=== PATIENT | female | born 1960 | race Caucasian/White ===

== ENCOUNTER 2019-06-28 06:52 | Day surgery (SDC) | payer OTHER ==
--- NOTE | 2019-06-27 12:23 | HP ---
CHIEF COMPLAINT: PCP: Dr. Luna Sands [phone] Primary Psychiatrist: Dr. Darryn Montaño HISTORY OF PRESENT ILLNESS: 58 year old F with h/o HLD, bipolar disorder and MDD x 7yrs, multiple suicide attempts, presents for ECT therapy today. Recent Events: Over the summer, pt reports non-compliance with meds which resulted in psychiatric flares: most recent psych admission at [facility] 04/02--04/19/2019, overdosed on abilify/ flexeril/lexapro self injurious behavior by cutting Mar 2019 Admitted to [facility] 05/05/2019 --> Medical records state she was admitted after being found on the [employer] tracks, pt's picture taken by conductor and she was reported by a member of the public who able to identify her. PAST MEDICAL HISTORY: hyperlipidemia HSV II Bipolar disorder borderline personality disorder multiple suicide attempts w/ multiple psych admissions (previously jumped from a bridge, prior overdose attempt) prior Alcohol use disorder PAST SURGICAL HISTORY: s/p lab band surgery right Rotator cuff repair x 3 T and A right breast biopsy Social History: Smoking:denies Alcohol: denies Drugs: denies Allergies: NKA, NKDA FmHX Mother (70s) Lung cancer Father (89) natural causes Sister (44) breast cancer Brother (25) bipolar d/o, by suicide sister alive (58) well Next of Kin (daughter) Sabrina Burrell [phone] HOME MEDICATIONS: Zyrtec 10mg daily Rhinocort 32mcg sprays BID flexeril 10mg tid naproxen 500mg BID motrin 800mg TID PRN Lidoderm patch Protonix 40mg daily Cogentin 1mg TID Abilify 20mg daily aspirin 81mg daily simvastatin 40mg qhs VITALS: Temperature 98.5 F 06/28/19 11:00 Pulse Rate 77 06/28/19 11:00 Respiratory Rate 18 06/28/19 11:00 Blood Pressure 130/70 06/28/19 11:00 O2 Sat by Pulse Oximetry (%) 97 06/28/19 10:45 REVIEW OF SYSTEMS CONSTITUTIONAL: Absent: fever, chills, diaphoresis, generalized weakness, malaise, loss of appetite, weight change HEENT: Absent: rhinorrhea, nasal congestion, throat pain, throat swelling, difficulty swallowing, mouth swelling, ear pain, eye pain, visual changes CARDIOVASCULAR: Absent: chest pain, syncope, palpitations, irregular heart rate, lightheadedness , peripheral edema RESPIRATORY: Absent: cough, shortness of breath, dyspnea with exertion, orthopnea, wheezing, stridor, hemoptysis GASTROINTESTINAL: Absent: abdominal pain, abdominal distension, nausea, vomiting, diarrhea, constipation, melena, hematochezia GENITOURINARY: Absent: dysuria, frequency, urgency, hesitancy, hematuria, flank pain, genital pain MUSCULOSKELETAL: Absent: myalgia, arthralgia, joint swelling, back pain, neck pain, b/l shoulder pain SKIN: Absent: rash, itching, pallor HEMATOLOGIC/IMMUNOLOGIC: Absent: easy bleeding, easy bruising, lymphadenopathy, frequent infections ENDOCRINE: Absent: unexplained weight gain, unexplained weight loss, heat intolerance, cold intolerance NEUROLOGIC: Absent: headache, focal weakness or paresthesias, dizziness, unsteady gait, seizure, mental status changes, bladder or bowel incontinence PHYSICAL EXAMINATION GENERAL: Awake, alert, and fully oriented, in no acute distress. HEAD: Normal with no signs of trauma. EYES: Pupils equal, round and reactive to light, sclera anicteric, conjunctiva clear. LUNGS: Breath sounds equal, clear to auscultation bilaterally. No wheezes, and no crackles. No accessory muscle use. HEART: Regular rate and rhythm, normal S1 and S2 ABDOMEN: Soft, non-tender, non-distended, +BS MUSCULOSKELETAL: Normal range of motion at all joints. No bony deformities or tenderness. No CVA tenderness. normal muscle strength. UPPER EXTREMITIES: 2+ pulses, warm, well-perfused. No cyanosis. No clubbing. No peripheral edema. LOWER EXTREMITIES: 2+ pulses, warm, well-perfused. No calf tenderness. No peripheral edema. NEUROLOGICAL: Cranial nerves II-XII intact. Normal speech. EK05/09/2019: (my read) SB 58bpm, PRWP, low voltage, no acute changes. LUIS 142ms, QRS 84ms, QT /QTc 422/414ms. Labs: routine labs including lithium done at outside facility 06/20 WNL. Lipid panel done 05/2019 with elevated lipid levels. ASSESSMENT/PLAN: 58 year old F with MDD and bipolar present for ECT after commencing therapy three times weekly while hospitalized at [place] for psyshiatric instability. Patient is now compliant with medication regimen and her mental health had improved. She is medically stable to undergo ECT today. Cardiac --+ Hyperlipidemia, moderate obesity. no prior cardiac events Pulmonary --no pulmonary history Neurological --no neurological or neurosurgical history; no history of trauma Anesthesia --no reported problems with anesthesia ECT is a low risk procedure. The relative benefits of the planned procedure outweigh the relative risks for this patient at this time. Problem List - Problem (1) MDD (major depressive disorder) Code(s): F32.9 - MAJOR DEPRESSIVE DISORDER, SINGLE EPISODE, UNSPECIFIED (2) Hyperlipidemia Code(s): E78.5 - HYPERLIPIDEMIA, UNSPECIFIED (3) Bipolar disorder with depression Code(s): F31.9 - BIPOLAR DISORDER, UNSPECIFIED Visit type - Emergency Visit Emergency Visit: Yes Care time: The patient presented to the Emergency Department on the above date and was hospitalized for further evaluation of their emergent condition. - New Patient This patient is new to me today: Yes Date on this admission: 06/28/19 - Critical Care Critical Care patient: No
[2019-06-28 07:44] VITALS: BMI 31.6
[2019-06-28] MEDS ORDERED: KETAMINE HCL 500 MG/10 ML VIAL ONE (09:26)
[2019-06-28 10:52] VITALS: BP 130/70; PULSE 77; TEMP 98.5
== END 2019-06-28 11:00 | disposition home or self-care (01) ==
LOC: FECT 06:52
PROVIDERS: ATTEND Psychiatry & Neurology Psychiatry
PROC: GZB4ZZZ Other Electroconvulsive Therapy (ICD-10-PCS; principal; 2019-06-28 08:15)
DX: F33.2 Major depressive disorder, recurrent severe without psychotic features (principal)
CPT/HCPCS: 90870; 94760

== ENCOUNTER 2019-07-07 05:51 | Day surgery (SDC) | payer OTHER ==
[2019-07-01 13:09] VITALS: BMI 31.6
[2019-07-07 07:28] VITALS: TEMP 98.3
[2019-07-07] MEDS ORDERED: KETAMINE HCL 500 MG/10 ML VIAL ONE (08:51)
[2019-07-07] MEDS ORDERED: ACETAMINOPHEN 325 MG TABLET (FP) PO PRN (10:14)
[2019-07-07] MEDS ORDERED: ONDANSETRON 4 MG/2 ML VIAL IVPUSH PRN (10:14)
[2019-07-07 10:39] VITALS: BP 121/79; PULSE 60
== END 2019-07-07 10:50 | disposition home or self-care (01) ==
LOC: FECT 05:51
PROVIDERS: ATTEND Psychiatry & Neurology Psychiatry
PROC: GZB4ZZZ Other Electroconvulsive Therapy (ICD-10-PCS; principal; 2019-07-07 08:15)
DX: F33.2 Major depressive disorder, recurrent severe without psychotic features (principal)
CPT/HCPCS: 90870; 94760

== ENCOUNTER 2019-07-14 05:56 | Day surgery (SDC) | payer OTHER ==
[2019-07-07 17:56] VITALS: BMI 25.7
[2019-07-14] MEDS ORDERED: KETAMINE HCL 500 MG/10 ML VIAL ONE (07:40)
[2019-07-14 08:44] VITALS: TEMP 98.8
[2019-07-14 10:25] VITALS: BP 126/74; PULSE 61
== END 2019-07-14 10:27 | disposition home or self-care (01) ==
LOC: FECT 05:56
PROVIDERS: ATTEND Psychiatry & Neurology Psychiatry
PROC: GZB4ZZZ Other Electroconvulsive Therapy (ICD-10-PCS; principal; 2019-07-14 08:00)
DX: F32.9 Major depressive disorder, single episode, unspecified (principal)
CPT/HCPCS: 90870; 94760

== ENCOUNTER 2019-07-20 05:45 | Day surgery (SDC) | payer OTHER ==
[2019-07-20 06:19] VITALS: TEMP 98; BMI 25.7
[2019-07-20] MEDS ORDERED: KETAMINE HCL 500 MG/10 ML VIAL ONE (07:01)
[2019-07-20 08:39] VITALS: BP 109/72; PULSE 60
== END 2019-07-20 09:10 | disposition home or self-care (01) ==
LOC: FECT 05:45
PROVIDERS: ATTEND Psychiatry & Neurology Psychiatry
PROC: GZB4ZZZ Other Electroconvulsive Therapy (ICD-10-PCS; principal; 2019-07-20 07:15)
DX: F32.9 Major depressive disorder, single episode, unspecified (principal)
CPT/HCPCS: 90870; 94760

== ENCOUNTER 2019-07-27 05:49 | Day surgery (SDC) | payer OTHER ==
[2019-07-27 07:48] VITALS: TEMP 98.1; BMI 31.6
[2019-07-27] MEDS ORDERED: KETAMINE HCL 500 MG/10 ML VIAL ONE (08:33)
[2019-07-27 10:01] VITALS: BP 110/71; PULSE 65
== END 2019-07-27 10:00 | disposition home or self-care (01) ==
LOC: FECT 05:49
PROVIDERS: ATTEND Psychiatry & Neurology Psychiatry
PROC: GZB4ZZZ Other Electroconvulsive Therapy (ICD-10-PCS; principal; 2019-07-27 07:15)
DX: F33.2 Major depressive disorder, recurrent severe without psychotic features (principal)
CPT/HCPCS: 90870; 94760

== ENCOUNTER 2019-07-28 03:27 | Emergency (ER) | payer OTHER ==
[2019-07-28 03:37] VITALS: BP 113/60; PULSE 69; TEMP 98.1; BMI 32.4
[2019-07-28] MEDS ORDERED: SODIUM CHLORIDE 1,000 ML IV ONE (03:51)
--- NOTE | 2019-07-28 03:56 | PDOC ---
History of Present Illness - General Chief Complaint: Diarrhea Stated Complaint: DIARRHEA Time Seen by Provider: 07/28/19 03:50 History Source: Patient Exam Limitations: No Limitations - History of Present Illness Initial Comments: 07/28/19 03:55 This is a 58-year-old female who comes in complaining of multiple episodes of profuse watery diarrhea. Patient denies any blood in the diarrhea. Patient denies any travel. Patient denies any associated symptoms of nausea vomiting or abdominal pain. Patient is other ryder healthy. Patient does have a history of bipolar for which she gets ECT therapy and patient had ECT therapy yesterday and the diarrhea started approximately 11:00 yesterday morning. Allergies: as per nursing notes Past Medical History: none Social history: Lives with family. No smoking. No alcohol. No illicit drugs. Surgical history: None General: No fevers or chills, no weakness, no weight loss HEENT: No change in vision. No sore throat,. No ear pain CardioVascular: no chest discomfort. No shortness of breath Respiratory:No cough, or wheezing. Gastrointestinal: no nausea, vomiting, + diarrhea or constipation, No rectal bleeding Genitourinary: No dysuria, hematuria, or frequency Musculoskeletal: No joint or muscle pain or swelling Neurologic: No headache, vertigo, dizziness or loss of consciousness Psychiatric: nor depression Skin: No rashes or easy bruising Endocrine: no increased thirst or abnormal weight change Allergic: no skin or latex allergy All other systems reviewed and normal Exam: General: Well-nourished well-developed individual, no acute distress HEENT: Throat: Normal, tonsils normal, no erythema or exudate Neck: Supple, no meningeal signs, no lymphadenopathy Eyes::Pupils equal reactive and round, extraocular motion intact Chest: Nontender to palpation Cardiac: S1-S2 normal, regular rate and rhythm, no murmurs rubs or gallops Respiratory: Lungs clear to auscultation bilateral Abdomen: Soft, nondistended, normal bowel sounds, there is no tenderness on palpation diffusely Extremities: Warm, dry, no cyanosis, clubbing, or edema Skin: No rashes Neuro: Alert and oriented x3, CN II - XII intact, nonfocal exam with normal strength, normal sensation, normal reflexes, normal gait, Psych: Normal mood and affect Past History - Past Medical History Allergies/Adverse Reactions: Allergies Allergy/AdvReac Type Severity Reaction Status Date / Time No Known Allergies Allergy Verified 07/01/19 13:04 Home Medications: Ambulatory Orders Aripiprazole [Abilify] 20 mg PO DAILY 06/28/19 Atorvastatin Ca [Lipitor] 40 mg PO DAILY 06/28/19 Escitalopram Oxalate [Lexapro -] 20 mg PO DAILY 06/28/19 [place] Carbonate [Eskalith -] 600 mg PO BID 06/28/19 Cancer: No Cardiac Disorders: No COPD: No Diabetes: No HTN: Yes (HYPO) Hypercholesterolemia: Yes Seizures: No Thyroid Disease: No - Psycho Social/Smoking Cessation Hx Smoking History: Unknown if ever smoked Have you smoked in the past 12 months: No Number of Cigarettes Smoked Daily: 0 Information on smoking cessation initiated: No Hx Alcohol Use: No Drug/Substance Use Hx: No Substance Use Type: Alcohol Hx Substance Use Treatment: No *Physical Exam - Vital Signs Last Vital Signs Temp Pulse Resp BP Pulse Ox 98.1 F 69 14 113/60 97 07/28/19 03:28 07/28/19 03:28 07/28/19 03:28 07/28/19 03:28 07/28/19 03:28 Discharge - Discharge Information Problems reviewed: Yes Clinical Impression/Diagnosis: Diarrhea Condition: Good Disposition: HOME - Admission No - Follow up/Referral - Patient Discharge Instructions Additional Instructions: Purchase some Imodium and take as directed on the bottle. Return to the emergency department immediately with ANY new, persistent or worsening symptoms. Continue any medications as previously prescribed by your physician. You should follow up with your primary doctor as soon as possible regarding today's emergency department visit. . Please make sure your doctor reviews the results of your emergency evaluation. Thank you for coming to the Emergency Department today for your care. It was a pleasure to see you today. Please note that your evaluation is INCOMPLETE until you follow-up with your doctor. - Post Discharge Activity
[2019-07-28] MEDS ORDERED: LOPERAMIDE HCL 2 MG CAPSULE PO ONE (03:58)
[2019-07-28] MEDS ORDERED: LOPERAMIDE HCL 2 MG CAPSULE ONE (04:14)
[2019-07-28 04:45] LABS: BASO % 0.6 % (0-2.0); EOS % 2.7 % (0-4.5); HEMATOCRIT 39.2 % (32.4-45.2); HEMOGLOBIN 13.1 GM/dL (10.7-15.3); LYMPH % 18.1 % (8-40); MCHC 33.3 g/dl (32.0-36.0); MEAN PLT VOLUME 8.5 fl (7.5-11.1); MONO % 4.3 % (3.8-10.2); NEUT % 74.3 % (42.8-82.8); PLATELET COUNT 238 K/MM3 (134-434); RBC 4.36 M/mm3 (3.60-5.2); RDW 13.6 % (11.6-15.6); WHITE BLOOD COUNT 13.6 K/mm3 (4.0-10.0)
[2019-07-28 05:10] LABS: ALBUMIN 3.8 g/dl (3.4-5.0); BILIRUBIN,TOTAL 0.2 mg/dL (0.2-1); BLOOD UREA NITROGEN 15.2 mg/dL (7-18); CALCIUM 9.1 mg/dL (8.5-10.1); CREATININE 0.8 mg/dL (0.55-1.3); POTASSIUM 4.2 mmol/L (3.5-5.1); TOT PROT 6.5 g/dl (6.4-8.2)
== END 2019-07-28 05:20 | disposition home or self-care (01) ==
LOC: FER 03:27
DX: R19.7 Diarrhea, unspecified (principal); E03.9 Hypothyroidism, unspecified; E78.00 Pure hypercholesterolemia, unspecified
CPT/HCPCS: 36415; 80053; 85025; 99282-25; J7030

== ENCOUNTER 2019-08-04 05:45 | Day surgery (SDC) | payer OTHER ==
[2019-08-04 06:52] VITALS: BMI 29.7
--- NOTE | 2019-08-04 07:18 | HP ---
CHIEF COMPLAINT: Major depressive disorder PCP: Dr. Luna Sands [phone] Primary Psychiatrist: Dr. Darryn Montaño HISTORY OF PRESENT ILLNESS: 58 year-old female with a PMH significant for major depressive disorder and bipolar disorder with h/o multiple suicide attempts, presents for ECT therapy today. Recent Events: * Psych admission [facility] 04/02--04/19/2019, overdosed on abilify/flexeril/lexapro * Psych admission [place] 05/05/2019 --> found on the [employer] PAST MEDICAL HISTORY: hyperlipidemia HSV II Bipolar disorder borderline personality disorder multiple suicide attempts w/ multiple psych admissions (previously jumped from a bridge, prior overdose attempt) prior Alcohol use disorder PAST SURGICAL HISTORY: s/p lab band surgery right Rotator cuff repair x 3 T and A right breast biopsy Rotator cuff injury Social History: Smoking:denies Alcohol: denies Drugs: denies Allergies: NKA, NKDA FmHX Mother (70s) Lung cancer Father (89) natural causes Sister (44) breast cancer Brother (25) bipolar d/o, by suicide sister alive (58) well Next of Kin (daughter) Sabrina Burrell [phone] HOME MEDICATIONS: Zyrtec 10mg daily Rhinocort 32mcg sprays BID flexeril 10mg tid naproxen 500mg BID motrin 800mg TID PRN Lidoderm patch Protonix 40mg daily Cogentin 1mg TID Abilify 20mg daily aspirin 81mg daily simvastatin 40mg qhs VITALS: Temperature 98.5 F 06/28/19 11:00 Pulse Rate 77 06/28/19 11:00 Respiratory Rate 18 06/28/19 11:00 Blood Pressure 130/70 06/28/19 11:00 O2 Sat by Pulse Oximetry (%) 97 06/28/19 10:45 REVIEW OF SYSTEMS CONSTITUTIONAL: Absent: fever, chills, diaphoresis, generalized weakness, malaise, loss of appetite, weight change HEENT: Absent: rhinorrhea, nasal congestion, throat pain, throat swelling, difficulty swallowing, mouth swelling, ear pain, eye pain, visual changes CARDIOVASCULAR: Absent: chest pain, syncope, palpitations, irregular heart rate, lightheadedness , peripheral edema RESPIRATORY: Absent: cough, shortness of breath, dyspnea with exertion, orthopnea, wheezing, stridor, hemoptysis GASTROINTESTINAL: Absent: abdominal pain, abdominal distension, nausea, vomiting, diarrhea, constipation, melena, hematochezia GENITOURINARY: Absent: dysuria, frequency, urgency, hesitancy, hematuria, flank pain, genital pain MUSCULOSKELETAL: Absent: myalgia, arthralgia, joint swelling, back pain, neck pain SKIN: Absent: rash, itching, pallor HEMATOLOGIC/IMMUNOLOGIC: Absent: easy bleeding, easy bruising, lymphadenopathy, frequent infections ENDOCRINE: Absent: unexplained weight gain, unexplained weight loss, heat intolerance, cold intolerance NEUROLOGIC: Absent: headache, focal weakness or paresthesias, dizziness, unsteady gait, seizure, mental status changes, bladder or bowel incontinence PHYSICAL EXAMINATION Vital Signs Period Temp Pulse Resp BP Sys/Hernández Pulse Ox Last 24 Hr 98.4 F 69 18 111/66 96 GENERAL: Awake, alert, and fully oriented, in no acute distress. HEAD: Normal with no signs of trauma. EYES: Pupils equal, round and reactive to light, sclera anicteric, conjunctiva clear. LUNGS: Breath sounds equal, clear to auscultation bilaterally. No wheezes, and no crackles. No accessory muscle use. HEART: Regular rate and rhythm, normal S1 and S2 ABDOMEN: Soft, non-tender, non-distended, +BS MUSCULOSKELETAL: Normal range of motion at all joints. No bony deformities or tenderness. No CVA tenderness. normal muscle strength. UPPER EXTREMITIES: 2+ pulses, warm, well-perfused. No cyanosis. No clubbing. No peripheral edema. LOWER EXTREMITIES: 2+ pulses, warm, well-perfused. No calf tenderness. No peripheral edema. NEUROLOGICAL: Cranial nerves II-XII intact. Normal speech. ASSESSMENT/PLAN: 58 year-old female with a PMH significant for major depressive disorder and bipolar disorder with h/o multiple suicide attempts, presents for ECT therapy today. Cardiac --no cardiac history --Revised Cardiac Risk Index for Pre-Operative Risk: 0 points, 0.4% risk of major cardiac event Pulmonary --no pulmonary history Neurological --no neurological or neurosurgical history; no history of trauma Anesthesia --no reported problems with anesthesia ECT is a low risk procedure. The relative benefits of the planned procedure outweigh the relative risks for this patient at this time. Visit type - Emergency Visit Emergency Visit: No - New Patient This patient is new to me today: Yes Date on this admission: 08/04/19 - Critical Care Critical Care patient: No
[2019-08-04] MEDS ORDERED: KETAMINE HCL 500 MG/10 ML VIAL ONE (07:33)
[2019-08-04 08:28] VITALS: TEMP 97.7
[2019-08-04 09:50] VITALS: BP 103/55; PULSE 76
[2019-08-04] MEDS ORDERED: ONDANSETRON 4 MG/2 ML VIAL IVPUSH PRN (11:13)
[2019-08-04] MEDS ORDERED: LACTATED RINGERS SOLUTION 1,000 ML IV SCH (11:15)
== END 2019-08-04 09:52 | disposition home or self-care (01) ==
LOC: FECT 05:45
PROVIDERS: ATTEND Psychiatry & Neurology Psychiatry
PROC: GZB4ZZZ Other Electroconvulsive Therapy (ICD-10-PCS; principal; 2019-08-04 07:30)
DX: F32.9 Major depressive disorder, single episode, unspecified (principal)
CPT/HCPCS: 90870; 94760

== ENCOUNTER 2019-08-09 05:50 | Day surgery (SDC) | payer OTHER ==
[2019-08-09 06:22] VITALS: TEMP 98.5; BMI 29.7
[2019-08-09] MEDS ORDERED: KETAMINE HCL 500 MG/10 ML VIAL ONE (07:00)
[2019-08-09 08:31] VITALS: BP 105/68; PULSE 62
== END 2019-08-09 08:50 | disposition home or self-care (01) ==
LOC: FECT 05:50
PROVIDERS: ATTEND Psychiatry & Neurology Psychiatry
PROC: GZB4ZZZ Other Electroconvulsive Therapy (ICD-10-PCS; principal; 2019-08-09 08:15)
DX: F32.9 Major depressive disorder, single episode, unspecified (principal)
CPT/HCPCS: 90870; 94760

== ENCOUNTER 2019-08-16 07:55 | Day surgery (SDC) | payer OTHER ==
[~2019-08-16 07:55] MED LIST: LACTATED RINGERS SOLUTION 1,000 ML IV SCH
[2019-08-16 08:10] VITALS: BMI 29.6
[2019-08-16] MEDS ORDERED: KETAMINE HCL 500 MG/10 ML VIAL ONE (08:29)
[2019-08-16 10:15] VITALS: TEMP 98.1
[2019-08-16 11:00] VITALS: BP 114/76; PULSE 76
== END 2019-08-16 11:01 | disposition home or self-care (01) ==
LOC: FECT 07:55
PROVIDERS: ATTEND Psychiatry & Neurology Psychiatry
PROC: GZB4ZZZ Other Electroconvulsive Therapy (ICD-10-PCS; principal; 2019-08-16 07:45)
DX: F33.2 Major depressive disorder, recurrent severe without psychotic features (principal)
CPT/HCPCS: 90870; 94760

== ENCOUNTER 2019-08-22 05:47 | Day surgery (SDC) | payer OTHER ==
[2019-08-22] MEDS ORDERED: LACTATED RINGERS SOLUTION 1,000 ML IV SCH (07:00)
[2019-08-22 07:59] VITALS: BMI 31.6
[2019-08-22] MEDS ORDERED: KETAMINE HCL 500 MG/10 ML VIAL ONE (09:13)
[2019-08-22 10:33] VITALS: PULSE 72; TEMP 98
[2019-08-22 11:12] VITALS: BP 124/60
== END 2019-08-22 11:45 | disposition home or self-care (01) ==
LOC: FECT 05:47
PROVIDERS: ATTEND Psychiatry & Neurology Psychiatry
PROC: GZB4ZZZ Other Electroconvulsive Therapy (ICD-10-PCS; principal; 2019-08-22 08:30)
DX: F33.2 Major depressive disorder, recurrent severe without psychotic features (principal)
CPT/HCPCS: 90870; 94760

== ENCOUNTER 2019-08-29 05:51 | Day surgery (SDC) | payer OTHER ==
[2019-08-29 06:49] VITALS: TEMP 98.7; BMI 31.6
[2019-08-29] MEDS ORDERED: KETAMINE HCL 500 MG/10 ML VIAL ONE (07:30)
[2019-08-29 09:25] VITALS: BP 118/60; PULSE 66
== END 2019-08-29 09:25 | disposition home or self-care (01) ==
LOC: FECT 05:51
PROVIDERS: ATTEND Psychiatry & Neurology Psychiatry
PROC: GZB4ZZZ Other Electroconvulsive Therapy (ICD-10-PCS; principal; 2019-08-29 07:15)
DX: F33.2 Major depressive disorder, recurrent severe without psychotic features (principal)
CPT/HCPCS: 90870; 94760

== ENCOUNTER 2019-09-06 05:41 | Day surgery (SDC) | payer OTHER ==
[2019-09-06 06:59] VITALS: TEMP 98.5; BMI 31.6
[2019-09-06] MEDS ORDERED: KETAMINE HCL 500 MG/10 ML VIAL ONE (07:41)
--- NOTE | 2019-09-06 07:55 | HP ---
CHIEF COMPLAINT: Major depressive disorder PCP: Dr. Luna Sands [phone] Primary Psychiatrist: Dr. Darryn Montaño, [facility], [place] Next of Kin (daughter) Sabrina Burrell [phone] HISTORY OF PRESENT ILLNESS: 58 year-old female with a PMH significant for major depressive disorder and bipolar disorder with h/o multiple suicide attempts, presents for ECT therapy today. Recent Events: * Psych admission [facility] 04/02--04/19/2019, overdosed on abilify/flexeril/lexapro * Psych admission [place] 05/05/2019 --> found on the [employer] tracks * Going to for right rotator cuff injury PAST MEDICAL HISTORY: hyperlipidemia HSV II Bipolar disorder borderline personality disorder multiple suicide attempts w/ multiple psych admissions (previously jumped from a bridge, prior overdose attempt) prior Alcohol use disorder PAST SURGICAL HISTORY: s/p lab band surgery right Rotator cuff repair x 3 T and A right breast biopsy Rotator cuff injury Social History: Smoking:denies Alcohol: denies Drugs: denies Allergies: NKA, NKDA FmHX Mother (70s) Lung cancer Father (89) natural causes Sister (44) breast cancer Brother (25) bipolar d/o, by suicide sister alive (58) well Allergies No Known Allergies Allergy (Verified 08/22/19 07:52) HOME MEDICATIONS: Home Medications Medication Instructions Recorded Aripiprazole [Abilify] 20 mg PO DAILY 06/28/19 Atorvastatin Ca [Lipitor] 40 mg PO DAILY 06/28/19 Escitalopram Oxalate [Lexapro -] 20 mg PO DAILY 06/28/19 [place] Carbonate [Eskalith -] 600 mg PO BID 06/28/19 REVIEW OF SYSTEMS CONSTITUTIONAL: Absent: fever, chills, diaphoresis, generalized weakness, malaise, loss of appetite, weight change HEENT: Absent: rhinorrhea, nasal congestion, throat pain, throat swelling, difficulty swallowing, mouth swelling, ear pain, eye pain, visual changes CARDIOVASCULAR: Absent: chest pain, syncope, palpitations, irregular heart rate, lightheadedness , peripheral edema RESPIRATORY: Absent: cough, shortness of breath, dyspnea with exertion, orthopnea, wheezing, stridor, hemoptysis GASTROINTESTINAL: Absent: abdominal pain, abdominal distension, nausea, vomiting, diarrhea, constipation, melena, hematochezia GENITOURINARY: Absent: dysuria, frequency, urgency, hesitancy, hematuria, flank pain, genital pain MUSCULOSKELETAL: Absent: myalgia, arthralgia, joint swelling, back pain, neck pain SKIN: Absent: rash, itching, pallor HEMATOLOGIC/IMMUNOLOGIC: Absent: easy bleeding, easy bruising, lymphadenopathy, frequent infections ENDOCRINE: Absent: unexplained weight gain, unexplained weight loss, heat intolerance, cold intolerance NEUROLOGIC: Absent: headache, focal weakness or paresthesias, dizziness, unsteady gait, seizure, mental status changes, bladder or bowel incontinence PHYSICAL EXAMINATION Vital Signs - 24 hr 09/06/19 06:55 Temperature 98.5 F Pulse Rate 60 Respiratory 18 Rate Blood Pressure 110/71 O2 Sat by Pulse 98 Oximetry (%) GENERAL: Awake, alert, and fully oriented, in no acute distress. HEAD: Normal with no signs of trauma. EYES: Pupils equal, round and reactive to light, sclera anicteric, conjunctiva clear. LUNGS: Breath sounds equal, clear to auscultation bilaterally. No wheezes, and no crackles. No accessory muscle use. HEART: Regular rate and rhythm, normal S1 and S2 ABDOMEN: Soft, nontender, not distended MUSCULOSKELETAL: Normal range of motion at all joints. No bony deformities or tenderness. No CVA tenderness. UPPER EXTREMITIES: 2+ pulses, warm, well-perfused. No cyanosis. No clubbing. No peripheral edema. LOWER EXTREMITIES: 2+ pulses, warm, well-perfused. No calf tenderness. No peripheral edema. NEUROLOGICAL: Cranial nerves II-XII intact. Normal speech. ASSESSMENT/PLAN: 58 year-old female with a PMH significant for major depressive disorder and bipolar disorder with h/o multiple suicide attempts, presents for ECT therapy today. Cardiac --no cardiac history --Revised Cardiac Risk Index for Pre-Operative Risk: 0 points, 0.4% risk of major cardiac event Pulmonary --no pulmonary history Neurological --no neurological or neurosurgical history; no history of trauma Anesthesia --no reported problems with anesthesia ECT is a low risk procedure. The relative benefits of the planned procedure outweigh the relative risks for this patient at this time. Visit type - Emergency Visit Emergency Visit: No - New Patient This patient is new to me today: Yes Date on this admission: 09/06/19 - Critical Care Critical Care patient: No
[2019-09-06 09:32] VITALS: BP 117/67; PULSE 61
== END 2019-09-06 09:50 | disposition home or self-care (01) ==
LOC: FECT 05:41
PROVIDERS: ATTEND Psychiatry & Neurology Psychiatry
PROC: GZB4ZZZ Other Electroconvulsive Therapy (ICD-10-PCS; principal; 2019-09-06 07:15)
DX: F32.9 Major depressive disorder, single episode, unspecified (principal)
CPT/HCPCS: 90870; 94760

== ENCOUNTER 2019-09-16 05:43 | Day surgery (SDC) | payer OTHER ==
[2019-09-12 12:45] VITALS: BMI 31.6
[2019-09-16] MEDS ORDERED: KETAMINE HCL 500 MG/10 ML VIAL ONE (07:08)
[2019-09-16 08:50] VITALS: TEMP 98.1
[2019-09-16] MEDS ORDERED: ONDANSETRON 4 MG/2 ML VIAL IVPUSH PRN (10:36)
[2019-09-16 10:39] VITALS: BP 120/60; PULSE 60
[2019-09-16] MEDS ORDERED: LACTATED RINGERS SOLUTION 1,000 ML IV SCH (10:45)
== END 2019-09-16 09:45 | disposition home or self-care (01) ==
LOC: FECT 05:43
PROVIDERS: ATTEND Psychiatry & Neurology Psychiatry
PROC: GZB4ZZZ Other Electroconvulsive Therapy (ICD-10-PCS; principal; 2019-09-16 07:15)
DX: F32.9 Major depressive disorder, single episode, unspecified (principal)
CPT/HCPCS: 90870; 94760

== ENCOUNTER 2019-09-30 05:46 | Day surgery (SDC) | payer OTHER ==
[2019-09-30 06:56] VITALS: BMI 31.6
[2019-09-30] MEDS ORDERED: KETAMINE HCL 500 MG/10 ML VIAL ONE (07:31)
[2019-09-30 08:34] VITALS: TEMP 97.8
[2019-09-30] MEDS ORDERED: ONDANSETRON 4 MG/2 ML VIAL IVPUSH PRN (09:38)
[2019-09-30] MEDS ORDERED: LACTATED RINGERS SOLUTION 1,000 ML IV SCH (09:45)
[2019-10-03 11:04] VITALS: BP 121/68; PULSE 62
== END 2019-09-30 09:25 | disposition home or self-care (01) ==
LOC: FECT 05:46
PROVIDERS: ATTEND Psychiatry & Neurology Psychiatry
PROC: GZB4ZZZ Other Electroconvulsive Therapy (ICD-10-PCS; principal; 2019-09-30 07:15)
DX: F32.9 Major depressive disorder, single episode, unspecified (principal)
CPT/HCPCS: 90870; 94760

== ENCOUNTER 2019-10-07 05:57 | Day surgery (SDC) | payer OTHER ==
[2019-10-07 07:47] VITALS: TEMP 97.4; BMI 31.6
[2019-10-07] MEDS ORDERED: KETAMINE HCL 500 MG/10 ML VIAL ONE (08:25)
[2019-10-07 10:09] VITALS: BP 116/72; PULSE 67
--- NOTE | 2019-10-07 10:31 | HP ---
CHIEF COMPLAINT: Major depressive disorder PCP: Dr. Luna Sands [phone] Primary Psychiatrist: Dr. Darryn Montaño, [facility], [place] Next of Kin (daughter) Sabrina Burrell [phone] HISTORY OF PRESENT ILLNESS: 58 year-old female with a PMH significant for major depressive disorder and bipolar disorder with h/o multiple suicide attempts, presents for ECT therapy today. Recent Events: * Psych admission [facility] 04/02--04/19/2019, overdosed on abilify/flexeril/lexapro * Psych admission [place] 05/05/2019 --> found on the [employer] tracks PAST MEDICAL HISTORY: Hyperlipidemia HSV II Bipolar disorder Borderline personality disorder Multiple suicide attempts w/ multiple psych admissions (previously jumped from a bridge, prior overdose attempt) Alcohol use disorder PAST SURGICAL HISTORY: s/p lab band surgery right Rotator cuff repair x 3 T and A right breast biopsy Rotator cuff injury Social History: Smoking:denies Alcohol: denies Drugs: denies FmHX Mother (70s) Lung cancer Father (89) natural causes Sister (44) breast cancer Brother (25) bipolar d/o, by suicide sister alive (58) well Allergies No Known Allergies Allergy (Verified 09/30/19 06:45) HOME MEDICATIONS: Home Medications Medication Instructions Recorded Aripiprazole [Abilify] 20 mg PO DAILY 06/28/19 Atorvastatin Ca [Lipitor] 40 mg PO DAILY 06/28/19 Escitalopram Oxalate [Lexapro -] 20 mg PO DAILY 06/28/19 [place] Carbonate [Eskalith -] 600 mg PO HS 06/28/19 Quetiapine Fumarate [Seroquel -] 50 mg PO HS PRN 10/07/19 REVIEW OF SYSTEMS CONSTITUTIONAL: Absent: fever, chills, diaphoresis, generalized weakness, malaise, loss of appetite, weight change HEENT: Absent: rhinorrhea, nasal congestion, throat pain, throat swelling, difficulty swallowing, mouth swelling, ear pain, eye pain, visual changes CARDIOVASCULAR: Absent: chest pain, syncope, palpitations, irregular heart rate, lightheadedness , peripheral edema RESPIRATORY: Absent: cough, shortness of breath, dyspnea with exertion, orthopnea, wheezing, stridor, hemoptysis GASTROINTESTINAL: Absent: abdominal pain, abdominal distension, nausea, vomiting, diarrhea, constipation, melena, hematochezia GENITOURINARY: Absent: dysuria, frequency, urgency, hesitancy, hematuria, flank pain, genital pain MUSCULOSKELETAL: Absent: myalgia, arthralgia, joint swelling, back pain, neck pain SKIN: Absent: rash, itching, pallor HEMATOLOGIC/IMMUNOLOGIC: Absent: easy bleeding, easy bruising, lymphadenopathy, frequent infections ENDOCRINE: Absent: unexplained weight gain, unexplained weight loss, heat intolerance, cold intolerance NEUROLOGIC: Absent: headache, focal weakness or paresthesias, dizziness, unsteady gait, seizure, mental status changes, bladder or bowel incontinence PHYSICAL EXAMINATION Vital Signs - 24 hr 10/07/19 10/07/19 10/07/19 07:45 09:02 09:07 Temperature 97.4 F L Pulse Rate 67 81 81 Respiratory 18 19 17 Rate Blood Pressure 102/55 L 130/61 123/71 O2 Sat by Pulse 98 97 98 Oximetry (%) 10/07/19 10/07/19 10/07/19 09:12 09:17 09:25 Temperature 98.4 F Pulse Rate 76 75 62 Respiratory 14 16 18 Rate Blood Pressure 120/62 118/66 119/68 O2 Sat by Pulse 98 98 95 Oximetry (%) 10/07/19 10/07/19 09:30 09:55 Temperature 97.4 F L Pulse Rate 75 67 Respiratory 16 18 Rate Blood Pressure 116/52 L 116/72 O2 Sat by Pulse 98 95 Oximetry (%) GENERAL: Awake, alert, and fully oriented, in no acute distress. HEAD: Normal with no signs of trauma. EYES: Pupils equal, round and reactive to light, sclera anicteric, conjunctiva clear. LUNGS: Breath sounds equal, clear to auscultation bilaterally. No wheezes, and no crackles. No accessory muscle use. HEART: Regular rate and rhythm, normal S1 and S2 ABDOMEN: Soft, nontender, not distended MUSCULOSKELETAL: Normal range of motion at all joints. No bony deformities or tenderness. No CVA tenderness. UPPER EXTREMITIES: 2+ pulses, warm, well-perfused. No cyanosis. No clubbing. No peripheral edema. LOWER EXTREMITIES: 2+ pulses, warm, well-perfused. No calf tenderness. No peripheral edema. NEUROLOGICAL: Cranial nerves II-XII intact. Normal speech. ASSESSMENT/PLAN: 58 year-old female with a PMH significant for major depressive disorder and bipolar disorder with h/o multiple suicide attempts, presents for ECT therapy today. Cardiac --no cardiac history --Revised Cardiac Risk Index for Pre-Operative Risk: 0 points, 0.4% risk of major cardiac event Pulmonary --no pulmonary history Neurological --no neurological or neurosurgical history; no history of trauma Anesthesia --no reported problems with anesthesia ECT is a low risk procedure. The relative benefits of the planned procedure outweigh the relative risks for this patient at this time. Visit type - Emergency Visit Emergency Visit: No - New Patient This patient is new to me today: Yes Date on this admission: 10/22/19 - Critical Care Critical Care patient: No
== END 2019-10-07 10:53 | disposition home or self-care (01) ==
LOC: FECT 05:57
PROVIDERS: ATTEND Psychiatry & Neurology Psychiatry
PROC: GZB4ZZZ Other Electroconvulsive Therapy (ICD-10-PCS; principal; 2019-10-07 08:00)
DX: F32.9 Major depressive disorder, single episode, unspecified (principal)
CPT/HCPCS: 90870; 94760

== ENCOUNTER 2019-10-21 05:47 | Day surgery (SDC) | payer OTHER ==
[2019-10-21 07:03] VITALS: TEMP 98.3; BMI 31.6
[2019-10-21] MEDS ORDERED: KETAMINE HCL 500 MG/10 ML VIAL ONE (08:25)
[2019-10-21 09:48] VITALS: BP 120/75; PULSE 77
== END 2019-10-21 10:15 | disposition home or self-care (01) ==
LOC: FECT 05:47
PROVIDERS: ATTEND Psychiatry & Neurology Psychiatry
PROC: GZB4ZZZ Other Electroconvulsive Therapy (ICD-10-PCS; principal; 2019-10-21 08:00)
DX: F33.2 Major depressive disorder, recurrent severe without psychotic features (principal)
CPT/HCPCS: 90870; 94760

== ENCOUNTER 2019-11-03 07:19 | Day surgery (SDC) | payer OTHER ==
[2019-11-03 08:10] VITALS: TEMP 98
[2019-11-03 08:27] VITALS: BMI 31.6
[2019-11-03 09:33] VITALS: BP 120/69; PULSE 77
--- NOTE | 2019-11-05 11:54 | EKG ---
Test Reason : Blood Pressure : / mmHG Vent. Rate : 070 BPM Atrial Rate : 070 BPM P-R Int : 174 ms QRS Dur : 088 ms QT Int : 396 ms P-R-T Axes : 078 081 062 degrees QTc Int : 427 ms NORMAL SINUS RHYTHM NORMAL ECG NO PREVIOUS ECGS AVAILABLE Confirmed by Merrill Clark MD ([id number]) on 11/05/2019 11:54:14 AM Referred By: Jermain Espinosa Confirmed By:Merrill Clark MD
== END 2019-11-03 09:00 | disposition home or self-care (01) ==
LOC: FECT 07:19
PROVIDERS: ATTEND Psychiatry & Neurology Psychiatry
PROC: GZB4ZZZ Other Electroconvulsive Therapy (ICD-10-PCS; principal; 2019-11-03 07:45)
DX: F32.9 Major depressive disorder, single episode, unspecified (principal)
CPT/HCPCS: 90870; 93005; 94760

== ENCOUNTER 2020-04-19 06:18 | Day surgery (SDC) | payer OTHER ==
[2020-04-17 12:39] VITALS: BMI 33.3
--- NOTE | 2020-04-19 08:39 | HP ---
CHIEF COMPLAINT: Major depressive disorder PCP: Dr. Luna Sands [phone] Primary Psychiatrist: Dr. Darryn Montaño, [facility], [facility] Next of Kin (daughter) Sabrina Burrell [phone] HISTORY OF PRESENT ILLNESS: 58 year-old female with a PMH significant for major depressive disorder and bipolar disorder with h/o multiple suicide attempts. Psych admission [facility] 04/02--04/19/2019, overdosed on abilify/flexeril/lexapro. Psych admission [facility] 05/05/2019 after found on the [place]. Presents for ECT therapy today. Recent Events: * started oxybutiin 2 weeks ago for bladder control, tolerating well PAST MEDICAL HISTORY: Hyperlipidemia HSV II Bipolar disorder Borderline personality disorder Multiple suicide attempts w/ multiple psych admissions (previously jumped from a bridge, prior overdose attempt) Alcohol use disorder PAST SURGICAL HISTORY: s/p lab band surgery right Rotator cuff repair x 3 T and A right breast biopsy Rotator cuff injury Social History: Smoking:denies Alcohol: denies Drugs: denies FmHX Mother (70s) Lung cancer Father (89) natural causes Sister (44) breast cancer Brother (25) bipolar d/o, by suicide sister alive (58) well Allergies No Known Allergies Allergy (Verified 04/17/20 12:34) HOME MEDICATIONS: Home Medications Medication Instructions Recorded Aripiprazole [Abilify] 20 mg PO DAILY 06/28/19 Atorvastatin Ca [Lipitor] 40 mg PO HS 06/28/19 Escitalopram Oxalate [Lexapro -] 20 mg PO DAILY 06/28/19 [place] Carbonate [Eskalith -] 600 mg PO HS 06/28/19 Quetiapine Fumarate [Seroquel -] 100 mg PO HS 11/03/19 Oxybutynin Chloride [Oxybutynin 10 mg PO BID 04/17/20 Chloride ER] REVIEW OF SYSTEMS CONSTITUTIONAL: Absent: fever, chills, diaphoresis, generalized weakness, malaise, loss of appetite, weight change HEENT: Absent: rhinorrhea, nasal congestion, throat pain, throat swelling, difficulty swallowing, mouth swelling, ear pain, eye pain, visual changes CARDIOVASCULAR: Absent: chest pain, syncope, palpitations, irregular heart rate, lightheadedness, peripheral edema RESPIRATORY: Absent: cough, shortness of breath, dyspnea with exertion, orthopnea, wheezing, stridor, hemoptysis GASTROINTESTINAL: Absent: abdominal pain, abdominal distension, nausea, vomiting, diarrhea, constipation, melena, hematochezia GENITOURINARY: Absent: dysuria, frequency, urgency, hesitancy, hematuria, flank pain, genital pain MUSCULOSKELETAL: Absent: myalgia, arthralgia, joint swelling, back pain, neck pain SKIN: Absent: rash, itching, pallor HEMATOLOGIC/IMMUNOLOGIC: Absent: easy bleeding, easy bruising, lymphadenopathy, frequent infections ENDOCRINE: Absent: unexplained weight gain, unexplained weight loss, heat intolerance, cold intolerance NEUROLOGIC: Absent: headache, focal weakness or paresthesias, dizziness, unsteady gait, seizure, mental status changes, bladder or bowel incontinence PHYSICAL EXAMINATION Vital Signs - 24 hr 04/19/20 06:47 Temperature 97.8 F Pulse Rate 65 Respiratory 18 Rate Blood Pressure 114/70 O2 Sat by Pulse 94 L Oximetry (%) GENERAL: Awake, alert, and fully oriented, in no acute distress. HEAD: Normal with no signs of trauma. EYES: Pupils equal, round and reactive to light, sclera anicteric, conjunctiva clear. LUNGS: Breath sounds equal, clear to auscultation bilaterally. No wheezes, and no crackles. No accessory muscle use. HEART: Regular rate and rhythm, normal S1 and S2 ABDOMEN: Soft, nontender, not distended MUSCULOSKELETAL: Normal range of motion at all joints. No bony deformities or tenderness. No CVA tenderness. UPPER EXTREMITIES: 2+ pulses, warm, well-perfused. No cyanosis. No clubbing. No peripheral edema. LOWER EXTREMITIES: 2+ pulses, warm, well-perfused. No calf tenderness. No peripheral edema. NEUROLOGICAL: Cranial nerves II-XII intact. Normal speech. ASSESSMENT/PLAN: 58 year-old female with a PMH significant for major depressive disorder and bipolar disorder with h/o multiple suicide attempts, presents for ECT therapy today. Cardiac --no cardiac history --Revised Cardiac Risk Index for Pre-Operative Risk: 0 points, 0.4% risk of major cardiac event Pulmonary --no pulmonary history Neurological --no neurological or neurosurgical history; no history of trauma Anesthesia --no reported problems with anesthesia ECT is a low risk procedure. The relative benefits of the planned procedure outweigh the relative risks for this patient at this time. Visit type - Emergency Visit Emergency Visit: No - New Patient This patient is new to me today: Yes Date on this admission: 04/19/20 - Critical Care Critical Care patient: No
[2020-04-19] MEDS ORDERED: KETAMINE HCL 500 MG/10 ML VIAL ONE (08:53)
[2020-04-19] MEDS ORDERED: ONDANSETRON 4 MG/2 ML VIAL ONE (09:02)
[2020-04-19] MEDS ORDERED: KETOROLAC TROMETHAMINE 30 MG/1 ML VIAL ONE (09:02)
[2020-04-19 11:09] VITALS: TEMP 98
[2020-04-19 13:33] VITALS: BP 129/66; PULSE 64
== END 2020-04-19 13:00 | disposition home or self-care (01) ==
LOC: FECT 06:18
PROVIDERS: ATTEND Psychiatry & Neurology Psychiatry
PROC: GZB4ZZZ Other Electroconvulsive Therapy (ICD-10-PCS; principal; 2020-04-19 09:30)
DX: F32.9 Major depressive disorder, single episode, unspecified (principal)
CPT/HCPCS: 90870; 94760; U0003

== ENCOUNTER → 2020-04-23 | Day surgery (SDC) | payer OTHER ==
[2020-04-19 11:39] VITALS: BMI 33.3
[~2020-04-23] MED LIST changes: +DEXAMETHASONE SOD PHOSPHATE 4 MG/1 ML VIAL ONE; +KETAMINE HCL 500 MG/10 ML VIAL ONE; -LACTATED RINGERS SOLUTION 1,000 ML IV SCH; +ONDANSETRON 4 MG/2 ML VIAL ONE; +PROPOFOL 20 ML ONE; +SUCCINYLCHOLINE CHLORIDE 200 MG/10 ML SYRINGE ONE
[2020-04-23 09:52] VITALS: BP 142/80; PULSE 66; TEMP 98.2
== END | disposition home or self-care (01) ==
LOC: FECT 06:26
PROVIDERS: ATTEND Psychiatry & Neurology Psychiatry
PROC: GZB4ZZZ Other Electroconvulsive Therapy (ICD-10-PCS; principal; 2020-04-23 08:00)
DX: F33.2 Major depressive disorder, recurrent severe without psychotic features (principal)
CPT/HCPCS: 90870; 94760; U0003

== ENCOUNTER 2020-04-26 06:16 | Day surgery (SDC) | payer OTHER ==
[2020-04-23 11:32] VITALS: BMI 33.3
[2020-04-26] MEDS ORDERED: PROPOFOL 20 ML ONE (06:51)
[2020-04-26] MEDS ORDERED: SUCCINYLCHOLINE CHLORIDE 200 MG/10 ML SYRINGE ONE (06:52)
[2020-04-26] MEDS ORDERED: ONDANSETRON 4 MG/2 ML VIAL IVPUSH PRN (07:06)
[2020-04-26] MEDS ORDERED: LACTATED RINGERS SOLUTION 1,000 ML IV SCH (07:15)
[2020-04-26] MEDS ORDERED: KETAMINE HCL 500 MG/10 ML VIAL ONE (07:30)
[2020-04-26] MEDS ORDERED: KETOROLAC TROMETHAMINE 30 MG/1 ML VIAL ONE (07:36)
[2020-04-26] MEDS ORDERED: DEXAMETHASONE SOD PHOSPHATE 4 MG/1 ML VIAL ONE (07:36)
[2020-04-26] MEDS ORDERED: ONDANSETRON 4 MG/2 ML VIAL ONE (07:36)
[2020-04-26 08:42] VITALS: TEMP 98.8
[2020-04-26 09:02] VITALS: BP 135/71; PULSE 65
== END 2020-04-26 09:20 | disposition home or self-care (01) ==
LOC: FECT 06:16
PROVIDERS: ATTEND Psychiatry & Neurology Psychiatry
PROC: GZB4ZZZ Other Electroconvulsive Therapy (ICD-10-PCS; principal; 2020-04-26 07:30)
DX: F32.9 Major depressive disorder, single episode, unspecified (principal)
CPT/HCPCS: 90870; 94760

== ENCOUNTER 2020-04-27 06:58 | Day surgery (SDC) | payer OTHER ==
[2020-04-23 11:38] VITALS: BMI 33.3
[2020-04-27] MEDS ORDERED: KETAMINE HCL 500 MG/10 ML VIAL ONE (08:56)
[2020-04-27] MEDS ORDERED: PROPOFOL 20 ML ONE (08:57)
[2020-04-27 10:38] VITALS: TEMP 98.7
[2020-04-27 11:42] VITALS: BP 131/62; PULSE 70
[2020-04-27] MEDS ORDERED: ONDANSETRON 4 MG/2 ML VIAL IVPUSH PRN (12:52)
[2020-04-27] MEDS ORDERED: LACTATED RINGERS SOLUTION 1,000 ML IV SCH (13:00)
== END 2020-04-27 11:10 | disposition home or self-care (01) ==
LOC: FECT 06:58
PROVIDERS: ATTEND Psychiatry & Neurology Psychiatry
PROC: GZB4ZZZ Other Electroconvulsive Therapy (ICD-10-PCS; principal; 2020-04-27 07:00)
DX: F32.9 Major depressive disorder, single episode, unspecified (principal)
CPT/HCPCS: 90870; 94760; U0003

== ENCOUNTER 2020-04-30 06:34 | Day surgery (SDC) | payer OTHER ==
[2020-04-30 07:49] VITALS: BMI 38.0
[2020-04-30] MEDS ORDERED: KETAMINE HCL 500 MG/10 ML VIAL ONE (08:21)
[2020-04-30] MEDS ORDERED: SUCCINYLCHOLINE CHLORIDE 200 MG/10 ML SYRINGE ONE (08:52)
[2020-04-30] MEDS ORDERED: ONDANSETRON 4 MG/2 ML VIAL ONE (08:52)
[2020-04-30] MEDS ORDERED: PROPOFOL 20 ML ONE (08:52)
[2020-04-30] MEDS ORDERED: DEXAMETHASONE SOD PHOSPHATE 4 MG/1 ML VIAL ONE (08:52)
[2020-04-30] MEDS ORDERED: KETOROLAC TROMETHAMINE 30 MG/1 ML VIAL ONE (08:52)
[2020-04-30 12:45] VITALS: TEMP 98.1
[2020-04-30 12:53] VITALS: BP 135/82; PULSE 90
== END 2020-04-30 10:45 | disposition home or self-care (01) ==
LOC: FECT 06:34
PROVIDERS: ATTEND Psychiatry & Neurology Psychiatry
PROC: GZB4ZZZ Other Electroconvulsive Therapy (ICD-10-PCS; principal; 2020-04-30 10:00)
DX: F33.2 Major depressive disorder, recurrent severe without psychotic features (principal)
CPT/HCPCS: 90870; 94760; U0003

== ENCOUNTER 2020-05-03 06:37 | Day surgery (SDC) | payer OTHER ==
[2020-04-27 13:57] VITALS: BMI 33.3
[2020-05-03] MEDS ORDERED: KETAMINE HCL 500 MG/10 ML VIAL ONE (07:58)
[2020-05-03 10:01] VITALS: TEMP 97.6
[2020-05-03 10:44] VITALS: BP 131/81; PULSE 69
== END 2020-05-03 10:30 | disposition home or self-care (01) ==
LOC: FECT 06:37
PROVIDERS: ATTEND Psychiatry & Neurology Psychiatry
PROC: GZB4ZZZ Other Electroconvulsive Therapy (ICD-10-PCS; principal; 2020-05-03 10:00)
DX: F32.9 Major depressive disorder, single episode, unspecified (principal)
CPT/HCPCS: 90870; 94760

== ENCOUNTER 2020-05-04 09:34 | Day surgery (SDC) | payer OTHER ==
[2020-05-01 08:34] VITALS: BMI 38.0
[2020-05-04] MEDS ORDERED: KETAMINE HCL 500 MG/10 ML VIAL ONE (10:27)
[2020-05-04 12:06] VITALS: TEMP 98.2
[2020-05-04 12:08] VITALS: BP 129/81; PULSE 65
== END 2020-05-04 12:35 | disposition home or self-care (01) ==
LOC: FECT 09:34
PROVIDERS: ATTEND Psychiatry & Neurology Psychiatry
PROC: GZB4ZZZ Other Electroconvulsive Therapy (ICD-10-PCS; principal; 2020-05-04 09:30)
DX: F32.9 Major depressive disorder, single episode, unspecified (principal)
CPT/HCPCS: 90870; 94760; U0003

== ENCOUNTER 2020-05-08 09:19 | Day surgery (SDC) | payer OTHER ==
[2020-05-08 10:10] VITALS: BMI 38.0
[2020-05-08] MEDS ORDERED: KETAMINE HCL 500 MG/10 ML VIAL ONE (12:28)
[2020-05-08] MEDS ORDERED: PROPOFOL 20 ML ONE (12:28)
[2020-05-08 14:38] VITALS: BP 122/68; PULSE 69; TEMP 98
== END 2020-05-08 14:00 | disposition home or self-care (01) ==
LOC: FECT 09:19
PROVIDERS: ATTEND Psychiatry & Neurology Psychiatry
PROC: GZB4ZZZ Other Electroconvulsive Therapy (ICD-10-PCS; principal; 2020-05-08 12:00)
DX: F32.9 Major depressive disorder, single episode, unspecified (principal)
CPT/HCPCS: 90870; 94760; U0003

== ENCOUNTER → 2020-05-10 | Day surgery (SDC) | payer OTHER ==
[2020-05-03 07:19] VITALS: BMI 37.9
[~2020-05-10] MED LIST changes: +KETOROLAC TROMETHAMINE 30 MG/1 ML VIAL ONE
[2020-05-10 11:19] VITALS: BP 139/84; PULSE 84; TEMP 97.9
== END | disposition home or self-care (01) ==
LOC: FECT 06:38
PROVIDERS: ATTEND Psychiatry & Neurology Psychiatry
PROC: GZB4ZZZ Other Electroconvulsive Therapy (ICD-10-PCS; principal; 2020-05-10 11:00)
DX: F32.9 Major depressive disorder, single episode, unspecified (principal)
CPT/HCPCS: 90870; 94760

== ENCOUNTER 2020-05-11 07:13 | Day surgery (SDC) | payer OTHER ==
[2020-05-08 17:19] VITALS: BMI 38.1
[2020-05-11 10:25] VITALS: TEMP 98.5
[2020-05-11 12:47] VITALS: BP 144/85; PULSE 77
== END 2020-05-11 10:30 | disposition home or self-care (01) ==
LOC: FECT 07:13
PROVIDERS: ATTEND Psychiatry & Neurology Psychiatry
PROC: GZB4ZZZ Other Electroconvulsive Therapy (ICD-10-PCS; principal; 2020-05-11 09:00)
DX: F32.9 Major depressive disorder, single episode, unspecified (principal)
CPT/HCPCS: 90870; 94760; U0003

== ENCOUNTER 2020-05-14 06:49 | Day surgery (SDC) | payer OTHER ==
[2020-05-03 07:36] VITALS: BMI 37.9
[2020-05-14] MEDS ORDERED: SUCCINYLCHOLINE CHLORIDE 200 MG/10 ML SYRINGE ONE (08:17)
[2020-05-14] MEDS ORDERED: KETAMINE HCL 500 MG/10 ML VIAL ONE (08:17)
[2020-05-14] MEDS ORDERED: PROPOFOL 20 ML ONE (08:17)
[2020-05-14 09:47] VITALS: TEMP 98.2
[2020-05-14 09:49] VITALS: BP 129/78; PULSE 77
== END 2020-05-14 10:45 | disposition home or self-care (01) ==
LOC: FECT 06:49
PROVIDERS: ATTEND Psychiatry & Neurology Psychiatry
PROC: GZB4ZZZ Other Electroconvulsive Therapy (ICD-10-PCS; principal; 2020-05-14 10:00)
DX: F33.2 Major depressive disorder, recurrent severe without psychotic features (principal)
CPT/HCPCS: 90870; 94760; U0003

== ENCOUNTER 2020-05-17 06:49 | Day surgery (SDC) | payer OTHER ==
[2020-05-08 17:22] VITALS: BMI 38.1
[2020-05-17] MEDS ORDERED: KETAMINE HCL 500 MG/10 ML VIAL ONE (08:40)
[2020-05-17] MEDS ORDERED: ONDANSETRON 4 MG/2 ML VIAL ONE (08:45)
[2020-05-17] MEDS ORDERED: DEXAMETHASONE SOD PHOSPHATE 4 MG/1 ML VIAL ONE (08:45)
[2020-05-17 09:46] VITALS: TEMP 97.9
[2020-05-17 10:13] VITALS: BP 119/84; PULSE 84
--- NOTE | 2020-05-17 15:21 | HP ---
CHIEF COMPLAINT: Major depressive disorder PCP: Dr. Luna Sands [phone] Primary Psychiatrist: Dr. Darryn Montaño, [facility], [place] [facility] Next of Kin (daughter) Sabrina Burrell [phone] HISTORY OF PRESENT ILLNESS: 58 year-old female with a PMH significant for major depressive disorder and bipolar disorder with h/o multiple suicide attempts. Psych admission [facility] 04/02--04/19/2019, overdosed on abilify/flexeril/lexapro. Psych admission [facility] 05/05/2019 after found on the [employer]. Presents for ECT therapy today. Recent Events: * none reported PAST MEDICAL HISTORY: Hyperlipidemia HSV II Bipolar disorder Borderline personality disorder Multiple suicide attempts w/ multiple psych admissions (previously jumped from a bridge, prior overdose attempt) Alcohol use disorder PAST SURGICAL HISTORY: s/p lab band surgery right Rotator cuff repair x 3 T and A right breast biopsy Rotator cuff injury Social History: Smoking:denies Alcohol: denies Drugs: denies FmHX Mother (70s) Lung cancer Father (89) natural causes Sister (44) breast cancer Brother (25) bipolar d/o, by suicide sister alive (58) well Allergies No Known Allergies Allergy (Verified 05/04/20 10:06) HOME MEDICATIONS: Home Medications Medication Instructions Recorded Aripiprazole [Abilify] 20 mg PO DAILY 06/28/19 Atorvastatin Ca [Lipitor] 40 mg PO HS 06/28/19 Escitalopram Oxalate [Lexapro -] 20 mg PO DAILY 06/28/19 [place] Carbonate [Eskalith -] 600 mg PO HS 06/28/19 Quetiapine Fumarate [Seroquel -] 100 mg PO HS 11/03/19 Oxybutynin Chloride [Oxybutynin 10 mg PO BID 04/17/20 Chloride ER] REVIEW OF SYSTEMS CONSTITUTIONAL: Absent: fever, chills, diaphoresis, generalized weakness, malaise, loss of appetite, weight change HEENT: Absent: rhinorrhea, nasal congestion, throat pain, throat swelling, difficulty swallowing, mouth swelling, ear pain, eye pain, visual changes CARDIOVASCULAR: Absent: chest pain, syncope, palpitations, irregular heart rate, lightheadedness, peripheral edema RESPIRATORY: Absent: cough, shortness of breath, dyspnea with exertion, orthopnea, wheezing, stridor, hemoptysis GASTROINTESTINAL: Absent: abdominal pain, abdominal distension, nausea, vomiting, diarrhea, constipation, melena, hematochezia GENITOURINARY: Absent: dysuria, frequency, urgency, hesitancy, hematuria, flank pain, genital pain MUSCULOSKELETAL: Absent: myalgia, arthralgia, joint swelling, back pain, neck pain SKIN: Absent: rash, itching, pallor HEMATOLOGIC/IMMUNOLOGIC: Absent: easy bleeding, easy bruising, lymphadenopathy, frequent infections ENDOCRINE: Absent: unexplained weight gain, unexplained weight loss, heat intolerance, cold intolerance NEUROLOGIC: Absent: headache, focal weakness or paresthesias, dizziness, unsteady gait, seizure, mental status changes, bladder or bowel incontinence PHYSICAL EXAMINATION Vital Signs - 24 hr 05/17/20 05/17/20 05/17/20 07:31 09:00 09:05 Temperature 98.8 F Pulse Rate 69 86 83 Respiratory 18 23 H 12 Rate Blood Pressure 132/72 152/60 143/59 L O2 Sat by Pulse 95 98 97 Oximetry (%) 05/17/20 05/17/20 05/17/20 09:10 09:15 09:20 Temperature Pulse Rate 81 81 84 Respiratory 14 14 16 Rate Blood Pressure 134/59 L 133/58 L 128/82 O2 Sat by Pulse 98 100 96 Oximetry (%) 05/17/20 05/17/20 09:35 10:09 Temperature 97.9 F 97.9 F Pulse Rate 83 84 Respiratory 20 20 Rate Blood Pressure 149/77 119/84 O2 Sat by Pulse 96 98 Oximetry (%) GENERAL: Awake, alert, and fully oriented, in no acute distress. HEAD: Normal with no signs of trauma. EYES: Pupils equal, round and reactive to light, sclera anicteric, conjunctiva clear. LUNGS: Breath sounds equal, clear to auscultation bilaterally. No wheezes, and no crackles. No accessory muscle use. HEART: Regular rate and rhythm, normal S1 and S2 ABDOMEN: Soft, nontender, not distended MUSCULOSKELETAL: Normal range of motion at all joints. No bony deformities or tenderness. No CVA tenderness. UPPER EXTREMITIES: 2+ pulses, warm, well-perfused. No cyanosis. No clubbing. No peripheral edema. LOWER EXTREMITIES: 2+ pulses, warm, well-perfused. No calf tenderness. No peripheral edema. NEUROLOGICAL: Cranial nerves II-XII intact. Normal speech. ASSESSMENT/PLAN: 58 year-old female with a PMH significant for major depressive disorder and bipolar disorder with h/o multiple suicide attempts, presents for ECT therapy today. Cardiac --no cardiac history --Revised Cardiac Risk Index for Pre-Operative Risk: 0 points, 0.4% risk of major cardiac event Pulmonary --no pulmonary history Neurological --no neurological or neurosurgical history; no history of trauma Anesthesia --no reported problems with anesthesia ECT is a low risk procedure. The relative benefits of the planned procedure outweigh the relative risks for this patient at this time. Visit type - Emergency Visit Emergency Visit: No - New Patient This patient is new to me today: Yes Date on this admission: 05/17/20 - Critical Care Critical Care patient: No
== END 2020-05-17 11:55 | disposition home or self-care (01) ==
LOC: FECT 06:49
PROVIDERS: ATTEND Psychiatry & Neurology Psychiatry
PROC: GZB4ZZZ Other Electroconvulsive Therapy (ICD-10-PCS; principal; 2020-05-17 09:30)
DX: F32.9 Major depressive disorder, single episode, unspecified (principal)
CPT/HCPCS: 90870; 94760; U0003

== ENCOUNTER 2020-05-28 06:30 | Day surgery (SDC) | payer OTHER ==
[2020-05-25 11:36] VITALS: BMI 38.2
--- OUTSIDE RECORDS SUMMARY | 2020-05-28 06:35 | XMS ---
:1960 Author Organization [facility] Care Team Providers Name Role Phone ANTONETTE PIEDRA Unavailable Unavailable CAITLIN SERNA Unavailable Unavailable [facility], PMH9 Unavailable Unavailable Denton Valle Unavailable Unavailable BHARGAV Unavailable Unavailable MD JOEL Unavailable Unavailable FERN LEON Unavailable Unavailable MONSE AMADOR Unavailable Unavailable MD Maurice Unavailable Unavailable REBEKAH BRAGA Unavailable Unavailable Re-disclosure Warning The records that you are about to access may contain information from federally- assisted alcohol or drug abuse programs. If such information is present, then the following federally mandated warning applies: This information has been disclosed to you from records protected by federal confidentiality rules (42 CFR part 2). The federal rules prohibit you from making any further disclosure of this information unless further disclosure is expressly permitted by the written consent of the person to whom it pertains or as otherwise permitted by 42 CFR part 2. A general authorization for the release of medical or other information is NOT sufficient for this purpose. The Federal rules restrict any use of the information to criminally investigate or prosecute any alcohol or drug abuse patient.The records that you are about to access may contain highly sensitive health information, the redisclosure of which is protected by Article 27-F of the [facility] Public Health law. If you continue you may haveaccess to information: Regarding HIV / AIDS; Provided by facilities licensed or operated by the [facility] Office of Mental Health; or Provided by the [facility] Office for People With Developmental Disabilities. If such information is present, then the following [facility] mandated warning applies: This information has been disclosed to you from confidential records which are protected by state law. State law prohibits you from making any further disclosure of this information without the specific written consent of the person to whom it pertains, or as otherwise permitted by law. Any unauthorized further disclosure in violation of state law may result in a fine or senior living sentence or both. A general authorization for the release of medical or other information is NOT sufficient authorization for further disclosure. Allergies and Adverse Reactions Type Description Substance Reaction Status Data Source(s ) 3 No Known Drug No Known Drug NEXTGEN ([facility] Drug allergy No Known Allergies No Known [facility] [employer] [facility] [employer] Drug allergy No Known Drug No Known Drug [facility] [address] [employer] Allergies Health Care [facility] Food allergy No Known Food No Known Food [facility] Allergies [facility] Care [facility] Encounters Encounter Providers Location Date Indications Data Source(s ) S Attender: [facility] 04/18/2020 Ashley Richards 12:07:22 PM [facility] - 04/20/2020 02:58:00 PM EDT Patient discharged. Outpatient Attender: [facility] 04/17/2020 05:22:25 PM Ashley Marcos Richards EDT - 04/18/2020 [facility] 11:59:00 PM EDT Patient discharged. Outpatient Attender: PM9 [facility] 12/16/2019 12:44:17 PM GSI ([facility] EDT Collaborative) Patient admitted. Outpatient Attender: Denton [facility] Denton 03:00:00 PM EST ([facility] Outpatient Attender: KAREEM 05/04/2019 Ife[facility] STRINGERdmitter: KAREEM 06:00:00 AM [facility] Care Corporati on Inpatient 04/27/2019 [place] 11:17:00 AM [facility] alth Care Corporati on Inpatient 04/27/2019 [place] 11:17:00 AM [facility] alth Care Corporati on Outpatient Attender: KAREEM 04/18/2019 [place] lawrence MYKEdmitter: YOUCHAH, 06:00:00 AM EDT [facility] Corporati on Inpatient Attender: EDWARD, 04/03/2019 [facility], 05:59[facility] Care Corpora tion 04:59:00 PM EDT BIPOLAR DISORDER Patient admitted. Emergency Attender: MARIA LUZ, 04/03/2019 01:32:00 SUICIDAL [facility] OLGAAttender: EDWARD, PM EDT [facility] Care MITCHELLAdmitter: EDWARD Corporation FERN SUICIDAL Outpatient Attender: CECY MADDEN 03/23/2019 11:22:00 S tatiana [facility]Ad[facility] RUKHSANA AM EDT - 03/24/2019 [facility] 08:51:00 AM EDT Patient discharged. Outpatient Attender: KAREEM 03/18/2019 [facility]00 AM EDT [facility]: MARJORIE, 03/01/2019 [facility] AM EDT - DISORDER [facility] 03/16/2019 Corpora tion 02:14:00 PM EDT BIPOLAR DISORDER Emergency Attender: MARJORIE, 03/01/2019 09:17:00 [facility] JEREMI AMADOR T [facility] EVGA Outpatient Attender: KAREEM 02/11/2019 06:00:00 AM [facility]MCd[facility] INDIGO [facility]: KAREEM 12/27/2018 06:00:00 AM [facility]: INDIGO SER[facility]ender: KAREEM 12/24/2018 06:00:00 AM [facility]MCdmitter: INDIGO SERNA [facility] 11/19/2018 07:19:00 AM Cu reMD ([facility]) Outpatient Attender: DOROTHEA 10/04/2018 06:00:[address] [facility] PIALIAdmitter: ANTONETTE PIEDRA [facility] Medications Medication Brand Start Product Dose Route [facility] Indications Reaction Description Data Name Date Form Instructions Instructions Source(s) Ibuprofen ibupro [id number] active Ibuprof en [facility] 600 MG Oral fen 2019 {tab( Health Tablet 600 mg 10:03: s)} System ibuprofen oral 52 AM 600 mg oral tablet EDT tablet Do not take this drug if you are pregnan t.It is very important that you take or use this exactly as directed. Do not skip d oses or discontinue unless directed by your doctor.May cause drowsiness or dizziness .Obtain medical advice before taking any non-prescription drugs as some may affec t the action of this medication.Take with food or milk. atorvastatin 40 atorvastatin 1 {tab(s)} D77698 active Lipitor [facility] MG Oral Tablet 40 mg oral Health atorvastatin 40 tablet Sy stem mg oral tablet Aspirin aspirin 1 {tab(s)} N69946 active aspirin 81 mg oral delayed release capsule; 1 tab(s) orally once a day Ordered: 20-Apr-2020 [facility] aspirin 81 mg Quantity: 0 Oh My Glasses NsGene 81 mg oral Refills: 0 System oral delayed delayed release release capsule capsule aripiprazole 20 Abilify 20 mg 1 [id number] active Abilify [facility] MG Oral Tablet oral tablet {tab(s)} Health [Abilify] System Abilify 20 mg oral tablet Docusate Sodium DOK (Docusate [facility] 100 MG Oral Sodium) [100 County Capsule DOK mg Capsule]: Health Care (Docusate 100 MG Oral Cor poration Sodium) [100 mg 9-9 Capsule]: 100 MG Oral 9-9 Escitalopram 10 Escitalopram completed [place] MG Oral Tablet [10 mg Cou nty Escitalopram Tablet]: 10 Health Care [10 mg Tablet]: MG Oral Q9AM Corporation 10 MG Oral Q9AM Docusate Sodium DOK (Docusate completed [place] 100 MG Oral Sodium) [100 County Capsule DOK mg Capsule]: Health Care (Docusate 100 MG Oral Cor poration Sodium) [100 mg 9-9 Capsule]: 100 MG Oral 9-9 [place] lithium 300 1 [id number] active Lithiu m [facility] Carbonate 300 mg oral {cap(s)} Carb [facility] MG Oral Capsule capsule S ystem lithium 300 mg oral capsule 24 HR oxybutynin 10 1 G14068 active Oxybut ynin [facility] Oxybutynin mg/24 hr oral {tab(s)} C hloride ER Health chloride 10 MG tablet, Sy stem Extended extended Release Oral release Tablet oxybutynin 10 mg/24 hr oral tablet, extended release pantoprazole 40 pantoprazole 1 [id number] active Pantoprazole [facility] MG Delayed 40 mg oral {tab(s)} Health Release Oral delayed Syst em Tablet release pantoprazole 40 tablet mg oral delayed release tablet Escitalopram 20 escitalopram 1 G49626 active Escitalopram [facility] MG Oral Tablet 20 mg oral {tab(s)} [facility] Health escitalopram 20 tablet Sy stem mg oral tablet aripiprazole 20 Aripiprazole completed [place] MG Oral Tablet [20 mg Cou nty Aripiprazole Tablet]: 20 Health Care [20 mg Tablet]: MG Oral Q10PM Corporation 20 MG Oral Q10PM quetiapine 100 Seroquel completed [place] MG Oral Tablet (Quetiapine) [facility] Seroquel [100 mg Health C are (Quetiapine) Tablet]: 1 C orporation [100 mg Tablet Oral Tablet]: 1 BEDTIME Tablet Oral BEDTIME Rosuvastatin Rosuvastatin completed [place] calcium 10 MG [10 mg Coun ty Oral Tablet Tablet]: 10 [facility] Rosuvastatin MG Oral Q10PM Corporation [10 mg Tablet]: 10 MG Oral Q10PM Trazodone Trazodone [50 completed [place] Hydrochloride mg Tablet]: [facility] 50 MG Oral 50 MG Oral Hea [facility] Care Tablet Q10PM Corporation Trazodone [50 mg Tablet]: 50 MG Oral Q10PM gabapentin 100 Gabapentin completed [place] MG Oral Capsule [100 mg C ounty Gabapentin [100 Capsule]: 100 Health Care mg Capsule]: MG Oral 3 Co rporation 100 MG Oral 3 TIMES A DAY TIMES A DAY Insurance Providers Payer name Policy type Policy ID Covered Covered democrat's Policy P ryan / Coverage democrat ID relationship to [place] Inf ormation type byers MEDICAID [id number] SP [id number] MEDICARE [id number] SP [id number] 95 5 MEDICARE [id number] SP [id number] 95 5 Medicaid Medicaid [id number] Medicare Part Medicare [id number] 1 [id number] B Outpatient 5 Medicare Medicare [id number] 1 [id number] 95 5 Financial Self Pay 1 Assist 55% Medicaid Medicaid [id number] Medicare Part Medicare [id number] 1 [id number] B Outpatient Medicare Medicare [id number] 1 [id number] A HEALTH [id number] SOLUTIONS 8 HEALTH Scards [facility] Medicare [id number] 1 [id number] Part B Par 5 Providers [employer] [id number] [employer] SELF PAY 00 Self 00 REDUCTION SELF PAY 000 Self 000 Problems, Conditions, and Diagnoses Code Display Name Description Problem Type Effective Data Dates Source(s) R11.10 Vomiting, Vomiting Diagnosis 04/20/2020 S - New unspecified 06:38:00 AM [facility] K95.09 Other complications Other complications Diagnosis 020 [facility] - New of gastric band of gastric band 06:38:00 AM Attila helle procedure procedure T [facility] K43.6 Other and Other or unspecified Diagnosis 04/20/2020 S - New unspecified ventral ventral hernia with 06:38:0 0 AM [place] hernia with obstruction without EDT Hosp ital obstruction, without gangrene gangrene [id number] Laparoscopy, Laparoscopy, Diagnosis 04/20/2020 [facility] - New surgical, gastric surgical, gastric 06:38:00 AM [place] restrictive restrictive [facility] procedure; removal procedure; removal of adjustable of adjustable gastric restrictive gastric restrictive device and device and subcutaneous port subcutaneous port components components R13.10 Dysphagia, Dysphagia Diagnosis 04/20/2020 S - New unspecified 06:38:00 AM [facility] E66.01 Morbid (severe) Morbid obesity, Diagnosis 04/18/2020 S - New obesity due to unspecified obesity 08:10:00 AM [place] excess calories type [facility] Z11.59 Encounter for Encounter for Diagnosis 04/18/2020 S - Ne w screening for other laboratory testing 08:10:00 AM [place] viral diseases for COVID-19 virus [facility] lon Z01.818 Encounter for other Preop examination Diagnosis 0 [facility] - New [facility]procedural [facility]:10:[facility] Z12.83 Encounter for Screening exam for Diagnosis 08/18/2019 NEX TGEN screening for skin cancer 03:00:00 PM ([facility] malignant neoplasm EST Medica l - [facility] skin [facility]) L82.1 Other seborrheic Other seborrheic Diagnosis 08/18/2019 NE XTGEN keratosis keratosis 03:00:00 PM ([facility] EST Medical [facility]) D18.01 Hemangioma of skin Angioma of skin Diagnosis 08/18/2019 N EXTGEN and subcutaneous 03:00:00 PM ([facility] tissue EST [facility]) L81.4 Other melanin Other melanin Diagnosis 08/18/2019 NEXTGEN hyperpigmentation hyperpigmentation 03:00:00 PM ([facility] EST Medical [facility]) L81.2 Freckles Freckles Diagnosis 08/18/2019 NEXTGEN 03:00:00 PM ([facility] EST Medical [facility]) D22.5 Melanocytic nevi of Melanocytic nevi of Diagnosis 019 NEXTGEN trunk trunk 03:00:00 PM ([facility] EST [facility]) K64.9 Unspecified UNSPECIFIED Diagnosis 04/19/2019 [place] hemorrhoids HEMORRHOIDS 04:59:00 PM [facility] EDT Care [employer] M75.100 Unspecified rotator UNSP ROTATR-CUFF Diagnosis 04/19/2019 [place] cuff tear or rupture TEAR/RUPTR OF UNSP 04:59:0 0 PM [facility] of unspecified SHOULDER, NOT TRAUMA EDT Care shoulder, not Corporation specified as traumatic Y92.89 Other specified OTH PLACES THE Diagnosis 04/19/2019 [facility] PL[facility] OF OCCURRENCE 04:59:0 0 PM [facility] of occurrence of the OF THE EXTERNAL EDT Care external cause CAUSE Corporatio n X58.XXXA Exposure to other EXPOSURE TO OTHER Diagnosis 04/19/2019 [place] specified factors, SPECIFIED FACTORS, 04:59:00 PM [facility] initial encounter INITIAL ENCOUNTER EDT Care [employer] T48.1X2A Poisoning by POISONING BY Diagnosis 04/19/2019 [place] skeletal muscle SKELETAL MUSCLE 04:59:00 PM [facility] relaxants RELAXANTS, EDT Care [neuromuscular SELF-HARM, INIT Corpo ration blocking agents], intentional self-harm, initial encounter T43.212A Poisoning by POISN BY SLCTV Diagnosis 04/19/2019 [facility] selective serotonin SEROTON/NOREPINEPH 04:59:00 PM [facility] and norepinephrine REUP EDT Care reuptake inhibitors, INHIBTR,SLF-HRM, Corporation intentional INIT self-harm, initial encounter 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 04/19/2019 [place] personality disorder PERSONALITY DISORDER 04:59 :00 PM [facility] EDT Care [facility] T43.592A Poisoning by other POISONING BY OTH Diagnosis 04/19/2019 [place] antipsychotics and ANTIPSYCHOT/NEUROLEP 04:59:0 0 PM [facility] neuroleptics, T, SELF-HARM, INIT EDT Car e intentional Corporation self-harm, initial encounter F33.2 Major depressive MAJOR DEPRESSV Diagnosis 04/03/2019 [place] disorder, recurrent DISORDER, RECURRENT 05:59:0 0 PM [facility] severe without SEVERE W/O PSYCH EDT Care psychotic features FEATURES Corpor ation T43.595S Adverse effect of ADVERSE EFFECT OF Diagnosis 03/18/2019 [place] other antipsychotics ANTIPSYCHOTICS AND 06:00:0 0 AM [facility] neuroleptics, NEUROLEPTICS, EDT Care sequela SEQUELA [employer] G24.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 MOVEMENT DISORDERS 06:00:00 AM [facility] EDT Care [employer] F31.5 Bipolar disorder, BIPOLAR DISORD, CRNT Diagnosis 03/18/20 [place] current episode EPSD DEPRESS, 06:00:00 AM [facility] depressed, severe, SEVERE, W PSYCH EDT C are with psychotic FEATURES Corporatio n features M54.2 Cervicalgia CERVICALGIA Diagnosis 03/16/2019 [place] 02:14:[facility] [employer] E78.5 Hyperlipidemia, HYPERLIPIDEMIA, Diagnosis 03/16/2019 [place] unspecified UNSPECIFIED 02:14:00 PM [facility] VMobT [facility] [employer] F25.1 Schizoaffective SCHIZOAFFECTIVE Diagnosis 03/16/2019 [place] disorder, depressive DISORDER, DEPRESSIVE 02:14 :00 PM [facility] type TYPE EDT [facility] [employer] 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 [place] dystonia DYSTONIA 02:14:00 PM [facility] [employer] M79.676 Pain in unspecified PAIN IN UNSPECIFIED Diagnosis 019 [place] toe(s) TOE(S) 06:00:00 AM [facility] [employer] F31.74 Bipolar disorder, in BIPOLAR DISORDER, IN Diagnosis 02/11 [place] full remission, most FULL REMIS, MOST 06:00:00 AM [facility] recent episode manic RECENT EPISODE MANIC T [facility] [employer] Surgeries/Procedures Procedure Description Date Indications Data Source(s) Tissue Exam 04/20/2020 [facility] 01:52:15 PM System EDT - 04/20/2020 09:25:00 AM EDT Venipuncture 04/18/2020 [facility] 08:48:26 AM System EDT - 04/18/2020 10:00:06 AM EDT OFFICE/OUTPATIENT OFFICE/OUTPATIENT 08/18/2019 NEXTG EN ([facility] VISIT EST VISIT EST 12[facility]00:00 [facility] Results ID Date Data Source [id number] 05/23/2020 10:55:00 AM EDT [facility] Name Value Range Interpretation Description Data Sup porting Code Source(s) Document(s ) SARS [facility] coronavirus 2 RNA This lab was ordered by GISSELL hunter [facility] and reported by [facility]. ID Date Data Source [id number] 05/17/2020 09:40:00 AM EDT [facility] Name Value Range Interpretation Description Data Sup porting Code Source(s) Document(s ) SARS [facility] coronavirus 2 RNA This lab was ordered by GISSELL hunter [facility] and reported by [facility]. ID Date Data Source [id number] 05/14/2020 09:15:00 AM EDT [facility] Name Value Range Interpretation Description Data Sup porting Code Source(s) Document(s ) SARS [facility] coronavirus 2 RNA This lab was ordered by [facility] DAVE hunter [facility] and reported by [facility]. ID Date Data Source [id number] 05/11/2020 10:28:00 AM EDT [facility] Name Value Range Interpretation Description Data Sup porting Code Source(s) Document(s ) SARS [facility] coronavirus 2 RNA This lab [facility] and reported by [facility]. ID Date Data Source [id number] 05/08/2020 01:40:00 PM EDT [facility] Name Value Range Interpretation Description Data Sup porting Code Source(s) Document(s ) SARS [facility] coronavirus 2 RNA This lab was [facility] nadia [facility] and reported by [facility]. ID Date Data Source [id number] 05/04/2020 12:40:00 PM EDT [facility] Name Value Range Interpretation Description Data Sup porting Code Source(s) Document(s ) SARS [facility] coronavirus 2 RNA This lab was [facility] by [facility] and reported by [facility]. ID Date Data Source [id number] 04/30/2020 10:00:00 AM EDT [facility] Name Value Range Interpretation Description Data Sup porting Code Source(s) Document(s ) SARS [facility] coronavirus 2 RNA This lab was ordered by [facility]ello [facility] and reported by [facility]. ID Date Data Source [id number] 04/27/2020 10:40:00 AM EDT [facility] Name Value Range Interpretation Description Data Sup porting Code Source(s) Document(s ) SARS [facility] coronavirus 2 RNA This lab was ordered by [facility] and reported by [facility]. ID Date Data Source [id number] 04/24/2020 02:25:28 AM EDT [facility] System Name Value Range Interpretation Description Data Sup porting Code Source(s) Document(s ) D Ab Rh Positive Normal (applies Rh Factor, [facility] [Titer] in to non-numeric Whole Blood Health Syste m Serum or results) Plasma Type O Normal (applies Type [facility] to non-numeric Health System results) new pt--no historyPreviously released as O on 12/24/2011, 4:42 [place] [id number] - added comment for o/r AntibodyScreen Negative Normal (applies to Antibody Screen [facility] non-numeric results) System ID Date Data Source [id number] 04/24/2020 02:25:28 AM EDT [facility] Name Value Range Interpretation Description Data Sup porting Code Source(s) Document(s ) hCGQuantitative 0.90 Normal (applies hCG [facility] {mIU/mL} to non-numeric Quantitative Health results) System Negative = <5 mIU/mLAPPROXIMATE GEST. AG E APPROXIMATE HCG mIU/ML 0.2 - 1 week 5 - 50 1 - 2 w eeks 50 - 500 2 - 3 weeks 100 - 5,000 3 - 4 weeks 500 - 10,000 4 - 5 weeks 1,000 - 50,000 5 - 6 weeks 10,000 - 100,000 6 - 8 weeks 15,000 - 200,000 8 - 12 weeks 10,000 - 1 00,000HCG levels between 5-25 mIU/mL may be indicative of early . Correlati on with other clinical findings and/or repeat of HCG quantitative testing recommened. ID Date Data Source [id number] 04/24/2020 02:25:28 AM EDT [facility] Name Value Range Interpretation Description Data Sup porting Code Source(s) Document(s ) RubellaInterpreta Positive Normal (applies Rubella [facility] tion to non-numeric Interpretation Health results) System <5 Negative>=5 - <10 Equivocal>= 10 Positive Rubella 27 {IU/mL} Normal (applies to Rubella [facility] System non-numeric results) ID Date Data Source [id number] 04/24/2020 02:25:28 AM EDT [facility] Name Value Range Interpretation Description Data Sup porting Code Source(s) Document(s ) VaricellaInterpre Positive Normal (applies Varicella [facility] tation to non-numeric Interpretation Health results) System <0.6 Negative>=0.6 - <.90 Equivoc al>=.90 Positive VaricellaResultValue 1.78 Normal (applies to Varicel la Result [facility] Health non-numeric results) Value System ID Date Data Source [id number] 04/24/2020 02:25:28 AM EDT [facility] alth System Name Value Range Interpretation Description Data Sup porting Code Source(s) Document(s ) RubeolaABIgGResul 0.78 Normal (applies Rubeola AB IgG M [facility] tValue to non-numeric Result Value Health results) System RubeolaABIgGinter Positive Normal (applies Rubeola AB IgG M [facility] pretation to non-numeric interpretation Health results) System <.50 Negative>=.50 - <.70 Equivo lloyd>=.70 Positive ID Date Data Source [id number] 04/24/2020 02:25:28 AM EDT [facility] alth System Name Value Range Interpretation Description Data Sup porting Code Source(s) Document(s ) Prothrombin Ab 0.92 Normal (applies INR Result [facility] [Units/volume] {Ratio} to non-numeric Health Sys tem in Serum or results) Plasma Normal = 0.7-1.1Therapeutic = 2.0-3.0Mec hanical Heart = 3.0-4.5 Prothrombintime(PT) 10.70 Normal (applies Prothrombin ti me [facility] {seconds} to non-numeric (PT) Health System results) ID Date Data Source [id number] 04/24/2020 02:25:28 AM EDT [facility] System Name Value Range Interpretation Description Data Sup porting Code Source(s) Document(s ) 60940-4 NEGATIVE Testing Normal (applies COVID-19.. [facility] was performed to non-numeric Health Syst em using Tan ID results) NOW COVID-19, an isothermal nucleic acid amplification technology for the qualitative detection of nucleic acid from the SARS-CoV-2 viral RNA in respiratory specimens. The ID NOW COVID-19 test has been approved by the Food and Drug Administration (FDA) under an Emergency Use Authorization for use by authorized laboratories. Reference Range: NEGATIVE . ID Date Data Source [id number] 04/24/2020 02:25:28 AM EDT [facility] Name Value Range Interpretation Description Data Sup porting Code Source(s) Document(s ) Type O Normal (applies Type [facility] to non-numeric Health results) System D Ab [Titer] in Positive Normal (applies Rh [facility] Serum or Plasma to non-numeric Health results) System AntibodyScreen Negative Normal (applies Antibody [facility] to non-numeric Screen Health results) System ID Date Data Source [id number] 04/24/2020 02:25:28 AM EDT [facility] Name Value Range Interpretation Description Data Sup porting Code Source(s) Document(s ) Type O Normal (applies Type [facility] to non-numeric Health results) System D Ab [Titer] in Positive Normal (applies Rh [facility] Serum or Plasma to non-numeric Health results) System AntibodyScreen Negative Normal (applies Antibody [facility] to non-numeric Screen Health results) System ID Date Data Source [id number] 04/24/2020 02:25:28 AM EDT [facility] Name Value Range Interpretation Description Data Sup porting Code Source(s) Document(s ) TissueExam Results for case # Normal (applies Tissue Exam [facility] [id number] to non-numeric Health SURGICAL PATHOLOGY results) System REPORTCLINICAL INFORMATION: LAP band slip. PREOPERATIVE DIAGNOSIS: Same. POSTOPERATIVE DIAGNOSIS: Same.FINAL DIAGNOSIS: Gastric band and port system (gross).GO/Jessica ROCA MDElectronically Signed By: GROSS DESCRIPTION: Received fresh, labeled "gastric band and port system", the specimen consists of a 3 x 3 x 1.5cm white plastic and raphael metal device inscribed with PORT-A-CATH [id number]. There is attached 45 x 0.3 x 0.3cm of attached white rubbery tubing. Also received is a 13 x 1.7 x 0.7cm white rubbery plastic C-shaped ring device and white rubbery tubing labeled ALLERGEN. Also received is a 4.5 x 1.8 x 1cm rubbery white plastic device grossly consistent with portion of ring previously attached. No sections are submitted, gross diagnosis only.MV/stPage 1 of ID Date Data Source [id number] 04/23/2020 09:30:00 AM EDT [facility] Name Value Range Interpretation Description Data Sup porting Code Source(s) Document(s ) SARS [facility] coronavirus 2 RNA This lab was ordered by [facility] DAVE hunter [facility] and reported by [facility]. ID Date Data Source [id number] 04/19/2020 10:40:00 AM EDT [facility] Name Value Range Interpretation Description Data Sup porting Code Source(s) Document(s ) SARS [facility] coronavirus 2 RNA This lab [facility] by [facility]. ID Date Data Source [id number] 04/18/2020 09:16:00 AM EDT [facility] Name Value Range Interpretation Code Description Data April rce(s) Supporting Document(s ) COVID-19.. [facility] This lab was ordered by [facility] and reported by [facility]. ID Date Data Source [id number] 04/17/2020 08:55:00 AM EDT [facility] Name Value Range Interpretation Description Data Sup porting Code Source(s) Document(s ) SARS [facility] coronavirus 2 RNA This lab was ordered by [facility] and reported by [facility]. ID Date Data Source [id number] 03/03/2020 11:40:00 AM EDT [facility] Name Value Range Interpretation Description Data Sup porting Code Source(s) Document(s ) 2019 Novel [facility] Coronavirus RNA Interpretation Unspecified Specimen Qualitative SHIMA Probe Detection This lab was ordered by [facility] and reported by [facility]. ID Date Data Source [id number] 04/19/2019 04:59:28 PM EDT [facility] [place] [id number] Corporation Name Value Range Interpretation Description Data Sup porting Code Source(s) Document(s ) Leukocytes 5.1 k/mm3 4.8-10 <td> 04/14/2019 [place] [#/volume] .8 08:23</td><td> [place] in Blood by k/mm3 WBC </td><td> Health Care Automated Corporation count 5.1
(4.8-10.8) k/mm3 </td> Erythrocytes 4.94 m/mm3 3.90-5 <td> 04/14/2019 [facility] r [#/volume] .20 08:23</td><td> County in Blood m/mm3 RBC </td><td> [facility] Care [employer] 4.94
(3.90-5.20) m/mm3 </td> Hemoglobin 14.5 g/dL 12.0-1 <td> 04/14/2019 [place] [Mass/volume 6.0 08:23</td><td> [facility] ] in Blood g/dL HGB </td><td> [facility] Care [facility] 14.5
(12.0-16.0) g/dL </td> Erythrocyte 13.1 % 11.5-1 <td> 04/14/2019 [place] distribution 4.5 % 08:23</td><td> County width RDW </td><td> Health Care [Entitic [employer] volume] by 13.1 Automated count
(11.5-14.5) % </td> Platelet 11.0 fL 9.8-12 <td> 04/14/2019 [place] mean volume .8 fL 08:23</td><td> County [Entitic MPV </td><td> Health Care volume] in Corporation Blood by 11.0 Automated count
(9.8-12.8) fL </td> Erythrocyte 33.5 % 32.0-3 <td> 04/14/2019 [place] mean 6.0 % 08:23</td><td> [facility] corpuscular MCHC </td><td> Health Care hemoglobin Corporation concentratio 33.5 n [Mass/volume
] in Blood (32.0-36.0) % from Fetus </td> by Automated count Hematocrit 43.3 % 37.0-4 <td> 04/14/2019 [place] [Volume 7.0 % 08:23</td><td> County Fraction] of HCT </td><td> Health Care Blood by [employer] Automated 43.3 count
(37.0-47.0) % </td> Erythrocyte 29.4 pg 27.0-3 <td> 04/14/2019 [place] mean 1.5 pg 08:23</td><td> [facility] corpuscular MCH </td><td> Health Care hemoglobin Corporation [Entitic 29.4 mass] by Automated
count (27.0-31.5) pg </td> Erythrocyte 87.7 fL 81.0-9 <td> 04/14/2019 [place] mean 9.0 fL 08:23</td><td> [facility] corpuscular MCV </td><td> Health Care volume [facility] [Entitic 87.7 volume] by Automated
count (81.0-99.0) fL </td> Lymphocytes 41.3 % 17.0-5 <td> 04/14/2019 [place] [#/volume] 0.0 % 08:23</td><td> [place] in Blood by Lymphocytes [facility] Automated </td><td> Corporation count 41.3
(17.0-50.0) % </td> Platelets 229 k/mm3 160-41 <td> 04/14/2019 [place] [#/volume] 0 08:23</td><td> [place] in Blood by k/mm3 Platelet Count [facility] Automated </td><td> [employer] count 229
(160-410) k/mm3 </td> Monocytes/Le 6.1 % 0.0-11 <td> 04/14/2019 [place] ukocytes .0 % 08:23</td><td> County [Pure number Monocytes. Health Care fraction] in </td><td> Corporation Blood by Automated 6.1 count
(0.0-11.0) % </td> Basophils 0.8 % 0.0-2. <td> 04/14/2019 [place] [#/volume] 0 % 08:23</td><td> [place] in Blood by Basophils [facility] Automated </td><td> Corporation count 0.8
(0.0-2.0) % </td> Basophils+Eo 2.7 % 0.0-5. <td> 04/14/2019 [place] sinophils+Mo 0 % 08:23</td><td> [facility] nocytes Eosinophils Health Care [#/volume] </td><td> Corporation in Blood by Automated 2.7 count
(0.0-5.0) % </td> Potassium 4.8 mEq/L 3.5-5. <td> 04/14/2019 [place] [Moles/volum 1 08:23</td><td> County e] in Serum mEq/L Potassium-Serum Health Care or Plasma </td><td> Corporation 4.8
(3.5-5.1) mEq/L </td> Immature 0.2 % 0.0-0. <td> 04/14/2019 [place] granulocytes 5 % 08:23</td><td> County /100 IG% </td><td> Health Care leukocytes Corporation in Blood by 0.2 Automated count
(0.0-0.5) %
The IG fraction represents metamyelocytes, myelocytes and/or
promyelocytes and is only reported as part of the automated
differential when found at a percentage of less than 6.
If higher than 6%, a manual differential will be performed.

(0.0-0.5) % </td> Sodium 139 mEq/L 135-14 <td> 04/14/2019 [place] [Moles/volum 5 08:23</td><td> [facility] e] in Serum mEq/L Sodium-Serum Health Care or Plasma </td><td> Corporation 139
(135-145) mEq/L </td> Glucose 96 mg/dL 70-105 <td> 04/14/2019 [place] [Mass/volume mg/dL 08:23</td><td> [facility] ] in Blood Glucose-Serum Health Care </td><td> Corporation 96
(70-105) mg/dL </td> Neutrophils 48.9 % 40.0-7 <td> 04/14/2019 [place] [#] in Body 6.0 % 08:23</td><td> [facility] fluid by Neutrophils Health Care Manual count </td><td> Corporation 48.9
(40.0-76.0) % </td> Creatinine 0.82 mg/dL 0.57-1 <td> 04/14/2019 [place] [Moles/volum .11 08:23</td><td> [facility] e] in Serum mg/dL Creatinine. Health Care or Plasma </td><td> [employer] 0.82
(0.57-1.11) mg/dL </td> Urea 10 mg/dL 6-22 <td> 04/14/2019 [place] nitrogen mg/dL 08:23</td><td> [facility] [Mass/volume BUN </td><td> Health Care ] in Blood Corporation 10
(6-22) mg/dL </td> Chloride 103 mEq/L 98-107 <td> 04/14/2019 [place] [Moles/volum mEq/L 08:23</td><td> [facility] e] in Serum Chloride Health Care or Plasma </td><td> [employer] 103
(98-107) mEq/L </td> Carbon 29 mEq/L 22-30 <td> 04/14/2019 [place] dioxide, mEq/L 08:23</td><td> [facility] total CO2 </td><td> Health Care [Moles/volum Corporation e] in Serum 29 or Plasma
(22-30) mEq/L </td> Albumin 4.3 g/dL 3.4-4. <td> 04/14/2019 [place] [Mass/volume 8 g/dL 08:23</td><td> [facility] ] in Serum Albumin Health Care or Plasma </td><td> [employer] 4.3
(3.4-4.8) g/dL </td> Proteins - 7.0 g/dL 6.4-8. <td> 04/14/2019 [place] Total 3 g/dL 08:23</td><td> [facility] Proteins - Health Care Total Corporation </td><td> 7.0
(6.4-8.3) g/dL </td> Alanine 20 U/L 6-55 <td> 04/14/2019 [place] aminotransfe U/L 08:23</td><td> [facility] rase ALT (SGPT) Health Care [Enzymatic </td><td> Corporation activity/vol ume] in 20 Serum or
Plasma (6-55) U/L </td> Aspartate 15 U/L 4-35 <td> 04/14/2019 [place] aminotransfe U/L 08:23</td><td> [facility] rase AST (SGOT) Health Care [Enzymatic </td><td> Corporation activity/vol ume] in 15 Serum or
Plasma (4-35) U/L </td> Bilirubin.to 0.5 mg/dL 0.2-1. <td> 04/14/2019 [place] livan 3 08:23</td><td> [facility] [Mass/volume mg/dL Bilirubin - Health Care ] in Blood Total [employer] </td><td> 0.5
(0.2-1.3) mg/dL </td> Calcium 9.6 mg/dL 8.6-10 <td> 04/14/2019 [place] [Mass/volume .2 08:23</td><td> [facility] ] in Blood mg/dL Calcium Health Care </td><td> [employer] 9.6
(8.6-10.2) mg/dL </td> Globulin 2.7 gm/dL 2.9-4. <td> 04/14/2019 [place] [Mass/volume 0 08:23</td><td> [facility] ] in Serum gm/dL Globulin Health Care </td><td><valerie Corporation raph styleCode="Bold "> 2.7 L </paragraph>
(2.9-4.0) gm/dL </td> Lipemic No Lipemia <td> 04/14/2019 [place] index of 08:23</td><td> [facility] Serum or Lipemia Index Health Care Plasma </td><td> [employer] No Lipemia
</td> Phosphate 3.1 mg/dL 2.3-4. <td> 04/04/2019 [place] [Mass/volume 7 08:28</td><td> County ] in Serum mg/dL Inorganic Health Care or Plasma Phosphorus Corporation </td><td> 3.1
(2.3-4.7) mg/dL </td> Icteric Non Icteric <td> 04/14/2019 [place] index of 08:23</td><td> [facility] Serum or Icteric Index Health Care Plasma </td><td> [employer] Non Icteric
</td> Anion gap in 7 mEq/L 7-13 <td> 04/14/2019 [place] Serum or mEq/L 08:23</td><td> [facility] Plasma Anion Gap Health Care </td><td> [employer] 7
(7-13) mEq/L </td> Hemolysis No Hemolysis <td> 04/14/2019 [place] index of 08:23</td><td> [facility] Serum or Hemolysis Index Health Care Plasma </td><td> [employer] No Hemolysis
</td> Prothrombin 10.8 secs 9.8-12 <td> 04/03/2019 [place] time (PT) .0 15:28</td><td> [facility] secs Prothrombin Health Care Time. [facility] </td><td> 10.8
(9.8-12.0) secs </td> aPTT panel - 24.6 secs 25.0-3 <td> 04/03/2019 [place] Platelet 2.0 15:28</td><td> [facility] poor plasma secs Partial Health Care Thromboplastin [facility] Time </td><td><valerie raph styleCode="Bold "> 24.6 L </paragraph>
(25.0-32.0) secs </td> Appearance Cloudy <td> 04/03/2019 [place] of Urine 15:28</td><td> [facility] Appearance Health Care </td><td> [employer] Cloudy
(CLEAR) </td> Protein 1+ (30 MG/DL) <td> 04/03/2019 [facility] r [Presence] 15:28</td><td> [facility] in Urine by Protein Health Care Automated Qualitative [employer] test strip </td><td> 1+ (30 MG/DL)
(NEGATIVE) </td> Specific 1.010 {} 1.000- <td> 04/03/2019 [place] gravity of 1.035 15:28</td><td> County Urine by Specific Health Care Test strip [place] [employer] </td><td> 1.010
(1.000-1.035) </td> Nitrite Negative <td> 04/03/2019 [place] [Presence] 15:28</td><td> County in Urine by Nitrites Health Care Test strip </td><td> Corporation Negative
(NEGATIVE) </td> Glucose Negative <td> 04/03/2019 [place] [Presence] 15:28</td><td> County in Urine by Glucose_ Health Care Test strip </td><td> Corporation Negative
(NEGATIVE) </td> Leukocyte 3+ <td> 04/03/2019 [place] esterase 15:28</td><td> [facility] [Presence] Leukocytes Health Care in Urine by Esterase Corporation Test strip </td><td><valerie raph styleCode="Bold "> 3+ * AB </paragraph>
(NEGATIVE) </td> Leukocytes 36 /HPF 0-5 <td> 04/03/2019 [place] [Presence] /HPF 15:28</td><td> County in Urine by WBC </td><td> Health Care Automated Corporation 36
(0-5) /HPF </td> Erythrocytes 13 /HPF 0-2 <td> 04/03/2019 [place] [#/area] in /HPF 15:28</td><td> County Urine RBC </td><td> Health Care sediment by [employer] Automated 13 count
(0-2) /HPF </td> Urobilinogen 0.2 mg/dL 0.0-2. <td> 04/03/2019 [place] [Presence] 0 15:28</td><td> County in Urine by mg/dL Urobilinogen Health Care Automated </td><td> Corporation test strip 0.2
(0.0-2.0) mg/dL </td> Epithelial MASSIVE <td> 04/03/2019 [place] cells FEW 15:28</td><td> County [#/area] in Transitional Epithelial Health Care Urine Epithelial Cells Corporation sediment by cells 3/HPF </td><td> Automated count MASSIVE
/LPF
FEW
Transitional Epithelial cells 3/HPF

/LPF </td> Magnesium 1.9 mg/dL 1.6-2. <td> 04/04/2019 [place] [Mass/volume 6 08:28</td><td> [facility] ] in Serum mg/dL Magnesium Level Health Care or Plasma </td><td> Corporation 1.9
(1.6-2.6) mg/dL </td> Amorphous RARE < <td> 04/03/2019 [place] Crystal FEW 15:28</td><td> [facility] Amorphous Health Care Crystal Corporation </td><td> RARE
/HPF
< FEW

/HPF </td> Bacteria MODERATE <td> 04/03/2019 [place] [#/area] in 15:28</td><td> [facility] Urine Bacteria Health Care sediment by </td><td> Corporation Microscopy high power MODERATE field
(NONE SEEN) /HPF </td> Calcium RARE Ca <td> 04/03/2019 [facility] r oxalate Oxalate 15:28</td><td> [facility] crystals Crystals..May Calcium Oxalate Health Car e [Presence] be present in [employer] in Urine normal, acid </td><td> sediment by or alkaline Light urine RARE microscopy
(SEE BELOW) /HPF
Ca Oxalate Crystals..May be present in normal, acid or alkaline urine

(SEE BELOW) /HPF </td> Mucous FEW < <td> 04/03/2019 [place] FEW 15:28</td><td> [facility] Mucous Health Care </td><td> Corporation FEW
/LPF
< FEW

/LPF </td> Cholesterol 116 mg/dL <150 <td> 04/04/2019 [place] in LDL mg/dL 08:28</td><td> [facility] [Mass/volume LDL Cholesterol Health Care ] in Serum </td><td> Corporation or Plasma 116
(<150) mg/dL </td> Triglyceride 80 mg/dL 30-200 <td> 04/04/2019 [place] [Mass/volume mg/dL 08:28</td><td> [facility] ] in Serum Triglyceride Health Care or Plasma </td><td> Corporation 80
(30-200) mg/dL </td> Cholesterol 37 mg/dL >60 <td> 04/04/2019 [place] in HDL mg/dL 08:28</td><td> [facility] [Mass/volume HDL Cholesterol Health Care ] in Serum </td><td> Corporation or Plasma 37
(>60) mg/dL </td> Cholesterol 169 mg/dL 125-24 <td> 04/04/2019 [place] [Moles/volum 0 08:28</td><td> [facility] e] in Serum mg/dL Cholesterol Health Care or Plasma </td><td> Corporation 169
(125-240) mg/dL </td> Hemoglobin 5.3 % 4.0-5. <td> 04/04/2019 [place] A1C 6 % 08:28</td><td> [facility] Hemoglobin A1C Health Care </td><td> [facility] 5.3
(4.0-5.6) %
Increased risk for diabetes mellitus is seen in patients with HgA1C values
between 5.7-6.4%. Values > or = 6.5% are considered diagnostic of diabetes
mellitus.
Hemolytic anemias, hemoglobinopath ies, or recent transfusion may impact
HbA1c results. Clinical correlation is recommended.
===
ESTIMATED AVERAGE GLUCOSE (eAG)
---
RELATIONSHIP BETWEEN A1C AND eAG
===
A1C(%) eAG(mg/dL)
6 1 26
7 1 54
8 1 83
9 2 12
10 240
11 269
12 298
Source: Adapted from [employer]. Standards of medical
care in diabetes-2014. Diabetes Care.2014;37([place] pp 1):S14-S80, table 8.

(4.0-5.6) % </td> ID Date Data Source [id number] 03/16/2019 02:14:15 PM EDT [facility] [place] [id number] [employer] Name Value Range Interpretation Description Data Sup porting Code Source(s) Document(s ) Abdomen 1 (PACSIMAGE <td> 03/03/2019 [place] View 16:54</td><td> [facility] ) Final Abdomen 1 View Health Care Result </td><td>[place] Name: phoebe PHILIP, styleCode="Judy Antunez MRN: [id number]">(PACSIMAGE [id number] Sex: F : 1960 Location: F )</paragraph><b Admitting r/>
Physician: Final Result MONSE VELARDENDA Requesting

Physician: NARA Name: VIRGIE PHILIP, Exam: ABDOMEN 1 JENNIFER P VW 03/03/2019
16:33 INDICATION: Sex: F Constipation
COMPARISON: : 1960 None Location: F TECHNIQUE: 5
views of the Admitting abdomen Physician: FINDINGS: MONSE LINES/TUBES/BLANCA RATAKONDA JB: Gastric lap
band is Requesting visualized. Physician: Hardware is NARA GARVIN also visualized. Phi angle

measures 64 Exam: ABDOMEN 1 degrees, which VW 03/03/2019 is just 16:33 slightly greater

<br/ than the normal > limits, INDICATION: suggestive of Constipation slippage.. Nonobstructive

bowel gas COMPARISON: pattern. Cannot None properly assess

for the TECHNIQUE: 5 presence of free views of the air secondary to abdomen the absence of

upright FINDINGS: radiographs.
Bony structures LINES/TUBES/DE unremarkable. VICES: Gastric IMPRESSION: lap band is Nonobstructive visualized. bowel gas Hardware pattern.
Slightly greater is also than normal visualized. Phi gastric lap band angle measures phi angle, to be 64 degrees, correlated which is just clinically for
slippage. slightly Resident greater than Radiologist: the normal Paul Valdez MD limits, Resident suggestive of Radiologist slippage.. Attending Radiologist:

Mariam Nonobstructive Jeffery PADILLA bowel gas Finalizing pattern. Cannot Radiologist: properly assess Mariam Gil MD
the Transcribed presence of Date: 03/03/2019 free air 16:36 secondary to Finalized Date: the absence of 03/03/2019 16:46 upright
radiographs. Bony structures unremarkable.
IMPRESSION:

Nonobstructive bowel gas pattern.
Slightly greater than normal gastric lap band phi angle, to be
correlated clinically for slippage.

Resident Radiologist: Paul Valdez MD Resident Radiologist
Attending Radiologist: Mariam Gil MD
Finalizing Radiologist: Mariam Gil MD
Transcribed Date: 03/03/2019 16:36
Finalized Date: 03/03/2019 16:46

</td > ID Date Data Source [id number] 03/16/2019 02:14:15 PM EDT [facility] [place] [id number] Corporation Name Value Range Interpretation Description Data Sup porting Code Source(s) Document(s ) Leukocytes 6.9 k/mm3 4.8-10 <td> [place] [#/volume] in .8 03/02/2019 [facility] Blood by k/mm3 08:38</td><td> Health Care Automated count WBC </td><td> Corporati on 6.9
(4.8-10.8) k/mm3 </td> Erythrocytes 4.96 m/mm3 3.90-5 <td> [place] [#/volume] in .20 03/02/2019 [facility] Blood m/mm3 08:38</td><td> Health Care RBC </td><td> [employer] 4.96
(3.90-5.20) m/mm3 </td> Erythrocyte mean 29.4 pg 27.0-3 <td> [place] corpuscular 1.5 pg 03/02/2019 [facility] hemoglobin 08:38</td><td> Health Care [Entitic mass] MCH </td><td> Corporatio n by Automated count 29.4
(27.0-31.5) pg </td> Erythrocyte 13.5 % 11.5-1 <td> [place] distribution 4.5 % 03/02/2019 [facility] width [Entitic 08:38</td><td> Health Car e volume] by RDW </td><td> [employer] Automated count 13.5
(11.5-14.5) % </td> Erythrocyte mean 34.4 % 32.0-3 <td> [place] corpuscular 6.0 % 03/02/2019 [facility] hemoglobin 08:38</td><td> Health Care concentration [facility] [Mass/volume] in </td><td> Blood from [employer] by Automated 34.4 count
(32.0-36.0) % </td> Erythrocyte mean 85.5 fL 81.0-9 <td> [place] corpuscular 9.0 fL 03/02/2019 [facility] volume [Entitic 08:38</td><td> Health Ca re volume] by MCV </td><td> [employer] Automated count 85.5
(81.0-99.0) fL </td> Hemoglobin 14.6 g/dL 12.0-1 <td> [place] [Mass/volume] in 6.0 03/02/2019 [facility] Blood g/dL 08:38</td><td> Health Care HGB </td><td> [employer] 14.6
(12.0-16.0) g/dL </td> Hematocrit 42.4 % 37.0-4 <td> [place] [Volume 7.0 % 03/02/2019 County Fraction] of 08:38</td><td> Health Care Blood by HCT </td><td> [employer] Automated count 42.4
(37.0-47.0) % </td> Platelet mean 10.5 fL 9.8-12 <td> [place] volume [Entitic .8 fL 03/02/2019 [facility] volume] in Blood 08:38</td><td> Health C are by Automated MPV </td><td> Corporation count 10.5
(9.8-12.8) fL </td> Monocytes/Leukoc 6.1 % 0.0-11 <td> [place] ytes [Pure .0 % 03/02/2019 [facility] number fraction] 08:38</td><td> Health C are in Blood by Monocytes. Corporation Automated count </td><td> 6.1
(0.0-11.0) % </td> Immature 0.3 % 0.0-0. <td> [place] granulocytes/100 5 % 03/02/2019 [facility] leukocytes in 08:38</td><td> Health Care Blood by IG% </td><td> [employer] Automated count 0.3
(0.0-0.5) %
The IG fraction represents metamyelocytes , myelocytes and/or
promyelocytes and is only reported as part of the automated
differential when found at a percentage of less than 6.
If higher than 6%, a manual differential will be performed.

(0.0-0.5) % </td> Platelets 258 k/mm3 160-41 <td> [place] [#/volume] in 0 03/02/2019 [facility] Blood by k/mm3 08:38</td><td> Health Care Automated count Platelet Count Corporati on </td><td> 258
(160-410) k/mm3 </td> Basophils 0.7 % 0.0-2. <td> [place] [#/volume] in 0 % 03/02/2019 [facility] Blood by 08:38</td><td> Health [employer] Automated count Basophils [employer] </td><td> 0.7
(0.0-2.0) % </td> Lymphocytes 36.9 % 17.0-5 <td> [place] [#/volume] in 0.0 % 03/02/2019 [facility] Blood by 08:38</td><td> [employer] Automated count Lymphocytes [employer] </td><td> 36.9
(17.0-50.0) % </td> Basophils+[place] 2.0 % 0.0-5. <td> [place] phils+Monocytes 0 % 03/02/2019 [facility] [#/volume] in 08:38</td><td> Health Care Blood by Eosinophils [employer] Automated count </td><td> 2.0
(0.0-5.0) % </td> Carbon dioxide, 24 mEq/L 22-30 <td> [place] total mEq/L 03/02/2019 [facility] [Moles/volume] 08:38</td><td> Health Car e in Serum or CO2 </td><td> Corporation Plasma 24
(22-30) mEq/L </td> Glucose 125 mg/dL 70-105 <td> [place] [Mass/volume] in mg/dL 03/02/2019 [facility] Blood 08:38</td><td> Health Care Glucose-Serum [facility] </td><td><para graph styleCode="Sim d"> 125 H </paragraph><b r/> (70-105) mg/dL </td> Sodium 141 mEq/L 135-14 <td> [place] [Moles/volume] 5 03/02/2019 [place] in Serum or mEq/L 08:38</td><td> Health Care Plasma Sodium-Serum [facility] </td><td> 141
(135-145) mEq/L </td> Potassium 3.4 mEq/L 3.5-5. <td> [place] [Moles/volume] 1 03/02/2019 [facility] in Serum or mEq/L 08:38</td><td> Health Care Plasma Potassium-Seru [place] </td><td><para graph styleCode="Sim d"> 3.4 L </paragraph><b r/> (3.5-5.1) mEq/L </td> Chloride 106 mEq/L 98-107 <td> [place] [Moles/volume] mEq/L 03/02/2019 [place] in Serum or 08:38</td><td> Health Care Plasma Chloride [facility] </td><td> 106
(98-107) mEq/L </td> Neutrophils [#] 54.0 % 40.0-7 <td> [place] in Body fluid by 6.0 % 03/02/2019 [facility] Manual count 08:38</td><td> Health Care Neutrophils [facility] </td><td> 54.0
(40.0-76.0) % </td> Creatinine 0.86 mg/dL 0.57-1 <td> [place] [Moles/volume] .11 03/02/2019 [place] in Serum or mg/dL 08:38</td><td> Health Care Plasma Creatinine. [facility] </td><td> 0.86
(0.57-1.11) mg/dL </td> Proteins - Total 7.2 g/dL 6.4-8. <td> [place] 3 g/dL 03/02/2019 [facility] 08:38</td><td> Health Care Proteins - Corporation Total </td><td> 7.2
(6.4-8.3) g/dL </td> Aspartate 28 U/L 4-35 <td> [place] aminotransferase U/L 03/02/2019 [facility] [Enzymatic 08:38</td><td> Health Care activity/volume] AST (SGOT) Corporation in Serum or </td><td> Plasma 28
(4-35) U/L </td> Alanine 27 U/L 6-55 <td> [place] aminotransferase U/L 03/02/2019 [facility] [Enzymatic 08:38</td><td> Health Care activity/volume] ALT (SGPT) [employer] in Serum or </td><td> Plasma 27
(6-55) U/L </td> Albumin 4.5 g/dL 3.4-4. <td> [place] [Mass/volume] in 8 g/dL 03/02/2019 [facility] Serum or Plasma 08:38</td><td> Health Ca re Albumin [employer] </td><td> 4.5
(3.4-4.8) g/dL </td> Bilirubin.total 0.6 mg/dL 0.2-1. <td> [place] [Mass/volume] in 3 03/02/2019 [facility] Blood mg/dL 08:38</td><td> Health Care Bilirubin - Corporation Total </td><td> 0.6
(0.2-1.3) mg/dL </td> Urea nitrogen 8 mg/dL 6-22 <td> [place] [Mass/volume] in mg/dL 03/02/2019 [facility] Blood 08:38</td><td> Health Care BUN </td><td> Corporation 8
(6-22) mg/dL </td> Anion gap in 11 mEq/L 7-13 <td> [place] Serum or Plasma mEq/L 03/02/2019 [facility] 08:38</td><td> Health Care Anion Gap [employer] </td><td> 11
(7-13) mEq/L </td> Icteric index of Not <td> [place] Serum or Plasma Icteric 03/02/2019 [facility] 08:38</td><td> Health Care Icteric Index [employer] </td><td> Not Icteric
</td> Lipemic index of No Lipemia <td> [place] Serum or Plasma 03/02/2019 [facility] 08:38</td><td> Health Care Lipemia Index [facility] </td><td> No Lipemia
</td> Calcium 10.0 mg/dL 8.6-10 <td> [place] [Mass/volume] in .2 03/02/2019 [facility] Blood mg/dL 08:38</td><td> Health Care Calcium [facility] </td><td> 10.0
(8.6-10.2) mg/dL </td> Globulin 2.7 gm/dL 2.9-4. <td> [place] [Mass/volume] in 0 03/02/2019 [facility] Serum gm/dL 08:38</td><td> Health Care Globulin [facility] </td><td><para graph styleCode="Sim d"> 2.7 L </paragraph><b r/> (2.9-4.0) gm/dL </td> Hemolysis index No <td> [place] of Serum or Hemolysis 03/02/2019 [facility] Plasma 08:38</td><td> Health Care Hemolysis [employer] Index </td><td> No Hemolysis
</td> Urobilinogen 0.2 mg/dL 0.0-2. <td> [place] [Presence] in 0 03/02/2019 [facility] Urine by mg/dL 08:45</td><td> Health Care Automated test Urobilinogen [facility] strip </td><td> 0.2
(0.0-2.0) mg/dL </td> Glucose Negative <td> [place] [Presence] in 03/02/2019 [facility] Urine by Test 08:45</td><td> Health Care strip Glucose_ Corporation </td><td> Negative
(NEGATIVE) </td> Protein Negative <td> [place] [Presence] in 03/02/2019 [facility] Urine by 08:45</td><td> Health Care Automated test Protein [employer] strip Qualitative </td><td> Negative
(NEGATIVE) </td> Appearance of Cloudy <td> [place] Urine 03/02/2019 [facility] 08:45</td><td> Health Care Appearance [employer] </td><td> Cloudy
(CLEAR) </td> Specific gravity 1.006 {} 1.000- <td> [place] of Urine by Test 1.035 03/02/2019 [facility] 08:45</td><td> Health Care Specific Corporation [place] </td><td> 1.006
(1.000-1.035) </td> Erythrocytes 2 /HPF 0-2 <td> [place] [#/area] in /HPF 03/02/2019 [facility] Urine sediment 08:45</td><td> Health Car e by Automated RBC </td><td> Corporation count 2
(0-2) /HPF </td> Leukocytes 5 /HPF 0-5 <td> [place] [Presence] in /HPF 03/02/2019 [facility] Urine by 08:45</td><td> Health Care Automated WBC </td><td> Corporation 5
(0-5) /HPF </td> Nitrite Negative <td> [place] [Presence] in 03/02/2019 [facility] Urine by Test 08:45</td><td> Health Care strip Nitrites [facility] </td><td> Negative
(NEGATIVE) </td> Leukocyte 2+ <td> [place] esterase 03/02/2019 [facility] [Presence] in 08:45</td><td> Health Care Urine by Test Leukocytes [facility] strip Esterase </td><td><para graph styleCode="Sim d"> 2+ * AB </paragraph><b r/> (NEGATIVE) </td> Cholesterol in 42 mg/dL >60 <td> [place] HDL mg/dL 03/02/2019 [facility] [Mass/volume] in 08:38</td><td> Health C are Serum or Plasma HDL [employer] Cholesterol </td><td> 42
(>60) mg/dL </td> Hemoglobin A1C 5.7 % 4.0-5. <td> [place] 6 % 03/02/2019 [facility] 08:37</td><td> Health Care Hemoglobin [employer] A1C </td><td><para graph styleCode="Sim d"> 5.7 H </paragraph><b r/> (4.0-5.6) %
Increased risk for diabetes mellitus is seen in patients with HgA1C values
between 5.7-6.4%. Values > or = 6.5% are considered diagnostic of diabetes
mellitus.
Hemolytic anemias, hemoglobinopat hies, or recent transfusion may impact
HbA1c results. Clinical correlation is recommended.
=====
ESTIMATED AVERAGE GLUCOSE (eAG)
-----
RELATIONSHIP BETWEEN A1C AND eAG
=====
A1C(%) eAG(mg/dL)
6 126
7 154
8 183
9 212
10 -240
11 -269
12 -298
Source: Adapted from [place] [employer]. Standards of medical
care in diabetes-2014. Diabetes Care.2014;37(S p 1):S14-S88, table 8.

(4.0-5.6) % </td> Mucous MASSIVE <td> [place] < FEW 03/02/2019 [facility] 08:45</td><td> Health Care Mucous [employer] </td><td> MASSIVE
/LPF
< FEW

/LPF </td> Cholesterol 188 mg/dL 125-24 <td> [place] [Moles/volume] 0 03/02/2019 [facility] in Serum or mg/dL 08:38</td><td> Health Care Plasma Cholesterol [employer] </td><td> 188
(125-240) mg/dL </td> Epithelial cells MASSIVE <td> [place] [#/area] in FEW 03/02/2019 [facility] Urine sediment 08:45</td><td> Health Car e by Automated Epithelial [facility] count Cells </td><td> MASSIVE
/LPF
FEW

/LPF </td> Bacteria RARE <td> [place] [#/area] in 03/02/2019 [facility] Urine sediment 08:45</td><td> Health Car e by Microscopy Bacteria [employer] high power field </td><td> RARE
(NONE SEEN) /HPF </td> Triglyceride 116 mg/dL 30-200 <td> [place] [Mass/volume] in mg/dL 03/02/2019 [facility] Serum or Plasma 08:38</td><td> Health Ca re Triglyceride [employer] </td><td> 116
(30-200) mg/dL </td> Cholesterol in 123 mg/dL <150 <td> [place] LDL mg/dL 03/02/2019 [place] [Mass/volume] in 08:38</td><td> Health C are Serum or Plasma [facility] Cholesterol </td><td> 123
(<150) mg/dL </td> Procedure Social History Code Duration Value Status Description Data Source(s ) Smoking Unknown if ever completed Unknown if ever [facility] smoked smoked Health Care [facility] Vital Signs ID Date Data Source UNK Name Value Range Interpretation Code Description Data Source(s) Body temperature 97.6 [degF] 0 - 200 Normal (applies to 97.6 [degF ] [facility] non-numeric results) [facility] Body temperature 36.4 [place] 0 - 99.9 Below low normal 36.4 [place] [facility] Diastolic blood 51 mm[Hg] 0 - 999 Below low normal 51 mm[Hg] [place] [facility] Systolic blood 113 mm[Hg] 0 - 999 Normal (applies to 113 mm[Hg] [facility] non-numeric results) [facility] Oxygen saturation 98 % 0 - 999 Normal (applies to 98 % [facility] in Arterial blood non-numeric results) [facility] by Pulse oximetry Respiratory rate 16 0 - 999 Normal (applies to 16 [facility] non-numeric results) [facility] Heart rate 77 0 - 999 Normal (applies to 77 [facility] non-numeric results) [facility] Body surface area 2 m2 2 m2 [facility] Derived from [facility] m formula Body mass index 36.6 kg/m2 36.6 kg/m2 [facility] (BMI) [Ratio] [facility] Body weight 99.79 kg 99.79 kg [facility] Body height 165.1 cm 165.1 cm [facility] No Vital Sign Normal (applies to [place] information non-numeric results) [facility] [employer] exists for this Care Johana oration episode. wt - obtain Normal (applies to {} [place] non-numeric results) [facility] ty [facility] Corpor[facility] on Diastolic blood 79 {} Normal (applies to 79 {} [place] pressure non-numeric results) Coun ty [facility] Corpor[facility] on Systolic blood 128 {} Normal (applies to 128 {} [place] pressure non-numeric results) Coun ty [facility] Corpor[facility] on First Respiration 18.0000 {} Normal (applies to 18.0000 {} [place] rate Set non-numeric results) Coun ty [facility] Corpor[facility] on Heart rate 95.0000 {} Normal (applies to 95.0000 {} [place] non-numeric results) Coun ty [facility] Corpor[facility] on Body temperature 97.9000 {} Normal (applies to 97.9000 {} [place] non-numeric results) Coun ty [facility] Care Corporati on Patient Treatment Plan of Care Planned Activity Planned Date Details Description Data Source (s) Ibuprofen 600 MG Oral 04/20/2020 10:03:52 [facility] Tablet AM EDT System Aspirin [facility] Escitalopram 20 MG Oral [facility] Tablet [facility] pantoprazole 40 MG [facility] Delayed Release Oral System Tablet 24 HR Oxybutynin [facility] chloride 10 MG Extended Syst em Release Oral Tablet [place] Carbonate 300 MG [facility] Oral Capsule System aripiprazole 20 MG Oral [facility] Tablet [Abilify] System atorvastatin 40 MG Oral [facility] Tablet System
[2020-05-28] MEDS ORDERED: KETAMINE HCL 500 MG/10 ML VIAL ONE (07:53)
[2020-05-28] MEDS ORDERED: LACTATED RINGERS SOLUTION 1,000 ML IV SCH (08:45)
[2020-05-28 09:34] VITALS: BP 138/69; PULSE 78; TEMP 98.2
== END 2020-05-28 10:00 | disposition home or self-care (01) ==
LOC: FECT 06:30
PROVIDERS: ATTEND Psychiatry & Neurology Psychiatry
PROC: GZB4ZZZ Other Electroconvulsive Therapy (ICD-10-PCS; principal; 2020-05-28 09:00)
DX: F32.9 Major depressive disorder, single episode, unspecified (principal)
CPT/HCPCS: 90870; 94760

== ENCOUNTER 2020-06-04 06:43 | Day surgery (SDC) | payer OTHER ==
[2020-05-28 16:43] VITALS: BMI 38.2
--- OUTSIDE RECORDS SUMMARY | 2020-06-04 06:47 | XMS ---
:1960 Author Organization [facility] Care Team Providers Name Role Phone [...] is protected by Article 27-F of the [facility] Public Health law. If you continue you may haveaccess to information: Regarding HIV / AIDS; Provided by facilities licensed or operated by the [facility] Office of Mental Health; or Provided by the [facility] Office for People With Developmental Disabilities. If such information is present, then the following [facility] mandated warning applies: This information has [...] Drug NEXTGEN ([facility] [place] [facility]) Drug allergy No Known Allergies No Known [facility] [place] Drug allergy No Known Drug No Known Drug [facility] Allergies Health Care [facility] Food allergy No Known Food No Known [facility] Encounters Encounter Providers Location Date Indications Data Source(s ) S Attender: MD [facility] SURG 04/18/2020 Ashley Richards 12:07:22 PM [facility] - 04/20/2020 02:58:00 PM EDT Patient discharged. Outpatient Attender: MD [facility] 04/17/2020 05:22:25 PM Ashley Marcos Richards EDT - 04/18/2020 [facility]ospita [facility] 11:59:00 PM EDT Patient discharged. Outpatient Attender: PM9 [facility] 12/16/2019 12:44:17 PM GSI ([facility] EDT Collaborative) Patient admitted. Outpatient Attender: [place] 08/18/2019 [facility] systemReferrer: [place] 03:00:00 PM EST ([facility]) Outpatient Attender: KAREEM 05/04/2019 Ifeoma STRINGERdmitter: KAREEM 06:00:00 AM [facility] Care Corporati on Inpatient 04/27/2019 [place] 11:17:00 AM [facility] alth Care Corporati on Inpatient 04/27/2019 [place] 11:17:00 AM [facility] alth Care Corporati on Outpatient Attender: KAREEM 04/18/2019 [place] lawrence MYKEdmitter: YOUCHAH, 06:00:00 AM EDT [facility] Corporati on Inpatient Attender: EDWARD, 04/03/2019 [facility], 05:59:00 PM [facility] 04[facility]2019 Care Corpora tion 04:59:00 PM EDT BIPOLAR DISORDER Patient admitted. Emergency Attender: MARIA LUZ, 04/03/2019 01:32:00 SUICIDAL [facility] OLGAAttender: EDWARD, PM EDT [facility] Care MITCHELLAdmitter: EDWARD Corporation FERN SUICIDAL Outpatient Attender: CECY MADDEN 03/23/2019 11:22:00 S tatiana HERBERTSTATE LINEAdmitter: RUKHSANA AM EDT - 03/24/2019 [facility] 08:51:00 AM EDT Patient discharged. Outpatient Attender: KAREEM 03/18/2019 [facility] 06[facility]00 AM EDT [facility]ender: MARJORIE, 03/01/2019 [facility]IPOLAR [facility] 10:05:00 AM EDT - DISORDER [facility] 03/16/2019 Corpora tion 02:14:00 PM EDT BIPOLAR DISORDER Emergency Attender: MARJORIE, 03/01/2019 09:17:00 EVAL [facility]: JEREMI AMADOR T [facility]NH Outpatient Attender: KAREEM 02/11/2019 06:00:00 AM [facility]ender: KAREEM 12/27/2018 06:00:00 AM [facility] Out[facility] Attender: KAREEM 12/24/2018 06:00:00 AM [facility] INDIGO [facility] 11/19/2018 07:19:00 AM Cu reMD ([facility]) Outpatient Attender: DOROTHEA 10/04/2018 06:00:00 AM [facility] PIALIAdmitter: ANTONETTE PIEDRA [facility] Medications Medication Brand Start Product Dose Route Administrative Pharmacy [facility] Indications Reaction Description Data Name Date Form Instructions Instructions Source(s) Ibuprofen ibupro [id number] active Ibuprof en [facility] 600 MG Oral [...] or milk. atorvastatin 40 atorvastatin 1 {tab(s)} A92839 active Lipitor [facility] MG Oral Tablet 40 mg oral Health atorvastatin 40 tablet Sy stem mg oral tablet Aspirin aspirin 1 {tab(s)} A27537 active aspirin 81 mg oral delayed release capsule; 1 tab(s) orally once a day Ordered: 20-Apr-2020 [facility] aspirin 81 mg Quantity: 0 Spreadshirt Ocean Seed 81 mg oral Refills: 0 System oral delayed delayed release release capsule capsule aripiprazole 20 Abilify 20 mg 1 [id number] active Abilify [facility] MG Oral Tablet oral tablet {tab(s)} Health [Abilify] System Abilify 20 mg oral tablet Docusate Sodium DOK (Docusate [facility] 100 MG Oral Sodium) [100 County Capsule DOK mg Capsule]: Health Care (Docusate 100 MG Oral Cor poration Sodium) [100 mg 9-9 Capsule]: 100 MG Oral 9-9 Escitalopram 10 Escitalopram completed [place] MG Oral Tablet [10 mg Cou nty Escitalopram Tablet]: 10 Health Care [10 mg Tablet]: MG Oral Q9AM Corporation 10 MG Oral Q9AM Docusate Sodium DOK (Docusate completed [place] 100 MG Oral Sodium) [100 County Capsule DOK mg Capsule]: Health Care (Docusate 100 MG Oral Cor poration Sodium) [100 mg 9-9 Capsule]: 100 MG Oral 9-9 Moodus lithium 300 1 [id number] active Lithiu m [facility] Carbonate 300 mg oral {cap(s)} Carb [facility] MG Oral Capsule capsule S ystem lithium 300 mg oral capsule 24 HR oxybutynin 10 1 M57614 active Oxybut ynin [facility] Oxybutynin mg/24 hr oral {tab(s)} C hloride ER Health chloride 10 MG tablet, Sy stem Extended extended Release Oral release Tablet oxybutynin 10 mg/24 hr oral tablet, extended release pantoprazole 40 pantoprazole 1 [id number] active Pantoprazole [facility] MG Delayed 40 mg oral {tab(s)} Health Release Oral delayed Syst em Tablet release pantoprazole 40 tablet mg oral delayed release tablet Escitalopram 20 escitalopram 1 U57304 active Escitalopram [facility] MG Oral Tablet 20 mg oral {tab(s)} Oxalate Health escitalopram 20 tablet Sy stem mg oral tablet aripiprazole 20 Aripiprazole completed [place] MG Oral Tablet [20 mg Cou nty Aripiprazole Tablet]: 20 Health Care [20 mg Tablet]: MG Oral Q10PM Corporation 20 MG Oral Q10PM quetiapine 100 Seroquel completed [place] MG Oral Tablet (Quetiapine) [facility] Seroquel [100 mg Health C are (Quetiapine) Tablet]: 1 C orporation [100 mg Tablet Oral Tablet]: 1 BEDTIME Tablet Oral BEDTIME Rosuvastatin Rosuvastatin completed [place] calcium 10 MG [10 mg Coun ty Oral Tablet Tablet]: 10 [facility] Rosuvastatin MG Oral Q10PM Corporation [10 mg Tablet]: 10 MG Oral Q10PM Trazodone Trazodone [50 completed [place] Hydrochloride mg Tablet]: [facility] 50 MG Oral 50 MG Oral [facility] Tablet Q10PM Corporation Trazodone [50 mg Tablet]: 50 MG Oral Q10PM gabapentin 100 Gabapentin completed [place] MG Oral Capsule [100 mg C ounty Gabapentin [100 Capsule]: 100 Health Care mg Capsule]: MG Oral 3 Co rporation 100 MG Oral 3 TIMES A DAY TIMES A DAY Insurance Providers Payer name Policy type Policy ID Covered Covered libertarian's Policy P ryan / Coverage libertarian ID relationship to [facility] Inf ormation type byers MEDICAID [id number] SP [id number] MEDICARE [id number] SP [id number] 95 5 MEDICARE [id number] SP [id number] 5 Medicaid Medicaid [id number] 1 [id number] Medicare Part Medicare [id number] 1 [id number] B Outpatient 5 Medicare Medicare [id number] 1 [id number] 95 5 Financial Self Pay 1 Assist 55% Medicaid Medicaid [id number] 1 [id number] Medicare Part Medicare [id number] 1 [id number] B Outpatient Medicare Medicare [id number] 1 [id number] A HEALTH [id number] SOLUTIONS 8 HEALTH Mortar Data [facility] [id number] 1 [id number] Part B Par 5 Providers [employer] [id number] Circadence SELF PAY 00 Self 00 REDUCTION SELF PAY 000 Self 000 Problems, Conditions, and Diagnoses Code Display Name Description Problem Type Effective Data Dates Source(s) R11.10 Vomiting, Vomiting Diagnosis 04/20/2020 S - New unspecified 06:38:00 AM [facility] K95.09 Other complications Other complications Diagnosis 020 [facility] - New of gastric band of gastric band 06:38:00 AM Attila helle procedure procedure T [facility] K43.6 Other and Other or unspecified Diagnosis 04/20/2020 S - New unspecified ventral ventral hernia with 06:38:0 0 AM [place] hernia with obstruction without EDT Hosp ital obstruction, without gangrene gangrene [id number] Laparoscopy, Laparoscopy, Diagnosis 04/20/2020 [facility] - New surgical, gastric surgical, gastric 06:38:00 AM [place] [facility] restrictive restrictive [facility] procedure; removal procedure; removal of adjustable of adjustable gastric restrictive gastric restrictive device and device and subcutaneous port subcutaneous port components components R13.10 Dysphagia, Dysphagia Diagnosis 04/20/2020 S - New unspecified 06:38:00 AM [facility] E66.01 Morbid (severe) Morbid obesity, Diagnosis 04/18/2020 S - New obesity due to unspecified obesity 08:10:00 AM [place] excess calories type [facility] Z11.59 Encounter for Encounter for Diagnosis 04/18/2020 S - Ne w screening for other laboratory testing 08:10:00 AM [facility] viral diseases for COVID-19 virus [facility] lon Z01.818 Encounter for other Preop examination Diagnosis 0 [facility] - New preprocedural 08:10:00 AM [facility] Z12.83 Encounter for Screening exam for Diagnosis 08/18/2019 NEX TGEN screening for skin cancer 03:00:00 PM ([facility] malignant neoplasm EST Medica l - [facility] of skin [facility]) L82.1 Other seborrheic Other seborrheic Diagnosis 08/18/2019 NE XTGEN keratosis keratosis 03:00:00 PM ([facility] EST Medical [facility]) D18.01 Hemangioma of skin Angioma of skin Diagnosis 08/18/2019 N EXTGEN and subcutaneous 03:00:00 PM ([facility] tissue EST [facility]) L81.4 Other melanin Other melanin Diagnosis 08/18/2019 NEXTGEN hyperpigmentation hyperpigmentation 03:00:00 PM ([facility]) L81.2 Freckles Freckles Diagnosis 08/18/2019 NEXTGEN 03:00:00 PM ([facility] EST [facility]) D22.5 Melanocytic nevi of Melanocytic nevi of Diagnosis 019 NEXTGEN trunk trunk 03:00:00 PM ([facility] EST [facility]) K64.9 Unspecified UNSPECIFIED Diagnosis 04/19/2019 [place] hemorrhoids HEMORRHOIDS 04:59:00 PM [facility] EDT Care [place] M75.100 Unspecified rotator UNSP ROTATR-CUFF Diagnosis 04/19/2019 [place] cuff tear or rupture TEAR/RUPTR OF UNSP 04:59:0 0 PM [facility] of unspecified SHOULDER, NOT TRAUMA EDT Care shoulder, not Corporation specified as traumatic Y92.89 Other specified OTH PLACES THE Diagnosis 04/19/2019 [facility] the [facility] PLACE OF OCCURRENCE 04:59:0 0 PM [facility] of occurrence of the OF THE EXTERNAL EDT Care external cause CAUSE Corporatio n X58.XXXA Exposure to other EXPOSURE TO OTHER Diagnosis 04/19/2019 [place] specified factors, SPECIFIED FACTORS, 04:59:00 PM [facility] initial encounter INITIAL ENCOUNTER EDT Care [place] T48.1X2A Poisoning by POISONING BY Diagnosis 04/19/2019 [place] skeletal muscle SKELETAL MUSCLE 04:59:00 PM [facility] relaxants RELAXANTS, EDT Care [neuromuscular SELF-HARM, INIT Corpo ration blocking agents], intentional self-harm, initial encounter T43.212A Poisoning by POISN BY SLCTV Diagnosis 04/19/2019 [facility] selective serotonin SEROTON/NOREPINEPH 04:59:00 PM [facility] and norepinephrine REUP EDT Care reuptake inhibitors, INHIBTR,SLF-HRM, Corporation intentional INIT self-harm, initial encounter 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 04/19/2019 [place] personality disorder PERSONALITY DISORDER 04:59 :00 PM [facility] EDT Care [facility] T43.592A Poisoning by other POISONING BY OTH Diagnosis 04/19/2019 [place] antipsychotics and ANTIPSYCHOT/NEUROLEP 04:59:0 0 PM [facility] neuroleptics, T, SELF-HARM, INIT EDT Car e intentional Corporation self-harm, initial encounter F33.2 Major depressive MAJOR DEPRESSV Diagnosis 04/03/2019 [place] disorder, recurrent DISORDER, RECURRENT 05:59:0 0 PM [facility] severe without SEVERE W/O PSYCH EDT Care psychotic features FEATURES Corpor ation T43.595S Adverse effect of ADVERSE EFFECT OF Diagnosis 03/18/2019 [place] other antipsychotics ANTIPSYCHOTICS AND 06:00:0 0 AM [facility] neuroleptics, NEUROLEPTICS, EDT Care sequela SEQUELA [place] G24.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 INDUCED Diagnosis 03/18/2019 [facility] r subacute dyskinesia SUBACUTE DYSKINESIA 06:00:0 0 AM [facility] EDT Care [place] E78.00 Pure PURE Diagnosis 03/18/2019 [place] hypercholesterolemia HYPERCHOLESTEROLEMIA 06:00 :00 AM [facility] , unspecified , UNSPECIFIED EDT Care [place] G47.00 Insomnia, INSOMNIA, Diagnosis 03/18/2019 [place] unspecified UNSPECIFIED 06:00:00 AM [facility] EDT Care [place] 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 MOVEMENT DISORDERS 06:00:00 AM [facility] EDT Care [place] F31.5 Bipolar disorder, BIPOLAR DISORD, CRNT Diagnosis 03/18/20 [place] current episode EPSD DEPRESS, 06:00:00 AM [facility] depressed, severe, SEVERE, W PSYCH EDT C are with psychotic FEATURES Corporatio n features M54.2 Cervicalgia CERVICALGIA Diagnosis 03/16/2019 [place] 02:14:00 [facility] [place] E78.5 Hyperlipidemia, HYPERLIPIDEMIA, Diagnosis 03/16/2019 [place] unspecified UNSPECIFIED 02:14:00 PM [facility] Delivery AgentT [facility] [place] F25.1 Schizoaffective SCHIZOAFFECTIVE Diagnosis 03/16/2019 [place] disorder, depressive DISORDER, DEPRESSIVE 02:14 :00 PM [facility] type TYPE EDT [facility] [place] 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 DYSTONIA 02:14:00 PM [facility] [place] M79.676 Pain in unspecified PAIN IN UNSPECIFIED Diagnosis 019 [place] toe(s) TOE(S) 06:00:00 AM [facility] [place] F31.74 Bipolar disorder, in BIPOLAR DISORDER, IN Diagnosis 02/11 [place] full remission, most FULL REMIS, MOST 06:00:00 AM [facility] recent episode manic RECENT EPISODE MANIC T [facility] [place] Surgeries/Procedures Procedure Description Date Indications Data Source(s) Tissue Exam 04/20/2020 [facility] 01:52:15 PM System EDT - 04/20/2020 09:25:00 AM EDT Venipuncture 04/18/2020 [facility] 08:48:26 AM System EDT - 04/18/2020 10:00:06 AM EDT OFFICE/OUTPATIENT OFFICE/OUTPATIENT 08/18/2019 NEXTG EN ([facility] VISIT EST VISIT EST 12:00:00 AM [facility] Results ID Date Data Source [id number] 05/31/2020 08:22:00 AM EDT [facility] Name Value Range Interpretation Description Data Sup porting Code Source(s) Document(s ) SARS [facility] coronavirus 2 RNA This lab was ordered by GISSELL hunter [facility] and reported by [facility]. ID Date Data Source [id number] 05/23/2020 10:55:00 AM EDT [facility] Name Value Range Interpretation Description Data Sup porting Code Source(s) Document(s ) SARS [facility] coronavirus 2 RNA This lab was ordered by GISSELL hunter [facility] and reported by [facility]. ID Date Data Source [id number] 05/17/2020 09:40:00 AM EDT [facility] Name Value Range Interpretation Description Data Sup porting Code Source(s) Document(s ) SARS [facility] coronavirus 2 RNA This lab was ordered by [facility] DAVE hunter [facility] and reported by [facility]. ID Date Data Source [id number] 05/14/2020 09:15:00 AM EDT [facility] Name Value Range Interpretation Description Data Sup porting Code Source(s) Document(s ) SARS [facility] coronavirus 2 RNA [facility] lab [facility] and reported by [facility]. ID Date Data Source [id number] 05/11/2020 10:28:00 AM EDT [facility] Name Value Range Interpretation Description Data Sup porting Code Source(s) Document(s ) SARS [facility] coronavirus 2 RNA This lab was [facility] T[facility] nadia [facility] and reported by [facility]. ID Date Data Source [id number] 05/08/2020 01:40:00 PM EDT [facility] Name Value Range Interpretation Description Data Sup porting Code Source(s) Document(s ) SARS [facility] coronavirus 2 RNA This lab was [facility] nadia [facility] and reported by [facility]. ID Date Data Source [id number] 05/04/2020 12:40:00 PM EDT [facility] Name Value Range Interpretation Description Data Sup porting Code Source(s) Document(s ) SARS [facility] coronavirus 2 RNA This lab was [facility] by [facility] Tello [facility] and reported by [facility]. ID Date Data Source [id number] 04/30/2020 10:00:00 AM EDT [facility] Name Value Range Interpretation Description Data Sup porting Code Source(s) Document(s ) SARS [facility] coronavirus 2 RNA This lab was [facility] Tello nadia [facility] and reported by [facility]. ID Date Data Source [id number] 04/27/2020 10:40:00 AM EDT [facility] Name Value Range Interpretation Description Data Sup porting Code Source(s) Document(s ) SARS [facility] coronavirus 2 RNA This lab was ordered by GISSELL ELENA and reported by [facility]. ID Date Data Source [id number] 04/24/2020 02:25:28 AM EDT [facility] Name Value Range Interpretation Description Data Sup porting Code Source(s) Document(s ) D Ab Rh Positive Normal (applies Rh Factor, [facility] [Titer] in to non-numeric Whole Blood Health Syste m Serum or results) Plasma Type O Normal (applies Type [facility] to non-numeric Health System results) new pt--no historyPreviously released as O on 12/24/2011, 4:42 [place] [id number] - added comment for o/r AntibodyScreen Negative Normal (applies to Antibody Screen [facility] non-numeric results) System ID Date Data Source [id number] 04/24/2020 02:25:28 AM EDT [facility] [...] quantitative testing recommened. ID Date Data Source [id number] 04/24/2020 02:25:28 AM EDT [facility] Name Value Range Interpretation Description Data Sup porting Code Source(s) Document(s ) RubellaInterpreta Positive Normal (applies Rubella [facility] tion to non-numeric Interpretation Health results) System <5 Negative>=5 - <10 Equivocal>= 10 Positive Rubella 27 {IU/mL} Normal (applies to Rubella [facility] System non-numeric results) ID Date Data Source [id number] 04/24/2020 02:25:28 AM EDT [facility] Name Value Range Interpretation Description Data Sup porting Code Source(s) Document(s ) VaricellaInterpre Positive Normal (applies Varicella [facility] tation to non-numeric Interpretation Health results) System <0.6 Negative>=0.6 - <.90 Equivoc al>=.90 Positive VaricellaResultValue 1.78 Normal (applies to Varicel la Result [facility] non-numeric results) Value System ID Date Data Source [id number] 04/24/2020 02:25:28 AM EDT [facility] [...] Equivo lloyd>=.70 Positive ID Date Data Source [id number] 04/24/2020 02:25:28 AM EDT [facility] [...] Health System results) ID Date Data Source [id number] 04/24/2020 02:25:28 AM EDT [facility] Name Value Range Interpretation Description Data Sup porting Code Source(s) Document(s ) 10471-1 NEGATIVE Testing Normal (applies COVID-19.. [facility] [...] Range: NEGATIVE . ID Date Data Source [id number] 04/24/2020 02:25:28 AM EDT [facility] He alth [...] Health results) System ID Date Data Source [id number] 04/24/2020 02:25:28 AM EDT [facility] [...] Health results) System ID Date Data Source [id number] 04/24/2020 02:25:28 AM EDT [facility] Name Value Range Interpretation Description Data Sup porting Code Source(s) Document(s ) TissueExam Results for case # Normal (applies Tissue Exam [facility] [id number] to non-numeric Health SURGICAL PATHOLOGY results) System REPORTCLINICAL INFORMATION: LAP band slip. PREOPERATIVE DIAGNOSIS: Same. POSTOPERATIVE DIAGNOSIS: Same.FINAL DIAGNOSIS: Gastric band and port system (gross).YUN/Jessica ROCA MDElectronically Signed By: GROSS DESCRIPTION: Received fresh, labeled "gastric band and port system", the specimen consists of a 3 x 3 x 1.5cm white plastic and raphael metal device inscribed with PORT-A-CATH [id number]. There is attached 45 x 0.3 x [...] are submitted, gross diagnosis only.MV/stPage 1 of 1 ID Date Data Source [id number] 04/23/2020 09:30:00 AM EDT [facility] Name Value Range Interpretation Description Data Sup porting Code Source(s) Document(s ) SARS [facility] coronavirus 2 RNA This lab was [facility] by [facility] and reported by [facility]. ID Date Data Source [id number] 04/19/2020 10:40:00 AM EDT [facility] Name Value Range Interpretation Description Data Sup porting Code Source(s) Document(s ) SARS [facility] coronavirus 2 RNA This lab was ordered by [facility] and reported by [facility]. ID Date Data Source [id number] 04/18/2020 09:16:00 AM EDT [facility] Name Value Range Interpretation Code Description Data April rce(s) Supporting Document(s ) COVID-19.. [facility] This lab was ordered by [facility] and reported by [facility]. ID Date Data Source [id number] 04/17/2020 08:55:00 AM EDT [facility] Name Value Range Interpretation Description Data Sup porting Code Source(s) Document(s ) SARS [facility] coronavirus 2 RNA This lab was ordered by [facility] and reported by [facility]. ID Date Data Source [id number] 03/03/2020 11:40:00 AM EDT [facility] Name Value Range Interpretation Description Data Sup porting Code Source(s) Document(s ) 2019 Novel [facility] Coronavirus RNA Interpretation Unspecified Specimen Qualitative SHIMA Probe Detection This lab was ordered by [facility] and reported by [facility]. ID Date Data Source [id number] 04/19/2019 04:59:28 PM EDT [facility] [id number] [facility] Name Value Range Interpretation Description Data Sup porting Code Source(s) Document(s ) Leukocytes 5.1 k/mm3 4.8-10 <td> 04/14/2019 [place] [#/volume] .8 08:23</td><td> County in Blood by k/mm3 WBC </td><td> Health [facility] [employer] count 5.1
(4.8-10.8) k/mm3 </td> Erythrocytes 4.94 m/mm3 3.90-5 <td> 04/14/2019 [facility] r [#/volume] .20 08:23</td><td> County in Blood m/mm3 RBC </td><td> Health Care [place] 4.94
(3.90-5.20) m/mm3 </td> Hemoglobin 14.5 g/dL 12.0-1 <td> 04/14/2019 [place] [Mass/volume 6.0 08:23</td><td> County ] in Blood g/dL HGB </td><td> Health Care [place] 14.5
(12.0-16.0) g/dL </td> Erythrocyte 13.1 % 11.5-1 <td> 04/14/2019 [place] distribution 4.5 % 08:23</td><td> County width RDW </td><td> Health Care [[employer] volume] by 13.1 Automated count
(11.5-14.5) % </td> Platelet 11.0 fL 9.8-12 <td> 04/14/2019 [place] mean volume .8 fL 08:23</td><td> [facility] [Entitic MPV </td><td> Health Care volume] in Corporation Blood by 11.0 Automated count
(9.8-12.8) fL </td> Erythrocyte 33.5 % 32.0-3 <td> 04/14/2019 [place] mean 6.0 % 08:23</td><td> [facility] corpuscular [facility] </td><td> Health Care hemoglobin Corporation concentratio 33.5 n [Mass/volume
] in Blood (32.0-36.0) % from Fetus </td> by Automated count Hematocrit 43.3 % 37.0-4 <td> 04/14/2019 [place] [Volume 7.0 % 08:23</td><td> County Fraction] of HCT </td><td> Health Care Blood by Corporation Automated 43.3 count
(37.0-47.0) % </td> Erythrocyte 29.4 pg 27.0-3 <td> 04/14/2019 [place] mean 1.5 pg 08:23</td><td> [facility] corpuscular MCH </td><td> Health Care hemoglobin Corporation [Entitic 29.4 mass] by Automated
count (27.0-31.5) pg </td> Erythrocyte 87.7 fL 81.0-9 <td> 04/14/2019 [place] mean 9.0 fL 08:23</td><td> [facility] corpuscular MCV </td><td> Health Care volume [facility] [Entitic 87.7 volume] by Automated
count (81.0-99.0) fL </td> Lymphocytes 41.3 % 17.0-5 <td> 04/14/2019 [place] [#/volume] 0.0 % 08:23</td><td> County in Blood by Lymphocytes [facility] Care Automated </td><td> Corporation count 41.3
(17.0-50.0) % </td> Platelets 229 k/mm3 160-41 <td> 04/14/2019 [place] [#/volume] 0 08:23</td><td> [place] in Blood by k/mm3 Platelet Count Health Care Automated </td><td> [place] count 229
(160-410) k/mm3 </td> Monocytes/Le 6.1 % 0.0-11 <td> 04/14/2019 [place] ukocytes .0 % 08:23</td><td> County [Pure number Monocytes. Health Care fraction] in </td><td> Corporation Blood by Automated 6.1 count
(0.0-11.0) % </td> Basophils 0.8 % 0.0-2. <td> 04/14/2019 [place] [#/volume] 0 % 08:23</td><td> [place] in Blood by Basophils Health Care Automated </td><td> Corporation count 0.8
(0.0-2.0) % </td> Basophils+Eo 2.7 % 0.0-5. <td> 04/14/2019 [place] sinophils+Mo 0 % 08:23</td><td> [facility] nocytes Eosinophils Health Care [#/volume] </td><td> Corporation in Blood by Automated 2.7 count
(0.0-5.0) % </td> Potassium 4.8 mEq/L 3.5-5. <td> 04/14/2019 [place] [Moles/volum 1 08:23</td><td> [facility] e] in Serum mEq/L Potassium-Serum Health Care or Plasma </td><td> Corporation 4.8
(3.5-5.1) mEq/L </td> Immature 0.2 % 0.0-0. <td> 04/14/2019 [place] granulocytes 5 % 08:23</td><td> County /100 IG% [...] </td> Sodium 139 mEq/L 135-14 <td> 04/14/2019 [place] [Moles/volum 5 08:23</td><td> [facility] e] in Serum mEq/L Sodium-Serum Health Care or Plasma </td><td> Corporation 139
(135-145) mEq/L </td> Glucose 96 mg/dL 70-105 <td> 04/14/2019 [place] [Mass/volume mg/dL 08:23</td><td> [facility] ] in Blood Glucose-Serum Health Care </td><td> [place] 96
(70-105) mg/dL </td> Neutrophils 48.9 % 40.0-7 <td> 04/14/2019 [place] [#] in Body 6.0 % 08:23</td><td> County fluid by Neutrophils Health Care Manual count </td><td> [place] 48.9
(40.0-76.0) % </td> Creatinine 0.82 mg/dL 0.57-1 <td> 04/14/2019 [place] [Moles/volum .11 08:23</td><td> County e] in Serum mg/dL Creatinine. Health Care or Plasma </td><td> [place] 0.82
(0.57-1.11) mg/dL </td> Urea 10 mg/dL 6-22 <td> 04/14/2019 [place] nitrogen mg/dL 08:23</td><td> [facility] [Mass/volume BUN </td><td> Health Care ] in Blood Medl[place] 10
(6-22) mg/dL </td> Chloride 103 mEq/L 98-107 <td> 04/14/2019 [place] [Moles/volum mEq/L 08:23</td><td> [facility] e] in Serum Chloride Health Care or Plasma </td><td> [place] 103
(98-107) mEq/L </td> Carbon 29 mEq/L 22-30 <td> 04/14/2019 [place] dioxide, mEq/L 08:23</td><td> [facility] total CO2 </td><td> Health Care [Moles/volum Corporation e] in Serum 29 or Plasma
(22-30) mEq/L </td> Albumin 4.3 g/dL 3.4-4. <td> 04/14/2019 [place] [Mass/volume 8 g/dL 08:23</td><td> [facility] ] in Serum Albumin Health Care or Plasma </td><td> [place] 4.3
(3.4-4.8) g/dL </td> Proteins - 7.0 g/dL 6.4-8. <td> 04/14/2019 [place] Total 3 g/dL 08:23</td><td> [facility] Proteins - Health Care Total Corporation </td><td> 7.0
(6.4-8.3) g/dL </td> Alanine 20 U/L 6-55 <td> 04/14/2019 [place] aminotransfe U/L 08:23</td><td> [facility] rase ALT (SGPT) Health Care [Enzymatic </td><td> Corporation activity/vol ume] in 20 Serum or
Plasma (6-55) U/L </td> Aspartate 15 U/L 4-35 <td> 04/14/2019 [place] aminotransfe U/L 08:23</td><td> [facility] rase AST (SGOT) Health Care [Enzymatic </td><td> Corporation activity/vol ume] in 15 Serum or
Plasma (4-35) U/L </td> Bilirubin.to 0.5 mg/dL 0.2-1. <td> 04/14/2019 [place] livan 3 08:23</td><td> [facility] [Mass/volume mg/dL Bilirubin - Health Care ] in Blood Total Medlert </td><td> 0.5
(0.2-1.3) mg/dL </td> Calcium 9.6 mg/dL 8.6-10 <td> 04/14/2019 [place] [Mass/volume .2 08:23</td><td> [facility] ] in Blood mg/dL Calcium Health Care </td><td> [place] 9.6
(8.6-10.2) mg/dL </td> Globulin 2.7 gm/dL 2.9-4. <td> 04/14/2019 [place] [Mass/volume 0 08:23</td><td> [facility] ] in Serum gm/dL Globulin Health Care </td><td><valerie Corporation raph styleCode="Bold "> 2.7 L </paragraph>
(2.9-4.0) gm/dL </td> Lipemic No Lipemia <td> 04/14/2019 [place] index of 08:23</td><td> [facility] Serum or Lipemia Index Health Care Plasma </td><td> [place] No Lipemia
</td> Phosphate 3.1 mg/dL 2.3-4. <td> 04/04/2019 [place] [Mass/volume 7 08:28</td><td> [facility] ] in Serum mg/dL Inorganic Health Care or Plasma Phosphorus [facility] </td><td> 3.1
(2.3-4.7) mg/dL </td> Icteric Non Icteric <td> 04/14/2019 [place] index of 08:23</td><td> [facility] Serum or Icteric Index Health Care Plasma </td><td> [place] Non Icteric
</td> Anion gap in 7 mEq/L 7-13 <td> 04/14/2019 [place] Serum or mEq/L 08:23</td><td> [facility] Plasma Anion Gap Health Care </td><td> [place] 7
(7-13) mEq/L </td> Hemolysis No Hemolysis <td> 04/14/2019 [place] index of 08:23</td><td> [facility] Serum or Hemolysis Index Health Care Plasma </td><td> [place] No Hemolysis
</td> Prothrombin 10.8 secs 9.8-12 <td> 04/03/2019 [place] time (PT) .0 15:28</td><td> [facility] secs Prothrombin Health Care Time. [facility] </td><td> 10.8
(9.8-12.0) secs </td> aPTT panel - 24.6 secs 25.0-3 <td> 04/03/2019 [place] Platelet 2.0 15:28</td><td> [facility] poor plasma secs Partial Health Care Thromboplastin [facility] Time </td><td><valerie raph styleCode="Bold "> 24.6 L </paragraph>
(25.0-32.0) secs </td> Appearance Cloudy <td> 04/03/2019 [place] of Urine 15:28</td><td> [facility] Appearance Health Care </td><td> Corporation Cloudy
(CLEAR) </td> Protein 1+ (30 MG/DL) <td> 04/03/2019 [facility] r [Presence] 15:28</td><td> [place] in Urine by Protein Health Care Automated Qualitative Corporation test strip </td><td> 1+ (30 MG/DL)
(NEGATIVE) </td> Specific 1.010 {} 1.000- <td> 04/03/2019 [place] gravity of 1.035 15:28</td><td> County Urine by Specific Health Care Test strip [place] Med[place] </td><td> 1.010
(1.000-1.035) </td> Nitrite Negative <td> 04/03/2019 [place] [Presence] 15:28</td><td> [place] in Urine by Nitrites Health Care Test strip </td><td> Corporation Negative
(NEGATIVE) </td> Glucose Negative <td> 04/03/2019 [place] [Presence] 15:28</td><td> County in Urine by Glucose_ Health Care Test strip </td><td> Corporation Negative
(NEGATIVE) </td> Leukocyte 3+ <td> 04/03/2019 [place] esterase 15:28</td><td> County [Presence] Leukocytes Health Care in Urine by Esterase [place] Test strip </td><td><valerie raph styleCode="Bold "> 3+ * AB </paragraph>
(NEGATIVE) </td> Leukocytes 36 /HPF 0-5 <td> 04/03/2019 [place] [Presence] /HPF 15:28</td><td> [place] in Urine by WBC </td><td> Health Care Automated Corporation 36
(0-5) /HPF </td> Erythrocytes 13 /HPF 0-2 <td> 04/03/2019 [place] [#/area] in /HPF 15:28</td><td> County Urine RBC </td><td> Health Care sediment by [place] Automated 13 count
(0-2) /HPF </td> Urobilinogen 0.2 mg/dL 0.0-2. <td> 04/03/2019 [place] [Presence] 0 15:28</td><td> [place] in Urine by mg/dL Urobilinogen [facility] Automated </td><td> [place] test strip 0.2
(0.0-2.0) mg/dL </td> Epithelial MASSIVE <td> 04/03/2019 [place] cells FEW 15:28</td><td> County [#/area] in Transitional Epithelial [facility] Urine Epithelial Cells [place] sediment by cells 3/HPF </td><td> Automated count MASSIVE
/LPF
FEW
Transitional Epithelial cells 3/HPF

/LPF </td> Magnesium 1.9 mg/dL 1.6-2. <td> 04/04/2019 [place] [Mass/volume 6 08:28</td><td> County ] in Serum mg/dL Magnesium Level [facility] Care or Plasma </td><td> [place] 1.9
(1.6-2.6) mg/dL </td> Amorphous RARE < <td> 04/03/2019 [place] Crystal FEW 15:28</td><td> [facility] Amorphous [facility] Care [employer] </td><td> RARE
/HPF
< FEW

/HPF </td> Bacteria MODERATE <td> 04/03/2019 [place] [#/area] in 15:28</td><td> [facility] Urine Bacteria [facility] Care sediment by </td><td> [place] Microscopy high power MODERATE field
(NONE SEEN) /HPF </td> Calcium RARE Ca <td> 04/03/2019 [facility] r oxalate Oxalate 15:28</td><td> [facility] crystals Crystals..May Calcium Oxalate Health Car e [Presence] be present in JDLab in Urine normal, acid </td><td> sediment by or alkaline Light urine RARE microscopy
(SEE BELOW) /HPF
Ca Oxalate Crystals..May be present in normal, acid or alkaline urine

(SEE BELOW) /HPF </td> Mucous FEW < <td> 04/03/2019 [place] FEW 15:28</td><td> [facility] Mucous Health Care </td><td> Corporation FEW
/LPF
< FEW

/LPF </td> Cholesterol 116 mg/dL <150 <td> 04/04/2019 [place] in LDL mg/dL 08:28</td><td> [facility] [Mass/volume LDL Cholesterol Health Care ] in Serum </td><td> Corporation or Plasma 116
(<150) mg/dL </td> Triglyceride 80 mg/dL 30-200 <td> 04/04/2019 [place] [Mass/volume mg/dL 08:28</td><td> [facility] ] in Serum Triglyceride Health Care or Plasma </td><td> Corporation 80
(30-200) mg/dL </td> Cholesterol 37 mg/dL >60 <td> 04/04/2019 [place] in HDL mg/dL 08:28</td><td> [facility] [Mass/volume HDL Cholesterol Health Care ] in Serum </td><td> Corporation or Plasma 37
(>60) mg/dL </td> Cholesterol 169 mg/dL 125-24 <td> 04/04/2019 [place] [Moles/volum 0 08:28</td><td> County e] in Serum mg/dL Cholesterol Health Care or Plasma </td><td> [place] 169
(125-240) mg/dL </td> Hemoglobin 5.3 % 4.0-5. <td> 04/04/2019 [place] A1C 6 % 08:28</td><td> [facility] Hemoglobin A1C Health Care </td><td> [place] 5.3
(4.0-5.6) %
Increased risk for diabetes [...]
11 269
12 298
Source: Adapted from [place] [employer]. Standards of medical
care in diabetes-2014. Diabetes Care.2014;37([place] pp 1):S14-S80, table 8.

(4.0-5.6) % </td> ID Date Data Source [id number] 03/16/2019 02:14:15 PM EDT [facility] [id number] Corporation Name Value Range Interpretation Description Data Sup porting Code Source(s) Document(s ) Abdomen 1 (PACSIMAGE <td> 03/03/2019 [facility] 16:54</td><td> [facility] ) Final Abdomen 1 [facility] Result </td><td>[employer] Tech Name: phoebe PHILIP, styleCode="Ital JENNIFER Antunez MRN: [id number]">(PACSIMAGE [id number] Sex: F : 1960 Location: F )</paragraph><b Admitting r/>
Physician: Final Result MONSE AMADOR Requesting

Physician: NARA Name: VIRGIE LEIGHVENANCIODALLASDesmond, Exam: ABDOMEN 1 JENNIFER Antunez VW 03/03/2019
16:33 INDICATION: Sex: F Constipation
[...] 16:46

</td > ID Date Data Source [id number] 03/16/2019 02:14:15 PM EDT [facility] [id number] Corporation Name Value Range Interpretation Description Data Sup porting Code Source(s) Document(s ) Leukocytes 6.9 k/mm3 4.8-10 <td> [place] [#/volume] in .8 03/02/2019 [facility] Blood by k/mm3 08:38</td><td> Health Care Automated count WBC </td><td> Corporati on 6.9
(4.8-10.8) k/mm3 </td> Erythrocytes 4.96 m/mm3 3.90-5 <td> [place] [#/volume] in .20 03/02/2019 [facility] Blood m/mm3 08:38</td><td> Health Care RBC </td><td> [place] 4.96
(3.90-5.20) m/mm3 </td> Erythrocyte mean 29.4 pg 27.0-3 <td> [place] corpuscular 1.5 pg 03/02/2019 [facility] hemoglobin 08:38</td><td> Health Care [Entitic mass] MCH </td><td> Corporatio n by Automated count 29.4
(27.0-31.5) pg </td> Erythrocyte 13.5 % 11.5-1 <td> [place] distribution 4.5 % 03/02/2019 [facility] width [Entitic 08:38</td><td> Health Car e volume] by RDW </td><td> Corporation Automated count 13.5
(11.5-14.5) % </td> Erythrocyte mean 34.4 % 32.0-3 <td> [place] corpuscular 6.0 % 03/02/2019 [facility] hemoglobin 08:38</td><td> Health Care concentration [facility] Corporation [Mass/volume] in </td><td> Blood from [place] by Automated 34.4 count
(32.0-36.0) % </td> Erythrocyte mean 85.5 fL 81.0-9 <td> [place] corpuscular 9.0 fL 03/02/2019 [facility] volume [Entitic 08:38</td><td> Health Ca re volume] by MCV </td><td> [place] Automated count 85.5
(81.0-99.0) fL </td> Hemoglobin 14.6 g/dL 12.0-1 <td> [place] [Mass/volume] in 6.0 03/02/2019 [facility] Blood g/dL 08:38</td><td> Health Care HGB </td><td> [place] 14.6
(12.0-16.0) g/dL </td> Hematocrit 42.4 % 37.0-4 <td> [place] [Volume 7.0 % 03/02/2019 [place] Fraction] of 08:38</td><td> Health Care Blood by HCT </td><td> [place] Automated count 42.4
(37.0-47.0) % </td> Platelet mean 10.5 fL 9.8-12 <td> [place] volume [Entitic .8 fL 03/02/2019 [facility] volume] in Blood 08:38</td><td> Health C are by Automated MPV </td><td> Corporation count 10.5
(9.8-12.8) fL </td> Monocytes/Leukoc 6.1 % 0.0-11 <td> [place] ytes [Pure .0 % 03/02/2019 [facility] number fraction] 08:38</td><td> Health C are in Blood by Monocytes. Corporation Automated count </td><td> 6.1
(0.0-11.0) % </td> Immature 0.3 % 0.0-0. <td> [place] granulocytes/100 5 % 03/02/2019 [facility] leukocytes in 08:38</td><td> Health Care Blood by IG% </td><td> Corporation Automated count 0.3
(0.0-0.5) %
The IG fraction represents metamyelocytes , myelocytes and/or
promyelocytes and is only reported as part of the automated
differential when found at a percentage of less than 6.
If higher than 6%, a manual differential will be performed.

(0.0-0.5) % </td> Platelets 258 k/mm3 160-41 <td> [place] [#/volume] in 0 03/02/2019 [facility] Blood by k/mm3 08:38</td><td> Health Care Automated count Platelet Count Corporati on </td><td> 258
(160-410) k/mm3 </td> Basophils 0.7 % 0.0-2. <td> [place] [#/volume] in 0 % 03/02/2019 [facility] Blood by 08:38</td><td> Health Care Automated count Basophils Corporation </td><td> 0.7
(0.0-2.0) % </td> Lymphocytes 36.9 % 17.0-5 <td> [place] [#/volume] in 0.0 % 03/02/2019 [facility] Blood by 08:38</td><td> Health Care Automated count Lymphocytes Corporation </td><td> 36.9
(17.0-50.0) % </td> Basophils+Eosino 2.0 % 0.0-5. <td> [place] phils+Monocytes 0 % 03/02/2019 [facility] [#/volume] in 08:38</td><td> Health Care Blood by Eosinophils [place] Automated count </td><td> 2.0
(0.0-5.0) % </td> Carbon dioxide, 24 mEq/L 22-30 <td> [place] total mEq/L 03/02/2019 [facility] [Moles/volume] 08:38</td><td> Health Car e in Serum or CO2 </td><td> Corporation Plasma 24
(22-30) mEq/L </td> Glucose 125 mg/dL 70-105 <td> [place] [Mass/volume] in mg/dL 03/02/2019 [facility] Blood 08:38</td><td> Health Care Glucose-Serum Corporation </td><td><para graph styleCode="Sim d"> 125 H </paragraph><b r/> (70-105) mg/dL </td> Sodium 141 mEq/L 135-14 <td> [place] [Moles/volume] 5 03/02/2019 [place] in Serum or mEq/L 08:38</td><td> Health Care Plasma Sodium-Serum [place] </td><td> 141
(135-145) mEq/L </td> Potassium 3.4 mEq/L 3.5-5. <td> [place] [Moles/volume] 1 03/02/2019 [facility] in Serum or mEq/L 08:38</td><td> Health Care Plasma Potassium-Seru [place] m </td><td><para graph styleCode="Sim d"> 3.4 L </paragraph><b r/> (3.5-5.1) mEq/L </td> Chloride 106 mEq/L 98-107 <td> [place] [Moles/volume] mEq/L 03/02/2019 [facility] in Serum or 08:38</td><td> Health Care Plasma Chloride [place] </td><td> 106
(98-107) mEq/L </td> Neutrophils [#] 54.0 % 40.0-7 <td> [place] in Body fluid by 6.0 % 03/02/2019 [facility] Manual count 08:38</td><td> Health Care Neutrophils [place] </td><td> 54.0
(40.0-76.0) % </td> Creatinine 0.86 mg/dL 0.57-1 <td> [place] [Moles/volume] .11 03/02/2019 [facility] in Serum or mg/dL 08:38</td><td> Health Care Plasma Creatinine. Corporation </td><td> 0.86
(0.57-1.11) mg/dL </td> Proteins - Total 7.2 g/dL 6.4-8. <td> [place] 3 g/dL 03/02/2019 [facility] 08:38</td><td> Health Care Proteins - Corporation Total </td><td> 7.2
(6.4-8.3) g/dL </td> Aspartate 28 U/L 4-35 <td> [place] aminotransferase U/L 03/02/2019 [facility] [Enzymatic 08:38</td><td> Health Care activity/volume] AST (SGOT) Corporation in Serum or </td><td> Plasma 28
(4-35) U/L </td> Alanine 27 U/L 6-55 <td> [place] aminotransferase U/L 03/02/2019 [facility] [Enzymatic 08:38</td><td> Health Care activity/volume] ALT (SGPT) Corporation in Serum or </td><td> Plasma 27
(6-55) U/L </td> Albumin 4.5 g/dL 3.4-4. <td> [place] [Mass/volume] in 8 g/dL 03/02/2019 [facility] Serum or Plasma 08:38</td><td> Health Ca re Albumin Corporation </td><td> 4.5
(3.4-4.8) g/dL </td> Bilirubin.total 0.6 mg/dL 0.2-1. <td> [place] [Mass/volume] in 3 03/02/2019 [facility] Blood mg/dL 08:38</td><td> Health Care Bilirubin - Corporation Total </td><td> 0.6
(0.2-1.3) mg/dL </td> Urea nitrogen 8 mg/dL 6-22 <td> [place] [Mass/volume] in mg/dL 03/02/2019 [facility] Blood 08:38</td><td> Health Care BUN </td><td> Corporation 8
(6-22) mg/dL </td> Anion gap in 11 mEq/L 7-13 <td> [place] Serum or Plasma mEq/L 03/02/2019 [facility] 08:38</td><td> Health Care Anion Gap Corporation </td><td> 11
(7-13) mEq/L </td> Icteric index of Not <td> [place] Serum or Plasma Icteric 03/02/2019 [facility] 08:38</td><td> Health Care Icteric Index Corporation </td><td> Not Icteric
</td> Lipemic index of No Lipemia <td> [place] Serum or Plasma 03/02/2019 [facility] 08:38</td><td> Health Care Lipemia Index Corporation </td><td> No Lipemia
</td> Calcium 10.0 mg/dL 8.6-10 <td> [place] [Mass/volume] in .2 03/02/2019 [facility] Blood mg/dL 08:38</td><td> Health Care Calcium Corporation </td><td> 10.0
(8.6-10.2) mg/dL </td> Globulin 2.7 gm/dL 2.9-4. <td> [place] [Mass/volume] in 0 03/02/2019 [facility] Serum gm/dL 08:38</td><td> Health Care Globulin Corporation </td><td><para graph styleCode="Sim d"> 2.7 L </paragraph><b r/> (2.9-4.0) gm/dL </td> Hemolysis index No <td> [place] of Serum or Hemolysis 03/02/2019 [facility] Plasma 08:38</td><td> Health Care Hemolysis Corporation Index </td><td> No Hemolysis
</td> Urobilinogen 0.2 mg/dL 0.0-2. <td> [place] [Presence] in 0 03/02/2019 [facility] Urine by mg/dL 08:45</td><td> Health Care Automated test Urobilinogen Corporation strip </td><td> 0.2
(0.0-2.0) mg/dL </td> Glucose Negative <td> [place] [Presence] in 03/02/2019 [facility] Urine by Test 08:45</td><td> Health Care strip Glucose_ Corporation </td><td> Negative
(NEGATIVE) </td> Protein Negative <td> [place] [Presence] in 03/02/2019 [facility] Urine by 08:45</td><td> Health Care Automated test Protein Corporation strip Qualitative </td><td> Negative
(NEGATIVE) </td> Appearance of Cloudy <td> [place] Urine 03/02/2019 [facility] 08:45</td><td> Health Care Appearance Corporation </td><td> Cloudy
(CLEAR) </td> Specific gravity 1.006 {} 1.000- <td> [place] of Urine by Test 1.035 03/02/2019 [facility] strip 08:45</td><td> Health Care Specific Corporation [place] </td><td> 1.006
(1.000-1.035) </td> Erythrocytes 2 /HPF 0-2 <td> [place] [#/area] in /HPF 03/02/2019 [facility] Urine sediment 08:45</td><td> Health Car e by Automated RBC </td><td> Corporation count 2
(0-2) /HPF </td> Leukocytes 5 /HPF 0-5 <td> [place] [Presence] in /HPF 03/02/2019 [facility] Urine by 08:45</td><td> Health Care Automated WBC </td><td> Corporation 5
(0-5) /HPF </td> Nitrite Negative <td> [place] [Presence] in 03/02/2019 [facility] Urine by Test 08:45</td><td> Health Care strip Nitrites Corporation </td><td> Negative
(NEGATIVE) </td> Leukocyte 2+ <td> [place] esterase 03/02/2019 [facility] [Presence] in 08:45</td><td> Health Care Urine by Test Leukocytes Corporation strip Esterase </td><td><para graph styleCode="Sim d"> 2+ * AB </paragraph><b r/> (NEGATIVE) </td> Cholesterol in 42 mg/dL >60 <td> [place] HDL mg/dL 03/02/2019 [place] [Mass/volume] in 08:38</td><td> Health C are Serum or Plasma HDL Corporation Cholesterol </td><td> 42
(>60) mg/dL </td> Hemoglobin A1C 5.7 % 4.0-5. <td> [place] 6 % 03/02/2019 [facility] 08:37</td><td> Health Care Hemoglobin Corporation A1C </td><td><para [...]
11 -269
12 -298
Source: Adapted from [place] [employer]. Standards of medical
care in diabetes-2014. Diabetes Care.2014;37(S [facility] 1):S14-S80, table 8.

(4.0-5.6) % </td> Mucous MASSIVE <td> [place] < FEW 03/02/2019 [facility] 08:45</td><td> Health Care Mucous Corporation </td><td> MASSIVE
/LPF
< FEW

/LPF </td> Cholesterol 188 mg/dL 125-24 <td> [place] [Moles/volume] 0 03/02/2019 [facility] in Serum or mg/dL 08:38</td><td> Health Care Plasma Cholesterol Corporation </td><td> 188
(125-240) mg/dL </td> Epithelial cells MASSIVE <td> [place] [#/area] in FEW 03/02/2019 [facility] Urine sediment 08:45</td><td> Health Car e by Automated Epithelial Corporation count Cells </td><td> MASSIVE
/LPF
FEW

/LPF </td> Bacteria RARE <td> [place] [#/area] in 03/02/2019 [facility] Urine sediment 08:45</td><td> Health Car e by Microscopy Bacteria Corporation high power field </td><td> RARE
(NONE SEEN) /HPF </td> Triglyceride 116 mg/dL 30-200 <td> [place] [Mass/volume] in mg/dL 03/02/2019 [facility] Serum or Plasma 08:38</td><td> Health Ca re Triglyceride [place] </td><td> 116
(30-200) mg/dL </td> Cholesterol in 123 mg/dL <150 <td> [place] LDL mg/dL 03/02/2019 [facility] [Mass/volume] in 08:38</td><td> Health C are Serum or Plasma LDL [place] Cholesterol </td><td> 123
(<150) mg/dL </td> Procedure Social History Code Duration Value Status Description Data Source(s ) Smoking Unknown if ever completed Unknown if ever [facility] smoked smoked [facility] Vital Signs ID Date Data Source UNK Name Value Range Interpretation Code Description Data Source(s) Body temperature 97.6 [degF] 0 - 200 Normal (applies to 97.6 [degF ] [facility] non-numeric results) [facility] Body temperature 36.4 [place] 0 - 99.9 Below low normal 36.4 [facility] [facility] Diastolic blood 51 mm[Hg] 0 - 999 Below low normal 51 mm[Hg] [facility] Systolic blood 113 mm[Hg] 0 - 999 Normal (applies to 113 mm[Hg] [facility] Oxygen saturation 98 % 0 - 999 Normal (applies to 98 % [facility] in Arterial blood non-numeric results) [facility] by Pulse oximetry Respiratory rate 16 0 - 999 Normal (applies to 16 [facility] non-numeric results) [facility] Heart rate 77 0 - 999 Normal (applies to 77 [facility] non-numeric results) [facility] Body surface area 2 m2 2 m2 [facility] m formula Body mass index 36.6 kg/m2 36.6 kg/m2 [place] (BMI) [Ratio] [facility] em Body weight 99.79 kg 99.79 kg [facility] Body height 165.1 cm 165.1 cm [facility] No Vital Sign Normal (applies to [place] information non-numeric results) [facility] exists for this Care Johana oration episode. wt - obtain Normal (applies to {} Marty oliveros non-numeric results) [facility] Diastolic blood 79 {} Normal (applies to 79 {} [place] pressure non-numeric results) [facility] Systolic blood 128 {} Normal (applies to 128 {} [place] pressure non-numeric results) [facility] First Respiration 18.0000 {} Normal (applies to 18.0000 {} [place] rate Set non-numeric results) [facility] Heart rate 95.0000 {} Normal (applies to 95.0000 {} [place] non-numeric results) [facility] Body temperature 97.9000 {} Normal (applies to 97.9000 {} [place] non-numeric results) [facility] Patient Treatment Plan of Care Planned Activity Planned Date Details Description Data Source (s) Ibuprofen 600 MG Oral 04/20/2020 10:03:52 [facility] Tablet AM EDT System Aspirin [facility] Escitalopram 20 MG Oral [facility] Tablet System pantoprazole 40 MG [facility] Delayed Release Oral System Tablet 24 HR Oxybutynin [facility] chloride 10 MG Extended Syst em Release Oral Tablet Moodus Carbonate 300 MG [facility] Oral Capsule System aripiprazole 20 MG Oral [facility] Tablet [Abilify] System atorvastatin 40 MG Oral [facility] Tablet System
[2020-06-04] MEDS ORDERED: KETAMINE HCL 500 MG/10 ML VIAL ONE (07:51)
[2020-06-04] MEDS ORDERED: PROPOFOL 20 ML ONE (08:22)
[2020-06-04 09:43] VITALS: TEMP 98.2
[2020-06-04 09:55] VITALS: BP 121/61; PULSE 76
== END 2020-06-04 10:55 | disposition home or self-care (01) ==
LOC: FECT 06:43
PROVIDERS: ATTEND Psychiatry & Neurology Psychiatry
PROC: GZB4ZZZ Other Electroconvulsive Therapy (ICD-10-PCS; principal; 2020-06-04 08:30)
DX: F32.9 Major depressive disorder, single episode, unspecified (principal)
CPT/HCPCS: 90870; 94760

== ENCOUNTER 2020-06-11 06:45 | Day surgery (SDC) | payer OTHER ==
--- OUTSIDE RECORDS SUMMARY | 2020-06-04 10:12 | XMS ---
:1960 Author Organization [facility] Care Team Providers Name Role Phone ANTONETTE [...] is protected by Article 27-F of the [facility] Public Health law. If you continue you may haveaccess to information: Regarding HIV / AIDS; Provided by facilities licensed or operated by the [facility] Office of Mental Health; or Provided by the [facility] Office for People With Developmental Disabilities. If such information is present, then the following [facility] mandated warning applies: This information has been [...] law may result in a fine or assisted sentence or both. A general authorization for the release of medical or other information is NOT sufficient authorization for further disclosure. Allergies and Adverse Reactions Type Description Substance Reaction Status Data Source(s ) 3 No Known Drug No Known Drug NEXTGEN ([facility]) Drug allergy No Known Allergies No Known [facility] [address] [facility] Drug allergy No Known Drug No Known Drug [facility] [address] Allergies Health Care [facility] Food allergy No Known Food No Known Food [facility] Allergies Health Care [facility] Encounters Encounter Providers Location Date Indications Data Source(s ) S Attender: MD [facility] SURG 04/18/2020 Ashley Richards 12:07:22 PM [facility] - 04/20/2020 02:58:00 PM EDT Patient discharged. Outpatient Attender: MD [facility] 04/17/2020 05:22:25 PM Ashley Marcos Richards EDT - 04/18/2020 [facility]osp[facility] 11:59:00 PM EDT Patient discharged. Outpatient Attender: PM9 [facility] 12/16/2019 12:44:17 PM GSI ([facility] EDT Collaborative) Patient admitted. Outpatient Attender: [place] [facility] [place] 03:00:00 PM EST ([facility]) Outpatient Attender: KAREEM 05/04/2019 Ifeoma STRINGERdmitter: KAREEM 06:00:00 AM [facility] Care Corporati on Inpatient 04/27/2019 [place] 11:17:00 AM [facility] alth Care Corporati on Inpatient 04/27/2019 [place] 11:17:00 AM [facility] alth Care Corporati on Outpatient Attender: KAREEM 04/18/2019 West[place] lawrence MYKEdmitter: YOUCHAH, 06:00:00 AM EDT [facility] Corporati on Inpatient Attender: EDWARD, 04/03/2019 BIPOLAR [facility]: EDWARD, 05:59:00 PM [facility] Care Corpora tion 04:59:00 PM EDT BIPOLAR DISORDER Patient admitted. Emergency Attender: MARIA LUZ, 04/03/2019 01:32:00 SUICIDAL [facility] OLGAAttender: EDWARD, PM EDT [facility] MITCHELLAdmitter: EDWARD Corporation FERN SUICIDAL Outpatient Attender: CECY MADDEN 03/23/2019 11:22:00 S tatiana HERBERTSHARPSBURGAdmitter: RUKHSANA AM EDT - 03/24/2019 [facility] 08:51:00 AM EDT Patient discharged. Outpatient Attender: KAREEM 03/18/2019 [facility] Hospital[facility]: 06:00:00 AM EDT [facility] Attender: MARJORIE, 03/01/2019 BIPOLAR [facility] HealthAd[facility]: 10:05:00 AM EDT - DISORDER [facility] 03/16/2019 Corpora tion 02:14:00 PM EDT BIPOLAR DISORDER Emergency Attender: MARJORIE, 03/01/2019 09:17:00 EVAL [facility] JEREMI AMADOR T [facility] EVTN Outpatient Attender: KAREEM 02/11/2019 06:00:00 AM [facility]O [facility]ender: KAREEM 12/27/2018 06:00:00 AM [facility] INDIGO SERNA [facility] Out[facility] Attender: KAREEM 12/24/2018 06:00:00 AM [facility] INDIGO SERNA [facility] 11/19/2018 07:19:00 AM Cu reMD ([facility]) Outpatient Attender: DOROTHEA 10/04/2018 06:00:00 AM [facility] [address] PIALIAdmitter: ANTONETTE PIED[facility] Medications Medication Brand Start Product Dose Route Administrative Pharmacy [facility] Indications Reaction Description Data Name Date Form Instructions Instructions Source(s) Ibuprofen ibupro [id number] active Ibuprof en [facility] 600 MG Oral [...] or milk. atorvastatin 40 atorvastatin 1 {tab(s)} R79671 active Lipitor [facility] MG Oral Tablet 40 mg oral Health atorvastatin 40 tablet Sy stem mg oral tablet Aspirin aspirin 1 {tab(s)} S19525 active aspirin 81 mg oral delayed release capsule; 1 tab(s) orally once a day Ordered: 20-Apr-2020 [facility] aspirin 81 mg Quantity: 0 [employer] 81 mg oral Refills: 0 System oral delayed delayed release release capsule capsule aripiprazole 20 Abilify 20 mg 1 [id number] active Abilify [facility] MG Oral Tablet oral tablet {tab(s)} Health [Abilify] System Abilify 20 mg oral tablet Docusate Sodium DOK (Docusate [facility] 100 MG Oral Sodium) [100 County Capsule DOK mg Capsule]: Health Care (Docusate 100 MG Oral Cor poration Sodium) [100 mg 9-9 Capsule]: 100 MG Oral 9-9 Escitalopram 10 Escitalopram completed [place] MG Oral Tablet [10 mg Cou nty Escitalopram Tablet]: 10 Health Care [10 mg Tablet]: MG Oral Q9AM Corporation 10 MG Oral Q9AM Docusate Sodium DOK (Docusate completed [place] 100 MG Oral Sodium) [100 County Capsule DOK mg Capsule]: Health Care (Docusate 100 MG Oral Cor poration Sodium) [100 mg 9-9 Capsule]: 100 MG Oral 9-9 [place] lithium 300 1 [id number] active Lithiu m [facility] Carbonate 300 mg oral {cap(s)} Carb [facility] MG Oral Capsule capsule S ystem lithium 300 mg oral capsule 24 HR oxybutynin 10 1 [id number] active Oxybut ynin [facility] Oxybutynin mg/24 hr oral {tab(s)} C hloride ER Health chloride 10 MG tablet, Sy stem Extended extended Release Oral release Tablet oxybutynin 10 mg/24 hr oral tablet, extended release pantoprazole 40 pantoprazole 1 J11037 active Pantoprazole [facility] MG Delayed 40 mg oral {tab(s)} Health Release Oral delayed Syst em Tablet release pantoprazole 40 tablet mg oral delayed release tablet Escitalopram 20 escitalopram 1 J43559 active Escitalopram [facility] MG Oral Tablet 20 mg oral {tab(s)} [facility] escitalopram 20 tablet Sy stem mg oral tablet aripiprazole 20 Aripiprazole completed [place] MG Oral Tablet [20 mg Cou nty Aripiprazole Tablet]: 20 Health Care [20 mg Tablet]: MG Oral Q10PM Corporation 20 MG Oral Q10PM quetiapine 100 Seroquel completed [place] MG Oral Tablet (Quetiapine) [facility] Seroquel [100 mg Health C are (Quetiapine) Tablet]: 1 C orporation [100 mg Tablet Oral Tablet]: 1 BEDTIME Tablet Oral BEDTIME Rosuvastatin Rosuvastatin completed [place] calcium 10 MG [10 mg Coun ty Oral Tablet Tablet]: 10 [facility] Rosuvastatin MG Oral Q10PM Corporation [10 mg Tablet]: 10 MG Oral Q10PM Trazodone Trazodone [50 completed [place] Hydrochloride mg Tablet]: [facility] 50 MG Oral 50 MG Oral Hea [facility] Care Tablet Q10PM Corporation Trazodone [50 mg Tablet]: 50 MG Oral Q10PM gabapentin 100 Gabapentin completed [place] MG Oral Capsule [100 mg C ounty Gabapentin [100 Capsule]: 100 Health Care mg Capsule]: MG Oral 3 Co rporation 100 MG Oral 3 TIMES A DAY TIMES A DAY Insurance Providers Payer name Policy type Policy ID Covered Covered alliance party's Policy P ryan / Coverage alliance party ID relationship to [place] Inf ormation type byers MEDICAID [id number] SP [id number] MEDICARE [id number] SP [id number] 5 MEDICARE [id number] SP [id number] 5 Medicaid Medicaid [id number] 1 [id number] Medicare Part Medicare [id number] 1 [id number] Outpatient 5 Medicare Medicare [id number] 1 [id number] 95 5 Financial Self Pay 1 Assist 55% Medicaid Medicaid [id number] Medicare Part Medicare [id number] 1 [id number] B Outpatient Medicare Medicare [id number] 1 [id number] A HEALTH [id number] SOLUTIONS 8 HEALTH [facility] [facility] [id number] 1 [id number] Part B Par 5 Providers [employer] [id number] [employer] SELF PAY 00 Self 00 REDUCTION SELF PAY 000 Self 000 Problems, Conditions, and Diagnoses Code Display Name Description Problem Type Effective Data Dates Source(s) R11.10 Vomiting, Vomiting Diagnosis 04/20/2020 S - New unspecified 06:38:00 AM [facility] K95.09 Other complications Other complications Diagnosis 020 [facility] - New of gastric band of gastric band 06:38:00 AM Attila helle procedure procedure T [facility] K43.6 Other and Other or unspecified Diagnosis 04/20/2020 S - New unspecified ventral ventral hernia with 06:38:0 0 AM [place] hernia with obstruction without EDT Hosp ital obstruction, without gangrene gangrene [id number] Laparoscopy, Laparoscopy, Diagnosis 04/20/2020 [facility] - New surgical, gastric surgical, gastric 06:38:00 AM [place] restrictive restrictive [facility] procedure; removal procedure; removal of adjustable of adjustable gastric restrictive gastric restrictive device and device and subcutaneous port subcutaneous port components components R13.10 Dysphagia, Dysphagia Diagnosis 04/20/2020 S - New unspecified 06:38:00 AM [facility] E66.01 Morbid (severe) Morbid obesity, Diagnosis 04/18/2020 S - New obesity due to unspecified obesity 08:10:00 AM [place] excess calories type [facility] Z11.59 Encounter for Encounter for Diagnosis 04/18/2020 S - Ne w screening for other laboratory testing 08:10:00 AM [place] viral diseases for COVID-19 virus [facility] lon Z01.818 Encounter for other Preop examination Diagnosis 0 [facility] - New preprocedural 08:10:[facility] Z12.83 Encounter for Screening exam for Diagnosis 08/18/2019 NEX TGEN screening for skin cancer 03:00:00 PM ([facility] malignant neoplasm EST Medica l - [place] of skin [facility]) L82.1 Other seborrheic Other seborrheic Diagnosis 08/18/2019 NE XTGEN keratosis keratosis 03:00:00 PM ([facility] EST Medical [facility]) D18.01 Hemangioma of skin Angioma of skin Diagnosis 08/18/2019 N EXTGEN and subcutaneous 03:00:00 PM ([facility] tissue EST [facility]) L81.4 Other melanin Other melanin Diagnosis 08/18/2019 NEXTGEN hyperpigmentation hyperpigmentation 03:00:00 PM ([facility] EST Medical [facility]) L81.2 Freckles Freckles Diagnosis 08/18/2019 NEXTGEN 03:00:00 PM ([facility] EST Medical [facility]) D22.5 Melanocytic nevi of Melanocytic nevi of Diagnosis 019 NEXTGEN trunk trunk 03:00:00 PM ([facility] EST [facility]) K64.9 Unspecified UNSPECIFIED Diagnosis 04/19/2019 [place] hemorrhoids HEMORRHOIDS 04:59:00 PM [facility] EDT Care [facility] [place] M75.100 Unspecified rotator UNSP ROTATR-CUFF Diagnosis 04/19/2019 [place] cuff tear or rupture TEAR/RUPTR OF UNSP 04:59:0 0 PM [facility] of unspecified SHOULDER, NOT TRAUMA EDT Care shoulder, not Corporation specified as traumatic Y92.89 Other specified OTH PLACES THE Diagnosis 04/19/2019 [facility] PLACE OF OCCURRENCE 04:59:0 0 PM [facility] of occurrence of the OF THE EXTERNAL EDT Care external cause CAUSE Corporatio n X58.XXXA Exposure to other EXPOSURE TO OTHER Diagnosis 04/19/2019 [place] specified factors, SPECIFIED FACTORS, 04:59:00 PM [facility] initial encounter INITIAL ENCOUNTER EDT Care [place] T48.1X2A Poisoning by POISONING BY Diagnosis 04/19/2019 [place] skeletal muscle SKELETAL MUSCLE 04:59:00 PM [facility] relaxants RELAXANTS, EDT Care [neuromuscular SELF-HARM, INIT Corpo ration blocking agents], intentional self-harm, initial encounter T43.212A Poisoning by POISN BY SLCTV Diagnosis 04/19/2019 [facility] selective serotonin SEROTON/NOREPINEPH 04:59:00 PM [facility] and norepinephrine REUP EDT Care reuptake inhibitors, INHIBTR,SLF-HRM, Corporation intentional INIT self-harm, initial encounter 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 04/19/2019 [place] personality disorder PERSONALITY DISORDER 04:59 :00 PM [facility] EDT Care [facility] T43.592A Poisoning by other POISONING BY OTH Diagnosis 04/19/2019 [place] antipsychotics and ANTIPSYCHOT/NEUROLEP 04:59:0 0 PM [facility] neuroleptics, T, SELF-HARM, INIT EDT Car e intentional Corporation self-harm, initial encounter F33.2 Major depressive MAJOR DEPRESSV Diagnosis 04/03/2019 [place] disorder, recurrent DISORDER, RECURRENT 05:59:0 0 PM [facility] severe without SEVERE W/O PSYCH EDT Care psychotic features FEATURES Corpor ation T43.595S Adverse effect of ADVERSE EFFECT OF Diagnosis 03/18/2019 [place] other antipsychotics ANTIPSYCHOTICS AND 06:00:0 0 AM [facility] neuroleptics, NEUROLEPTICS, EDT Care sequela SEQUELA [place] G24.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 INDUCED Diagnosis 03/18/2019 [facility] r subacute dyskinesia SUBACUTE DYSKINESIA 06:00:0 0 AM [facility] EDT Care [place] [place] E78.00 Pure PURE Diagnosis 03/18/2019 [place] hypercholesterolemia HYPERCHOLESTEROLEMIA 06:00 :00 AM [facility] , unspecified , UNSPECIFIED EDT Care [place] [place] G47.00 Insomnia, INSOMNIA, Diagnosis 03/18/2019 [place] unspecified UNSPECIFIED 06:00:00 AM [facility] EDT Care [place] 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 06:00:00 AM [facility] EDT Care [place] F31.5 Bipolar disorder, BIPOLAR DISORD, CRNT Diagnosis 03/18/20 [place] current episode EPSD DEPRESS, 06:00:00 AM [facility] depressed, severe, SEVERE, W PSYCH EDT C are with psychotic FEATURES Corporatio n features M54.2 Cervicalgia CERVICALGIA Diagnosis 03/16/2019 [place] [facility]:14:[facility] E78.5 Hyperlipidemia, HYPERLIPIDEMIA, Diagnosis 03/16/2019 [place] unspecified UNSPECIFIED 02:14:00 PM [facility] ClozeT [facility] F25.1 Schizoaffective SCHIZOAFFECTIVE Diagnosis 03/16/2019 [place] disorder, depressive DISORDER, DEPRESSIVE 02:14 :00 PM [facility] type TYPE EDT [facility] 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 DYSTONIA 02:14:00 PM [facility] M79.676 Pain in unspecified PAIN IN UNSPECIFIED Diagnosis 019 [place] toe(s) TOE(S) 06:00:00 AM [facility] F31.74 Bipolar disorder, in BIPOLAR DISORDER, IN Diagnosis 02/11 [place] full remission, most FULL REMIS, MOST 06:00:00 AM [facility] recent episode manic RECENT EPISODE MANIC T [facility] Surgeries/Procedures Procedure Description Date Indications Data Source(s) Tissue Exam 04/20/2020 [facility] 01:52:15 PM System EDT - 04/20/2020 09:25:00 AM EDT Venipuncture 04/18/2020 [facility] 08:48:26 AM System EDT - 04/18/2020 10:00:06 AM EDT OFFICE/OUTPATIENT OFFICE/OUTPATIENT 08/18/2019 NEXTG EN ([facility] VISIT EST VISIT EST 12:00:00 [facility] Results ID Date Data Source [id number] 05/31/2020 08:22:00 AM EDT [facility] Name Value Range Interpretation Description Data Sup porting Code Source(s) Document(s ) SARS [facility] coronavirus 2 RNA This lab was ordered by GISSELL hunter [facility] and reported by [facility]. ID Date Data Source [id number] 05/23/2020 10:55:00 AM EDT [facility] Name Value Range Interpretation Description Data Sup porting Code Source(s) Document(s ) SARS [facility] coronavirus 2 RNA This lab was ordered by GISSELL hunter [facility] and reported by [facility]. ID Date Data Source [id number] 05/17/2020 09:40:00 AM EDT [facility] Name Value Range Interpretation Description Data Sup porting Code Source(s) Document(s ) SARS [facility] coronavirus 2 RNA This lab was ordered by [facility] DAVE hunter [facility] and reported by [facility]. ID Date Data Source [id number] 05/14/2020 09:15:00 AM EDT [facility] Name Value Range Interpretation Description Data Sup porting Code Source(s) Document(s ) SARS [facility] coronavirus 2 RNA This lab [facility] and reported by [facility]. ID Date Data Source [id number] 05/11/2020 10:28:00 AM EDT [facility] Name Value Range Interpretation Description Data Sup porting Code Source(s) Document(s ) SARS [facility] coronavirus 2 RNA This lab was [facility] by [facility] Tello nadia [facility] and reported by [facility]. ID Date Data Source [id number] 05/08/2020 01:40:00 PM EDT [facility] Name Value Range Interpretation Description Data Sup porting Code Source(s) Document(s ) SARS [facility] coronavirus 2 RNA This lab was [facility] by [facility] nadia [facility] and reported by [facility]. ID Date Data Source [id number] 05/04/2020 12:40:00 PM EDT [facility] Name Value Range Interpretation Description Data Sup porting Code Source(s) Document(s ) SARS [facility] coronavirus 2 RNA This lab was [facility] Tello [facility] and reported by [facility]. ID Date Data Source [id number] 04/30/2020 10:00:00 AM EDT [facility] Name Value Range Interpretation Description Data Sup porting Code Source(s) Document(s ) SARS [facility] coronavirus 2 RNA This lab was [facility] by [facility] Tello nadia [facility] and reported by [facility]. ID Date Data Source [id number] 04/27/2020 10:40:00 AM EDT [facility] Name Value Range Interpretation Description Data Sup porting Code Source(s) Document(s ) SARS [facility] coronavirus 2 RNA This lab was ordered by GISSELL ELENA and reported by [facility]. ID Date Data Source [id number] 04/24/2020 02:25:28 AM EDT [facility] [...] as O on 12/24/2011, 4:42 PM [place] [id number] - added comment for o/r AntibodyScreen Negative Normal (applies to Antibody Screen [facility] non-numeric results) System ID Date Data Source [id number] 04/24/2020 02:25:28 AM EDT [facility] He alth [...] quantitative testing recommened. ID Date Data Source [id number] 04/24/2020 02:25:28 AM EDT [facility] He alth System Name Value Range Interpretation Description Data Sup porting Code Source(s) Document(s ) RubellaInterpreta Positive Normal (applies Rubella [facility] tion to non-numeric Interpretation Health results) System <5 Negative>=5 - <10 Equivocal>= 10 Positive Rubella 27 {IU/mL} Normal (applies to Rubella [facility] System non-numeric results) ID Date Data Source [id number] 04/24/2020 02:25:28 AM EDT [facility] System Name Value Range Interpretation Description Data Sup porting Code Source(s) Document(s ) VaricellaInterpre Positive Normal (applies Varicella [facility] tation to non-numeric Interpretation Health results) System <0.6 Negative>=0.6 - <.90 Equivoc al>=.90 Positive VaricellaResultValue 1.78 Normal (applies to Varicel la Result [facility] non-numeric results) Value System ID Date Data Source [id number] 04/24/2020 02:25:28 AM EDT [facility] He alth [...] Equivo lloyd>=.70 Positive ID Date Data Source [id number] 04/24/2020 02:25:28 AM EDT [facility] He alth [...] Health System results) ID Date Data Source [id number] 04/24/2020 02:25:28 AM EDT [facility] System Name Value Range Interpretation Description Data Sup porting Code Source(s) Document(s ) 40077-3 NEGATIVE Testing Normal (applies COVID-19.. [facility] [...] Range: NEGATIVE . ID Date Data Source [id number] 04/24/2020 02:25:28 AM EDT [facility] He alth [...] Health results) System ID Date Data Source [id number] 04/24/2020 02:25:28 AM EDT [facility] He alth [...] Health results) System ID Date Data Source [id number] 04/24/2020 02:25:28 AM EDT [facility] He [facility]th System Name Value Range Interpretation Description Data Sup porting Code Source(s) Document(s ) TissueExam Results for case # Normal (applies Tissue Exam [facility] [id number] to non-numeric Health SURGICAL PATHOLOGY results) System REPORTCLINICAL INFORMATION: LAP band slip. PREOPERATIVE DIAGNOSIS: Same. POSTOPERATIVE DIAGNOSIS: Same.FINAL DIAGNOSIS: Gastric band and port system (gross).YUN/Jessica ROCA MDElectronically Signed By: GROSS DESCRIPTION: Received fresh, labeled "gastric band and port system", the specimen consists of a 3 x 3 x 1.5cm white plastic and raphael metal device inscribed with PORT-A-CATH [id number]. There is attached 45 x 0.3 x [...] 1 of 1 ID Date Data Source [id number] 04/23/2020 09:30:00 AM EDT [facility] Name Value Range Interpretation Description Data Sup porting Code Source(s) Document(s ) SARS [facility] coronavirus 2 RNA This lab was [facility] by [facility] and reported by [facility]. ID Date Data Source [id number] 04/19/2020 10:40:00 AM EDT [facility] Name Value Range Interpretation Description Data Sup porting Code Source(s) Document(s ) SARS [facility] coronavirus 2 RNA This lab was ordered by [facility] and reported by [facility]. ID Date Data Source [id number] 04/18/2020 09:16:00 AM EDT [facility] Name Value Range Interpretation Code Description Data April rce(s) Supporting Document(s ) COVID-19.. [facility] This lab was ordered by [facility] and reported by [facility]. ID Date Data Source [id number] 04/17/2020 08:55:00 AM EDT [facility] Name Value Range Interpretation Description Data Sup porting Code Source(s) Document(s ) SARS [facility] coronavirus 2 RNA This lab was ordered by [facility] and reported by [facility]. ID Date Data Source [id number] 03/03/2020 11:40:00 AM EDT [facility] Name Value Range Interpretation Description Data Sup porting Code Source(s) Document(s ) 2019 Novel [facility] Coronavirus RNA Interpretation Unspecified Specimen Qualitative SHIMA Probe Detection This lab was ordered by [facility] and reported by [facility]. ID Date Data Source [id number] 04/19/2019 04:59:28 PM EDT [facility] [id number] [facility] Name Value Range Interpretation Description Data Sup porting Code Source(s) Document(s ) Leukocytes 5.1 k/mm3 4.8-10 <td> 04/14/2019 [place] [#/volume] .8 08:23</td><td> County in Blood by k/mm3 WBC </td><td> Health Care [employer] count 5.1
(4.8-10.8) k/mm3 </td> Erythrocytes 4.94 m/mm3 3.90-5 <td> 04/14/2019 [facility] r [#/volume] .20 08:23</td><td> County in Blood m/mm3 RBC </td><td> Health Care [facility] 4.94
(3.90-5.20) m/mm3 </td> Hemoglobin 14.5 g/dL 12.0-1 <td> 04/14/2019 [place] [Mass/volume 6.0 08:23</td><td> County ] in Blood g/dL HGB </td><td> Health Care [facility] 14.5
(12.0-16.0) g/dL </td> Erythrocyte 13.1 % 11.5-1 <td> 04/14/2019 [place] distribution 4.5 % 08:23</td><td> County width RDW </td><td> Health Care [[employer] volume] by 13.1 Automated count
(11.5-14.5) % </td> Platelet 11.0 fL 9.8-12 <td> 04/14/2019 [place] mean volume .8 fL 08:23</td><td> [facility] [[employer] MPV </td><td> Health Care volume] in Corporation Blood by 11.0 Automated count
(9.8-12.8) fL </td> Erythrocyte 33.5 % 32.0-3 <td> 04/14/2019 [place] mean 6.0 % 08:23</td><td> [facility] corpuscular MCHC </td><td> Health Care hemoglobin Corporation concentratio 33.5 n [Mass/volume
] in Blood (32.0-36.0) % from Fetus </td> by Automated count Hematocrit 43.3 % 37.0-4 <td> 04/14/2019 [place] [Volume 7.0 % 08:23</td><td> [place] Fraction] of HCT </td><td> Health Care Blood by Corporation Automated 43.3 count
(37.0-47.0) % </td> Erythrocyte 29.4 pg 27.0-3 <td> 04/14/2019 [place] mean 1.5 pg 08:23</td><td> [facility] corpuscular MCH </td><td> Health Care hemoglobin Corporation [Entitic 29.4 mass] by Automated
count (27.0-31.5) pg </td> Erythrocyte 87.7 fL 81.0-9 <td> 04/14/2019 [place] mean 9.0 fL 08:23</td><td> [facility] corpuscular MCV </td><td> Health Care volume [facility] [Entitic 87.7 volume] by Automated
count (81.0-99.0) fL </td> Lymphocytes 41.3 % 17.0-5 <td> 04/14/2019 [place] [#/volume] 0.0 % 08:23</td><td> County in Blood by Lymphocytes [facility] Care Automated </td><td> Corporation count 41.3
(17.0-50.0) % </td> Platelets 229 k/mm3 160-41 <td> 04/14/2019 [place] [#/volume] 0 08:23</td><td> [place] in Blood by k/mm3 Platelet Count Health Care Automated </td><td> [place] count 229
(160-410) k/mm3 </td> Monocytes/Le 6.1 % 0.0-11 <td> 04/14/2019 [place] ukocytes .0 % 08:23</td><td> County [Pure number Monocytes. Health Care fraction] in </td><td> Corporation Blood by Automated 6.1 count
(0.0-11.0) % </td> Basophils 0.8 % 0.0-2. <td> 04/14/2019 [place] [#/volume] 0 % 08:23</td><td> [place] in Blood by Basophils Health Care Automated </td><td> Corporation count 0.8
(0.0-2.0) % </td> Basophils+Eo 2.7 % 0.0-5. <td> 04/14/2019 [place] sinophils+Mo 0 % 08:23</td><td> [facility] nocytes Eosinophils Health Care [#/volume] </td><td> Corporation in Blood by Automated 2.7 count
(0.0-5.0) % </td> Potassium 4.8 mEq/L 3.5-5. <td> 04/14/2019 [place] [Moles/volum 1 08:23</td><td> [facility] e] in Serum mEq/L Potassium-Serum Health Care or Plasma </td><td> Corporation 4.8
(3.5-5.1) mEq/L </td> Immature 0.2 % 0.0-0. <td> 04/14/2019 [place] granulocytes 5 % 08:23</td><td> County /100 IG% [...] </td> Sodium 139 mEq/L 135-14 <td> 04/14/2019 [place] [Moles/volum 5 08:23</td><td> [facility] e] in Serum mEq/L Sodium-Serum Health Care or Plasma </td><td> Corporation 139
(135-145) mEq/L </td> Glucose 96 mg/dL 70-105 <td> 04/14/2019 [place] [Mass/volume mg/dL 08:23</td><td> [facility] ] in Blood Glucose-Serum Health Care </td><td> [facility] [place] 96
(70-105) mg/dL </td> Neutrophils 48.9 % 40.0-7 <td> 04/14/2019 [place] [#] in Body 6.0 % 08:23</td><td> County fluid by Neutrophils Health Care Manual count </td><td> [facility] 48.9
(40.0-76.0) % </td> Creatinine 0.82 mg/dL 0.57-1 <td> 04/14/2019 [place] [Moles/volum .11 08:23</td><td> County e] in Serum mg/dL Creatinine. Health Care or Plasma </td><td> [facility] 0.82
(0.57-1.11) mg/dL </td> Urea 10 mg/dL 6-22 <td> 04/14/2019 [place] nitrogen mg/dL 08:23</td><td> [facility] [Mass/volume BUN </td><td> Health Care ] in Blood [facility] 10
(6-22) mg/dL </td> Chloride 103 mEq/L 98-107 <td> 04/14/2019 [place] [Moles/volum mEq/L 08:23</td><td> [facility] e] in Serum Chloride Health Care or Plasma </td><td> [facility] [place] 103
(98-107) mEq/L </td> Carbon 29 mEq/L 22-30 <td> 04/14/2019 [place] dioxide, mEq/L 08:23</td><td> [facility] total CO2 </td><td> Health Care [Moles/volum Corporation e] in Serum 29 or Plasma
(22-30) mEq/L </td> Albumin 4.3 g/dL 3.4-4. <td> 04/14/2019 [place] [Mass/volume 8 g/dL 08:23</td><td> [facility] ] in Serum Albumin Health Care or Plasma </td><td> [facility] 4.3
(3.4-4.8) g/dL </td> Proteins - 7.0 g/dL 6.4-8. <td> 04/14/2019 [place] Total 3 g/dL 08:23</td><td> [facility] Proteins - Health Care Total Corporation </td><td> 7.0
(6.4-8.3) g/dL </td> Alanine 20 U/L 6-55 <td> 04/14/2019 [place] aminotransfe U/L 08:23</td><td> [facility] rase ALT (SGPT) Health Care [Enzymatic </td><td> Corporation activity/vol ume] in 20 Serum or
Plasma (6-55) U/L </td> Aspartate 15 U/L 4-35 <td> 04/14/2019 [place] aminotransfe U/L 08:23</td><td> [facility] rase AST (SGOT) Health Care [Enzymatic </td><td> Corporation activity/vol ume] in 15 Serum or
Plasma (4-35) U/L </td> Bilirubin.to 0.5 mg/dL 0.2-1. <td> 04/14/2019 [place] livan 3 08:23</td><td> [facility] [Mass/volume mg/dL Bilirubin - Health Care ] in Blood Total [facility] </td><td> 0.5
(0.2-1.3) mg/dL </td> Calcium 9.6 mg/dL 8.6-10 <td> 04/14/2019 [place] [Mass/volume .2 08:23</td><td> [facility] ] in Blood mg/dL Calcium Health Care </td><td> [facility] 9.6
(8.6-10.2) mg/dL </td> Globulin 2.7 gm/dL 2.9-4. <td> 04/14/2019 [place] [Mass/volume 0 08:23</td><td> [facility] ] in Serum gm/dL Globulin Health Care </td><td><valerie Corporation raph styleCode="Bold "> 2.7 L </paragraph>
(2.9-4.0) gm/dL </td> Lipemic No Lipemia <td> 04/14/2019 [place] index of 08:23</td><td> [facility] Serum or Lipemia Index Health Care Plasma </td><td> [facility] No Lipemia
</td> Phosphate 3.1 mg/dL 2.3-4. <td> 04/04/2019 [place] [Mass/volume 7 08:28</td><td> [facility] ] in Serum mg/dL Inorganic Health Care or Plasma Phosphorus [facility] </td><td> 3.1
(2.3-4.7) mg/dL </td> Icteric Non Icteric <td> 04/14/2019 [place] index of 08:23</td><td> [facility] Serum or Icteric Index Health Care Plasma </td><td> [facility] Non Icteric
</td> Anion gap in 7 mEq/L 7-13 <td> 04/14/2019 [place] Serum or mEq/L 08:23</td><td> [facility] Plasma Anion Gap Health Care </td><td> [facility] 7
(7-13) mEq/L </td> Hemolysis No Hemolysis <td> 04/14/2019 [place] index of 08:23</td><td> [facility] Serum or Hemolysis Index Health Care Plasma </td><td> [facility] No Hemolysis
</td> Prothrombin 10.8 secs 9.8-12 <td> 04/03/2019 [place] time (PT) .0 15:28</td><td> [facility] secs Prothrombin Health Care Time. [facility] </td><td> 10.8
(9.8-12.0) secs </td> aPTT panel - 24.6 secs 25.0-3 <td> 04/03/2019 [place] Platelet 2.0 15:28</td><td> [facility] poor plasma secs Partial Health Care Thromboplastin [facility] Time </td><td><valerie raph styleCode="Bold "> 24.6 L </paragraph>
(25.0-32.0) secs </td> Appearance Cloudy <td> 04/03/2019 [place] of Urine 15:28</td><td> [facility] Appearance Health Care </td><td> Corporation Cloudy
(CLEAR) </td> Protein 1+ (30 MG/DL) <td> 04/03/2019 [facility] r [Presence] 15:28</td><td> [place] in Urine by Protein Health Care Automated Qualitative [employer] test strip </td><td> 1+ (30 MG/DL)
(NEGATIVE) </td> Specific 1.010 {} 1.000- <td> 04/03/2019 [place] gravity of 1.035 15:28</td><td> [facility] Urine by Specific Health Care Test strip [place] [facility] </td><td> 1.010
(1.000-1.035) </td> Nitrite Negative <td> 04/03/2019 [place] [Presence] 15:28</td><td> [place] in Urine by Nitrites Health Care Test strip </td><td> Corporation Negative
(NEGATIVE) </td> Glucose Negative <td> 04/03/2019 [place] [Presence] 15:28</td><td> [place] in Urine by Glucose_ Health Care Test strip </td><td> Corporation Negative
(NEGATIVE) </td> Leukocyte 3+ <td> 04/03/2019 [place] esterase 15:28</td><td> County [Presence] Leukocytes Health Care in Urine by Esterase [facility] [employer] Test strip </td><td><valerie raph styleCode="Bold "> 3+ * AB </paragraph>
(NEGATIVE) </td> Leukocytes 36 /HPF 0-5 <td> 04/03/2019 [place] [Presence] /HPF 15:28</td><td> [place] in Urine by WBC </td><td> Health Care Automated Corporation 36
(0-5) /HPF </td> Erythrocytes 13 /HPF 0-2 <td> 04/03/2019 [place] [#/area] in /HPF 15:28</td><td> County Urine RBC </td><td> Health Care sediment by [facility] Automated 13 count
(0-2) /HPF </td> Urobilinogen 0.2 mg/dL 0.0-2. <td> 04/03/2019 [place] [Presence] 0 15:28</td><td> [place] in Urine by mg/dL Urobilinogen [facility] Automated </td><td> [facility] test strip 0.2
(0.0-2.0) mg/dL </td> Epithelial MASSIVE <td> 04/03/2019 [place] cells FEW 15:28</td><td> County [#/area] in Transitional Epithelial [facility] Urine Epithelial Cells [facility] sediment by cells 3/HPF </td><td> Automated count MASSIVE
/LPF
FEW
Transitional Epithelial cells 3/HPF

/LPF </td> Magnesium 1.9 mg/dL 1.6-2. <td> 04/04/2019 [place] [Mass/volume 6 08:28</td><td> County ] in Serum mg/dL Magnesium Level [facility] Care or Plasma </td><td> [facility] 1.9
(1.6-2.6) mg/dL </td> Amorphous RARE < <td> 04/03/2019 [place] Crystal FEW 15:28</td><td> [facility] Amorphous [facility] Care [employer] </td><td> RARE
/HPF
< FEW

/HPF </td> Bacteria MODERATE <td> 04/03/2019 [place] [#/area] in 15:28</td><td> [facility] Urine Bacteria [facility] Care sediment by </td><td> [facility] Microscopy high power MODERATE field
(NONE SEEN) /HPF </td> Calcium RARE Ca <td> 04/03/2019 [facility] r oxalate Oxalate 15:28</td><td> [facility] crystals Crystals..May Calcium Oxalate Health Car e [Presence] be present in [employer] in Urine normal, acid </td><td> sediment by or alkaline Light urine RARE microscopy
(SEE BELOW) /HPF
Ca Oxalate Crystals..May be present in normal, acid or alkaline urine

(SEE BELOW) /HPF </td> Mucous FEW < <td> 04/03/2019 [place] FEW 15:28</td><td> [facility] Mucous Health Care </td><td> Corporation FEW
/LPF
< FEW

/LPF </td> Cholesterol 116 mg/dL <150 <td> 04/04/2019 [place] in LDL mg/dL 08:28</td><td> [facility] [Mass/volume LDL Cholesterol Health Care ] in Serum </td><td> Corporation or Plasma 116
(<150) mg/dL </td> Triglyceride 80 mg/dL 30-200 <td> 04/04/2019 [place] [Mass/volume mg/dL 08:28</td><td> [facility] ] in Serum Triglyceride Health Care or Plasma </td><td> Corporation 80
(30-200) mg/dL </td> Cholesterol 37 mg/dL >60 <td> 04/04/2019 [place] in HDL mg/dL 08:28</td><td> [facility] [Mass/volume HDL Cholesterol Health Care ] in Serum </td><td> Corporation or Plasma 37
(>60) mg/dL </td> Cholesterol 169 mg/dL 125-24 <td> 04/04/2019 [place] [Moles/volum 0 08:28</td><td> County e] in Serum mg/dL Cholesterol Health Care or Plasma </td><td> [facility] 169
(125-240) mg/dL </td> Hemoglobin 5.3 % 4.0-5. <td> 04/04/2019 [place] A1C 6 % 08:28</td><td> [facility] Hemoglobin A1C Health Care </td><td> [facility] 5.3
(4.0-5.6) %
Increased risk for diabetes [...]
11 269
12 298
Source: Adapted from [place] [employer]. Standards of medical
care in diabetes-2014. Diabetes Care.2014;37([place] pp 1):S14-S80, table 8.

(4.0-5.6) % </td> ID Date Data Source [id number] 03/16/2019 02:14:15 PM EDT [facility] [id number] Corporation Name Value Range Interpretation Description Data Sup porting Code Source(s) Document(s ) Abdomen 1 (PACSIMAGE <td> 03/03/2019 [facility] 16:54</td><td> [facility] ) Final Abdomen 1 View Health Care Result </td><td>[employer] Name: phoebe PHILIP, styleCode="Ital JENNIFER Antunez MRN: [email or web address]">(PACSIMAGE [id number] Sex: F : 1960 Location: F )</paragraph><b [...] 16:46

</td > ID Date Data Source [id number] 03/16/2019 02:14:15 PM EDT [facility] [id number] Corporation Name Value Range Interpretation Description Data Sup porting Code Source(s) Document(s ) Leukocytes 6.9 k/mm3 4.8-10 <td> [place] [#/volume] in .8 03/02/2019 [facility] Blood by k/mm3 08:38</td><td> Health Care Automated count WBC </td><td> Corporati on 6.9
(4.8-10.8) k/mm3 </td> Erythrocytes 4.96 m/mm3 3.90-5 <td> [place] [#/volume] in .20 03/02/2019 [facility] Blood m/mm3 08:38</td><td> Health Care RBC </td><td> [facility] 4.96
(3.90-5.20) m/mm3 </td> Erythrocyte mean 29.4 pg 27.0-3 <td> [place] corpuscular 1.5 pg 03/02/2019 [facility] hemoglobin 08:38</td><td> Health Care [Entitic mass] MCH </td><td> Corporatio n by Automated count 29.4
(27.0-31.5) pg </td> Erythrocyte 13.5 % 11.5-1 <td> [place] distribution 4.5 % 03/02/2019 [facility] width [Entitic 08:38</td><td> Health Car e volume] by RDW </td><td> Corporation Automated count 13.5
(11.5-14.5) % </td> Erythrocyte mean 34.4 % 32.0-3 <td> [place] corpuscular 6.0 % 03/02/2019 [facility] hemoglobin 08:38</td><td> Health Care concentration [facility] Corporation [Mass/volume] in </td><td> Blood from Fetus by Automated 34.4 count
(32.0-36.0) % </td> Erythrocyte mean 85.5 fL 81.0-9 <td> [place] corpuscular 9.0 fL 03/02/2019 [facility] volume [Entitic 08:38</td><td> Health Ca re volume] by MCV </td><td> [facility] Automated count 85.5
(81.0-99.0) fL </td> Hemoglobin 14.6 g/dL 12.0-1 <td> [place] [Mass/volume] in 6.0 03/02/2019 [facility] Blood g/dL 08:38</td><td> Health Care HGB </td><td> [facility] 14.6
(12.0-16.0) g/dL </td> Hematocrit 42.4 % 37.0-4 <td> [place] [Volume 7.0 % 03/02/2019 [place] Fraction] of 08:38</td><td> Health Care Blood by HCT </td><td> [facility] Automated count 42.4
(37.0-47.0) % </td> Platelet mean 10.5 fL 9.8-12 <td> [place] volume [Entitic .8 fL 03/02/2019 [facility] volume] in Blood 08:38</td><td> Health C are by Automated MPV </td><td> Corporation count 10.5
(9.8-12.8) fL </td> Monocytes/Leukoc 6.1 % 0.0-11 <td> [place] ytes [Pure .0 % 03/02/2019 [facility] number fraction] 08:38</td><td> Health C are in Blood by Monocytes. Corporation Automated count </td><td> 6.1
(0.0-11.0) % </td> Immature 0.3 % 0.0-0. <td> [place] granulocytes/100 5 % 03/02/2019 [facility] leukocytes in 08:38</td><td> Health Care Blood by IG% </td><td> Corporation Automated count 0.3
(0.0-0.5) %
The IG fraction represents metamyelocytes , myelocytes and/or
promyelocytes and is only reported as part of the automated
differential when found at a percentage of less than 6.
If higher than 6%, a manual differential will be performed.

(0.0-0.5) % </td> Platelets 258 k/mm3 160-41 <td> [place] [#/volume] in 0 03/02/2019 [facility] Blood by k/mm3 08:38</td><td> Health Care Automated count Platelet Count Corporati on </td><td> 258
(160-410) k/mm3 </td> Basophils 0.7 % 0.0-2. <td> [place] [#/volume] in 0 % 03/02/2019 [facility] Blood by 08:38</td><td> Health Care Automated count Basophils Corporation </td><td> 0.7
(0.0-2.0) % </td> Lymphocytes 36.9 % 17.0-5 <td> [place] [#/volume] in 0.0 % 03/02/2019 [facility] Blood by 08:38</td><td> Health Care Automated count Lymphocytes Corporation </td><td> 36.9
(17.0-50.0) % </td> Basophils+Eosino 2.0 % 0.0-5. <td> [place] phils+Monocytes 0 % 03/02/2019 [facility] [#/volume] in 08:38</td><td> Health Care Blood by Eosinophils [facility] Automated count </td><td> 2.0
(0.0-5.0) % </td> Carbon dioxide, 24 mEq/L 22-30 <td> [place] total mEq/L 03/02/2019 [facility] [Moles/volume] 08:38</td><td> Health Car e in Serum or CO2 </td><td> Corporation Plasma 24
(22-30) mEq/L </td> Glucose 125 mg/dL 70-105 <td> [place] [Mass/volume] in mg/dL 03/02/2019 [facility] Blood 08:38</td><td> Health Care Glucose-Serum Corporation </td><td><para graph styleCode="Sim d"> 125 H </paragraph><b r/> (70-105) mg/dL </td> Sodium 141 mEq/L 135-14 <td> [place] [Moles/volume] 5 03/02/2019 [place] in Serum or mEq/L 08:38</td><td> Health Care Plasma Sodium-Serum [facility] </td><td> 141
(135-145) mEq/L </td> Potassium 3.4 mEq/L 3.5-5. <td> [place] [Moles/volume] 1 03/02/2019 [facility] in Serum or mEq/L 08:38</td><td> Health Care Plasma Potassium-Seru [facility] m </td><td><para graph styleCode="Sim d"> 3.4 L </paragraph><b r/> (3.5-5.1) mEq/L </td> Chloride 106 mEq/L 98-107 <td> [place] [Moles/volume] mEq/L 03/02/2019 [facility] in Serum or 08:38</td><td> Health Care Plasma Chloride [facility] </td><td> 106
(98-107) mEq/L </td> Neutrophils [#] 54.0 % 40.0-7 <td> [place] in Body fluid by 6.0 % 03/02/2019 [facility] Manual count 08:38</td><td> Health Care Neutrophils [facility] </td><td> 54.0
(40.0-76.0) % </td> Creatinine 0.86 mg/dL 0.57-1 <td> [place] [Moles/volume] .11 03/02/2019 [facility] in Serum or mg/dL 08:38</td><td> Health Care Plasma Creatinine. Corporation </td><td> 0.86
(0.57-1.11) mg/dL </td> Proteins - Total 7.2 g/dL 6.4-8. <td> [place] 3 g/dL 03/02/2019 [facility] 08:38</td><td> Health Care Proteins - Corporation Total </td><td> 7.2
(6.4-8.3) g/dL </td> Aspartate 28 U/L 4-35 <td> [place] aminotransferase U/L 03/02/2019 [facility] [Enzymatic 08:38</td><td> Health Care activity/volume] AST (SGOT) Corporation in Serum or </td><td> Plasma 28
(4-35) U/L </td> Alanine 27 U/L 6-55 <td> [place] aminotransferase U/L 03/02/2019 [facility] [Enzymatic 08:38</td><td> Health Care activity/volume] ALT (SGPT) Corporation in Serum or </td><td> Plasma 27
(6-55) U/L </td> Albumin 4.5 g/dL 3.4-4. <td> [place] [Mass/volume] in 8 g/dL 03/02/2019 [facility] Serum or Plasma 08:38</td><td> Health Ca re Albumin Corporation </td><td> 4.5
(3.4-4.8) g/dL </td> Bilirubin.total 0.6 mg/dL 0.2-1. <td> [place] [Mass/volume] in 3 03/02/2019 [facility] Blood mg/dL 08:38</td><td> Health Care Bilirubin - Corporation Total </td><td> 0.6
(0.2-1.3) mg/dL </td> Urea nitrogen 8 mg/dL 6-22 <td> [place] [Mass/volume] in mg/dL 03/02/2019 [facility] Blood 08:38</td><td> Health Care BUN </td><td> Corporation 8
(6-22) mg/dL </td> Anion gap in 11 mEq/L 7-13 <td> [place] Serum or Plasma mEq/L 03/02/2019 [facility] 08:38</td><td> Health Care Anion Gap Corporation </td><td> 11
(7-13) mEq/L </td> Icteric index of Not <td> [place] Serum or Plasma Icteric 03/02/2019 [facility] 08:38</td><td> Health Care Icteric Index Corporation </td><td> Not Icteric
</td> Lipemic index of No Lipemia <td> [place] Serum or Plasma 03/02/2019 [facility] 08:38</td><td> Health Care Lipemia Index Corporation </td><td> No Lipemia
</td> Calcium 10.0 mg/dL 8.6-10 <td> [place] [Mass/volume] in .2 03/02/2019 [facility] Blood mg/dL 08:38</td><td> Health Care Calcium Corporation </td><td> 10.0
(8.6-10.2) mg/dL </td> Globulin 2.7 gm/dL 2.9-4. <td> [place] [Mass/volume] in 0 03/02/2019 [facility] Serum gm/dL 08:38</td><td> Health Care Globulin Corporation </td><td><para graph styleCode="Sim d"> 2.7 L </paragraph><b r/> (2.9-4.0) gm/dL </td> Hemolysis index No <td> [place] of Serum or Hemolysis 03/02/2019 [facility] Plasma 08:38</td><td> Health Care Hemolysis Corporation Index </td><td> No Hemolysis
</td> Urobilinogen 0.2 mg/dL 0.0-2. <td> [place] [Presence] in 0 03/02/2019 [facility] Urine by mg/dL 08:45</td><td> Health Care Automated test Urobilinogen Corporation strip </td><td> 0.2
(0.0-2.0) mg/dL </td> Glucose Negative <td> [place] [Presence] in 03/02/2019 [facility] Urine by Test 08:45</td><td> Health Care strip Glucose_ Corporation </td><td> Negative
(NEGATIVE) </td> Protein Negative <td> [place] [Presence] in 03/02/2019 [facility] Urine by 08:45</td><td> Health Care Automated test Protein Corporation strip Qualitative </td><td> Negative
(NEGATIVE) </td> Appearance of Cloudy <td> [place] Urine 03/02/2019 [facility] 08:45</td><td> Health Care Appearance Corporation </td><td> Cloudy
(CLEAR) </td> Specific gravity 1.006 {} 1.000- <td> [place] of Urine by Test 1.035 03/02/2019 [facility] strip 08:45</td><td> Health Care Specific Corporation [place] </td><td> 1.006
(1.000-1.035) </td> Erythrocytes 2 /HPF 0-2 <td> [place] [#/area] in /HPF 03/02/2019 [facility] Urine sediment 08:45</td><td> Health Car e by Automated RBC </td><td> Corporation count 2
(0-2) /HPF </td> Leukocytes 5 /HPF 0-5 <td> [place] [Presence] in /HPF 03/02/2019 [facility] Urine by 08:45</td><td> Health Care Automated WBC </td><td> Corporation 5
(0-5) /HPF </td> Nitrite Negative <td> [place] [Presence] in 03/02/2019 [facility] Urine by Test 08:45</td><td> Health Care strip Nitrites Corporation </td><td> Negative
(NEGATIVE) </td> Leukocyte 2+ <td> [place] esterase 03/02/2019 [facility] [Presence] in 08:45</td><td> Health Care Urine by Test Leukocytes Corporation strip Esterase </td><td><para graph styleCode="Sim d"> 2+ * AB </paragraph><b r/> (NEGATIVE) </td> Cholesterol in 42 mg/dL >60 <td> [place] HDL mg/dL 03/02/2019 [place] [Mass/volume] in 08:38</td><td> Health C are Serum or Plasma HDL Corporation Cholesterol </td><td> 42
(>60) mg/dL </td> Hemoglobin A1C 5.7 % 4.0-5. <td> [place] 6 % 03/02/2019 [facility] 08:37</td><td> Health Care Hemoglobin Corporation A1C </td><td><para [...]
11 -269
12 -298
Source: Adapted from [place] [employer]. Standards of medical
care in diabetes-2014. Diabetes Care.2014;37(S [facility] 1):S14-S80, table 8.

(4.0-5.6) % </td> Mucous MASSIVE <td> [place] < FEW 03/02/2019 [facility] 08:45</td><td> Health Care Mucous Corporation </td><td> MASSIVE
/LPF
< FEW

/LPF </td> Cholesterol 188 mg/dL 125-24 <td> [place] [Moles/volume] 0 03/02/2019 [facility] in Serum or mg/dL 08:38</td><td> Health Care Plasma Cholesterol Corporation </td><td> 188
(125-240) mg/dL </td> Epithelial cells MASSIVE <td> [place] [#/area] in FEW 03/02/2019 [facility] Urine sediment 08:45</td><td> Health Car e by Automated Epithelial [employer] count Cells </td><td> MASSIVE
/LPF
FEW

/LPF </td> Bacteria RARE <td> [place] [#/area] in 03/02/2019 [facility] Urine sediment 08:45</td><td> Health Car e by Microscopy Bacteria [employer] high power field </td><td> RARE
(NONE SEEN) /HPF </td> Triglyceride 116 mg/dL 30-200 <td> [place] [Mass/volume] in mg/dL 03/02/2019 [facility] Serum or Plasma 08:38</td><td> Health Ca re Triglyceride [facility] </td><td> 116
(30-200) mg/dL </td> Cholesterol in 123 mg/dL <150 <td> [place] LDL mg/dL 03/02/2019 [facility] [place] [Mass/volume] in 08:38</td><td> Health C are Serum or Plasma LDL [facility] Cholesterol </td><td> 123
(<150) mg/dL </td> Procedure Social History Code Duration Value Status Description Data Source(s ) Smoking Unknown if ever completed Unknown if ever [facility] smoked smoked [facility] Vital Signs ID Date Data Source UNK Name Value Range Interpretation Code Description Data Source(s) Body temperature 97.6 [degF] 0 - 200 Normal (applies to 97.6 [degF ] [facility] non-numeric results) [facility] Body temperature 36.4 Tala 0 - 99.9 Below low normal 36.4 [facility] Diastolic blood 51 mm[Hg] 0 - 999 Below low normal 51 mm[Hg] [facility] Systolic blood 113 mm[Hg] 0 - 999 Normal (applies to 113 mm[Hg] [facility] non[facility]numeric results) [facility] Oxygen saturation 98 % 0 - 999 Normal (applies to 98 % [facility] in Arterial blood non-numeric results) [facility] by Pulse oximetry Respiratory rate 16 0 - 999 Normal (applies to 16 [facility] non-numeric results) [facility] Heart rate 77 0 - 999 Normal (applies to 77 [facility] non-numeric results) [facility] Body surface area 2 m2 2 m2 [facility] Derived from [facility] m formula Body mass index 36.6 kg/m2 36.6 kg/m2 [place] [facility] (BMI) [Ratio] [facility] em Body weight 99.79 kg 99.79 kg [facility] Body height 165.1 cm 165.1 cm [facility] No Vital Sign Normal (applies to [place] [facility] information non-numeric results) [facility] exists for this Care Johana oration episode. [...] 18.0000 {} Normal (applies to 18.0000 {} [place] rate Set non-numeric results) [facility] Heart rate 95.0000 {} Normal (applies to 95.0000 {} [facility] non-numeric results) [facility] Body temperature 97.9000 {} Normal (applies to 97.9000 {} [place] non-numeric results) [facility] Patient Treatment Plan of Care Planned Activity Planned Date Details Description Data Source (s) Ibuprofen 600 MG Oral 04/20/2020 10:03:52 [facility] Tablet AM EDT System Aspirin [facility] Escitalopram 20 MG Oral [facility] Tablet System pantoprazole 40 MG [facility] Delayed Release Oral System Tablet 24 HR Oxybutynin [facility] chloride 10 MG Extended Syst em Release Oral Tablet Lower [place] Carbonate 300 MG [facility] Oral Capsule System aripiprazole 20 MG Oral [facility] Tablet [Abilify] System atorvastatin 40 MG Oral [facility] Tablet System
[2020-06-05 07:51] VITALS: BMI 38.2
--- OUTSIDE RECORDS SUMMARY | 2020-06-11 06:52 | XMS ---
:1960 Author Organization [facility] Care Team Providers Name Role Phone CAITLIN SERNA Unavailable Unavailable HHCCC, PMH9 Unavailable Unavailable Denton Valle Unavailable Unavailable FERN LEON Unavailable Unavailable MD Maurice Unavailable Unavailable Re-disclosure Warning The records that [...] is protected by Article 27-F of the [facility] Public Health law. If you continue you may haveaccess to information: Regarding HIV / AIDS; Provided by facilities licensed or operated by the [facility] Office of Mental Health; or Provided by the [facility] Office for People With Developmental Disabilities. If such information is present, then the following [facility] mandated warning applies: This information has been [...] law may result in a fine or fci sentence or both. A general authorization for the release of medical or other information is NOT sufficient authorization for further disclosure. Allergies and Adverse Reactions Type Description Substance Reaction Status Data Source(s ) 3 No Known Drug Allergies No Known Drug [facility] ([facility] - [facility]) Encounters Encounter Providers Location Date Indications Data Source(s ) S Attender: MD [facility] SURG 04/18/2020 [facility] Marcos Richards 12:07:22 PM Olyajeramie smith EDT - 04/20/2020 02:58:00 PM EDT Patient discharged. Outpatient Attender: MD [facility] 04/17/2020 05:22:25 PM [facility] Marcos Richards EDT - 04/18/2020 [facility] 11:59:00 PM EDT Patient discharged. Outpatient Attender: MARYUri [facility] 12/16/2019 12:44:17 PM GSI ([facility] EDT Collaborative) Patient admitted. Outpatient Attender: Denton 08/18/2019 NEXTGEN WainwrightReferrer: Denton 03:00:00 PM EST ([facility]) Outpatient Attender: KAREEM 05/04/2019 Marty lawrence STRINGERdmitter: KAREEM, 06:00:00 AM EDT [facility] 04/27/2019 [place] 11:17:00 AM EDT [facility] Inpatient 04/27/2019 [place] 11:17:00 AM EDT [facility] on Outpatient Attender: KAREEM [facility]: KAREEM 06:00:00 AM EDT [facility] Attender: EDWARD [facility]03[facility], 05:59:00 PM EDT DISOR [facility] - 04/19/2019 Care [facility] tion 04:59:00 PM EDT BIPOLAR DISORDER Patient admitted. Medications Medication Brand Start Product Dose Route Administrative Pharmacy [facility] Indications Reaction Description Data Name Date Form Instructions Instructions Source(s) Ibuprofen ibupro [id number] active Ibuprof en [facility] 600 MG Oral [...] of this medication.Take with food or milk. Insurance Providers Payer name Policy type Policy ID Covered Covered democrat's Policy P ryan / Coverage democrat ID relationship to [place] [facility] ormation type byers MEDICAID [id number] SP [id number] MEDICARE [id number] SP [id number] 95 5 MEDICARE [id number] SP [id number] 95 5 Medicaid Medicaid [id number] 1 [id number] Medicare Part Medicare [id number] 1 [id number] B Outpatient 5 Medicare Medicare [id number] 1 [id number] 95 5 Financial Self Pay 1 Assist 55% Medicaid Medicaid [id number] Medicare Part Medicare [id number] 1 [id number] B Outpatient Medicare Medicare [id number] 1 [id number] A OpenPlacement [id number] SP [id number] SOLUTIONS 8 HEALTH SOLUTIONS [facility] Medicare [id number] 1 [id number] Part B Par 5 Providers [employer] [id number] [place] SELF PAY 00 Self 00 REDUCTION SELF PAY 000 Self 000 Problems, Conditions, and Diagnoses Code Display Name Description Problem Type Effective Data Dates Source(s) R11.10 Vomiting, Vomiting Diagnosis 04/20/2020 [facility] - New unspecified 06:38:00 AM [facility] K95.09 Other complications Other complications Diagnosis 020 [facility] - New of gastric band of gastric band 06:38:00 AM Attila helle procedure procedure [facility] K43.6 Other and Other or unspecified Diagnosis 04/20/2020 [facility] - New unspecified ventral ventral hernia with 06:38:0 0 AM [facility] hernia with obstruction without EDT Hosp ital obstruction, without gangrene gangrene 19141 Laparoscopy, Laparoscopy, Diagnosis 04/20/2020 [facility] - New surgical, gastric surgical, gastric 06:38:00 AM [facility] restrictive restrictive [facility] procedure; removal procedure; removal of adjustable of adjustable gastric restrictive gastric restrictive device and device and subcutaneous port subcutaneous port components components R13.10 Dysphagia, Dysphagia Diagnosis 04/20/2020 [facility] - New unspecified 06:38:00 AM [facility] E66.01 Morbid (severe) Morbid obesity, Diagnosis 04/18/2020 S - New obesity due to unspecified obesity 08:10:00 AM [facility] excess calories type [facility] Z11.59 Encounter for Encounter for Diagnosis 04/18/2020 [facility] - Ne w screening for other laboratory testing 08:10:00 AM [facility] viral diseases for COVID-19 virus EDT spital Z01.818 Encounter for other Preop examination Diagnosis 0 [facility] - New preprocedural 08:10:00 AM [facility] examination [facility] Z12.83 Encounter for Screening exam for Diagnosis 08/18/2019 NEX TGEN screening for skin cancer 03:00:00 PM ([facility] neoplasm EST Medica l - [facility] of skin [facility]) L82.1 Other seborrheic Other seborrheic Diagnosis 08/18/2019 NE XTGEN keratosis keratosis 03:00:00 PM ([facility] EST [facility]) D18.01 Hemangioma of skin Angioma of skin Diagnosis 08/18/2019 N EXTGEN and subcutaneous 03:00:00 PM ([facility] tissue EST [facility]) L81.4 Other melanin Other melanin Diagnosis 08/18/2019 NEXTGEN hyperpigmentation hyperpigmentation 03:00:00 [facility]) L81.2 Freckles Freckles Diagnosis 08/18/2019 NEXTGEN 03:00:00 PM ([facility] EST [facility]) D22.5 Melanocytic nevi of Melanocytic nevi of Diagnosis 019 NEXTGEN trunk trunk 03:00:00 PM ([facility] EST Medical - [facility]) K64.9 Unspecified UNSPECIFIED Diagnosis 04/19/2019 [place] hemorrhoids HEMORRHOIDS 04:59:00 PM [facility] EDT Care [facility] M75.100 Unspecified rotator UNSP ROTATR-CUFF Diagnosis 04/19/2019 [place] cuff tear or rupture TEAR/RUPTR OF UNSP 04:59:0 0 PM [facility] of unspecified SHOULDER, NOT TRAUMA EDT Care shoulder, not Corporation specified as traumatic Y92.89 Other specified OTH PLACES THE Diagnosis 04/19/[address] [facility] as the place PLACE OF OCCURRENCE 04:59:0 0 PM [facility] of occurrence of the OF THE EXTERNAL EDT Care external cause CAUSE Corporatio n X58.XXXA Exposure to other EXPOSURE TO OTHER Diagnosis 04/19/2019 [place] specified factors, SPECIFIED FACTORS, 04:59:00 PM [facility] initial encounter INITIAL ENCOUNTER EDT Care [facility] T48.1X2A Poisoning by POISONING BY Diagnosis 04/19/2019 [facility] r skeletal muscle SKELETAL MUSCLE 04:59:00 PM [facility] relaxants RELAXANTS, EDT Care [neuromuscular SELF-HARM, INIT Corpo ration blocking agents], intentional self-harm, initial encounter T43.212A Poisoning by POISN BY SLCTV Diagnosis 04/19/2019 [facility] selective serotonin SEROTON/NOREPINEPH 04:59:00 PM [facility] and norepinephrine REUP EDT Care reuptake inhibitors, INHIBTR,SLF-HRM, Corporation intentional INIT self-harm, initial encounter 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 04/19/2019 [place] personality disorder PERSONALITY DISORDER 04:59 :00 PM [facility] EDT Care [facility] T43.592A Poisoning by other POISONING BY OTH Diagnosis 04/19/2019 [place] antipsychotics and ANTIPSYCHOT/NEUROLEP 04:59:0 0 PM [facility] neuroleptics, T, SELF-HARM, INIT EDT Car e intentional Corporation self-harm, initial encounter Surgeries/Procedures Procedure Description Date Indications Data Source(s) Tissue Exam 04/20/2020 [facility] 01:52:15 PM System EDT - 04/20/2020 09:25:00 AM EDT Venipuncture 04/18/2020 [facility] 08:48:26 AM System EDT - 04/18/2020 10:00:06 AM EDT OFFICE/OUTPATIENT OFFICE/OUTPATIENT 08/18/2019 NEXTG EN ([facility] VISIT EST VISIT EST 12:00:00 AM Medical - [facility]) Results ID Date Data Source [id number] 05/31/2020 08:22:00 AM EDT [facility] Name Value Range Interpretation Description Data Sup porting Code Source(s) Document(s ) SARS [facility] coronavirus 2 RNA This lab was [facility] Tello nadia [facility] and reported by [facility]. ID Date Data Source [id number] 05/23/2020 10:55:00 AM EDT [facility] Name Value Range Interpretation Description Data Sup porting Code Source(s) Document(s ) SARS [facility] coronavirus 2 RNA This lab was ordered by [facility] hunter [facility] and reported by [facility]. ID Date Data Source [id number] 05/17/2020 09:40:00 AM EDT [facility] Name Value Range Interpretation Description Data Sup porting Code Source(s) Document(s ) SARS [facility] coronavirus 2 RNA This lab was ordered by [facility] Tello nadia [facility] and reported by [facility]. ID Date Data Source [id number] 05/14/2020 09:15:00 AM EDT [facility] Name Value Range Interpretation Description Data Sup porting Code Source(s) Document(s ) SARS [facility] coronavirus 2 RNA This lab was ordered by [facility] hunter [facility] and reported by [facility]. ID Date Data Source [id number] 05/11/2020 10:28:00 AM EDT [facility] Name Value Range Interpretation Description Data Sup porting Code Source(s) Document(s ) SARS [facility] coronavirus 2 RNA This lab was [facility] Tello nadia [facility] and reported by [facility]. ID Date Data Source [id number] 05/08/2020 01:40:00 PM EDT [facility] Name Value Range Interpretation Description Data Sup porting Code Source(s) Document(s ) SARS [facility] coronavirus 2 RNA This lab was ordered by [facility] hunter [facility] and reported by [facility]. ID Date Data Source [id number] 05/04/2020 12:40:00 PM EDT [facility] Name Value Range Interpretation Description Data Sup porting Code Source(s) Document(s ) SARS [facility] coronavirus 2 RNA This lab was ordered by [facility] DAVE Tello nadia [facility] and reported by [facility]. ID Date Data Source [id number] 04/30/2020 10:00:00 AM EDT [facility] Name Value Range Interpretation Description Data Sup porting Code Source(s) Document(s ) SARS [facility] coronavirus 2 RNA This lab was ordered by [facility] and reported by [facility]. ID Date Data Source [id number] 04/27/2020 10:40:00 AM EDT [facility] Name Value Range Interpretation Description Data Sup porting Code Source(s) Document(s ) SARS [facility] coronavirus 2 RNA This lab was ordered by [facility] and reported by [facility]. ID Date Data Source [id number] 04/24/2020 02:25:28 AM EDT [facility] [...] as O on 12/24/2011, 4:42 [place] [id number] - added comment for o/r AntibodyScreen Negative Normal (applies to Antibody Screen [facility] non-numeric results) System ID Date Data Source [id number] 04/24/2020 02:25:28 AM EDT [facility] [...] quantitative testing recommened. ID Date Data Source [id number] 04/24/2020 02:25:28 AM EDT [facility] System Name Value Range Interpretation Description Data Sup porting Code Source(s) Document(s ) RubellaInterpreta Positive Normal (applies Rubella [facility] tion to non-numeric Interpretation Health results) System <5 Negative>=5 - <10 Equivocal>= 10 Positive Rubella 27 {IU/mL} Normal (applies to Rubella [facility] System non-numeric results) ID Date Data Source [id number] 04/24/2020 02:25:28 AM EDT [facility] alth System Name Value Range Interpretation Description Data Sup porting Code Source(s) Document(s ) VaricellaInterpre Positive Normal (applies Varicella [facility] tation to non-numeric Interpretation Health results) System <0.6 Negative>=0.6 - <.90 Equivoc al>=.90 Positive VaricellaResultValue 1.78 Normal (applies to Varicel la Result [facility] non-numeric results) Value System ID Date Data Source [id number] 04/24/2020 02:25:28 AM EDT [facility] alth System Name Value Range Interpretation Description Data Sup porting Code Source(s) Document(s ) RubeolaABIgGResul 0.78 Normal (applies Rubeola AB IgG [facility] tValue to non-numeric Result Value Health results) System RubeolaABIgGinter Positive Normal (applies Rubeola AB IgG [facility] pretation to non-numeric interpretation Health results) System <.50 Negative>=.50 - <.70 Equivo lloyd>=.70 Positive ID Date Data Source [id number] 04/24/2020 02:25:28 AM EDT [facility] System Name Value Range Interpretation [...] Health System results) ID Date Data Source [id number] 04/24/2020 02:25:28 AM EDT [facility] Name Value Range Interpretation Description Data Sup porting Code Source(s) Document(s ) 53120-3 NEGATIVE Testing Normal (applies COVID-19.. [facility] [...] Range: NEGATIVE . ID Date Data Source [id number] 04/24/2020 02:25:28 AM EDT [facility] [...] Health results) System ID Date Data Source [id number] 04/24/2020 02:25:28 AM EDT [facility] [...] Health results) System ID Date Data Source [id number] 04/24/2020 02:25:28 AM EDT [facility] Name Value Range Interpretation Description Data Sup porting Code Source(s) Document(s ) TissueExam Results for case # Normal (applies Tissue Exam [facility] [id number] to non-[facility] SURGICAL PATHOLOGY results) System REPORTCLINICAL INFORMATION: LAP band slip. PREOPERATIVE DIAGNOSIS: Same. POSTOPERATIVE DIAGNOSIS: Same.FINAL DIAGNOSIS: Gastric band and port system (gross).YUN/Jessica ROCA MDElectronically Signed By: GROSS DESCRIPTION: Received fresh, labeled "gastric band and port system", the specimen consists of a 3 x 3 x 1.5cm white plastic and raphael metal device inscribed with PORT-A-CATH [id number]. There is attached 45 x 0.3 x [...] 1 of 1 ID Date Data Source [id number] 04/23/2020 09:30:00 AM EDT [facility] Name Value Range Interpretation Description Data Sup porting Code Source(s) Document(s ) SARS [facility] coronavirus 2 RNA This lab was ordered by [facility] Tello [facility] and reported by [facility]. ID Date Data Source [id number] 04/19/2020 10:40:00 AM EDT [facility] Name Value Range Interpretation Description Data Sup porting Code Source(s) Document(s ) SARS [facility] coronavirus 2 RNA This lab was ordered by [facility] Tello [facility] and reported by [facility]. ID Date Data Source [id number] 04/18/2020 09:16:00 AM EDT [facility] Name Value Range Interpretation Code Description Data April rce(s) Supporting Document(s ) COVID-19.. [facility] This lab was ordered by [facility] and reported by [facility]. ID Date Data Source [id number] 04/17/2020 08:55:00 AM EDT [facility] Name Value Range Interpretation Description Data Sup porting Code Source(s) Document(s ) SARS [facility] coronavirus 2 RNA This lab was ordered by GISSELL MITCHELL and reported by [facility]. ID Date Data Source [id number] 03/03/2020 11:40:00 AM EDT [facility] Name Value Range Interpretation Description Data Sup porting Code Source(s) Document(s ) 2018 Novel [facility] Coronavirus RNA Interpretation Unspecified Specimen Qualitative SHIMA Probe Detection This lab was ordered by [facility] and reported by [facility]. ID Date Data Source [id number] 04/19/2019 04:59:28 PM EDT [facility] [id number] Corporation Name Value Range Interpretation Description Data Sup porting Code Source(s) Document(s ) Leukocytes 5.1 k/mm3 4.8-10 <td> 04/14/2019 [place] [#/volume] .8 08:23</td><td> County in Blood by k/mm3 WBC </td><td> [employer] count 5.1
(4.8-10.8) k/mm3 </td> Erythrocytes 4.94 m/mm3 3.90-5 <td> 04/14/2019 [facility] [#/volume] .20 08:23</td><td> County in Blood m/mm3 RBC </td><td> [employer] 4.94
(3.90-5.20) m/mm3 </td> Hemoglobin 14.5 g/dL 12.0-1 <td> 04/14/2019 [place] [Mass/volume 6.0 08:23</td><td> County ] in Blood g/dL HGB </td><td> [employer] 14.5
(12.0-16.0) g/dL </td> Erythrocyte 13.1 % 11.5-1 <td> 04/14/2019 [place] distribution 4.5 % 08:23</td><td> County width RDW </td><td> Health Care [[employer] volume] by 13.1 Automated count
(11.5-14.5) % </td> Platelet 11.0 fL 9.8-12 <td> 04/14/2019 [place] mean volume .8 fL 08:23</td><td> County [Entitic MPV </td><td> Health Care volume] in Prestodiag Blood by 11.0 Automated count
(9.8-12.8) fL </td> Erythrocyte 33.5 % 32.0-3 <td> 04/14/2019 [place] mean 6.0 % 08:23</td><td> [facility] corpuscular MCHC </td><td> Health Care hemoglobin Prestodiag concentratio 33.5 n [Mass/volume
] in Blood (32.0-36.0) % from Fetus </td> by Automated count Hematocrit 43.3 % 37.0-4 <td> 04/14/2019 [place] [Volume 7.0 % 08:23</td><td> County Fraction] of HCT </td><td> Health Care Blood by Prestodi[employer] Automated 43.3 count
(37.0-47.0) % </td> Erythrocyte 29.4 pg 27.0-3 <td> 04/14/2019 [place] mean 1.5 pg 08:23</td><td> [facility] corpuscular MCH </td><td> Health Care hemoglobin Prestodiag [Entitic 29.4 mass] by Automated
count (27.0-31.5) pg </td> Erythrocyte 87.7 fL 81.0-9 <td> 04/14/2019 [place] mean 9.0 fL 08:23</td><td> [facility] corpuscular MCV </td><td> Health Care volume Prestodiag [Entitic 87.7 volume] by Automated
count (81.0-99.0) fL </td> Lymphocytes 41.3 % 17.0-5 <td> 04/14/2019 [place] [#/volume] 0.0 % 08:23</td><td> County in Blood by Lymphocytes Health Care Automated </td><td> Corporation count 41.3
(17.0-50.0) % </td> Platelets 229 k/mm3 160-41 <td> 04/14/2019 [place] [#/volume] 0 08:23</td><td> County in Blood by k/mm3 Platelet Count Health Care Automated </td><td> Corporation count 229
(160-410) k/mm3 </td> Monocytes/Le 6.1 % 0.0-11 <td> 04/14/2019 [place] ukocytes .0 % 08:23</td><td> County [Pure number Monocytes. Health Care fraction] in </td><td> Corporation Blood by Automated 6.1 count
(0.0-11.0) % </td> Basophils 0.8 % 0.0-2. <td> 04/14/2019 [place] [#/volume] 0 % 08:23</td><td> County in Blood by Basophils Health Care Automated </td><td> Corporation count 0.8
(0.0-2.0) % </td> Basophils+Eo 2.7 % 0.0-5. <td> 04/14/2019 [place] sinophils+Mo 0 % 08:23</td><td> County nocytes Eosinophils Health Care [#/volume] </td><td> Corporation in Blood by Automated 2.7 count
(0.0-5.0) % </td> Potassium 4.8 mEq/L 3.5-5. <td> 04/14/2019 [place] [Moles/volum 1 08:23</td><td> County e] in Serum mEq/L Potassium-Serum Health Care or Plasma </td><td> Corporation 4.8
(3.5-5.1) mEq/L </td> Immature 0.2 % 0.0-0. <td> 04/14/2019 [place] granulocytes 5 % 08:23</td><td> County /100 IG% [...] </td> Sodium 139 mEq/L 135-14 <td> 04/14/2019 [place] [Moles/volum 5 08:23</td><td> County e] in Serum mEq/L Sodium-Serum Health Care or Plasma </td><td> Corporation 139
(135-145) mEq/L </td> Glucose 96 mg/dL 70-105 <td> 04/14/2019 [place] [Mass/volume mg/dL 08:23</td><td> County ] in Blood Glucose-Serum Health Care </td><td> Corporation 96
(70-105) mg/dL </td> Neutrophils 48.9 % 40.0-7 <td> 04/14/2019 [place] [#] in Body 6.0 % 08:23</td><td> [facility] fluid by Neutrophils Health Care Manual count </td><td> Prestodiag 48.9
(40.0-76.0) % </td> Creatinine 0.82 mg/dL 0.57-1 <td> 04/14/2019 [place] [Moles/volum .11 08:23</td><td> County e] in Serum mg/dL Creatinine. Health Care or Plasma </td><td> Prestodiag 0.82
(0.57-1.11) mg/dL </td> Urea 10 mg/dL 6-22 <td> 04/14/2019 [place] nitrogen mg/dL 08:23</td><td> [facility] [Mass/volume BUN </td><td> Health Care ] in Blood Corporation 10
(6-22) mg/dL </td> Chloride 103 mEq/L 98-107 <td> 04/14/2019 [place] [Moles/volum mEq/L 08:23</td><td> County e] in Serum Chloride Health Care or Plasma </td><td> Prestodiag 103
(98-107) mEq/L </td> Carbon 29 mEq/L 22-30 <td> 04/14/2019 [place] dioxide, mEq/L 08:23</td><td> [facility] total CO2 </td><td> Health Care [Moles/volum Corporation e] in Serum 29 or Plasma
(22-30) mEq/L </td> Albumin 4.3 g/dL 3.4-4. <td> 04/14/2019 [place] [Mass/volume 8 g/dL 08:23</td><td> [facility] ] in Serum Albumin Health Care or Plasma </td><td> Prestodiag 4.3
(3.4-4.8) g/dL </td> Proteins - 7.0 g/dL 6.4-8. <td> 04/14/2019 [place] Total 3 g/dL 08:23</td><td> [facility] Proteins - Health Care [employer] </td><td> 7.0
(6.4-8.3) g/dL </td> Alanine 20 U/L 6-55 <td> 04/14/2019 [place] aminotransfe U/L 08:23</td><td> [facility] rase ALT (SGPT) Health Care [Enzymatic </td><td> Corporation activity/vol ume] in 20 Serum or
Plasma (6-55) U/L </td> Aspartate 15 U/L 4-35 <td> 04/14/2019 [place] aminotransfe U/L 08:23</td><td> [facility] rase AST (SGOT) Health Care [Enzymatic </td><td> Corporation activity/vol ume] in 15 Serum or
Plasma (4-35) U/L </td> Bilirubin.to 0.5 mg/dL 0.2-1. <td> 04/14/2019 [place] livan 3 08:23</td><td> [facility] [Mass/volume mg/dL Bilirubin - Health Care ] in Blood [employer] </td><td> 0.5
(0.2-1.3) mg/dL </td> Calcium 9.6 mg/dL 8.6-10 <td> 04/14/2019 [place] [Mass/volume .2 08:23</td><td> [facility] ] in Blood mg/dL Calcium Health Care </td><td> Prestodiag 9.6
(8.6-10.2) mg/dL </td> Globulin 2.7 gm/dL 2.9-4. <td> 04/14/2019 [place] [Mass/volume 0 08:23</td><td> [facility] ] in Serum gm/dL Globulin Health Care </td><td><valerie [facility] raph styleCode="Bold "> 2.7 L </paragraph>
(2.9-4.0) gm/dL </td> Lipemic No Lipemia <td> 04/14/2019 [place] index of 08:23</td><td> [facility] Serum or Lipemia Index Health Care Plasma </td><td> Prestodiag No Lipemia
</td> Phosphate 3.1 mg/dL 2.3-4. <td> 04/04/2019 [place] [Mass/volume 7 08:28</td><td> [facility] ] in Serum mg/dL Inorganic Health Care or Plasma Phosphorus [facility] </td><td> 3.1
(2.3-4.7) mg/dL </td> Icteric Non Icteric <td> 04/14/2019 [place] index of 08:23</td><td> [facility] Serum or Icteric Index Health Care Plasma </td><td> [employer]odi[place] Non Icteric
</td> Anion gap in 7 mEq/L 7-13 <td> 04/14/2019 [place] Serum or mEq/L 08:23</td><td> [facility] Plasma Anion Gap Health Care </td><td> Prestodiag 7
(7-13) mEq/L </td> Hemolysis No Hemolysis <td> 04/14/2019 [place] index of 08:23</td><td> [facility] Serum or Hemolysis Index [facility] Care Plasma </td><td> Prestodiag No Hemolysis
</td> Prothrombin 10.8 secs 9.8-12 <td> 04/03/2019 [place] time (PT) .0 15:28</td><td> County secs Prothrombin Health Care Time. Corporation </td><td> 10.8
(9.8-12.0) secs </td> aPTT panel - 24.6 secs 25.0-3 <td> 04/03/2019 [place] Platelet 2.0 15:28</td><td> [facility] poor plasma secs Partial Health Care Thromboplastin Corporation Time </td><td><valerie raph styleCode="Bold "> 24.6 L </paragraph>
(25.0-32.0) secs </td> Appearance Cloudy <td> 04/03/2019 [place] of Urine 15:28</td><td> [facility] Appearance Health Care </td><td> Corporation Cloudy
(CLEAR) </td> Protein 1+ (30 MG/DL) <td> 04/03/2019 [facility] r [Presence] 15:28</td><td> [place] in Urine by Protein Health Care Automated Qualitative [employer] test strip </td><td> 1+ (30 MG/DL)
(NEGATIVE) </td> Specific 1.010 {} 1.000- <td> 04/03/2019 [place] gravity of 1.035 15:28</td><td> [facility] Urine by Specific Health Care Test strip [place] Prestodiag </td><td> 1.010
(1.000-1.035) </td> Nitrite Negative <td> 04/03/2019 [place] [Presence] 15:28</td><td> [place] in Urine by Nitrites Health Care Test strip </td><td> Corporation Negative
(NEGATIVE) </td> Glucose Negative <td> 04/03/2019 [place] [Presence] 15:28</td><td> [place] in Urine by Glucose_ Health Care Test strip </td><td> Corporation Negative
(NEGATIVE) </td> Leukocyte 3+ <td> 04/03/2019 [place] esterase 15:28</td><td> County [Presence] Leukocytes Health Care in Urine by Esterase Prestodiag Test strip </td><td><valerie raph styleCode="Bold "> 3+ * AB </paragraph>
(NEGATIVE) </td> Leukocytes 36 /HPF 0-5 <td> 04/03/2019 [place] [Presence] /HPF 15:28</td><td> [place] in Urine by WBC </td><td> Health Care Automated [employer] 36
(0-5) /HPF </td> Erythrocytes 13 /HPF 0-2 <td> 04/03/2019 [place] [#/area] in /HPF 15:28</td><td> County Urine RBC </td><td> Health Care sediment by Corporation Automated 13 count
(0-2) /HPF </td> Urobilinogen 0.2 mg/dL 0.0-2. <td> 04/03/2019 [place] [Presence] 0 15:28</td><td> [place] in Urine by mg/dL Urobilinogen Health Care Automated </td><td> Prestodiag test strip 0.2
(0.0-2.0) mg/dL </td> Epithelial MASSIVE <td> 04/03/2019 [place] cells FEW 15:28</td><td> County [#/area] in Transitional Epithelial Health Care Urine Epithelial Cells Corporation sediment by cells 3/HPF </td><td> Automated count MASSIVE
/LPF
FEW
Transitional Epithelial cells 3/HPF

/LPF </td> Magnesium 1.9 mg/dL 1.6-2. <td> 04/04/2019 [place] [Mass/volume 6 08:28</td><td> County ] in Serum mg/dL Magnesium Level Health Care or Plasma </td><td> Prestodiag 1.9
(1.6-2.6) mg/dL </td> Amorphous RARE < <td> 04/03/2019 [place] Crystal FEW 15:28</td><td> County Amorphous Health Care [employer] </td><td> RARE
/HPF
< FEW

/HPF </td> Bacteria MODERATE <td> 04/03/2019 [place] [#/area] in 15:28</td><td> [facility] Urine Bacteria Health Care sediment by </td><td> Corporation Microscopy high power MODERATE field
(NONE SEEN) /HPF </td> Calcium RARE Ca <td> 04/03/2019 [facility] r oxalate Oxalate 15:28</td><td> [facility] crystals Crystals..May Calcium Oxalate Health Car e [Presence] be present in Crystals [employer] in Urine normal, acid </td><td> sediment by or alkaline Light urine RARE microscopy
(SEE BELOW) /HPF
Ca Oxalate Crystals..May be present in normal, acid or alkaline urine

(SEE BELOW) /HPF </td> Mucous FEW < <td> 04/03/2019 [place] FEW 15:28</td><td> [facility] Mucous Health Care </td><td> Corporation FEW
/LPF
< FEW

/LPF </td> Cholesterol 116 mg/dL <150 <td> 04/04/2019 [place] in LDL mg/dL 08:28</td><td> [facility] [Mass/volume LDL Cholesterol Health Care ] in Serum </td><td> Prestodiag or Plasma 116
(<150) mg/dL </td> Triglyceride 80 mg/dL 30-200 <td> 04/04/2019 [place] [Mass/volume mg/dL 08:28</td><td> [facility] ] in Serum Triglyceride Health Care or Plasma </td><td> Corporation 80
(30-200) mg/dL </td> Cholesterol 37 mg/dL >60 <td> 04/04/2019 [place] in HDL mg/dL 08:28</td><td> [facility] [Mass/volume HDL Cholesterol Health Care ] in Serum </td><td> Prestodiag or Plasma 37
(>60) mg/dL </td> Cholesterol 169 mg/dL 125-24 <td> 04/04/2019 [place] [Moles/volum 0 08:28</td><td> [facility] e] in Serum mg/dL Cholesterol Health Care or Plasma </td><td> Corporation 169
(125-240) mg/dL </td> Hemoglobin 5.3 % 4.0-5. <td> 04/04/2019 [place] A1C 6 % 08:28</td><td> [facility] Hemoglobin A1C Health Care </td><td> Corporation 5.3
(4.0-5.6) %
Increased risk for diabetes [...]
11 269
12 298
Source: Adapted from [place] [employer]. Standards of medical
care in diabetes-2014. Diabetes Care.2014;37([place] pp 1):R03-S84, table 8.

(4.0-5.6) % </td> Procedure Vital Signs ID Date Data Source UNK Name Value Range Interpretation Code Description Data Source(s) Body temperature 97.6 [degF] 0 - 200 Normal (applies to 97.6 [degF ] [facility] non-numeric results) [facility] Body temperature 36.4 [place] 0 - 99.9 Below low normal 36.4 [place] [facility] Diastolic blood 51 mm[Hg] 0 - 999 Below low normal 51 mm[Hg] [facility] Systolic blood 113 mm[Hg] 0 - 999 Normal (applies to 113 mm[Hg] [facility] pressure non-numeric results) [facility] Oxygen saturation 98 % 0 - 999 Normal (applies to 98 % [facility] in Arterial blood non-numeric results) Health System by Pulse oximetry Respiratory rate 16 0 - 999 Normal (applies to 16 [facility] non-numeric results) [facility] Heart rate 77 0 - 999 Normal (applies to 77 [facility] non-numeric results) [facility] Body surface area 2 m2 2 m2 [facility] Derived from [facility] m formula Body mass index 36.6 kg/m2 36.6 kg/m2 [facility] (BMI) [Ratio] [facility] em Body weight 99.79 kg 99.79 kg [facility] Body height 165.1 cm 165.1 cm [facility] Patient Treatment Plan of Care Planned Activity Planned Date Details Description Data Source (s) Ibuprofen 600 MG Oral 04/20/2020 10:03:52 [facility] Tablet AM EDT System
[2020-06-11] MEDS ORDERED: KETAMINE HCL 500 MG/10 ML VIAL ONE (08:18)
[2020-06-11] MEDS ORDERED: SUCCINYLCHOLINE CHLORIDE 200 MG/10 ML SYRINGE ONE (08:50)
[2020-06-11] MEDS ORDERED: LIDOCAINE HCL/PF 2% SDV 5ML VIAL ONE (08:50)
[2020-06-11] MEDS ORDERED: PROPOFOL 20 ML ONE (08:50)
[2020-06-11] MEDS ORDERED: ONDANSETRON 4 MG/2 ML VIAL ONE (08:50)
[2020-06-11] MEDS ORDERED: KETOROLAC TROMETHAMINE 30 MG/1 ML VIAL ONE (08:50)
[2020-06-11] MEDS ORDERED: ONDANSETRON 4 MG/2 ML VIAL IVPUSH PRN (09:20)
[2020-06-11] MEDS ORDERED: LACTATED RINGERS SOLUTION 1,000 ML IV SCH (09:30)
[2020-06-11 10:05] VITALS: TEMP 97.6
[2020-06-11 11:04] VITALS: BP 126/79; PULSE 82
== END 2020-06-11 11:06 | disposition home or self-care (01) ==
LOC: FECT 06:45
PROVIDERS: ATTEND Psychiatry & Neurology Psychiatry
PROC: GZB4ZZZ Other Electroconvulsive Therapy (ICD-10-PCS; principal; 2020-06-11 09:30)
DX: F32.9 Major depressive disorder, single episode, unspecified (principal)
CPT/HCPCS: 90870; 94760

== ENCOUNTER 2020-06-18 07:14 | Day surgery (SDC) | payer OTHER ==
--- OUTSIDE RECORDS SUMMARY | 2020-06-11 11:26 | XMS ---
:1960 Author Organization [facility] Team Providers Name Role Phone CAITLIN [...] is protected by Article 27-F of the [facility] Public Health law. If you continue you may haveaccess to information: Regarding HIV / AIDS; Provided by facilities licensed or operated by the [facility] Office of Mental Health; or Provided by the [facility] Office for People With Developmental Disabilities. If such information is present, then the following [facility] mandated warning applies: This information has [...] law may result in a fine or group home sentence or both. A general authorization for the release of medical or other information is NOT sufficient authorization for further disclosure. Allergies and Adverse Reactions Type Description Substance Reaction Status Data Source(s ) 3 No Known Drug Allergies No Known Drug [facility] - [facility]) Encounters Encounter Providers Location Date Indications Data Source(s ) S Attender: MD [facility] SURG 04/18/2020 [facility] Marcos Richards 12:07:22 PM Olyajeramie smith EDT - 04/20/2020 02:58:00 PM EDT Patient discharged. Outpatient Attender: MD [facility] 04/17/2020 05:22:25 PM [facility] Marcos Richards EDT - 04/18/2020 [facility] 11:59:00 PM EDT Patient discharged. Outpatient Attender: MARYUri [facility] 12/16/2019 12:44:17 PM GSI ([facility] EDT Collaborative) Patient admitted. Outpatient Attender: D[place] 08/18/2019 NEXTGEN WainwrightReferrer: Denton 03:00:00 PM EST ([facility]) Outpatient Attender: KAREEM 05/04/2019 Marty lawrence STRINGERdmitter: KAREEM, 06:00:00 AM EDT [facility] Care Corporati on Inpatient 04/27/2019 [place] 11:17:00 AM EDT [facility] alth Care Corporati on Inpatient 04/27/2019 [place] 11:17:00 AM EDT [facility] al[facility] Care Corporati on Outpatient Attender: KAREEM [facility] MYKEd[facility]: KAREEM 06:00:00 AM EDT [facility] Care Corporati on Inpatient Attender: EDWARD 04/03/2019 [facility]: EDWARD, 05:59:00 PM EDT DISOR [facility] - 04/19/2019 Care Corpora tion 04:59:00 PM EDT BIPOLAR DISORDER Patient admitted. Medications Medication Brand Start Product Dose Route Administrative Pharmacy [facility] Indications Reaction Description Data Name Date Form Instructions Instructions Source(s) Ibuprofen ibupro [id number] active Ibuprof en [facility] 600 MG Oral [...] name Policy type Policy ID Covered Covered green party's Policy P ryan / Coverage green party ID relationship to [place] Inf ormation type byers MEDICAID [id number] SP [id number] MEDICARE [id number] SP [id number] 5 MEDICARE [id number] SP [id number] 95 5 Medicaid Medicaid [id number] 1 [id number] Medicare Part Medicare [id number] 1 [id number] B Outpatient 5 Medicare Medicare [id number] 1 [id number] 95 5 Financial Self Pay 1 Assist 55% Medicaid Medicaid [id number] 1 [id number] Medicare Part Medicare [id number] 1 [id number] B Outpatient Medicare Medicare [id number] 1 [id number] A FOCUS Trainr [id number] SP [id number] SOLUTIONS 8 HEALTH SOLUTIONS [facility] Medicare [id number] 1 [id number] Part B Par 5 Providers MCAD Computer [id number] Precision Biopsy SELF PAY 00 Self 00 REDUCTION SELF PAY 000 Self 000 Problems, Conditions, and Diagnoses Code Display Name Description Problem Type Effective Data Dates Source(s) R11.10 Vomiting, Vomiting Diagnosis 04/20/2020 [facility] - New unspecified 06:38:00 AM [facility] K95.09 Other complications Other complications Diagnosis 020 [facility] - New of gastric band of gastric band 06:38:00 AM Attila helle procedure procedure [facility] K43.6 Other and Other or unspecified Diagnosis 04/20/2020 [facility] - New unspecified ventral ventral hernia with 06:38:0 0 AM [place] hernia with obstruction without EDT Hosp ital obstruction, without gangrene gangrene [id number] Laparoscopy, Laparoscopy, Diagnosis 04/20/2020 [facility] - New surgical, gastric surgical, gastric 06:38:00 AM [place] restrictive restrictive [facility] procedure; removal procedure; removal of adjustable of adjustable gastric restrictive gastric restrictive device and device and subcutaneous port subcutaneous port components components R13.10 Dysphagia, Dysphagia Diagnosis 04/20/2020 [facility] - New unspecified 06:38:00 AM [facility] E66.01 Morbid (severe) Morbid obesity, Diagnosis 04/18/2020 S - New obesity due to unspecified obesity 08:10:00 AM [place] excess calories type [facility] Z11.59 Encounter for Encounter for Diagnosis 04/18/2020 [facility] - Ne w screening for other laboratory testing 08:10:00 AM [place] viral diseases for COVID-19 virus EDT spital Z01.818 Encounter for other Preop examination Diagnosis 0 [facility] - New preprocedural 08:10:00 AM [place] examination [facility] Z12.83 Encounter for Screening exam for Diagnosis 08/18/2019 NEX TGEN screening for skin cancer 03:00:00 PM (Carenvun t malignant neoplasm [facility]) L82.1 Other seborrheic Other seborrheic Diagnosis 08/18/2019 NE XTGEN keratosis keratosis 03:00:00 PM ([facility] EST [facility]) D18.01 Hemangioma of skin Angioma of skin Diagnosis 08/18/2019 N EXTGEN and subcutaneous 03:00:00 PM (Carenv unt tissue EST [facility]) L81.4 Other melanin Other melanin Diagnosis 08/18/2019 NEXTGEN hyperpigmentation hyperpigmentation 03:00:00 PM ([facility]) L81.2 Freckles Freckles Diagnosis 08/18/2019 NEXTGEN 03:00:00 PM ([facility] EST [facility]) D22.5 Melanocytic nevi of Melanocytic nevi of Diagnosis 019 NEXTGEN trunk trunk 03:00:00 PM ([facility] EST Medical - [facility]) K64.9 Unspecified UNSPECIFIED Diagnosis 04/19/2019 [place] hemorrhoids HEMORRHOIDS 04:59:00 PM [facility] EDT Care [facility] M75.100 Unspecified rotator UNSP ROTATR-CUFF Diagnosis 04/19/2019 [place] cuff tear or rupture TEAR/RUPTR OF UNSP 04:59:0 0 PM [facility] of unspecified SHOULDER, NOT TRAUMA EDT Care shoulder, not Corporation specified as traumatic Y92.89 Other specified OTH PLACES THE Diagnosis 04/19/2019 [facility] as the place PLACE OF OCCURRENCE 04:59:0 0 PM [facility] of occurrence of the OF THE EXTERNAL EDT Care external cause CAUSE Corporatio n X58.XXXA Exposure to other EXPOSURE TO OTHER Diagnosis 04/19/2019 [place] specified factors, SPECIFIED FACTORS, 04:59:00 PM [facility] initial encounter INITIAL ENCOUNTER EDT Care [facility] T48.1X2A Poisoning by POISONING BY Diagnosis 04/19/2019 [facility] r skeletal muscle SKELETAL MUSCLE 04:59:00 PM [facility] relaxants RELAXANTS, EDT Care [neuromuscular SELF-HARM, INIT Corpo ration blocking agents], intentional self-harm, initial encounter T43.212A Poisoning by POISN BY SLCTV Diagnosis 04/19/2019 [facility] selective serotonin SEROTON/NOREPINEPH 04:59:00 PM [facility] and norepinephrine REUP EDT Care reuptake inhibitors, INHIBTR,SLF-HRM, Corporation intentional INIT self-harm, initial encounter 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 04/19/2019 [place] personality disorder PERSONALITY DISORDER 04:59 :00 PM [facility] EDT Care [facility] T43.592A Poisoning by other POISONING BY OTH Diagnosis 04/19/2019 [place] antipsychotics and ANTIPSYCHOT/NEUROLEP 04:59:0 0 PM [facility] neuroleptics, T, SELF-HARM, INIT EDT Car e intentional Corporation self-harm, initial encounter Surgeries/Procedures Procedure Description Date Indications Data Source(s) Tissue Exam 04/20/2020 [facility] 01:52:15 PM System EDT - 04/20/2020 09:25:00 AM EDT Venipuncture 04/18/2020 [facility] 08:48:26 AM System EDT - 04/18/2020 10:00:06 AM EDT OFFICE/OUTPATIENT OFFICE/OUTPATIENT 08/18/2019 NEXTG EN ([facility] VISIT EST VISIT EST 12:00:00 AM Medical - [facility]) Results ID Date Data Source [id number] 06/07/2020 09:55:00 AM EDT [facility] Name Value Range Interpretation Description Data Sup porting Code Source(s) Document(s ) SARS [facility] coronavirus 2 RNA This lab [facility] and reported by [facility]. ID Date Data Source [id number] 05/31/2020 08:22:00 AM EDT [facility] Name Value Range Interpretation Description Data Sup porting Code Source(s) Document(s ) SARS [facility] coronavirus 2 RNA This lab was ordered by [facility] and reported by [facility]. ID Date Data Source [id number] 05/23/2020 10:55:00 AM EDT [facility] Name Value Range Interpretation Description Data Sup porting Code Source(s) Document(s ) SARS [facility] coronavirus 2 RNA This lab was [facility] by [facility] and reported by [facility]. ID Date Data Source [id number] 05/17/2020 09:40:00 AM EDT [facility] Name Value Range Interpretation Description Data Sup porting Code Source(s) Document(s ) SARS [facility] coronavirus 2 RNA This lab was [facility] by [facility] and reported by [facility]. ID Date Data Source [id number] 05/14/2020 09:15:00 AM EDT [facility] Name Value Range Interpretation Description Data Sup porting Code Source(s) Document(s ) SARS [facility] coronavirus 2 RNA This lab was [facility] and reported by [facility]. ID Date Data Source [id number] 05/11/2020 10:28:00 AM EDT [facility] Name Value Range Interpretation Description Data Sup porting Code Source(s) Document(s ) SARS [facility] coronavirus 2 RNA This lab was [facility] by [facility] and reported by [facility]. ID Date Data Source [id number] 05/08/2020 01:40:00 PM EDT [facility] Name Value Range Interpretation Description Data Sup porting Code Source(s) Document(s ) SARS [facility] coronavirus 2 RNA This lab was ordered by [facility] DAVE hunter [facility] and reported by [facility]. ID Date Data Source [id number] 05/04/2020 12:40:00 PM EDT [facility] Name Value Range Interpretation Description Data Sup porting Code Source(s) Document(s ) SARS [facility] coronavirus 2 RNA This lab was ordered by [facility] and reported by [facility]. ID Date Data Source [id number] 04/30/2020 10:00:00 AM EDT [facility] Name Value Range Interpretation Description Data Sup porting Code Source(s) Document(s ) SARS [facility] coronavirus 2 RNA This lab was [facility] and reported by [facility]. ID Date Data Source [id number] 04/27/2020 10:40:00 AM EDT [facility] Name Value Range Interpretation Description Data Sup porting Code Source(s) Document(s ) SARS [facility] coronavirus 2 RNA This lab was ordered by [facility] Tello nadia [facility] and reported by [facility]. ID Date Data Source [id number] 04/24/2020 02:25:28 AM EDT [facility] [...] as O on 12/24/2011, 4:42 PM [place] [id number] - added comment for o/r AntibodyScreen Negative Normal (applies to Antibody Screen [facility] non-numeric results) System ID Date Data Source [id number] 04/24/2020 02:25:28 AM EDT [facility] [...] quantitative testing recommened. ID Date Data Source [id number] 04/24/2020 02:25:28 AM EDT [facility] alth System Name Value Range Interpretation Description Data Sup porting Code Source(s) Document(s ) RubellaInterpreta Positive Normal (applies Rubella [place] tion to non-numeric Interpretation Health results) System <5 Negative>=5 - <10 Equivocal>= 10 Positive Rubella 27 {IU/mL} Normal (applies to Rubella [facility] System non-numeric results) ID Date Data Source [id number] 04/24/2020 02:25:28 AM ED[facility] Name Value Range Interpretation Description Data Sup porting Code Source(s) Document(s ) VaricellaInterpre Positive Normal (applies Varicella [place] tation to non-numeric Interpretation Health results) System <0.6 Negative>=0.6 - <.90 Equivoc al>=.90 Positive VaricellaResultValue 1.78 Normal (applies to Varicel la Result [facility] non-numeric results) Value System ID Date Data Source [id number] 04/24/2020 02:25:28 AM EDT [facility] alth System Name Value Range Interpretation Description Data Sup porting Code Source(s) Document(s ) RubeolaABIgGResul 0.78 Normal (applies Rubeola AB IgG [facility] tValue to non-numeric Result Value Health results) System RubeolaABIgGinter Positive Normal (applies Rubeola AB IgG [facility] [place] pretation to non-numeric interpretation Health results) System <.50 Negative>=.50 - <.70 Equivo lloyd>=.70 Positive ID Date Data Source [id number] 04/24/2020 02:25:28 AM EDT [facility] alth [...] Health System results) ID Date Data Source [id number] 04/24/2020 02:25:28 AM EDT [facility] Name Value Range Interpretation Description Data Sup porting Code Source(s) Document(s ) 15858-3 NEGATIVE Testing Normal (applies COVID-19.. [place] [...] Range: NEGATIVE . ID Date Data Source [id number] 04/24/2020 02:25:28 AM EDT [facility] [...] Health results) System ID Date Data Source [id number] 04/24/2020 02:25:28 AM EDT [facility] alth [...] Health results) System ID Date Data Source [id number] 04/24/2020 02:25:28 AM EDT [facility] System Name Value Range Interpretation Description Data Sup porting Code Source(s) Document(s ) TissueExam Results for case # Normal (applies Tissue Exam [place] [id number] to non-numeric Health SURGICAL PATHOLOGY results) System REPORTCLINICAL INFORMATION: LAP band slip. PREOPERATIVE DIAGNOSIS: Same. POSTOPERATIVE DIAGNOSIS: Same.FINAL DIAGNOSIS: Gastric band and port system (gross).GO/Jessica ROCA MDElectronically Signed By: GROSS DESCRIPTION: Received fresh, labeled "gastric band and port system", the specimen consists of a 3 x 3 x 1.5cm white plastic and raphael metal device inscribed with PORT-A-CATH [id number]. There is attached 45 x 0.3 x [...] 1 of 1 ID Date Data Source [id number] 04/23/2020 09:30:00 AM EDT [facility] Name Value Range Interpretation Description Data Sup porting Code Source(s) Document(s ) SARS [facility] coronavirus 2 RNA This lab was ordered by GISSELL MITCHELL and reported by [facility]. ID Date Data Source [id number] 04/19/2020 10:40:00 AM EDT [facility] Name Value Range Interpretation Description Data Sup porting Code Source(s) Document(s ) SARS [facility] coronavirus 2 RNA This lab was ordered by GISSELL MITCHELL and reported by [facility]. ID Date Data Source [id number] 04/18/2020 09:16:00 AM EDT [facility] Name Value Range Interpretation Code Description Data April rce(s) Supporting Document(s ) COVID-19.. [facility] This lab was ordered by [facility] and reported by [facility]. ID Date Data Source [id number] 04/17/2020 08:55:00 AM EDT [facility] Name Value Range Interpretation Description Data Sup porting Code Source(s) Document(s ) SARS [facility] coronavirus 2 RNA This lab was ordered by GISSELL hunter [facility] and reported by [facility]. ID Date Data Source [id number] 03/03/2020 11:40:00 AM EDT [facility] Name Value Range Interpretation Description Data Sup porting Code Source(s) Document(s ) 2019 Novel [facility] Coronavirus RNA Interpretation Unspecified Specimen Qualitative SHIMA Probe Detection This lab [facility] and reported by [facility]. ID Date Data Source [id number] 04/19/2019 04:59:28 PM EDT [facility] [id number] Corporation Name Value Range Interpretation Description Data Sup porting Code Source(s) Document(s ) Leukocytes 5.1 k/mm3 4.8-10 <td> 04/14/2019 [place] [#/volume] .8 08:23</td><td> County in Blood by k/mm3 WBC </td><td> SOL ELIXIRS count 5.1
(4.8-10.8) k/mm3 </td> Erythrocytes 4.94 m/mm3 3.90-5 <td> 04/14/2019 [facility] r [#/volume] .20 08:23</td><td> [place] in Blood m/mm3 RBC </td><td> [employer] 4.94
(3.90-5.20) m/mm3 </td> Hemoglobin 14.5 g/dL 12.0-1 <td> 04/14/2019 [place] [Mass/volume 6.0 08:23</td><td> County ] in Blood g/dL HGB </td><td> [employer] 14.5
(12.0-16.0) g/dL </td> Erythrocyte 13.1 % 11.5-1 <td> 04/14/2019 [place] distribution 4.5 % 08:23</td><td> County width RDW </td><td> Health Care [[employer] Corporation volume] by 13.1 Automated count
(11.5-14.5) % </td> Platelet 11.0 fL 9.8-12 <td> 04/14/2019 [place] mean volume .8 fL 08:23</td><td> County [Entitic MPV </td><td> Health Care volume] in [facility] Blood by 11.0 Automated count
(9.8-12.8) fL </td> Erythrocyte 33.5 % 32.0-3 <td> 04/14/2019 [place] mean 6.0 % 08:23</td><td> [facility] corpuscular MCHC </td><td> Health Care hemoglobin Corporation concentratio 33.5 n [Mass/volume
] in Blood (32.0-36.0) % from Fetus </td> by Automated count Hematocrit 43.3 % 37.0-4 <td> 04/14/2019 [place] [Volume 7.0 % 08:23</td><td> County Fraction] of HCT </td><td> Health Care Blood by [employer] Automated 43.3 count
(37.0-47.0) % </td> Erythrocyte 29.4 pg 27.0-3 <td> 04/14/2019 [place] mean 1.5 pg 08:23</td><td> [facility] corpuscular MCH </td><td> Health Care hemoglobin [employer] [Entitic 29.4 mass] by Automated
count (27.0-31.5) pg </td> Erythrocyte 87.7 fL 81.0-9 <td> 04/14/2019 [place] mean 9.0 fL 08:23</td><td> [facility] corpuscular MCV </td><td> Health Care volume Corporation [Entitic 87.7 volume] by Automated
count (81.0-99.0) fL </td> Lymphocytes 41.3 % 17.0-5 <td> 04/14/2019 [place] [#/volume] 0.0 % 08:23</td><td> [place] in Blood by Lymphocytes Health Care Automated </td><td> Corporation count 41.3
(17.0-50.0) % </td> Platelets 229 k/mm3 160-41 <td> 04/14/2019 [place] [#/volume] 0 08:23</td><td> [place] in Blood by k/mm3 Platelet Count Health Care Automated </td><td> Corporation count 229
(160-410) k/mm3 </td> Monocytes/Le 6.1 % 0.0-11 <td> 04/14/2019 [place] ukocytes .0 % 08:23</td><td> County [Pure number Monocytes. Health Care fraction] in </td><td> Corporation Blood by Automated 6.1 count
(0.0-11.0) % </td> Basophils 0.8 % 0.0-2. <td> 04/14/2019 [place] [#/volume] 0 % 08:23</td><td> [place] in Blood by Basophils Health Care Automated </td><td> Corporation count 0.8
(0.0-2.0) % </td> Basophils+Eo 2.7 % 0.0-5. <td> 04/14/2019 [place] sinophils+Mo 0 % 08:23</td><td> County nocytes Eosinophils Health Care [#/volume] </td><td> Corporation in Blood by Automated 2.7 count
(0.0-5.0) % </td> Potassium 4.8 mEq/L 3.5-5. <td> 04/14/2019 [place] [Moles/volum 1 08:23</td><td> County e] in Serum mEq/L Potassium-Serum Health Care or Plasma </td><td> Corporation 4.8
(3.5-5.1) mEq/L </td> Immature 0.2 % 0.0-0. <td> 04/14/2019 [place] granulocytes 5 % 08:23</td><td> County /100 IG% [...] </td> Sodium 139 mEq/L 135-14 <td> 04/14/2019 [place] [Moles/volum 5 08:23</td><td> [facility] e] in Serum mEq/L Sodium-Serum Health Care or Plasma </td><td> Reframed[employer]tv 139
(135-145) mEq/L </td> Glucose 96 mg/dL 70-105 <td> 04/14/2019 [place] [Mass/volume mg/dL 08:23</td><td> [facility] ] in Blood Glucose-Serum Health Care </td><td> Corporation 96
(70-105) mg/dL </td> Neutrophils 48.9 % 40.0-7 <td> 04/14/2019 [place] [#] in Body 6.0 % 08:23</td><td> [facility] fluid by Neutrophils Health Care Manual count </td><td> Corporation 48.9
(40.0-76.0) % </td> Creatinine 0.82 mg/dL 0.57-1 <td> 04/14/2019 [place] [Moles/volum .11 08:23</td><td> County e] in Serum mg/dL Creatinine. Health Care or Plasma </td><td> Refr[employer]tv 0.82
(0.57-1.11) mg/dL </td> Urea 10 mg/dL 6-22 <td> 04/14/2019 [place] nitrogen mg/dL 08:23</td><td> [facility] [Mass/volume BUN </td><td> Health Care ] in Blood Corporation 10
(6-22) mg/dL </td> Chloride 103 mEq/L 98-107 <td> 04/14/2019 [place] [Moles/volum mEq/L 08:23</td><td> [facility] e] in Serum Chloride Health Care or Plasma </td><td> Ref[employer]tv 103
(98-107) mEq/L </td> Carbon 29 mEq/L 22-30 <td> 04/14/2019 [place] dioxide, mEq/L 08:23</td><td> [facility] total CO2 </td><td> Health Care [Moles/volum Corporation e] in Serum 29 or Plasma
(22-30) mEq/L </td> Albumin 4.3 g/dL 3.4-4. <td> 04/14/2019 [place] [Mass/volume 8 g/dL 08:23</td><td> [facility] ] in Serum Albumin Health Care or Plasma </td><td> Refr[employer]tv 4.3
(3.4-4.8) g/dL </td> Proteins - 7.0 g/dL 6.4-8. <td> 04/14/2019 [place] Total 3 g/dL 08:23</td><td> [facility] Proteins - Health Care Total Corporation </td><td> 7.0
(6.4-8.3) g/dL </td> Alanine 20 U/L 6-55 <td> 04/14/2019 [place] aminotransfe U/L 08:23</td><td> [facility] rase ALT (SGPT) Health Care [Enzymatic </td><td> Corporation activity/vol ume] in 20 Serum or
Plasma (6-55) U/L </td> Aspartate 15 U/L 4-35 <td> 04/14/2019 [place] aminotransfe U/L 08:23</td><td> [facility] rase AST (SGOT) Health Care [Enzymatic </td><td> Corporation activity/vol ume] in 15 Serum or
Plasma (4-35) U/L </td> Bilirubin.to 0.5 mg/dL 0.2-1. <td> 04/14/2019 [place] livan 3 08:23</td><td> [facility] [Mass/volume mg/dL Bilirubin - Health Care ] in Blood Total [facility] </td><td> 0.5
(0.2-1.3) mg/dL </td> Calcium 9.6 mg/dL 8.6-10 <td> 04/14/2019 [place] [Mass/volume .2 08:23</td><td> [facility] ] in Blood mg/dL Calcium Health Care </td><td> Refr[employer]tv 9.6
(8.6-10.2) mg/dL </td> Globulin 2.7 gm/dL 2.9-4. <td> 04/14/2019 [place] [Mass/volume 0 08:23</td><td> [facility] ] in Serum gm/dL Globulin Health Care </td><td><valerie [facility] raph styleCode="Bold "> 2.7 L </paragraph>
(2.9-4.0) gm/dL </td> Lipemic No Lipemia <td> 04/14/2019 [place] index of 08:23</td><td> [facility] Serum or Lipemia Index Health Care Plasma </td><td> Refr[employer]tv No Lipemia
</td> Phosphate 3.1 mg/dL 2.3-4. <td> 04/04/2019 [place] [Mass/volume 7 08:28</td><td> [facility] ] in Serum mg/dL Inorganic Health Care or Plasma Phosphorus Refr[employer]tv </td><td> 3.1
(2.3-4.7) mg/dL </td> Icteric Non Icteric <td> 04/14/2019 [place] index of 08:23</td><td> [facility] Serum or Icteric Index Health Care Plasma </td><td> Reframed[employer]tv Non Icteric
</td> Anion gap in 7 mEq/L 7-13 <td> 04/14/2019 [place] Serum or mEq/L 08:23</td><td> [facility] Plasma Anion Gap Health Care </td><td> Reframed[employer]tv 7
(7-13) mEq/L </td> Hemolysis No Hemolysis <td> 04/14/2019 [place] index of 08:23</td><td> County Serum or Hemolysis Index Health Care Plasma </td><td> Corporation No Hemolysis
</td> Prothrombin 10.8 secs 9.8-12 <td> 04/03/2019 [place] time (PT) .0 15:28</td><td> [facility] secs Prothrombin Health Care Time. [facility] </td><td> 10.8
(9.8-12.0) secs </td> aPTT panel - 24.6 secs 25.0-3 <td> 04/03/2019 [place] Platelet 2.0 15:28</td><td> [facility] [place] poor plasma secs Partial Health Care Thromboplastin [facility] Time </td><td><valerie raph styleCode="Bold "> 24.6 L </paragraph>
(25.0-32.0) secs </td> Appearance Cloudy <td> 04/03/2019 [place] of Urine 15:28</td><td> [facility] Appearance Health Care </td><td> [email or web address] Cloudy
(CLEAR) </td> Protein 1+ (30 MG/DL) <td> 04/03/2019 [facility] [Presence] 15:28</td><td> [facility] [place] in Urine by Protein Health Care Automated Qualitative [email or web address] test strip </td><td> 1+ (30 MG/DL)
(NEGATIVE) </td> Specific 1.010 {} 1.000- <td> 04/03/2019 [place] gravity of 1.035 15:28</td><td> [facility] Urine by Specific Health Care Test strip [place] [email or web address] </td><td> 1.010
(1.000-1.035) </td> Nitrite Negative <td> 04/03/2019 [place] [Presence] 15:28</td><td> [facility] [place] in Urine by Nitrites Health Care Test strip </td><td> Corporation Negative
(NEGATIVE) </td> Glucose Negative <td> 04/03/2019 [place] [Presence] 15:28</td><td> [place] in Urine by Glucose_ Health Care Test strip </td><td> Corporation Negative
(NEGATIVE) </td> Leukocyte 3+ <td> 04/03/2019 [place] esterase 15:28</td><td> [place] [Presence] Leukocytes Health Care in Urine by Esterase Corporation Test strip </td><td><valerie raph styleCode="Bold "> 3+ * AB </paragraph>
(NEGATIVE) </td> Leukocytes 36 /HPF 0-5 <td> 04/03/2019 [place] [Presence] /HPF 15:28</td><td> [place] in Urine by WBC </td><td> Health Care Automated Corporation 36
(0-5) /HPF </td> Erythrocytes 13 /HPF 0-2 <td> 04/03/2019 [place] [#/area] in /HPF 15:28</td><td> [place] Urine RBC </td><td> Health Care sediment by Corporation Automated 13 count
(0-2) /HPF </td> Urobilinogen 0.2 mg/dL 0.0-2. <td> 04/03/2019 [place] [Presence] 0 15:28</td><td> [place] in Urine by mg/dL Urobilinogen Health Care Automated </td><td> Corporation test strip 0.2
(0.0-2.0) mg/dL </td> Epithelial MASSIVE <td> 04/03/2019 [place] cells FEW 15:28</td><td> [place] [#/area] in Transitional Epithelial Health Care Urine Epithelial Cells Corporation sediment by cells 3/HPF </td><td> Automated count MASSIVE
/LPF
FEW
Transitional Epithelial cells 3/HPF

/LPF </td> Magnesium 1.9 mg/dL 1.6-2. <td> 04/04/2019 [place] [Mass/volume 6 08:28</td><td> County ] in Serum mg/dL Magnesium Level Health Care or Plasma </td><td> Corporation 1.9
(1.6-2.6) mg/dL </td> Amorphous RARE < <td> 04/03/2019 [place] Crystal FEW 15:28</td><td> [facility] Amorphous Health Care [employer] </td><td> RARE
/HPF
< FEW

/HPF </td> Bacteria MODERATE <td> 04/03/2019 [place] [#/area] in 15:28</td><td> [facility] Urine Bacteria Health Care sediment by </td><td> [email or web address] Microscopy high power MODERATE field
(NONE SEEN) /HPF </td> Calcium RARE Ca <td> 04/03/2019 [facility] r oxalate Oxalate 15:28</td><td> [facility] crystals Crystals..May Calcium Oxalate Health Car e [Presence] be present in [employer] in Urine normal, acid </td><td> sediment by or alkaline Light urine RARE microscopy
(SEE BELOW) /HPF
Ca Oxalate Crystals..May be present in normal, acid or alkaline urine

(SEE BELOW) /HPF </td> Mucous FEW < <td> 04/03/2019 [place] FEW 15:28</td><td> [facility] Mucous Health Care </td><td> Corporation FEW
/LPF
< FEW

/LPF </td> Cholesterol 116 mg/dL <150 <td> 04/04/2019 [place] in LDL mg/dL 08:28</td><td> [facility] [Mass/volume LDL Cholesterol Health Care ] in Serum </td><td> [employer] or Plasma 116
(<150) mg/dL </td> Triglyceride 80 mg/dL 30-200 <td> 04/04/2019 [place] [Mass/volume mg/dL 08:28</td><td> [facility] ] in Serum Triglyceride Health Care or Plasma </td><td> [email or web address] 80
(30-200) mg/dL </td> Cholesterol 37 mg/dL >60 <td> 04/04/2019 [place] in HDL mg/dL 08:28</td><td> [facility] [Mass/volume HDL Cholesterol [facility] ] in Serum </td><td> [facility] or Plasma 37
(>60) mg/dL </td> Cholesterol 169 mg/dL 125-24 <td> 04/04/2019 [place] [Moles/volum 0 08:28</td><td> [facility] e] in Serum mg/dL Cholesterol Health Care or Plasma </td><td> [facility] 169
(125-240) mg/dL </td> Hemoglobin 5.3 % 4.0-5. <td> 04/04/2019 [place] A1C 6 % 08:28</td><td> [facility] Hemoglobin A1C Health Care </td><td> [facility] 5.3
(4.0-5.6) %
Increased risk for [...]
11 269
12 298
Source: Adapted from [employer] [employer]. Standards of medical
care in diabetes-2014. Diabetes Care.2014;37([place] pp 1):S14-S80, table 8.

(4.0-5.6) % </td> Procedure Vital Signs ID Date Data Source UNK Name Value Range Interpretation Code Description Data Source(s) Body temperature 97.6 [degF] 0 - 200 Normal (applies to 97.6 [degF ] [facility] non-numeric results) [facility] Body temperature 36.4 [place] 0 - 99.9 Below low normal 36.4 [place] [facility] Diastolic blood 51 mm[Hg] 0 - 999 Below low normal 51 mm[Hg] [facility] Systolic blood 113 mm[Hg] 0 - 999 Normal (applies to 113 mm[Hg] [facility] pressure non-numeric results) [facility] Oxygen saturation 98 % 0 - 999 Normal (applies to 98 % [facility] in Arterial blood non-numeric results) [facility] by Pulse oximetry Respiratory rate 16 0 - 999 Normal (applies to 16 [facility] non-numeric results) [facility] Heart rate 77 0 - 999 Normal (applies to 77 [facility] non-numeric results) [facility] Body surface area 2 m2 2 m2 [facility] Derived from [facility] Sy[facility] m formula Body mass index 36.6 kg/m2 36.6 kg/m2 [facility] (BMI) [Ratio] [facility] em Body weight 99.[address] [facility] Body height 165.1 cm 165.1 cm [facility] Patient Treatment Plan of Care Planned Activity Planned Date Details Description Data Source (s) Ibuprofen 600 MG Oral 04/20/2020 10:03:52 [facility] EDT System
[2020-06-12 08:12] VITALS: BMI 38.2
--- OUTSIDE RECORDS SUMMARY | 2020-06-18 07:18 | XMS ---
:1960 Author Organization [facility] Care Team Providers Name Role Phone CAITLIN [...] protected by Article 27-F of the [facility] Public Health law. If you continue you may haveaccess to information: Regarding HIV / AIDS; Provided by facilities licensed or operated by the [facility] Office of Mental Health; or Provided by the [facility] Office for People With Developmental Disabilities. If such information is present, then the following [facility] mandated warning applies: This information has [...] law may result in a fine or prison sentence or both. A general authorization for the release of medical or other information is NOT sufficient authorization for further disclosure. Allergies and Adverse Reactions Type Description Substance Reaction Status Data Source(s ) 3 NO KNOWN DRUG ALLERGIES NO KNOWN DRUG NEXTGEN ([facility] Medical - [facility] Medical [facility]) Encounters Encounter Providers Location Date Indications Data Source(s ) Outpatient Attender: [place] 06/12/2020 [facility] WainwrightReferrer: 03:15:00 PM (Car emosanjuana [place] EDT Medical - [facility]) S Attender: MD [facility]-AMB SURG 04/18/2020 [facility] [place] 12:07:22 PM Olya [facility] EDT - 04/20/2020 02:58:00 PM EDT Patient discharged. Outpatient Attender: MD [facility]-LAB 04/17/2020 05:22:25 PM [facility] EDT - 04/18/2020 [facility] 11:59:00 PM EDT Patient discharged. Outpatient Attender: PM9 [facility] 12/16/2019 12:44:17 PM I ([facility] EDT Collaborative) Patient admitted. Outpatient Attender: [place] 08/18/2019 [facility] WainwrightReferrer: [place] 03:00:00 PM [facility] Outpatient Attender: KAREEM 05/04/2019 [facility] MYKEdmitter: KAREEM, 06:00:00 AM [facility]T [facility] 04/[facility]/2019 [place] 11:17:00 AM EDT [facility] 04/27/2019 [place] 11:17:00 AM EDT [facility] Outpatient Attender: KAREEM 04/18/2019 [facility] MYKEdmitter: KAREEM, 06:00:00 AM EDT [facility] Attender: EDWARD 04/03/2019 BIPOL[facility] [place] MITCHELLAdmitter: EDWARD, 05:59:00 PM EDT DISOR VIVI [facility] - 04/19/2019 Care Corpora tion 04:59:00 PM EDT BIPOLAR DISORDER Patient admitted. Medications Medication Brand Start Product Dose Route Administrative Pharmacy atus Indications Reaction Description Data Name Date Form Instructions Instructions Source(s) Simvastatin SIMVAS take 1 tablet RP NEXTGEN 10 MG Oral TATIN by oral route ([facility] Tablet 10 every day in Wy dical - mg 10 mg the evening [facility]) This may be an active medication. No end date is available. Start date above may not reflect actual date the medication was s tarted. 2 ML benztropine BENZTROPINE inject 1 RP NEXTGEN mesylate 1 MG/ML MESYLATE milliliter by ([facility] Injection 2 mg/2 intravenous route Medical - Mt mL 2 mg/2 mL 2 times every day [facility]) This may be an active medication. No end date is available. Start date above may not reflect actual date the medication was s tarted. gabapentin 100 MG GABAPENTIN take 3 capsule RP NEXTGEN ([facility] Oral Capsule 100 mg by oral route 3 Medical - [place] 100 mg times every day [facility]) This may be an active medication. No end date is available. Start date above may not reflect actual date the medication was s tarted. 10 mcg (400 unit) 10 mcg (400 RP NEXTGEN ([facility] Medical - [place] unit) [facility]) This may be an active medication. No end date is available. Start date above may not reflect actual date the medication was s tarted. [place] Carbonate LITHIUM CARBONATE take 1 tablet RP NEXTGEN ([facility] 300 MG Oral by oral route Medical - [place] Tablet 300 mg 300 2 times every [facility]) mg day This may be an active medication. No end date is available. Start date above may not reflect actual date the medication was s tarted. 100 mg-160 mg-1,000 mg 100 RP NEXTGEN ([facility] Medical - [place] mg-160 mg-1,000 mg [facility]) This may be an active medication. No end date is available. Start date above may not reflect actual date the medication was s tarted. Escitalopram 20 MG ESCITALOPRAM take 1 RP NEXTGEN Oral Tablet 20 mg OXALATE tablet by ([facility] 20 mg oral route Medical - [place] every day [facility]) This may be an active medication. No end date is available. Start date above may not reflect actual date the medication was s tarted. atorvastatin 40 MG ATORVASTATIN take 1 RP NEXTGEN Oral Tablet 40 mg CALCIUM tablet by ([facility] 40 mg oral route Medical - [place] every day [facility] ) This may be an active medication. No end date is available. Start date above may not reflect actual date the medication was s tarted. aripiprazole 20 MG ABILIFY take 1 tablet by RP NEXTGEN ([facility] Oral Tablet [Abilify] oral route [facility] 20 mg 20 mg every day [facility] ) This may be an active medication. No end date is available. Start date above may not reflect actual date the medication was s tarted. 50 mg 50 mg take 1 tablet by oral RP NEXTGEN ([facility] Medical - route 2 times every day [facility]) after meals This may be an active medication. No end date is available. Start date above may not reflect actual date the medication was s tarted. 2 % 2 % 06/12/2020 12:00:00 apply by topical RP NEXTGEN ([facility] AM EDT route 2 times [facility] every day to the [facility] ) affected area(s) This may be an active medication. No end date is available. Hydrocortisone HYDROCORTISONE 06/12/2020 apply by RP NEXTGEN 25 MG/ML Topical 12:00:00 AM topical route ([facility] Cream 2.5 % 2.5 EDT 2 times every Medical - % day to the [facility] affected Medical area(s); after Group ) first week discontinue and use only ketoconazole This may be an active medication. No end date is available. Ibuprofen ibuprofen 04/20/2020 1 {tab(s)} [id number] active Ibuprofen [facility] 600 MG Oral 600 mg oral 10:03:52 AM Health Tablet tablet EDT System ibuprofen 600 mg oral tablet Do not take this drug if [...] name Policy type Policy ID Covered Covered constitution party's Policy P ryan / Coverage constitution party ID relationship to [facility] ormation type rush MEDICAID [id number] SP [id number] MEDICARE [id number] SP [id number] 5 MDCR Medicare [id number] 1 [id number] Part B Par 5 Providers MEDICARE [id number] SP [id number] 5 Medicaid Medicaid [id number] Medicare Part Medicare [id number] 1 [id number] Outpatient 5 Medicare Medicare [id number] 1 [id number] 95 5 Financial Self Pay 1 Assist 55% Medicaid Medicaid [id number] Medicare Part Medicare [id number] 1 [id number] B Outpatient Medicare Medicare [id number] 1 [id number] A [employer] [id number] SP [id number] bunkersofa [employer] [id number] 1 [id number] raksul SELF PAY 00 Self 00 REDUCTION SELF PAY 000 Self 000 Problems, Conditions, and Diagnoses Code Display Name Description Problem Type Effective Data Dates Source(s) K13.0 Diseases of lips Perleche Diagnosis 06/12/2020 NEXTGEN 03:15:00 PM (Critical access hospital Medical - [facility]) R11.10 Vomiting, Vomiting Diagnosis 04/20/2020 [facility] - New unspecified 06:38:00 AM [facility] K95.09 Other complications Other complications Diagnosis 020 [facility] - New of gastric band of gastric band 06:38:00 AM Attila helle procedure procedure EDT [facility] K43.6 Other and Other or unspecified Diagnosis 04/20/2020 [facility] - New unspecified ventral ventral hernia with 06:38:0 0 AM [place] hernia with obstruction without EDT Hosp ital obstruction, without gangrene gangrene [id number] Laparoscopy, Laparoscopy, Diagnosis 04/20/2020 [facility] - New surgical, gastric surgical, gastric 06:38:00 AM [place] restrictive restrictive [facility] procedure; removal procedure; removal of adjustable of adjustable gastric restrictive gastric restrictive device and device and subcutaneous port subcutaneous port components components R13.10 Dysphagia, Dysphagia Diagnosis 04/20/2020 [facility] - New unspecified 06:38:00 AM [facility] E66.01 Morbid (severe) Morbid obesity, Diagnosis 04/18/2020 [facility] - New obesity due to unspecified obesity 08:10:00 AM [place] [facility] Encounter for Encounter for Diagnosis 04/18/2020 [facility] - Ne w screening for other laboratory testing 08:10:00 AM [place] viral diseases for COVID-19 virus EDT spital Z01.818 Encounter for other Preop examination Diagnosis 0 [facility] - New preprocedural 08:10:00 AM [place] examination [facility] Z12.83 Encounter for Screening exam for Diagnosis 08/18/2019 NEX TGEN screening for skin cancer 03:00:00 PM ([facility] t malignant neoplasm EST Medica l - [place] of skin [facility]) L82.1 Other seborrheic Other seborrheic Diagnosis 08/18/2019 NE XTGEN keratosis keratosis 03:00:00 PM ([facility] EST Medical [facility]) D18.01 Hemangioma of skin Angioma of skin Diagnosis 08/18/2019 N EXTGEN and subcutaneous 03:00:00 PM ([facility] tissue EST [facility]) L81.4 Other melanin Other melanin Diagnosis 08/18/2019 NEXTGEN hyperpigmentation hyperpigmentation 03:00:00 PM ([facility] EST Medical [facility]) L81.2 Freckles Freckles Diagnosis 08/18/2019 NEXTGEN 03:00:00 PM ([facility] EST [facility]) D22.5 Melanocytic nevi of Melanocytic nevi of Diagnosis 019 NEXTGEN trunk trunk 03:00:00 PM ([facility] EST [facility]) K64.9 Unspecified UNSPECIFIED Diagnosis 04/19/2019 [place] hemorrhoids HEMORRHOIDS 04:59:00 [facility] M75.100 Unspecified rotator UNSP ROTATR-CUFF Diagnosis 04/19/2019 [place] cuff tear or rupture TEAR/RUPTR OF UNSP 04:59:0 0 PM [facility] of unspecified SHOULDER, NOT TRAUMA EDT Care shoulder, not Corporation specified as traumatic Y92.89 Other specified OTH PLACES THE Diagnosis 04/19/2019 [facility] the [facility] PLACE OF OCCURRENCE 04:59:0 0 PM [facility] of occurrence of the OF THE EXTERNAL EDT Care external cause CAUSE Corporatio n X58.XXXA Exposure to other EXPOSURE TO OTHER Diagnosis 04/19/2019 [place] specified factors, SPECIFIED FACTORS, 04:59:00 PM [facility] initial encounter INITIAL ENCOUNTER EDT Care [facility] T48.1X2A Poisoning by POISONING BY Diagnosis 04/19/2019 [facility] r skeletal muscle SKELETAL MUSCLE 04:59:00 PM [facility] relaxants RELAXANTS, EDT Care [neuromuscular SELF-HARM, INIT Corpo ration blocking agents], intentional self-harm, initial encounter T43.212A Poisoning by POISN BY SLCTV Diagnosis 04/19/2019 [facility] selective serotonin SEROTON/NOREPINEPH 04:59:00 PM [facility] and norepinephrine REUP EDT Care reuptake inhibitors, INHIBTR,SLF-HRM, Corporation intentional INIT self-harm, initial encounter 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 04/19/2019 [place] personality disorder PERSONALITY DISORDER 04:59 :00 PM [facility] EDT Care [facility] T43.592A Poisoning by other POISONING BY OTH Diagnosis 04/19/2019 [place] antipsychotics and ANTIPSYCHOT/NEUROLEP 04:59:0 0 PM [facility] neuroleptics, T, SELF-HARM, INIT EDT Car e intentional Corporation self-harm, initial encounter Surgeries/Procedures Procedure Description Date Indications Data Source(s) OFFICE/OUTPATIENT OFFICE/OUTPATIENT 06/12/2020 NEXTG EN ([facility] VISIT EST VISIT EST 12:00:00 AM Medical - [place] [facility] EDT Medical Group P [facility]) Tissue Exam 04/20/2020 [facility] 01:52:15 PM System EDT - 04/20/2020 09:25:00 AM EDT Venipuncture 04/18/2020 [facility] 08:48:26 AM System EDT - 04/18/2020 10:00:06 AM EDT OFFICE/OUTPATIENT OFFICE/OUTPATIENT 08/18/2019 NEXTG EN ([facility] VISIT EST VISIT EST 12:00:00 AM Medical - [facility] [place] [facility] Group [facility]) Results ID Date Data Source [id number] 06/14/2020 10:11:00 AM EDT [facility] Name Value Range Interpretation Description Data Sup porting Code Source(s) Document(s ) SARS [facility] coronavirus 2 RNA This lab was ordered by [facility] D[facility] hunter [facility] and reported by [facility]. ID Date Data Source [id number] 06/07/2020 09:55:00 AM EDT [facility] Name Value Range Interpretation Description Data Sup porting Code Source(s) Document(s ) SARS [facility] coronavirus 2 RNA This lab [facility] and reported by [facility]. ID Date Data Source [id number] 05/31/2020 08:22:00 AM EDT [facility] Name Value Range Interpretation Description Data Sup porting Code Source(s) Document(s ) SARS [facility] coronavirus 2 RNA This lab was [facility] and reported by [facility]. ID Date Data Source [id number] 05/23/2020 10:55:00 AM EDT [facility] Name Value Range Interpretation Description Data Sup porting Code Source(s) Document(s ) SARS [facility] coronavirus 2 RNA This lab was [facility] and reported by [facility]. ID Date Data Source [id number] 05/17/2020 09:40:00 AM EDT [facility] Name Value Range Interpretation Description Data Sup porting Code Source(s) Document(s ) SARS [facility] coronavirus 2 RNA This lab was [facility] and reported by [facility]. ID Date Data Source [id number] 05/14/2020 09:15:00 AM EDT [facility] Name Value Range Interpretation Description Data Sup porting Code Source(s) Document(s ) SARS [facility] coronavirus 2 RNA This lab was [facility] and reported by [facility]. ID Date Data Source [id number] 05/11/2020 10:28:00 AM EDT [facility] Name Value Range Interpretation Description Data Sup porting Code Source(s) Document(s ) SARS [facility] coronavirus 2 RNA This lab was ordered by [facility] D[facility] hunter [facility] and reported by [facility]. ID Date Data Source [id number] 05/08/2020 01:40:00 PM EDT [facility] Name Value Range Interpretation Description Data Sup porting Code Source(s) Document(s ) SARS [facility] coronavirus 2 RNA This lab was [facility] and reported by [facility]. ID Date Data Source [id number] 05/04/2020 12:40:00 PM EDT [facility] Name Value Range Interpretation Description Data Sup porting Code Source(s) Document(s ) SARS [facility] coronavirus 2 RNA This lab was [facility] nadia [facility] and reported by [facility]. ID Date Data Source [id number] 04/30/2020 10:00:00 AM EDT [facility] Name Value Range Interpretation Description Data Sup porting Code Source(s) Document(s ) SARS [facility] coronavirus 2 RNA This lab was ordered by [facility] nadia [facility] and reported by [facility]. ID Date Data Source [id number] 04/27/2020 10:40:00 AM EDT [facility] Name Value Range Interpretation Description Data Sup porting Code Source(s) Document(s ) SARS [facility] coronavirus 2 RNA This lab was ordered by [facility] and reported by [facility]. ID Date Data Source [id number] 04/24/2020 02:25:28 AM EDT [facility] System Name Value Range Interpretation Description Data Sup porting Code Source(s) Document(s ) D Ab Rh Positive Normal (applies Rh Factor, [facility] [Titer] in to non-numeric Whole Blood Health Syste m Serum or results) Plasma Type O Normal (applies Type [facility] to non-numeric Health System results) new pt--no historyPreviously released as O on 12/24/2011, 4:42 [place] [id number] - added comment for o/r AntibodyScreen Negative Normal (applies to Antibody Screen [facility] non-numeric results) System ID Date Data Source [id number] 04/24/2020 02:25:28 AM EDT [facility] He alth [...] quantitative testing recommened. ID Date Data Source [id number] 04/24/2020 [facility] Name Value Range Interpretation Description Data Sup porting Code Source(s) Document(s ) RubellaInterpreta Positive Normal (applies Rubella [facility] tion to non-numeric Interpretation Health results) System <5 Negative>=5 - <10 Equivocal>= 10 Positive Rubella 27 {IU/mL} Normal (applies to Rubella [facility] System non-numeric results) ID Date Data Source [id number] 04/24/2020 02:25[facility] Name Value Range Interpretation Description Data Sup porting Code Source(s) Document(s ) VaricellaInterpre Positive Normal (applies Varicella [facility] tation to non-numeric Interpretation Health results) System <0.6 Negative>=0.6 - <.90 Equivoc al>=.90 Positive VaricellaResultValue 1.78 Normal (applies to Varicel la Result [facility] non-numeric results) Value System ID Date Data Source [id number] 04/24/2020 02:25[facility] Name Value Range Interpretation Description Data Sup porting Code Source(s) Document(s ) RubeolaABIgGResul 0.78 Normal (applies Rubeola AB IgG M [facility] tValue to non-numeric Result Value Health results) System RubeolaABIgGinter Positive Normal (applies Rubeola AB IgG M [facility] pretation to non-numeric interpretation Health results) System <.50 Negative>=.50 - <.70 Equivo lloyd>=.70 Positive ID Date Data Source [id number] 04/24/2020 02:25:28 AM EDT [facility] He alth [...] Health System results) ID Date Data Source [id number] 04/24/2020 02:25:28 AM EDT [facility] alth System Name Value Range Interpretation Description Data Sup porting Code Source(s) Document(s ) 20565-4 NEGATIVE Testing Normal (applies COVID-19.. [facility] [...] Range: NEGATIVE . ID Date Data Source [id number] 04/24/2020 02:25:28 AM EDT [facility] He alth [...] Health results) System ID Date Data Source [id number] 04/24/2020 02:25:28 AM EDT [facility] He alth [...] Health results) System ID Date Data Source [id number] 04/24/2020 02:25:28 AM EDT [facility]th System Name Value Range Interpretation Description Data Sup porting Code Source(s) Document(s ) TissueExam Results for case # Normal (applies Tissue Exam [facility] [id number] to non-numeric Health SURGICAL PATHOLOGY results) System REPORTCLINICAL INFORMATION: LAP band slip. PREOPERATIVE DIAGNOSIS: Same. POSTOPERATIVE DIAGNOSIS: Same.FINAL DIAGNOSIS: Gastric band and port system (gross).GO/Jessica ROCA MDElectronically Signed By: GROSS DESCRIPTION: Received fresh, labeled "gastric band and port system", the specimen consists of a 3 x 3 x 1.5cm white plastic and raphael metal device inscribed with PORT-A-CATH [id number]. There is attached 45 x 0.3 x [...] 1 of 1 ID Date Data Source [id number] 04/23/2020 09:30:00 AM EDT [facility] Name Value Range Interpretation Description Data Sup porting Code Source(s) Document(s ) SARS [facility] coronavirus 2 RNA This lab was ordered by GISSELL MITCHELL and reported by [facility]. ID Date Data Source [id number] 04/19/2020 10:40:00 AM EDT [facility] Name Value Range Interpretation Description Data Sup porting Code Source(s) Document(s ) SARS [facility] coronavirus 2 RNA This lab was ordered by GISSELL hunter [facility] and reported by [facility]. ID Date Data Source [id number] 04/18/2020 09:16:00 AM EDT [facility] Name Value Range Interpretation Code Description Data [facility] rce(s) Supporting Document(s ) COVID-19.. [facility] This lab was ordered by [facility] and reported by [facility]. ID Date Data Source [id number] 04/17/2020 08:55:00 AM EDT [facility] Name Value Range Interpretation Description Data Sup porting Code Source(s) Document(s ) SARS [facility] coronavirus 2 RNA This lab was ordered by GISSELL hunter [facility] and reported by [facility]. ID Date Data Source [id number] 03/03/2020 11:40:00 AM EDT [facility] Name Value Range Interpretation Description Data Sup porting Code Source(s) Document(s ) 2019 Novel [facility] Coronavirus RNA Interpretation Unspecified Specimen Qualitative SHIMA Probe Detection This lab was ordered by [facility] [facility]. ID Date Data Source [id number] 04/19/2019 04:59:28 PM EDT [facility] [id number] Corporation Name Value Range Interpretation Description Data Sup porting Code Source(s) Document(s ) Leukocytes 5.1 k/mm3 4.8-10 <td> 04/14/2019 [place] [#/volume] .8 08:23</td><td> County in Blood by k/mm3 WBC </td><td> [employer] count 5.1
(4.8-10.8) k/mm3 </td> Erythrocytes 4.94 m/mm3 3.90-5 <td> 04/14/2019 [facility] r [#/volume] .20 08:23</td><td> County in Blood m/mm3 RBC </td><td> [place] 4.94
(3.90-5.20) m/mm3 </td> Hemoglobin 14.5 g/dL 12.0-1 <td> 04/14/2019 [place] [Mass/volume 6.0 08:23</td><td> County ] in Blood g/dL HGB </td><td> Health Care [facility] 14.5
(12.0-16.0) g/dL </td> Erythrocyte 13.1 % 11.5-1 <td> 04/14/2019 [place] distribution 4.5 % 08:23</td><td> County width RDW </td><td> Health Care [[employer] volume] by 13.1 Automated count
(11.5-14.5) % </td> Platelet 11.0 fL 9.8-12 <td> 04/14/2019 [place] mean volume .8 fL 08:23</td><td> County [[employer] MPV </td><td> Health Care volume] in Corporation Blood by 11.0 Automated count
(9.8-12.8) fL </td> Erythrocyte 33.5 % 32.0-3 <td> 04/14/2019 [place] mean 6.0 % 08:23</td><td> [facility] corpuscular MCHC </td><td> Health Care hemoglobin Corporation concentratio 33.5 n [Mass/volume
] in Blood (32.0-36.0) % from Fetus </td> by Automated count Hematocrit 43.3 % 37.0-4 <td> 04/14/2019 [place] [Volume 7.0 % 08:23</td><td> County Fraction] of HCT </td><td> Health Care Blood by [employer] Automated 43.3 count
(37.0-47.0) % </td> Erythrocyte 29.4 pg 27.0-3 <td> 04/14/2019 [place] mean 1.5 pg 08:23</td><td> County corpuscular MCH </td><td> Health Care hemoglobin Corporation [[employer] 29.4 mass] by Automated
count (27.0-31.5) pg </td> Erythrocyte 87.7 fL 81.0-9 <td> 04/14/2019 [place] mean 9.0 fL 08:23</td><td> [facility] corpuscular MCV </td><td> Health Care volume Corporation [[employer] 87.7 volume] by Automated
count (81.0-99.0) fL </td> Lymphocytes 41.3 % 17.0-5 <td> 04/14/2019 [place] [#/volume] 0.0 % 08:23</td><td> County in Blood by Lymphocytes Health Care Automated </td><td> [employer] count 41.3
(17.0-50.0) % </td> Platelets 229 k/mm3 160-41 <td> 04/14/2019 [place] [#/volume] 0 08:23</td><td> County in Blood by k/mm3 Platelet Count Health Care Automated </td><td> [employer] count 229
(160-410) k/mm3 </td> Monocytes/Le 6.1 % 0.0-11 <td> 04/14/2019 [place] ukocytes .0 % 08:23</td><td> County [Pure number Monocytes. Health Care fraction] in </td><td> [employer] Blood by Automated 6.1 count
(0.0-11.0) % </td> Basophils 0.8 % 0.0-2. <td> 04/14/2019 [place] [#/volume] 0 % 08:23</td><td> County in Blood by Basophils Health Care Automated </td><td> [employer] count 0.8
(0.0-2.0) % </td> Basophils+Eo 2.7 % 0.0-5. <td> 04/14/2019 [place] sinophils+Mo 0 % 08:23</td><td> County nocytes Eosinophils Health Care [#/volume] </td><td> [employer] in Blood by Automated 2.7 count
(0.0-5.0) % </td> Potassium 4.8 mEq/L 3.5-5. <td> 04/14/2019 [place] [Moles/volum 1 08:23</td><td> County e] in Serum mEq/L Potassium-Serum Health Care or Plasma </td><td> [employer] 4.8
(3.5-5.1) mEq/L </td> Immature 0.2 % 0.0-0. <td> 04/14/2019 [place] granulocytes 5 % 08:23</td><td> County /100 IG% [...] </td> Sodium 139 mEq/L 135-14 <td> 04/14/2019 [place] [Moles/volum 5 08:23</td><td> County e] in Serum mEq/L Sodium-Serum Health Care or Plasma </td><td> Corporation 139
(135-145) mEq/L </td> Glucose 96 mg/dL 70-105 <td> 04/14/2019 [place] [Mass/volume mg/dL 08:23</td><td> [facility] ] in Blood Glucose-Serum Health Care </td><td> [employer] 96
(70-105) mg/dL </td> Neutrophils 48.9 % 40.0-7 <td> 04/14/2019 [place] [#] in Body 6.0 % 08:23</td><td> [facility] fluid by Neutrophils Health Care Manual count </td><td> Corporation 48.9
(40.0-76.0) % </td> Creatinine 0.82 mg/dL 0.57-1 <td> 04/14/2019 [place] [Moles/volum .11 08:23</td><td> [place] e] in Serum mg/dL Creatinine. Health Care or Plasma </td><td> [employer] 0.82
(0.57-1.11) mg/dL </td> Urea 10 mg/dL 6-22 <td> 04/14/2019 [place] nitrogen mg/dL 08:23</td><td> [facility] [Mass/volume BUN </td><td> Health Care ] in Blood [employer] 10
(6-22) mg/dL </td> Chloride 103 mEq/L 98-107 <td> 04/14/2019 [place] [Moles/volum mEq/L 08:23</td><td> County e] in Serum Chloride Health Care or Plasma </td><td> [employer] 103
(98-107) mEq/L </td> Carbon 29 mEq/L 22-30 <td> 04/14/2019 [place] dioxide, mEq/L 08:23</td><td> [facility] total CO2 </td><td> Health Care [Moles/volum Corporation e] in Serum 29 or Plasma
(22-30) mEq/L </td> Albumin 4.3 g/dL 3.4-4. <td> 04/14/2019 [place] [Mass/volume 8 g/dL 08:23</td><td> [facility] ] in Serum Albumin Health Care or Plasma </td><td> [employer] 4.3
(3.4-4.8) g/dL </td> Proteins - 7.0 g/dL 6.4-8. <td> 04/14/2019 [place] Total 3 g/dL 08:23</td><td> [facility] Proteins - Health Care [employer] </td><td> 7.0
(6.4-8.3) g/dL </td> Alanine 20 U/L 6-55 <td> 04/14/2019 [place] aminotransfe U/L 08:23</td><td> [facility] rase ALT (SGPT) Health Care [Enzymatic </td><td> Corporation activity/vol ume] in 20 Serum or
Plasma (6-55) U/L </td> Aspartate 15 U/L 4-35 <td> 04/14/2019 [place] aminotransfe U/L 08:23</td><td> [facility] rase AST (SGOT) Health Care [Enzymatic </td><td> Corporation activity/vol ume] in 15 Serum or
Plasma (4-35) U/L </td> Bilirubin.to 0.5 mg/dL 0.2-1. <td> 04/14/2019 [place] livan 3 08:23</td><td> [facility] [Mass/volume mg/dL Bilirubin - Health Care ] in Blood [employer] </td><td> 0.5
(0.2-1.3) mg/dL </td> Calcium 9.6 mg/dL 8.6-10 <td> 04/14/2019 [place] [Mass/volume .2 08:23</td><td> [facility] ] in Blood mg/dL Calcium Health Care </td><td> [facility] 9.6
(8.6-10.2) mg/dL </td> Globulin 2.7 gm/dL 2.9-4. <td> 04/14/2019 [place] [Mass/volume 0 08:23</td><td> [facility] ] in Serum gm/dL Globulin Health Care </td><td><valerie [facility] raph styleCode="Bold "> 2.7 L </paragraph>
(2.9-4.0) gm/dL </td> Lipemic No Lipemia <td> 04/14/2019 [place] index of 08:23</td><td> [facility] Serum or Lipemia Index Health Care Plasma </td><td> [employer] No Lipemia
</td> Phosphate 3.1 mg/dL 2.3-4. <td> 04/04/2019 [place] [Mass/volume 7 08:28</td><td> [facility] ] in Serum mg/dL Inorganic Health Care or Plasma Phosphorus [facility] </td><td> 3.1
(2.3-4.7) mg/dL </td> Icteric Non Icteric <td> 04/14/2019 [place] index of 08:23</td><td> [facility] Serum or Icteric Index Health Care Plasma </td><td> [employer] Non Icteric
</td> Anion gap in 7 mEq/L 7-13 <td> 04/14/2019 [place] Serum or mEq/L 08:23</td><td> [facility] Plasma Anion Gap Health Care </td><td> Corporation 7
(7-13) mEq/L </td> Hemolysis No Hemolysis <td> 04/14/2019 [place] index of 08:23</td><td> [facility] Serum or Hemolysis Index Health Care Plasma </td><td> Corporation No Hemolysis
</td> Prothrombin 10.8 secs 9.8-12 <td> 04/03/2019 [place] time (PT) .0 15:28</td><td> [facility] secs Prothrombin Health Care Time. [facility] </td><td> 10.8
(9.8-12.0) secs </td> aPTT panel - 24.6 secs 25.0-3 <td> 04/03/2019 [place] Platelet 2.0 15:28</td><td> [facility] poor plasma secs Partial Health Care Thromboplastin [facility] Time </td><td><valerie raph styleCode="Bold "> 24.6 L </paragraph>
(25.0-32.0) secs </td> Appearance Cloudy <td> 04/03/2019 [place] of Urine 15:28</td><td> [facility] Appearance Health Care </td><td> Corporation Cloudy
(CLEAR) </td> Protein 1+ (30 MG/DL) <td> [facility]:28</td><td> [facility] in Urine by Protein Health Care Automated [employer]itative [employer] test strip </td><td> 1+ (30 MG/DL)
(NEGATIVE) </td> Specific 1.010 {} 1.000- <td> 04/03/2019 [place] gravity of 1.035 15:28</td><td> [facility] Urine by Specific Health Care Test strip [facility] [employer] </td><td> 1.010
(1.000-1.035) </td> Nitrite Negative <td> 04/03/2019 [place] [Presence] 15:28</td><td> [facility] in Urine by Nitrites Health Care Test strip </td><td> Corporation Negative
(NEGATIVE) </td> Glucose Negative <td> 04/03/2019 [place] [Presence] 15:28</td><td> [place] in Urine by Glucose_ Health Care Test strip </td><td> Corporation Negative
(NEGATIVE) </td> Leukocyte 3+ <td> 04/03/2019 [place] esterase 15:28</td><td> [facility] [Presence] Leukocytes Health Care in Urine by Esterase [employer] Test strip </td><td><valerie raph styleCode="Bold "> 3+ * AB </paragraph>
(NEGATIVE) </td> Leukocytes 36 /HPF 0-5 <td> 04/03/2019 [place] [Presence] /HPF 15:28</td><td> [place] in Urine by WBC </td><td> Health Care Automated [employer] 36
(0-5) /HPF </td> Erythrocytes 13 /HPF 0-2 <td> 04/03/2019 [place] [#/area] in /HPF 15:28</td><td> [facility] Urine RBC </td><td> Health Care sediment by Corporation Automated 13 count
(0-2) /HPF </td> Urobilinogen 0.2 mg/dL 0.0-2. <td> 04/03/2019 [place] [Presence] 0 15:28</td><td> [place] in Urine by mg/dL Urobilinogen Health Care Automated </td><td> Corporation test strip 0.2
(0.0-2.0) mg/dL </td> Epithelial MASSIVE <td> 04/03/2019 [place] cells FEW 15:28</td><td> [facility] [#/area] in Transitional Epithelial Health Care Urine Epithelial Cells [employer] sediment by cells 3/HPF </td><td> Automated count MASSIVE
/LPF
FEW
Transitional Epithelial cells 3/HPF

/LPF </td> Magnesium 1.9 mg/dL 1.6-2. <td> 04/04/2019 [place] [Mass/volume 6 08:28</td><td> [facility] ] in Serum mg/dL Magnesium Level Health Care or Plasma </td><td> Corporation 1.9
(1.6-2.6) mg/dL </td> Amorphous RARE < <td> 04/03/2019 [place] Crystal FEW 15:28</td><td> [facility] Amorphous Health Care [employer] </td><td> RARE
/HPF
< FEW

/HPF </td> Bacteria MODERATE <td> 04/03/2019 [place] [#/area] in 15:28</td><td> [facility] Urine Bacteria Health Care sediment by </td><td> Corporation Microscopy high power MODERATE field
(NONE SEEN) /HPF </td> Calcium RARE Ca <td> 04/03/2019 [facility] r oxalate Oxalate 15:28</td><td> [facility] crystals Crystals..May Calcium Oxalate Health Car e [Presence] be present in [place] in Urine normal, acid </td><td> sediment by or alkaline Light urine RARE microscopy
(SEE BELOW) /HPF
Ca Oxalate Crystals..May be present in normal, acid or alkaline urine

(SEE BELOW) /HPF </td> Mucous FEW < <td> 04/03/2019 [place] FEW 15:28</td><td> [facility] Mucous Health Care </td><td> Corporation FEW
/LPF
< FEW

/LPF </td> Cholesterol 116 mg/dL <150 <td> 04/04/2019 [place] in LDL mg/dL 08:28</td><td> [facility] [Mass/volume LDL Cholesterol Health Care ] in Serum </td><td> [employer] or Plasma 116
(<150) mg/dL </td> Triglyceride 80 mg/dL 30-200 <td> 04/04/2019 [place] [Mass/volume mg/dL 08:28</td><td> [facility] ] in Serum Triglyceride Health Care or Plasma </td><td> Corporation 80
(30-200) mg/dL </td> Cholesterol 37 mg/dL >60 <td> 04/04/2019 [place] in HDL mg/dL 08:28</td><td> [facility] [Mass/volume HDL Cholesterol [facility] ] in Serum </td><td> Corporation or Plasma 37
(>60) mg/dL </td> Cholesterol 169 mg/dL 125-24 <td> 04/04/2019 [place] [Moles/volum 0 08:28</td><td> [facility] e] in Serum mg/dL Cholesterol Health Care or Plasma </td><td> [employer] 169
(125-240) mg/dL </td> Hemoglobin 5.3 % 4.0-5. <td> 04/04/2019 [place] A1C 6 % 08:28</td><td> [facility] Hemoglobin A1C Health Care </td><td> [facility] 5.3
(4.0-5.6) %
Increased risk for diabetes [...]
11 269
12 298
Source: Adapted from [place] [employer]. Standards of medical
care in diabetes-2014. Diabetes Care.2014;37([place] pp 1):S14-S80, table 8.

(4.0-5.6) % </td> Procedure Vital Signs ID Date Data Source UNK Name Value Range Interpretation Code Description Data Source(s) Body temperature 97.6 [degF] 0 - 200 Normal (applies to 97.6 [degF ] [facility] non-numeric results) [facility] Body temperature 36.4 [place]ala 0 - 99.9 Below low normal 36.4 [facility] Diastolic blood 51 mm[Hg] 0 - 999 Below low normal 51 mm[Hg] [facility] Systolic blood 113 mm[Hg] 0 - 999 Normal (applies to 113 mm[Hg] [facility] non-numeric results) [facility] Oxygen saturation 98 % 0 - 999 Normal (applies to 98 % [facility] in Arterial blood non-numeric results) [facility] by Pulse oximetry Respiratory rate 16 0 - 999 Normal (applies to 16 [facility] non-numeric results) [facility] Heart rate 77 0 - 999 Normal (applies to 77 [facility] non-numeric results) [facility] Body surface area 2 m2 2 m2 [facility] Derived from Health Syste m formula Body mass index 36.6 kg/m2 36.6 kg/m2 [facility] (BMI) [Ratio] Health Syst em Body weight 99.79 kg 99.79 kg [facility] Body height 165.[address] [facility] Patient Treatment Plan of Care Planned Activity Planned Date Details Description Data Source (s) Ibuprofen 600 MG Oral 04/20/2020 10:03:52 [facility] EDT System
--- NOTE | 2020-06-18 07:48 | HP ---
CHIEF COMPLAINT: Major depressive disorder PCP: Dr. Luna Sands [phone] Primary Psychiatrist: Dr. Darryn Montaño, [facility] [place] Next of Kin (daughter) Sabrina Burrell [phone] HISTORY OF PRESENT ILLNESS: 58 year-old female with a PMH significant for major depressive disorder and bipolar disorder with h/o multiple suicide attempts. Psych admission [facility] 04/02--04/19/2019, overdosed on abilify/flexeril/lexapro. Psych admission [place] 05/05/2019 after found on the [employer]. Presents for ECT therapy today. Recent Events: * none reported PAST MEDICAL HISTORY: Hyperlipidemia HSV II Bipolar disorder Borderline personality disorder Multiple suicide attempts w/ multiple psych admissions (previously jumped from a bridge, prior overdose attempt) Alcohol use disorder PAST SURGICAL HISTORY: s/p lab band surgery right Rotator cuff repair x 3 T and A right breast biopsy Rotator cuff injury Social History: lives in [place]; daughter lives nearby and helps take care of 8 month-old granddaughter Smoking:denies Alcohol: denies Drugs: denies FmHX Mother (70s) Lung cancer Father (89) natural causes Sister (44) breast cancer Brother (25) bipolar d/o, by suicide sister alive (58) well Allergies No Known Allergies Allergy (Verified 06/11/20 07:16) HOME MEDICATIONS: Home Medications Medication Instructions Recorded Aripiprazole [Abilify] 20 mg PO DAILY 06/28/19 Atorvastatin Ca [Lipitor] 40 mg PO HS 06/28/19 Escitalopram Oxalate [Lexapro -] 20 mg PO DAILY 06/28/19 [facility] Carbonate [Eskalith -] 600 mg PO HS 06/28/19 Quetiapine Fumarate [Seroquel -] 100 mg PO HS 11/03/19 Oxybutynin Chloride [Oxybutynin 10 mg PO BID 04/17/20 Chloride ER] REVIEW OF SYSTEMS CONSTITUTIONAL: Absent: fever, chills, diaphoresis, generalized weakness, malaise, loss of appetite, weight change HEENT: Absent: rhinorrhea, nasal congestion, throat pain, throat swelling, difficulty swallowing, mouth swelling, ear pain, eye pain, visual changes CARDIOVASCULAR: Absent: chest pain, syncope, palpitations, irregular heart rate, lightheadedness, peripheral edema RESPIRATORY: Absent: cough, shortness of breath, dyspnea with exertion, orthopnea, wheezing, stridor, hemoptysis GASTROINTESTINAL: Absent: abdominal pain, abdominal distension, nausea, vomiting, diarrhea, constipation, melena, hematochezia GENITOURINARY: Absent: dysuria, frequency, urgency, hesitancy, hematuria, flank pain, genital pain MUSCULOSKELETAL: Absent: myalgia, arthralgia, joint swelling, back pain, neck pain SKIN: Absent: rash, itching, pallor HEMATOLOGIC/IMMUNOLOGIC: Absent: easy bleeding, easy bruising, lymphadenopathy, frequent infections ENDOCRINE: Absent: unexplained weight gain, unexplained weight loss, heat intolerance, cold intolerance NEUROLOGIC: Absent: headache, focal weakness or paresthesias, dizziness, unsteady gait, seizure, mental status changes, bladder or bowel incontinence PHYSICAL EXAMINATION GENERAL: Awake, alert, and fully oriented, in no acute distress. HEAD: Normal with no signs of trauma. EYES: Pupils equal, round and reactive to light, sclera anicteric, conjunctiva clear. LUNGS: Breath sounds equal, clear to auscultation bilaterally. No wheezes, and no crackles. No accessory muscle use. HEART: Regular rate and rhythm, normal S1 and S2 ABDOMEN: Soft, nontender, not distended MUSCULOSKELETAL: Normal range of motion at all joints. No bony deformities or tenderness. No CVA tenderness. UPPER EXTREMITIES: 2+ pulses, warm, well-perfused. No cyanosis. No clubbing. No peripheral edema. LOWER EXTREMITIES: 2+ pulses, warm, well-perfused. No calf tenderness. No peripheral edema. NEUROLOGICAL: Cranial nerves II-XII intact. Normal speech. ASSESSMENT/PLAN: 58 year-old female with a PMH significant for major depressive disorder and bipolar disorder with h/o multiple suicide attempts, presents for ECT therapy today. Cardiac --no cardiac history --Revised Cardiac Risk Index for Pre-Operative Risk: 0 points, 0.4% risk of major cardiac event Pulmonary --no pulmonary history Neurological --no neurological or neurosurgical history; no history of trauma Anesthesia --no reported problems with anesthesia ECT is a low risk procedure. The relative benefits of the planned procedure outweigh the relative risks for this patient at this time. Visit type - Emergency Visit Emergency Visit: No - New Patient This patient is new to me today: Yes Date on this admission: 06/18/20 - Critical Care Critical Care patient: No
[2020-06-18] MEDS ORDERED: KETAMINE HCL 500 MG/10 ML VIAL ONE (09:02)
[2020-06-18] MEDS ORDERED: SUCCINYLCHOLINE CHLORIDE 200 MG/10 ML SYRINGE ONE (09:21)
[2020-06-18] MEDS ORDERED: DEXAMETHASONE SOD PHOSPHATE 4 MG/1 ML VIAL ONE (09:21)
[2020-06-18] MEDS ORDERED: ONDANSETRON 4 MG/2 ML VIAL ONE (09:21)
[2020-06-18] MEDS ORDERED: LIDOCAINE HCL/PF 2% SDV 5ML VIAL ONE (09:22)
[2020-06-18] MEDS ORDERED: PROPOFOL 20 ML ONE (09:22)
[2020-06-18] MEDS ORDERED: oxyCODONE HCL 5 MG TABLET PO PRN (10:22)
[2020-06-18] MEDS ORDERED: ONDANSETRON 4 MG/2 ML VIAL IVPUSH PRN (10:22)
[2020-06-18 11:53] VITALS: BP 116/76; PULSE 91; TEMP 98
== END 2020-06-18 11:40 | disposition home or self-care (01) ==
LOC: FECT 07:14
PROVIDERS: ATTEND Psychiatry & Neurology Psychiatry
PROC: GZB4ZZZ Other Electroconvulsive Therapy (ICD-10-PCS; principal; 2020-06-18 08:30)
DX: F32.9 Major depressive disorder, single episode, unspecified (principal)
CPT/HCPCS: 90870; 94760

== ENCOUNTER 2020-06-28 06:17 | Day surgery (SDC) | payer OTHER ==
--- OUTSIDE RECORDS SUMMARY | 2020-06-18 10:58 | XMS ---
:1960 Author Organization [facility] Care Team Providers Name Role Phone CAITLIN [...] is protected by Article 27-F of the [facility] Public Health law. If you continue you may haveaccess to information: Regarding HIV / AIDS; Provided by facilities licensed or operated by the [facility] Office of Mental Health; or Provided by the [facility] Office for People With Developmental Disabilities. If such information is present, then the following [facility] mandated warning applies: This information has been [...] law may result in a fine or fdc sentence or both. A general authorization for the release of medical or other information is NOT sufficient authorization for further disclosure. Allergies and Adverse Reactions Type Description Substance Reaction Status Data Source(s ) 3 NO KNOWN DRUG ALLERGIES NO KNOWN DRUG NEXTGEN ([facility] ALLERG[facility] Medical - [facility]) Encounters Encounter Providers Location Date Indications Data Source(s ) Outpatient Attender: [place] [facility] WainwrightReferrer: 03:15:00 PM (Car emosanjuana [place] EDT Medical - [facility]) S Attender: MD [facility]-AM[facility] SURG 04/18/2020 [facility] 12:07:22 PM Olya Benoit [facility] EDT - 04/20/2020 02:58:00 PM EDT Patient discharged. Outpatient Attender: MD [facility]-LAB 04/17/2020 05:22:25 PM [facility] EDT - 04/18/2020 [facility] 11:59:00 PM EDT Patient discharged. Outpatient Attender: PM9 [facility] 12/16/2019 12:44:17 PM I ([facility] EDT Collaborative) Patient admitted. Outpatient Attender: [place] 08/18/2019 [facility] WainwrightReferrer: [place] 03:00:00 PM [facility] Outpatient Attender: KAREEM 05/04/2019 [facility] MYKEdmitter: KAREEM, 06:00:00 AM EDT [facility] 04/27/2019 [place] 11:17:00 AM EDT [facility] Inpatient 04/27/2019 [place] 11:17:00 AM EDT [facility] on Outpatient Attender: K[facility] MYKEdmitter: KAREEM, 06:00:00 AM EDT Critical access hospitalAN [facility] Inpatient Attender: EDWARD 04/03/2019 BIPOL[facility] [place] MITCHELLAdmitter: EDWARD, 05:59:00 PM EDT DISOR VIVI [facility] - 04/19/2019 [facility] tion 04:59:00 PM EDT BIPOLAR DISORDER Patient admitted. Medications Medication Brand Start Product Dose Route Administrative Pharmacy atus Indications Reaction Description Data Name Date Form Instructions Instructions Source(s) Simvastatin SIMVAS take 1 tablet RP NEXTGEN 10 MG Oral TATIN by oral route ([facility] Tablet 10 every day in Id dical - mg 10 mg the evening [...] [facility] [place] 100 mg times every day [facility]) This may be an [...] actual date the medication was s tarted. [place] Carbonate LITHIUM CARBONATE take 1 tablet RP [...] ([facility] 20 mg oral route Medical - In every day [facility]) This may be an active medication. No end date is available. Start date above may not reflect actual date the medication was s tarted. atorvastatin 40 MG ATORVASTATIN take 1 RP NEXTGEN Oral Tablet 40 mg CALCIUM tablet by ([facility] 40 mg oral route Medical - In every day [facility] ) This may be an active medication. No end date is available. Start date above may not reflect actual date the medication was s tarted. aripiprazole 20 MG ABILIFY take 1 tablet by RP NEXTGEN ([facility] Oral Tablet [Abilify] oral route [facility] 20 mg 20 mg every day [facility] ) This may be an active medication. No end date is available. Start date above may not reflect actual date the medication was s tarted. 50 mg 50 mg take 1 tablet by oral RP NEXTGEN ([facility] Medical - route 2 times every day [facility]) after meals This may be an active medication. No end date is available. Start date above may not reflect actual date the medication was s tarted. 2 % 2 % 06/12/2020 12:00:00 apply by topical RP NEXTGEN ([facility] AM EDT route 2 times [facility] every day to the [facility] ) affected area(s) This may be an active medication. No end date is available. Hydrocortisone HYDROCORTISONE 06/12/2020 apply by RP NEXTGEN 25 MG/ML Topical 12:00:00 AM topical route ([facility] Cream 2.5 % 2.5 EDT 2 times every Medical - % day to the [facility] affected Medical area(s); after Group ) first week discontinue and use only ketoconazole This may be an active medication. No end date is available. Ibuprofen ibuprofen 04/20/2020 1 {tab(s)} [id number] active Ibuprofen [facility] 600 MG Oral 600 [...] / Coverage alliance party ID relationship to [facility] or[facility] type rush MEDICAID [id number] SP [id number] MEDICARE [id number] SP [id number] 5 MDCR Medicare [id number] 1 [id number] Part B Par 5 Providers MEDICARE [id number] SP [id number] 95 5 Medicaid Medicaid [id number] 1 [id number] Medicare Part Medicare [id number] 1 [id number] B Outpatient 5 Medicare Medicare [id number] 1 [id number] 95 5 Financial Self Pay 1 Assist 55% Medicaid Medicaid [id number] Medicare Part Medicare [id number] 1 [id number] B Outpatient Medicare Medicare [id number] 1 [id number] A [employer] [id number] SP [id number] [employer] 8 [employer] [id number] [employer] SELF PAY 00 Self 00 REDUCTION SELF PAY 000 Self 000 Problems, Conditions, and Diagnoses Code Display Name Description Problem Type Effective Data Dates Source(s) K13.0 Diseases of lips Perleche Diagnosis 06/12/2020 NEXTGEN 03:15:00 PM ([facility] - [facility]) R11.10 Vomiting, Vomiting Diagnosis 04/20/2020 [facility] - New unspecified 06:38:00 AM [facility] K95.09 Other complications Other complications Diagnosis 020 [facility] - New of gastric band of gastric band 06:38:00 AM Attila helle procedure procedure EDT [facility] K43.6 Other and Other or unspecified Diagnosis 04/20/2020 [facility] - New unspecified ventral ventral hernia with 06:38:0 0 AM [place] hernia with obstruction without EDT Hosp ital obstruction, without gangrene gangrene [id number] Laparoscopy, Laparoscopy, Diagnosis 04/20/2020 [facility] - New surgical, gastric surgical, gastric 06:38:00 AM [place] restrictive restrictive [facility] procedure; removal procedure; removal of adjustable of adjustable gastric restrictive gastric restrictive device and device and subcutaneous port subcutaneous port components components R13.10 Dysphagia, Dysphagia Diagnosis 04/20/2020 [facility] - New unspecified 06:38:00 AM [facility] E66.01 Morbid (severe) Morbid obesity, Diagnosis 04/18/2020 [facility] - New obesity due to unspecified obesity 08:10:00 AM [place] [facility].59 Encounter for Encounter for Diagnosis 04/18/2020 [facility] - Ne w screening for other laboratory testing 08:10:00 AM [place] viral diseases for COVID-19 virus EDT spital Z01.818 Encounter for other Preop examination Diagnosis 0 [facility] - New preprocedural 08:10:00 AM [place] examination [facility] Z12.83 Encounter for Screening exam for Diagnosis 08/18/2019 NEX TGEN screening for skin cancer 03:00:00 PM ([facility] malignant neoplasm EST Medica l - [place] of skin [facility]) L82.1 Other seborrheic Other seborrheic Diagnosis 08/18/2019 NE XTGEN keratosis keratosis 03:00:00 PM ([facility] EST Medical [facility]) D18.01 Hemangioma of skin Angioma of skin Diagnosis 08/18/2019 N EXTGEN and subcutaneous 03:00:00 PM ([facility] tissue EST [facility]) L81.4 Other melanin Other melanin Diagnosis 08/18/2019 NEXTGEN hyperpigmentation hyperpigmentation 03:00:00 PM ([facility] EST Medical [facility]) L81.2 Freckles Freckles Diagnosis 08/18/2019 NEXTGEN 03:00:00 PM ([facility] EST [facility]) D22.5 Melanocytic nevi of Melanocytic nevi of Diagnosis 019 NEXTGEN trunk trunk 03:00:00 PM ([facility] EST [facility]) K64.9 Unspecified UNSPECIFIED Diagnosis 04/19/2019 [place] hemorrhoids HEMORRHOIDS 04:59:[facility] [employer] M75.100 Unspecified rotator UNSP ROTATR-CUFF Diagnosis 04/19/2019 [place] cuff tear or rupture TEAR/RUPTR OF UNSP 04:59:0 0 PM [facility] of unspecified SHOULDER, NOT TRAUMA EDT Care shoulder, not Corporation specified as traumatic Y92.89 Other specified OTH PLACES THE Diagnosis 04/19/2019 [facility] as the place PLACE OF OCCURRENCE 04:59:0 0 PM [facility] of occurrence of the OF THE EXTERNAL EDT Care external cause CAUSE Corporatio n X58.XXXA Exposure to other EXPOSURE TO OTHER Diagnosis 04/19/2019 [place] specified factors, SPECIFIED FACTORS, 04:59:00 PM [facility] initial encounter INITIAL ENCOUNTER EDT Care [facility] T48.1X2A Poisoning by POISONING BY Diagnosis 04/19/2019 [facility] r skeletal muscle SKELETAL MUSCLE 04:59:00 PM [facility] relaxants RELAXANTS, EDT Care [neuromuscular SELF-HARM, INIT Corpo ration blocking agents], intentional self-harm, initial encounter T43.212A Poisoning by POISN BY SLCTV Diagnosis 04/19/2019 [facility] selective serotonin SEROTON/NOREPINEPH 04:59:00 PM [facility] and norepinephrine REUP EDT Care reuptake inhibitors, INHIBTR,SLF-HRM, Corporation intentional INIT self-harm, initial encounter 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 04/19/2019 [place] personality disorder PERSONALITY DISORDER 04:59 :00 PM [facility] EDT Care [facility] T43.592A Poisoning by other POISONING BY OTH Diagnosis 04/19/2019 [place] antipsychotics and ANTIPSYCHOT/NEUROLEP 04:59:0 0 PM [facility] neuroleptics, T, SELF-HARM, INIT EDT Car e intentional Corporation self-harm, initial encounter Surgeries/Procedures Procedure Description Date Indications Data Source(s) OFFICE/OUTPATIENT OFFICE/OUTPATIENT 06/12/2020 NEXTG EN ([facility] VISIT EST VISIT EST 12:00:00 AM Medical - In [place] sco EDT Medical Group P C) Tissue Exam 04/20/2020 [facility] 01:52:15 PM System EDT - 04/20/2020 09:25:00 AM EDT Venipuncture 04/18/2020 [facility] 08:48:26 AM System EDT - 04/18/2020 10:00:06 AM EDT OFFICE/OUTPATIENT OFFICE/OUTPATIENT 08/18/2019 NEXTG EN ([facility] VISIT EST VISIT EST 12:00:00 AM Medical - [facility] EST Medical Group P C) Results ID Date Data Source [id number] 06/14/2020 10:11:00 AM EDT [facility] Name Value Range Interpretation Description Data Sup porting Code Source(s) Document(s ) SARS [facility] coronavirus 2 RNA This lab was ordered by [facility] DAVE hunter [facility] and reported by [facility]. ID Date Data Source [id number] 06/07/2020 09:55:00 AM EDT [facility] Name Value Range Interpretation Description Data Sup porting Code Source(s) Document(s ) SARS [facility] coronavirus 2 RNA This lab [facility] Tello nadia [facility] and reported by [facility]. ID Date Data Source [id number] 05/31/2020 08:22:00 AM EDT [facility] Name Value Range Interpretation Description Data Sup porting Code Source(s) Document(s ) SARS [facility] coronavirus 2 RNA This lab was [facility] by [facility] and reported by [facility]. ID Date Data Source [id number] 05/23/2020 10:55:00 AM EDT [facility] Name Value Range Interpretation Description Data Sup porting Code Source(s) Document(s ) SARS [facility] coronavirus 2 RNA This lab was [facility] by [facility] and reported by [facility]. ID Date Data Source [id number] 05/17/2020 09:40:00 AM EDT [facility] Name Value Range Interpretation Description Data Sup porting Code Source(s) Document(s ) SARS [facility] coronavirus 2 RNA This lab was ordered by [facility] Tello [facility] and reported by [facility]. ID Date Data Source [id number] 05/14/2020 09:15:00 AM EDT [facility] Name Value Range Interpretation Description Data Sup porting Code Source(s) Document(s ) SARS [facility] coronavirus 2 RNA This lab was ordered by [facility] hunter [facility] and reported by [facility]. ID Date Data Source [id number] 05/11/2020 10:28:00 AM EDT [facility] Name Value Range Interpretation Description Data Sup porting Code Source(s) Document(s ) SARS [facility] coronavirus 2 RNA This lab was ordered by [facility] DAVE hunter [facility] and reported by [facility]. ID Date Data Source [id number] 05/08/2020 01:40:00 PM EDT [facility] Name Value Range Interpretation Description Data Sup porting Code Source(s) Document(s ) SARS [facility] coronavirus 2 RNA This lab was ordered by [facility] and reported by [facility]. ID Date Data Source [id number] 05/04/2020 12:40:00 PM EDT [facility] Name Value Range Interpretation Description Data Sup porting Code Source(s) Document(s ) SARS [facility] coronavirus 2 RNA This lab was ordered by [facility] nadia [facility] and reported by [facility]. ID Date Data Source [id number] 04/30/2020 10:00:00 AM EDT [facility] Name Value Range Interpretation Description Data Sup porting Code Source(s) Document(s ) SARS [facility] coronavirus 2 RNA This lab was ordered by [facility] nad[facility] and reported by [facility]. ID Date Data Source [id number] 04/27/2020 10:40:00 AM EDT [facility] Name Value Range Interpretation Description Data Sup porting Code Source(s) Document(s ) SARS [facility] coronavirus 2 RNA This lab was ordered by [facility] hunter [facility] and reported by [facility]. ID Date Data Source [id number] 04/24/2020 02:25:28 AM EDT [facility] System Name Value Range Interpretation Description Data Sup porting Code Source(s) Document(s ) D Ab Rh Positive Normal (applies Rh Factor, [facility] [Titer] in to non-numeric Whole Blood Health Syste m Serum or results) Plasma Type O Normal (applies Type [facility] to non-numeric Health System results) new pt--no historyPreviously released as O on 12/24/2011, 4:42 [place] [id number] - added comment for o/r AntibodyScreen Negative Normal (applies to Antibody Screen [facility] non-numeric results) System ID Date Data Source [id number] 04/24/2020 02:25:28 AM EDT [facility] He alth [...] quantitative testing recommened. ID Date Data Source [id number] 04/24/2020 02:25:[facility] Name Value Range Interpretation Description Data Sup porting Code Source(s) Document(s ) RubellaInterpreta Positive Normal (applies Rubella [facility] tion to non-numeric Interpretation Health results) System <5 Negative>=5 - <10 Equivocal>= 10 Positive Rubella 27 {IU/mL} Normal (applies to Rubella [facility] System non-numeric results) ID Date Data Source [id number] 04/24/2020 02:25:28 [facility] Name Value Range Interpretation Description Data Sup porting Code Source(s) Document(s ) VaricellaInterpre Positive Normal (applies Varicella [facility] tation to non-numeric Interpretation Health results) System <0.6 Negative>=0.6 - <.90 Equivoc al>=.90 Positive VaricellaResultValue 1.78 Normal (applies to Varicel la Result [facility] non-numeric results) Value System ID Date Data Source [id number] 04/24/2020 02:25:28 AM [facility] Name Value Range Interpretation Description Data Sup porting Code Source(s) Document(s ) RubeolaABIgGResul 0.78 Normal (applies Rubeola AB IgG [facility] tValue to non-numeric Result Value Health results) System RubeolaABIgGinter Positive Normal (applies Rubeola AB IgG [facility] pretation to non-numeric interpretation Health results) System <.50 Negative>=.50 - <.70 Equivo lloyd>=.70 Positive ID Date Data Source [id number] 04/24/2020 02:25:28 AM EDT [facility] He alth [...] Health System results) ID Date Data Source [id number] 04/24/2020 02:25:28 AM EDT [facility] System Name Value Range Interpretation Description Data Sup porting Code Source(s) Document(s ) 36710-0 NEGATIVE Testing Normal (applies COVID-19.. [facility] [...] Range: NEGATIVE . ID Date Data Source [id number] 04/24/2020 02:25:28 AM EDT [facility] He alth [...] Health results) System ID Date Data Source [id number] 04/24/2020 02:25:28 AM EDT [facility] alth [...] Health results) System ID Date Data Source [id number] 04/24/2020 02:25:28 AM EDT [facility]th System Name Value Range Interpretation Description Data Sup porting Code Source(s) Document(s ) TissueExam Results for case # Normal (applies Tissue Exam [facility] [id number] to non-numeric Health SURGICAL PATHOLOGY results) System REPORTCLINICAL INFORMATION: LAP band slip. PREOPERATIVE DIAGNOSIS: Same. POSTOPERATIVE DIAGNOSIS: Same.FINAL DIAGNOSIS: Gastric band and port system (gross).GO/Jessica ROCA MDElectronically Signed By: GROSS DESCRIPTION: Received fresh, labeled "gastric band and port system", the specimen consists of a 3 x 3 x 1.5cm white plastic and raphael metal device inscribed with PORT-A-CATH [id number]. There is attached 45 x 0.3 x [...] 1 of 1 ID Date Data Source [id number] 04/23/2020 09:30:00 AM EDT [facility] Name Value Range Interpretation Description Data Sup porting Code Source(s) Document(s ) SARS [facility] coronavirus 2 RNA This lab was ordered by GISSELL MITCHELL and reported by [facility]. ID Date Data Source [id number] 04/19/2020 10:40:00 AM EDT [facility] Name Value Range Interpretation Description Data Sup porting Code Source(s) Document(s ) SARS [facility] coronavirus 2 RNA This lab was ordered by GISSELL hunter [facility] and reported by [facility]. ID Date Data Source [id number] 04/18/2020 09:16:00 AM EDT [facility] Name Value Range Interpretation Code Description Data [facility] rce(s) Supporting Document(s ) COVID-19.. [facility] This lab was ordered by [facility] and reported by [facility]. ID Date Data Source [id number] 04/17/2020 08:55:00 AM EDT [facility] Name Value Range Interpretation Description Data Sup porting Code Source(s) Document(s ) SARS [facility] coronavirus 2 RNA This lab was ordered by GISSELL hunter [facility] and reported by [facility]. ID Date Data Source [id number] 03/03/2020 11:40:00 AM EDT [facility] Name Value Range Interpretation Description Data Sup porting Code Source(s) Document(s ) 2019 Novel [facility] Coronavirus RNA Interpretation Unspecified Specimen Qualitative SHIMA Probe Detection This lab was ordered by [facility] and reported by [facility]. ID Date Data Source [id number] 04/19/2019 04:59:28 PM EDT [facility] [id number] Corporation Name Value Range Interpretation Description Data Sup porting Code Source(s) Document(s ) Leukocytes 5.1 k/mm3 4.8-10 <td> 04/14/2019 [place] [#/volume] .8 08:23</td><td> County in Blood by k/mm3 WBC </td><td> [employer] count 5.1
(4.8-10.8) k/mm3 </td> Erythrocytes 4.94 m/mm3 3.90-5 <td> 04/14/2019 [facility] r [#/volume] .20 08:23</td><td> County in Blood m/mm3 RBC </td><td> [employer] 4.94
(3.90-5.20) m/mm3 </td> Hemoglobin 14.5 g/dL 12.0-1 <td> 04/14/2019 [place] [Mass/volume 6.0 08:23</td><td> County ] in Blood g/dL HGB </td><td> Health Care [facility] 14.5
(12.0-16.0) g/dL </td> Erythrocyte 13.1 % 11.5-1 <td> 04/14/2019 [place] distribution 4.5 % 08:23</td><td> County width RDW </td><td> Health Care [[employer] volume] by 13.1 Automated count
(11.5-14.5) % </td> Platelet 11.0 fL 9.8-12 <td> 04/14/2019 [place] mean volume .8 fL 08:23</td><td> County [Entitic MPV </td><td> Health Care volume] in Corporation Blood by 11.0 Automated count
(9.8-12.8) fL </td> Erythrocyte 33.5 % 32.0-3 <td> 04/14/2019 [place] mean 6.0 % 08:23</td><td> [facility] corpuscular MCHC </td><td> Health Care hemoglobin Corporation concentratio 33.5 n [Mass/volume
] in Blood (32.0-36.0) % from Fetus </td> by Automated count Hematocrit 43.3 % 37.0-4 <td> 04/14/2019 [place] [Volume 7.0 % 08:23</td><td> County Fraction] of HCT </td><td> Health Care Blood by Immure Records Automated 43.3 count
(37.0-47.0) % </td> Erythrocyte 29.4 pg 27.0-3 <td> 04/14/2019 [place] mean 1.5 pg 08:23</td><td> County corpuscular MCH </td><td> Health Care hemoglobin Corporation [Entitic 29.4 mass] by Automated
count (27.0-31.5) pg </td> Erythrocyte 87.7 fL 81.0-9 <td> 04/14/2019 [place] mean 9.0 fL 08:23</td><td> [facility] corpuscular MCV </td><td> Health Care volume Corporation [Entitic 87.7 volume] by Automated
count (81.0-99.0) fL </td> Lymphocytes 41.3 % 17.0-5 <td> 04/14/2019 [place] [#/volume] 0.0 % 08:23</td><td> County in Blood by Lymphocytes Health Care Automated </td><td> Immure Records count 41.3
(17.0-50.0) % </td> Platelets 229 k/mm3 160-41 <td> 04/14/2019 [place] [#/volume] 0 08:23</td><td> County in Blood by k/mm3 Platelet Count Health Care Automated </td><td> Immure Records count 229
(160-410) k/mm3 </td> Monocytes/Le 6.1 % 0.0-11 <td> 04/14/2019 [place] ukocytes .0 % 08:23</td><td> County [Pure number Monocytes. Health Care fraction] in </td><td> Immure Records Blood by Automated 6.1 count
(0.0-11.0) % </td> Basophils 0.8 % 0.0-2. <td> 04/14/2019 [place] [#/volume] 0 % 08:23</td><td> County in Blood by Basophils Health Care Automated </td><td> Immure Records count 0.8
(0.0-2.0) % </td> Basophils+Eo 2.7 % 0.0-5. <td> 04/14/2019 [place] sinophils+Mo 0 % 08:23</td><td> County nocytes Eosinophils Health Care [#/volume] </td><td> Immure Records in Blood by Automated 2.7 count
(0.0-5.0) % </td> Potassium 4.8 mEq/L 3.5-5. <td> 04/14/2019 [place] [Moles/volum 1 08:23</td><td> County e] in Serum mEq/L Potassium-Serum Health Care or Plasma </td><td> Immure Records 4.8
(3.5-5.1) mEq/L </td> Immature 0.2 % 0.0-0. <td> 04/14/2019 [place] granulocytes 5 % 08:23</td><td> County /100 IG% [...] </td> Sodium 139 mEq/L 135-14 <td> 04/14/2019 [place] [Moles/volum 5 08:23</td><td> County e] in Serum mEq/L Sodium-Serum Health Care or Plasma </td><td> Corporation 139
(135-145) mEq/L </td> Glucose 96 mg/dL 70-105 <td> 04/14/2019 [place] [Mass/volume mg/dL 08:23</td><td> [facility] ] in Blood Glucose-Serum Health Care </td><td> Corporation 96
(70-105) mg/dL </td> Neutrophils 48.9 % 40.0-7 <td> 04/14/2019 [place] [#] in Body 6.0 % 08:23</td><td> [facility] fluid by Neutrophils Health Care Manual count </td><td> Corporation 48.9
(40.0-76.0) % </td> Creatinine 0.82 mg/dL 0.57-1 <td> 04/14/2019 [place] [Moles/volum .11 08:23</td><td> County e] in Serum mg/dL Creatinine. Health Care or Plasma </td><td> Immure Records 0.82
(0.57-1.11) mg/dL </td> Urea 10 mg/dL 6-22 <td> 04/14/2019 [place] nitrogen mg/dL 08:23</td><td> [facility] [Mass/volume BUN </td><td> Health Care ] in Blood [employer] 10
(6-22) mg/dL </td> Chloride 103 mEq/L 98-107 <td> 04/14/2019 [place] [Moles/volum mEq/L 08:23</td><td> County e] in Serum Chloride Health Care or Plasma </td><td> Corporation 103
(98-107) mEq/L </td> Carbon 29 mEq/L 22-30 <td> 04/14/2019 [place] dioxide, mEq/L 08:23</td><td> [facility] total CO2 </td><td> Health Care [Moles/volum Corporation e] in Serum 29 or Plasma
(22-30) mEq/L </td> Albumin 4.3 g/dL 3.4-4. <td> 04/14/2019 [place] [Mass/volume 8 g/dL 08:23</td><td> [facility] ] in Serum Albumin Health Care or Plasma </td><td> [facility] Records 4.3
(3.4-4.8) g/dL </td> Proteins - 7.0 g/dL 6.4-8. <td> 04/14/2019 [place] Total 3 g/dL 08:23</td><td> [facility] Proteins - Health Care [employer] </td><td> 7.0
(6.4-8.3) g/dL </td> Alanine 20 U/L 6-55 <td> 04/14/2019 [place] aminotransfe U/L 08:23</td><td> [facility] rase ALT (SGPT) Health Care [Enzymatic </td><td> Corporation activity/vol ume] in 20 Serum or
Plasma (6-55) U/L </td> Aspartate 15 U/L 4-35 <td> 04/14/2019 [place] aminotransfe U/L 08:23</td><td> [facility] rase AST (SGOT) Health Care [Enzymatic </td><td> Corporation activity/vol ume] in 15 Serum or
Plasma (4-35) U/L </td> Bilirubin.to 0.5 mg/dL 0.2-1. <td> 04/14/2019 [place] livan 3 08:23</td><td> [facility] [Mass/volume mg/dL Bilirubin - Health Care ] in Blood [employer] </td><td> 0.5
(0.2-1.3) mg/dL </td> Calcium 9.6 mg/dL 8.6-10 <td> 04/14/2019 [place] [Mass/volume .2 08:23</td><td> [facility] ] in Blood mg/dL Calcium Health Care </td><td> [facility] 9.6
(8.6-10.2) mg/dL </td> Globulin 2.7 gm/dL 2.9-4. <td> 04/14/2019 [place] [Mass/volume 0 08:23</td><td> [facility] ] in Serum gm/dL Globulin Health Care </td><td><valerie [facility] raph styleCode="Bold "> 2.7 L </paragraph>
(2.9-4.0) gm/dL </td> Lipemic No Lipemia <td> 04/14/2019 [place] index of 08:23</td><td> [facility] Serum or Lipemia Index Health Care Plasma </td><td> Imm[facility] Records No Lipemia
</td> Phosphate 3.1 mg/dL 2.3-4. <td> 04/04/2019 [place] [Mass/volume 7 08:28</td><td> [facility] ] in Serum mg/dL Inorganic Health Care or Plasma Phosphorus [facility] </td><td> 3.1
(2.3-4.7) mg/dL </td> Icteric Non Icteric <td> 04/14/2019 [place] index of 08:23</td><td> [facility] Serum or Icteric Index Health Care Plasma </td><td> Immure Records Non Icteric
</td> Anion gap in 7 mEq/L 7-13 <td> 04/14/2019 [place] Serum or mEq/L 08:23</td><td> [facility] Plasma Anion Gap Health Care </td><td> Corporation 7
(7-13) mEq/L </td> Hemolysis No Hemolysis <td> 04/14/2019 [place] index of 08:23</td><td> [facility] Serum or Hemolysis Index Health Care Plasma </td><td> Corporation No Hemolysis
</td> Prothrombin 10.8 secs 9.8-12 <td> 04/03/2019 [place] time (PT) .0 15:28</td><td> [facility] secs Prothrombin Health Care Time. [facility] </td><td> 10.8
(9.8-12.0) secs </td> aPTT panel - 24.6 secs 25.0-3 <td> 04/03/2019 [place] Platelet 2.0 15:28</td><td> [facility] poor plasma secs Partial Health Care Thromboplastin [facility] Time </td><td><valerie raph styleCode="Bold "> 24.6 L </paragraph>
(25.0-32.0) secs </td> Appearance Cloudy <td> 04/03/2019 [place] of Urine 15:28</td><td> [facility] Appearance Health Care </td><td> Corporation Cloudy
(CLEAR) </td> Protein 1+ (30 MG/DL) <td> [facility]:28</td><td> [facility] in Urine by Protein Health Care Automated [employer]itative [employer] test strip </td><td> 1+ (30 MG/DL)
(NEGATIVE) </td> Specific 1.010 {} 1.000- <td> 04/03/2019 [place] gravity of 1.035 15:28</td><td> [facility] Urine by Specific Health Care Test strip [place] Imm[facility] Records </td><td> 1.010
(1.000-1.035) </td> Nitrite Negative <td> 04/03/2019 [place] [Presence] 15:28</td><td> [facility] in Urine by Nitrites Health Care Test strip </td><td> Corporation Negative
(NEGATIVE) </td> Glucose Negative <td> 04/03/2019 [place] [Presence] 15:28</td><td> [facility] in Urine by Glucose_ Health Care Test strip </td><td> Corporation Negative
(NEGATIVE) </td> Leukocyte 3+ <td> 04/03/2019 [place] esterase 15:28</td><td> County [Presence] Leukocytes Health Care in Urine by Esterase Corporation Test strip </td><td><valerie raph styleCode="Bold "> 3+ * AB </paragraph>
(NEGATIVE) </td> Leukocytes 36 /HPF 0-5 <td> 04/03/2019 [place] [Presence] /HPF 15:28</td><td> [place] in Urine by WBC </td><td> Health Care Automated [employer] 36
(0-5) /HPF </td> Erythrocytes 13 /HPF 0-2 <td> 04/03/2019 [place] [#/area] in /HPF 15:28</td><td> County Urine RBC </td><td> Health Care sediment by Corporation Automated 13 count
(0-2) /HPF </td> Urobilinogen 0.2 mg/dL 0.0-2. <td> 04/03/2019 [place] [Presence] 0 15:28</td><td> [place] in Urine by mg/dL Urobilinogen Health Care Automated </td><td> Corporation test strip 0.2
(0.0-2.0) mg/dL </td> Epithelial MASSIVE <td> 04/03/2019 [place] cells FEW 15:28</td><td> County [#/area] in Transitional Epithelial Health Care Urine Epithelial Cells [employer] sediment by cells 3/HPF </td><td> Automated count MASSIVE
/LPF
FEW
Transitional Epithelial cells 3/HPF

/LPF </td> Magnesium 1.9 mg/dL 1.6-2. <td> 04/04/2019 [place] [Mass/volume 6 08:28</td><td> [facility] ] in Serum mg/dL Magnesium Level Health Care or Plasma </td><td> Corporation 1.9
(1.6-2.6) mg/dL </td> Amorphous RARE < <td> 04/03/2019 [place] Crystal FEW 15:28</td><td> [facility] Amorphous Health Care [employer] </td><td> RARE
/HPF
< FEW

/HPF </td> Bacteria MODERATE <td> 04/03/2019 [place] [#/area] in 15:28</td><td> [facility] Urine Bacteria Health Care sediment by </td><td> Corporation Microscopy high power MODERATE field
(NONE SEEN) /HPF </td> Calcium RARE Ca <td> 04/03/2019 [facility] r oxalate Oxalate 15:28</td><td> [facility] crystals Crystals..May Calcium Oxalate Health Car e [Presence] be present in [employer] in Urine normal, acid </td><td> sediment by or alkaline Light urine RARE microscopy
(SEE BELOW) /HPF
Ca Oxalate Crystals..May be present in normal, acid or alkaline urine

(SEE BELOW) /HPF </td> Mucous FEW < <td> 04/03/2019 [place] FEW 15:28</td><td> [facility] Mucous Health Care </td><td> Corporation FEW
/LPF
< FEW

/LPF </td> Cholesterol 116 mg/dL <150 <td> 04/04/2019 [place] in LDL mg/dL 08:28</td><td> [facility] [Mass/volume LDL Cholesterol Health Care ] in Serum </td><td> Imm[facility] Records or Plasma 116
(<150) mg/dL </td> Triglyceride 80 mg/dL 30-200 <td> 04/04/2019 [place] [Mass/volume mg/dL 08:28</td><td> [facility] ] in Serum Triglyceride Health Care or Plasma </td><td> Corporation 80
(30-200) mg/dL </td> Cholesterol 37 mg/dL >60 <td> 04/04/2019 [place] in HDL mg/dL 08:28</td><td> [facility] [Mass/volume HDL Cholesterol [facility] ] in Serum </td><td> Corporation or Plasma 37
(>60) mg/dL </td> Cholesterol 169 mg/dL 125-24 <td> 04/04/2019 [place] [Moles/volum 0 08:28</td><td> [facility] e] in Serum mg/dL Cholesterol Health Care or Plasma </td><td> [facility] Records 169
(125-240) mg/dL </td> Hemoglobin 5.3 % 4.0-5. <td> 04/04/2019 [place] A1C 6 % 08:28</td><td> [facility] Hemoglobin A1C Health Care </td><td> [facility] 5.3
(4.0-5.6) %
Increased risk [...]
11 269
12 298
Source: Adapted from [employer]. Standards of medical
care in diabetes-2014. Diabetes Care.2014;37([place] pp 1):S14-S80, table 8.

(4.0-5.6) % </td> Procedure Vital Signs ID Date Data Source UNK Name Value Range Interpretation Code Description Data Source(s) Body temperature 97.6 [degF] 0 - 200 Normal (applies to 97.6 [degF ] [facility] non-numeric results) [facility] Body temperature 36.4 [place]ala 0 - 99.9 Below low normal 36.4 [place] [facility] Diastolic blood 51 mm[Hg] 0 - 999 Below low normal 51 mm[Hg] [facility] Systolic blood 113 mm[Hg] 0 - 999 Normal (applies to 113 mm[Hg] [facility] pressure non-numeric results) [facility] Oxygen saturation 98 % 0 - 999 Normal (applies to 98 % [facility] in Arterial blood non-numeric results) [facility] by Pulse oximetry Respiratory rate 16 0 - 999 Normal (applies to 16 [facility] non-numeric results) [facility] Heart rate 77 0 - 999 Normal (applies to 77 [facility] non-numeric results) [facility] Body surface area [address] [facility] Derived from Health Syste m formula Body mass index 36.6 kg/m2 36.6 kg/m2 [facility] (BMI) [Ratio] Health Syst em Body weight 99.79 kg 99.79 kg [facility] Body height 165.1 cm 165.1 cm [facility] Patient Treatment Plan of Care Planned Activity Planned Date Details Description Data Source (s) Ibuprofen 600 MG Oral 04/20/2020 10:03:52 [facility] EDT System
--- OUTSIDE RECORDS SUMMARY | 2020-06-28 06:20 | XMS ---
:[address] [facility] Care Team Providers Name Role Phone CAITLIN SERNA Unavailable Unavailable HHCCC, PMH9 Unavailable Unavailable Denton Valle Unavailable Unavailable Cheo Unavailable Unavailable Lyod Unavailable Unavailable MD Maurice Unavailable Unavailable Re-disclosure [...] is protected by Article 27-F of the [place] State Public Health law. If you continue you may haveaccess to information: Regarding HIV / AIDS; Provided by facilities licensed or operated by the [facility] Office of Mental Health; or Provided by the [facility] Office for People With Developmental Disabilities. If such information is present, then the following [facility] mandated warning applies: This information has been [...] law may result in a fine or [place] health care facility sentence or both. A general authorization for the release of medical or other information is NOT sufficient authorization for further disclosure. Allergies and Adverse Reactions Type Description Substance Reaction Status Data Source(s ) 3 NO KNOWN DRUG ALLERGIES NO KNOWN DRUG NEXTGEN ([facility] ALLERGIES [facility]) Encounters Encounter Providers Location Date Indications Data Source(s ) Outpatient Attender: Barb ICU-HEPACLN 06/27/2020 [place] 11:27:00 PM [facility] EDT Outpatient Attender: Daniel ICU-HEPACLN 06/27/2020 [facility] [place] 12:33:00 AM [facility] EDT Outpatient Attender: Denton 06/12/2020 NEXTGEN WainwrightReferrer: 03:15:00 PM (Car emosanjuana Chawla Leonard EDT [facility]) S Attender: MD [facility] ICU-AMB SURG 04/18/2020 [facility] 12:07:22 PM [facility] EDT - 04/20/2020 02:58:00 PM EDT Patient discharged. Outpatient Attender: MD [facility] ICU-LAB 04/17/2020 05:22:25 PM [facility] [place] Maurice EDT - 04/18/2020 [facility]osp[facility] 11:59:00 PM EDT Patient discharged. Outpatient Attender: PM9 [facility] 12/16/2019 12:44:17 PM I (Counts Include [facility] EDT Collaborative) Patient admitted. Outpatient Attender: Denton 08/18/2019 03:00:00 NEXTGEN (Carewi[facility] WainwrightReferrer: Denton [facility]) Outpatient Attender: KAREEM 05/04/2019 06:00:00 [facility] MYKEdmitter: CAITLIN SERNA EDT [facility] [place] Medications Medication Brand Start Product Dose Route Administrative Pharmacy [facility] Indications Reaction Description Data Name Date Form Instructions Instructions Source(s) Simvastatin SIMVAS take 1 tablet RP NEXTGEN 10 MG Oral TATIN by oral route ([facility] Tablet 10 every day in Ar dical - mg 10 mg the evening [facility]) This may be an active medication. No end date is available. Start date above may not reflect actual date the medication was s tarted. 2 ML benztropine BENZTROPINE inject 1 RP NEXTGEN mesylate 1 MG/ML MESYLATE milliliter by ([facility] Injection 2 mg/2 intravenous route [facility] mL 2 mg/2 mL 2 times every day [facility]) This may be an active medication. No end date is available. Start date above may not reflect actual date the medication was s tarted. gabapentin 100 MG GABAPENTIN take 3 capsule RP NEXTGEN ([facility] Oral Capsule 100 mg by oral route [address] [facility] 100 [facility] times [facility]) This may be an active medication. No end date is available. Start date above may not reflect actual date the medication was s tarted. 10 mcg (400 unit) 10 mcg (400 RP NEXTGEN ([facility] - [place] unit) [facility]) This may be an active medication. No end date is available. Start date above may not reflect actual date the medication was s tarted. [place] Carbonate LITHIUM CARBONATE take 1 tablet RP NEXTGEN ([facility] 300 MG Oral by oral route [facility] Tablet 300 mg 300 2 times every [facility]) mg day This may be an active medication. No end date is available. Start date above may not reflect actual date the medication was s tarted. 100 mg-160 mg-1,000 mg 100 RP NEXTGEN ([facility] - [place] mg-160 mg-1,000 mg [facility]) This may be an active medication. No end date is available. Start date above may not reflect actual date the medication was s tarted. Escitalopram 20 MG ESCITALOPRAM take 1 RP NEXTGEN Oral Tablet 20 mg OXALATE tablet by ([facility] 20 mg oral route [facility] every day [facility]) This may be an active medication. No end date is available. Start date above may not reflect actual date the medication was s tarted. atorvastatin 40 MG ATORVASTATIN take 1 RP [facility]EXTGEN Oral Tablet 40 mg CALCIUM tablet by ([facility] 40 mg oral route [facility] every day [facility]) This may be an active medication. No end date is available. Start date above may not reflect actual date the medication was s tarted. aripiprazole 20 MG ABILIFY take 1 tablet by RP NEXTGEN ([facility] Oral Tablet [Abilify] oral route [facility] 20 mg 20 mg every day Med ical [facility]) This may be an active medication. No end date is available. Start date above may not reflect actual date the medication was s tarted. 50 mg 50 mg take 1 tablet by oral RP NEXTGEN ([facility] - route 2 times every day [facility]) after meals This may be an active medication. No end date is available. Start date above may not reflect actual date the medication was s tarted. 2 % 2 % 06/12/2020 12:00:00 apply by topical RP NEXTGEN ([facility] AM EDT route 2 times [facility] every day to the [facility] ica [facility]) affected area(s) This may be an active medication. No end date is available. Hydrocortisone HYDROCORTISONE 06/12/2020 apply by RP [facility] 25 MG/ML Topical 12:00:00 AM topical route ([facility] Cream 2.5 % 2.5 EDT 2 times every Medical - % day to the [facility] affected Medical area(s); after Group [facility]) first week discontinue and use only ketoconazole This may be an active medication. No end date is available. Ibuprofen ibuprofen 04/20/2020 1 {tab(s)} [id number] active Ibuprofen [facility] 600 MG Oral 600 [...] ryan / Coverage libertarian ID relationship to [facility] type rush MEDICARE [id number] 95 5 MEDICAID [id number] SP [id number] Medicaid Medicaid [id number] Medicare Part Medicare [id number] 1 [id number] B Outpatient 5 Medicare Medicare [id number] 1 [id number] 95 5 Financial Self Pay 1 Assist 55% MEDICARE [id number] SP [id number] 95 5 MDCR Medicare [id number] 1 [id number] Part B Par 5 Providers MEDICARE [id number] SP [id number] 95 5 Medicaid Medicaid [id number] Medicare Part Medicare [id number] 1 [id number] B Outpatient Medicare Medicare [id number] 1 [id number] A [employer] [id number] SP [id number] [employer] [id number] Verical SELF PAY 00 Self 00 REDUCTION SELF PAY 000 Self 000 Problems, Conditions, and Diagnoses Code Display Name Description Problem Type Effective Data Dates Source(s) E66.01 Morbid (severe) Morbid obesity Diagnosis 06/27/2020 [facility] - New obesity due to excess 11:27:00 PM Ro nico calories [facility] Z48.815 Encounter for Aftercare following Diagnosis 06/27/2020 MH S - New surgical aftercare other surgery of 12:33:00 AM Dracut following surgery on teeth, oral cavity, EDT [facility] the digestive system and digestive system K13.0 Diseases of lips Perleche Diagnosis 06/12/2020 NEXTGEN 03:15:00 PM [facility] R11.10 Vomiting, unspecified Vomiting Diagnosis 04/20/2020 [facility] - New 06:38:00 AM [facility] K95.09 Other complications Other complications Diagnosis 020 [facility] - New of gastric band of gastric band 06:38:00 AM Attila helle procedure procedure [facility] K43.6 Other and unspecified Other or unspecified Diagnosis 04/01 [facility] - New ventral hernia with ventral hernia with 06:38:0 0 AM Dr[facility] obstruction, without obstruction without EDT [facility] gangrene gangrene [id number] Laparoscopy, Laparoscopy, Diagnosis 04/20/2020 [facility] - New surgical, gastric surgical, gastric 06:38:00 AM Dr[place] restrictive restrictive [facility] procedure; removal of procedure; removal adjustable gastric of adjustable restrictive device gastric restrictive and subcutaneous port device and components subcutaneous port components R13.10 Dysphagia, Dysphagia Diagnosis 04/20/2020 S - New unspecified 06:38:00 AM [facility] Z11.59 Encounter for Encounter for Diagnosis 04/18/2020 [facility] - Ne w screening for other laboratory testing 08:10:00 AM [facility] viral diseases [facility] Encounter for other Preop examination Diagnosis 0 [facility] - New preprocedural 08:10:00 AM Dracut examination [facility] Z12.83 Encounter for Screening exam for Diagnosis 08/18/2019 NEX TGEN screening for skin cancer 03:00:00 PM ([facility] malignant neoplasm of EST Med ical - [place] skin [facility]) L82.1 Other seborrheic Other seborrheic Diagnosis 08/18/2019 NE XTGEN keratosis keratosis 03:00:00 PM ([facility] EST Medical [facility] Medical [facility]) D18.01 Hemangioma of skin Angioma of skin Diagnosis 08/18/2019 N EXTGEN and subcutaneous 03:00:00 PM ([facility] unt tissue EST [facility]) L81.4 Other melanin Other melanin Diagnosis 08/18/2019 NEXTGEN hyperpigmentation hyperpigmentation 03:00:00 PM ([facility] EST [facility]) L81.2 Freckles Freckles Diagnosis 08/18/2019 NEXTGEN 03:00:00 PM ([facility] EST [facility]) D22.5 Melanocytic nevi of Melanocytic nevi of Diagnosis 019 NEXTGEN trunk trunk 03:00:00 PM ([facility] EST [facility]) Surgeries/Procedures Procedure Description Date Indications Data Source(s) OFFICE/OUTPATIENT OFFICE/OUTPATIENT 06/12/2020 NEXTG EN ([facility] VISIT EST VISIT EST 12:00:00 AM [facility]) Tissue Exam 04/20/2020 [facility] 01:52:15 PM System EDT - 04/20/2020 09:25:00 AM EDT Venipuncture 04/18/2020 [facility] 08:48:26 AM System EDT - 04/18/2020 10:00:06 AM EDT OFFICE/OUTPATIENT OFFICE/OUTPATIENT 08/18/2019 NEXTG EN ([facility] VISIT EST VISIT EST 12:00:00 AM Medical - [facility] EST [facility] Group [facility]) Results ID Date Data Source [id number] 06/24/2020 02:47:00 PM EDT [facility] Name Value Range Interpretation Description Data Sup porting Code Source(s) Document(s ) SARS [facility] coronavirus 2 RNA This lab [facility] and reported by [facility]. ID Date Data Source [id number] 06/14/2020 10:11:00 AM EDT [facility] Name Value Range Interpretation Description Data Sup porting Code Source(s) Document(s ) SARS [facility] coronavirus 2 RNA This lab was [facility] by [facility] hunter [facility] and reported by [facility]. ID Date Data Source [id number] 06/07/2020 09:55:00 AM EDT [facility] Name Value Range Interpretation Description Data Sup porting Code Source(s) Document(s ) SARS [facility] coronavirus 2 RNA This lab was [facility] by [facility] and reported by [facility]. ID Date Data Source [id number] 05/31/2020 08:22:00 AM EDT [facility] Name Value Range Interpretation Description Data Sup porting Code Source(s) Document(s ) SARS [facility] coronavirus 2 RNA This lab [facility] nadia [facility] and reported by [facility]. ID Date Data Source [id number] 05/23/2020 10:55:00 AM EDT [facility] Name Value Range Interpretation Description Data Sup porting Code Source(s) Document(s ) SARS [facility] coronavirus 2 RNA This lab was [facility] and reported by [facility]. ID Date Data Source [id number] 05/17/2020 09:40:00 AM EDT [facility] Name Value Range Interpretation Description Data Sup porting Code Source(s) Document(s ) SARS [facility] coronavirus 2 RNA This lab was [facility] by [facility] Tello nadia [facility] and reported by [facility]. ID Date Data Source [id number] 05/14/2020 09:15:00 AM EDT [facility] Name Value Range Interpretation Description Data Sup porting Code Source(s) Document(s ) SARS [facility] coronavirus 2 RNA This lab [facility] and reported by [facility]. ID Date Data Source [id number] 05/11/2020 10:28:00 AM EDT [facility] Name Value Range Interpretation Description Data Sup porting Code Source(s) Document(s ) SARS [facility] coronavirus 2 RNA This lab was [facility] by [facility] Tello [facility] and reported by [facility]. ID Date Data Source [id number] 05/08/2020 01:40:00 PM EDT [facility] Name Value Range Interpretation Description Data Sup porting Code Source(s) Document(s ) SARS [facility] coronavirus 2 RNA This lab was [facility] Tello [facility] and reported by [facility]. ID Date Data Source [id number] 05/04/2020 12:40:00 PM EDT [facility] Name Value Range Interpretation Description Data Sup porting Code Source(s) Document(s ) SARS [facility] coronavirus 2 RNA This lab was [facility] Tello [facility] and reported by [facility]. ID Date Data Source [id number] 04/30/2020 10:00:00 AM EDT [facility] Name Value Range Interpretation Description Data Sup porting Code Source(s) Document(s ) SARS [facility] coronavirus 2 RNA This lab was [facility] by [facility] Tello [facility] and reported by [facility]. ID Date Data Source [id number] 04/27/2020 10:40:00 AM EDT [facility] Name Value Range Interpretation Description Data Sup porting Code Source(s) Document(s ) SARS [facility] coronavirus 2 RNA This lab was [facility] by [facility] Tello [facility] and reported by [facility]. ID Date Data Source [id number] 04/24/2020 02:25:28 AM EDT [facility] System Name Value Range Interpretation Description Data Sup porting Code Source(s) Document(s ) D Ab Rh Positive Normal (applies Rh Factor, [facility] [Titer] in to non-numeric Whole Blood Health Syste m Serum or results) Plasma Type O Normal (applies Type [facility] to non-numeric Health System results) new pt--no historyPreviously released as O on 12/24/2011, 4:42 PM [place] [id number] - added comment for o/r AntibodyScreen Negative Normal (applies to Antibody Screen [facility] non-numeric results) System ID Date Data Source [id number] 04/24/2020 02:25:28 AM EDT [place] [facility] Name Value Range Interpretation Description [...] quantitative testing recommened. ID Date Data Source [id number] 04/24/2020 02:25:28 AM EDT [facility] Name Value Range Interpretation Description Data Sup porting Code Source(s) Document(s ) RubellaInterpreta Positive Normal (applies Rubella [facility] tion to non-numeric Interpretation Health results) System <5 Negative>=5 - <10 Equivocal>= 10 Positive Rubella 27 {IU/mL} Normal (applies to Rubella [facility] System non-numeric results) ID Date Data Source [id number] 04/24/2020 02:25:28 AM EDT [facility] Name Value Range Interpretation Description Data Sup porting Code Source(s) Document(s ) VaricellaInterpre Positive Normal (applies Varicella [facility] tation to non-numeric Interpretation Health results) System <0.6 Negative>=0.6 - <.90 Equivoc al>=.90 Positive VaricellaResultValue 1.78 Normal (applies to Varicel la Result [facility] non-numeric results) Value System ID Date Data Source [id number] 04/24/2020 02:25:28 AM EDT [facility] [...] Equivo lloyd>=.70 Positive ID Date Data Source [id number] 04/24/2020 02:25:28 AM EDT [facility] [...] Health System results) ID Date Data Source [id number] 04/24/2020 02:25:28 AM EDT [facility] Name Value Range Interpretation Description Data Sup porting Code Source(s) Document(s ) 18972-4 NEGATIVE Testing Normal (applies COVID-19.. [facility] [...] Range: NEGATIVE . ID Date Data Source [id number] 04/24/2020 02:25:28 AM EDT [facility] [...] Health results) System ID Date Data Source [id number] 04/24/2020 02:25:28 AM EDT [facility] [...] Health results) System ID Date Data Source [id number] 04/24/2020 02:25:28 AM EDT [facility] Name Value Range Interpretation Description Data Sup porting Code Source(s) Document(s ) TissueExam Results for case # Normal (applies Tissue Exam [facility] [id number] to non-numeric Health SURGICAL PATHOLOGY results) System REPORTCLINICAL INFORMATION: LAP band slip. PREOPERATIVE DIAGNOSIS: Same. POSTOPERATIVE DIAGNOSIS: Same.FINAL DIAGNOSIS: Gastric band and port system (gross).GO/Jessica ROCA MDElectronically Signed By: GROSS DESCRIPTION: Received fresh, labeled "gastric band and port system", the specimen consists of a 3 x 3 x 1.5cm white plastic and raphael metal device inscribed with PORT-A-CATH [id number]. There is attached 45 x 0.3 x [...] 1 of 1 ID Date Data Source [id number] 04/23/2020 09:30:00 AM EDT [facility] Name Value Range Interpretation Description Data Sup porting Code Source(s) Document(s ) SARS [facility] coronavirus 2 RNA This lab was ordered by GISSELL hunter [facility] and reported by [facility]. ID Date Data Source [id number] 04/19/2020 10:40:00 AM EDT [facility] Name Value Range Interpretation Description Data Sup porting Code Source(s) Document(s ) SARS [facility] coronavirus 2 RNA This lab was ordered by GISSELL DAVE hunter [facility] and reported by [facility]. ID Date Data Source [id number] 04/18/2020 09:16:00 AM EDT [facility] Name Value Range Interpretation Code Description Data April rce(s) Supporting Document(s ) COVID-19.. [facility] This lab was ordered by [facility] and reported by [facility]. ID Date Data Source [id number] 04/17/2020 08:55:00 AM EDT [facility] Name Value Range Interpretation Description Data Sup porting Code Source(s) Document(s ) SARS [facility] coronavirus 2 RNA This lab was ordered by [facility] DAVE hunter [facility] and reported by [facility]. ID Date Data Source [id number] 03/03/2020 11:40:00 AM ED[facility] Name Value Range Interpretation Description Data Sup porting Code Source(s) Document(s ) 2019 Novel [facility] Coronavirus RNA Interpretation Unspecified Specimen Qualitative SHIMA Probe Detection This lab was ordered by [facility] and reported by [facility]. Procedure Vital Signs ID Date Data Source UNK Name Value Range Interpretation Code Description Data Source(s) Body temperature 97.6 [degF] 0 - 200 Normal (applies to 97.6 [degF ] [facility] non-numeric results) [facility] Body temperature 36.4 Tala 0 - 99.9 Below low normal 36.4 Tala [facility] Diastolic blood 51 mm[Hg] 0 - 999 Below low normal 51 mm[Hg] Mon [facility] Systolic blood 113 mm[Hg] 0 - 999 Normal (applies to 113 mm[Hg] [facility] pressure non-numeric results) [facility] Oxygen saturation 98 % 0 - 999 Normal (applies to 98 % [facility] Arterial blood non-numeric results) Health System by Pulse oximetry Respiratory rate 16 0 - 999 Normal (applies to 16 [facility] non-numeric results) [facility] Heart rate 77 0 - 999 Normal (applies to 77 [facility] non-numeric results) [facility] Body surface area 2 m2 2 m2 [facility] Derived from Health Syste m formula Body mass index 36.6 kg/m2 36.6 kg/m2 [facility] ([facility]) [Ratio] Health Syst em Body weight 99.79 kg 99.79 kg [facility] Body height 165.1 cm 165.1 cm [facility] Patient Treatment Plan of Care Planned Activity Planned Date Details Description Data Source (s) Ibuprofen 600 MG Oral 04/20/2020 10:03:52 [facility] Tablet AM EDT System
[2020-06-28 06:55] VITALS: BMI 42.5
[2020-06-28] MEDS ORDERED: KETAMINE HCL 500 MG/10 ML VIAL ONE (07:46)
[2020-06-28] MEDS ORDERED: PROPOFOL 20 ML ONE (08:14)
[2020-06-28] MEDS ORDERED: SUCCINYLCHOLINE CHLORIDE 200 MG/10 ML SYRINGE ONE (08:15)
[2020-06-28 09:24] VITALS: TEMP 97.9
[2020-06-28 11:33] VITALS: BP 112/67; PULSE 87
== END 2020-06-28 11:30 | disposition home or self-care (01) ==
LOC: FECT 06:17
PROVIDERS: ATTEND Psychiatry & Neurology Psychiatry
PROC: GZB4ZZZ Other Electroconvulsive Therapy (ICD-10-PCS; principal; 2020-06-28 09:00)
DX: F32.9 Major depressive disorder, single episode, unspecified (principal)
CPT/HCPCS: 90870; 94760

== ENCOUNTER 2020-08-13 09:40 | Day surgery (SDC) | payer OTHER ==
[2020-08-09 12:36] VITALS: BMI 42.5
[2020-08-13] MEDS ORDERED: SUCCINYLCHOLINE CHLORIDE 200 MG/10 ML SYRINGE ONE (12:09)
[2020-08-13] MEDS ORDERED: PROPOFOL 20 ML ONE (12:09)
[2020-08-13] MEDS ORDERED: KETAMINE HCL 200 MG/20 ML VIAL ONE (12:09)
[2020-08-13 13:47] VITALS: TEMP 98.8
[2020-08-13 14:11] VITALS: BP 121/68; PULSE 84
== END 2020-08-13 14:50 | disposition home or self-care (01) ==
LOC: FECT 09:40
PROVIDERS: ATTEND Psychiatry & Neurology Psychiatry
PROC: GZB4ZZZ Other Electroconvulsive Therapy (ICD-10-PCS; principal; 2020-08-13 11:00)
DX: F32.9 Major depressive disorder, single episode, unspecified (principal)
CPT/HCPCS: 90870; 94760

== ENCOUNTER 2020-08-28 07:01 | Day surgery (SDC) | payer OTHER ==
[2020-08-21 12:38] VITALS: BMI 42.4
[2020-08-28] MEDS ORDERED: KETAMINE HCL 500 MG/10 ML VIAL ONE (08:26)
[2020-08-28] MEDS ORDERED: LIDOCAINE HCL/PF 2% SDV 5ML VIAL ONE (08:36)
[2020-08-28 09:44] VITALS: TEMP 98.7
[2020-08-28 10:25] VITALS: BP 111/73; PULSE 86
== END 2020-08-28 11:15 | disposition home or self-care (01) ==
LOC: FECT 07:01
PROVIDERS: ATTEND Psychiatry & Neurology Psychiatry
PROC: GZB4ZZZ Other Electroconvulsive Therapy (ICD-10-PCS; principal; 2020-08-28 07:30)
DX: F32.9 Major depressive disorder, single episode, unspecified (principal)
CPT/HCPCS: 90870; 94760

== ENCOUNTER 2020-09-24 09:25 | Day surgery (SDC) | payer OTHER ==
[2020-09-24 09:49] VITALS: BMI 43.7
[2020-09-24] MEDS ORDERED: KETAMINE HCL 500 MG/10 ML VIAL ONE (09:56)
[2020-09-24 11:12] VITALS: TEMP 98.7
[2020-09-24 12:47] VITALS: BP 112/76; PULSE 81
== END 2020-09-24 12:15 | disposition home or self-care (01) ==
LOC: FECT 09:25
PROVIDERS: ATTEND Psychiatry & Neurology Psychiatry
PROC: GZB4ZZZ Other Electroconvulsive Therapy (ICD-10-PCS; principal; 2020-09-24 10:00)
DX: F32.9 Major depressive disorder, single episode, unspecified (principal)
CPT/HCPCS: 90870; 94760

== ENCOUNTER 2020-10-08 09:57 | Day surgery (SDC) | payer OTHER ==
[2020-10-08 10:33] VITALS: TEMP 98.2; BMI 44.2
[2020-10-08] MEDS ORDERED: KETAMINE HCL 500 MG/10 ML VIAL ONE (11:40)
[2020-10-08 13:10] VITALS: BP 116/66; PULSE 77
== END 2020-10-08 13:40 | disposition home or self-care (01) ==
LOC: FECT 09:57
PROVIDERS: ATTEND Psychiatry & Neurology Psychiatry
PROC: GZB4ZZZ Other Electroconvulsive Therapy (ICD-10-PCS; principal; 2020-10-08 11:00)
DX: F32.9 Major depressive disorder, single episode, unspecified (principal)
CPT/HCPCS: 90870; 94760

== ENCOUNTER 2020-10-29 09:37 | Day surgery (SDC) | payer OTHER ==
[2020-10-29 09:59] VITALS: BMI 43.7
[2020-10-29] MEDS ORDERED: KETAMINE HCL 500 MG/10 ML VIAL ONE (11:08)
[2020-10-29] MEDS ORDERED: ONDANSETRON 4 MG/2 ML VIAL ONE (11:12)
[2020-10-29] MEDS ORDERED: LIDOCAINE HCL/PF 2% SDV 5ML VIAL ONE (11:12)
[2020-10-29] MEDS ORDERED: DEXAMETHASONE SOD PHOSPHATE 4 MG/1 ML VIAL ONE (11:12)
[2020-10-29] MEDS ORDERED: ACETAMINOPHEN 500 MG TABLET (FP) PO PRN (11:49)
[2020-10-29] MEDS ORDERED: LACTATED RINGERS SOLUTION 1,000 ML IV SCH (12:00)
[2020-10-29 12:42] VITALS: TEMP 97.6
[2020-10-29 13:04] VITALS: BP 112/72; PULSE 81
== END 2020-10-29 13:32 | disposition home or self-care (01) ==
LOC: FECT 09:37
PROVIDERS: ATTEND Psychiatry & Neurology Psychiatry
PROC: GZB4ZZZ Other Electroconvulsive Therapy (ICD-10-PCS; principal; 2020-10-29 11:00)
DX: F32.9 Major depressive disorder, single episode, unspecified (principal)
CPT/HCPCS: 90870; 94760

== ENCOUNTER 2020-11-12 08:47 | Day surgery (SDC) | payer OTHER ==
[2020-11-12 09:20] VITALS: BMI 43.7
[2020-11-12] MEDS ORDERED: KETAMINE HCL 500 MG/10 ML VIAL ONE (09:53)
[2020-11-12 13:01] VITALS: TEMP 97.7
[2020-11-12 13:02] VITALS: BP 121/71; PULSE 81
== END 2020-11-12 12:15 | disposition home or self-care (01) ==
LOC: FECT 08:47
PROVIDERS: ATTEND Psychiatry & Neurology Psychiatry
PROC: GZB4ZZZ Other Electroconvulsive Therapy (ICD-10-PCS; principal; 2020-11-12 11:00)
DX: F32.9 Major depressive disorder, single episode, unspecified (principal)
CPT/HCPCS: 90870; 94760

== ENCOUNTER 2020-11-26 10:16 | Day surgery (SDC) | payer OTHER ==
[2020-11-26] MEDS ORDERED: ACETAMINOPHEN 325 MG TABLET (FP) PO PRN (10:24)
[2020-11-26] MEDS ORDERED: PROMETHAZINE HCL 25 MG/1 ML VIAL IVPUSH PRN (10:24)
[2020-11-26] MEDS ORDERED: LACTATED RINGERS SOLUTION 1,000 ML IV SCH (10:30)
[2020-11-26 10:41] VITALS: TEMP 97.8; BMI 44.1
[2020-11-26] MEDS ORDERED: KETAMINE HCL 500 MG/10 ML VIAL ONE (11:30)
[2020-11-26 13:14] VITALS: BP 118/76; PULSE 74
== END 2020-11-26 13:35 | disposition home or self-care (01) ==
LOC: FECT 10:16
PROVIDERS: ATTEND Psychiatry & Neurology Psychiatry
PROC: GZB4ZZZ Other Electroconvulsive Therapy (ICD-10-PCS; principal; 2020-11-26 11:30)
DX: F32.9 Major depressive disorder, single episode, unspecified (principal)
CPT/HCPCS: 90870; 94760

== ENCOUNTER 2020-12-10 09:08 | Day surgery (SDC) | payer OTHER ==
[2020-12-10 09:59] VITALS: BMI 43.7
[2020-12-10] MEDS ORDERED: KETAMINE HCL 500 MG/10 ML VIAL ONE (10:20)
[2020-12-10] MEDS ORDERED: SUCCINYLCHOLINE CHLORIDE 200 MG/10 ML SYRINGE ONE (10:28)
[2020-12-10] MEDS ORDERED: ONDANSETRON 4 MG/2 ML VIAL IVPUSH PRN (11:06)
[2020-12-10] MEDS ORDERED: LACTATED RINGERS SOLUTION 1,000 ML IV SCH (11:15)
[2020-12-10 15:19] VITALS: TEMP 97.7
[2020-12-10 15:22] VITALS: BP 136/74; PULSE 87
== END 2020-12-10 13:00 | disposition home or self-care (01) ==
LOC: FECT 09:08
PROVIDERS: ATTEND Psychiatry & Neurology Psychiatry
PROC: GZB4ZZZ Other Electroconvulsive Therapy (ICD-10-PCS; principal; 2020-12-10 11:00)
DX: F32.9 Major depressive disorder, single episode, unspecified (principal)
CPT/HCPCS: 90870; 94760

== ENCOUNTER 2020-12-24 07:51 | Day surgery (SDC) | payer OTHER ==
[2020-12-24 08:49] VITALS: TEMP 98.1; BMI 43.6
[2020-12-24] MEDS ORDERED: KETAMINE HCL 500 MG/10 ML VIAL ONE (09:43)
[2020-12-24 11:04] VITALS: BP 133/83; PULSE 75
== END 2020-12-24 11:55 | disposition home or self-care (01) ==
LOC: FECT 07:51
PROVIDERS: ATTEND Psychiatry & Neurology Psychiatry
PROC: GZB4ZZZ Other Electroconvulsive Therapy (ICD-10-PCS; principal; 2020-12-24 08:00)
DX: F32.9 Major depressive disorder, single episode, unspecified (principal)
CPT/HCPCS: 90870; 94760

== ENCOUNTER 2021-01-07 08:32 | Day surgery (SDC) | payer OTHER ==
[2021-01-07 09:51] VITALS: BMI 43.6
[2021-01-07] MEDS ORDERED: KETAMINE HCL 500 MG/10 ML VIAL ONE (10:15)
[2021-01-07] MEDS ORDERED: ONDANSETRON 4 MG/2 ML VIAL ONE (10:22)
[2021-01-07] MEDS ORDERED: DEXAMETHASONE SOD PHOSPHATE 4 MG/1 ML VIAL ONE (10:22)
[2021-01-07] MEDS ORDERED: LIDOCAINE HCL/PF 2% SDV 5ML VIAL ONE (10:22)
[2021-01-07] MEDS ORDERED: KETOROLAC TROMETHAMINE 30 MG/1 ML VIAL ONE (10:22)
[2021-01-07 11:02] VITALS: TEMP 97.8
[2021-01-07 12:30] VITALS: BP 128/86; PULSE 88
== END 2021-01-08 12:35 | disposition home or self-care (01) ==
LOC: FECT 08:32
PROVIDERS: ATTEND Psychiatry & Neurology Psychiatry
PROC: GZB4ZZZ Other Electroconvulsive Therapy (ICD-10-PCS; principal; 2021-01-07 11:00)
DX: F32.9 Major depressive disorder, single episode, unspecified (principal)
CPT/HCPCS: 90870; 94760

== ENCOUNTER 2021-01-17 08:31 | Day surgery (SDC) | payer OTHER ==
[2021-01-17 09:25] VITALS: BMI 43.9
[2021-01-17] MEDS ORDERED: KETAMINE HCL 500 MG/10 ML VIAL ONE (10:40)
[2021-01-17] MEDS ORDERED: LIDOCAINE HCL/PF 2% SDV 5ML VIAL ONE (10:50)
[2021-01-17] MEDS ORDERED: DEXAMETHASONE SOD PHOSPHATE 4 MG/1 ML VIAL ONE (10:50)
[2021-01-17] MEDS ORDERED: ONDANSETRON 4 MG/2 ML VIAL ONE (10:50)
[2021-01-17 12:21] VITALS: PULSE 78; TEMP 97.8
[2021-01-17 12:41] VITALS: BP 121/65
== END 2021-01-17 13:15 | disposition home or self-care (01) ==
LOC: FECT 08:31
PROVIDERS: ATTEND Psychiatry & Neurology Psychiatry
PROC: GZB4ZZZ Other Electroconvulsive Therapy (ICD-10-PCS; principal; 2021-01-17 10:15)
DX: F32.9 Major depressive disorder, single episode, unspecified (principal)
CPT/HCPCS: 90870; 94760

== ENCOUNTER 2021-02-01 07:14 | Day surgery (SDC) | payer OTHER ==
[2021-02-01 07:56] VITALS: BMI 43.1
[2021-02-01] MEDS ORDERED: KETAMINE HCL 500 MG/10 ML VIAL ONE (09:22)
[2021-02-01] MEDS ORDERED: ACETAMINOPHEN 500 MG TABLET (FP) PO PRN (10:24)
[2021-02-01] MEDS ORDERED: PROMETHAZINE HCL 25 MG/1 ML VIAL IVPUSH PRN (10:24)
[2021-02-01] MEDS ORDERED: LACTATED RINGERS SOLUTION 1,000 ML IV SCH (10:30)
[2021-02-01 10:32] VITALS: TEMP 97.8
[2021-02-01 11:50] VITALS: BP 110/71; PULSE 82
== END 2021-02-01 11:45 | disposition home or self-care (01) ==
LOC: FECT 07:14
PROVIDERS: ATTEND Psychiatry & Neurology Psychiatry
PROC: GZB4ZZZ Other Electroconvulsive Therapy (ICD-10-PCS; principal; 2021-02-01 08:30)
DX: F33.2 Major depressive disorder, recurrent severe without psychotic features (principal)
CPT/HCPCS: 82962; 90870; 94760

== ENCOUNTER 2021-02-14 09:43 | Day surgery (SDC) | payer OTHER ==
[2021-02-14 10:53] VITALS: TEMP 97.8; BMI 43.3
[2021-02-14] MEDS ORDERED: KETAMINE HCL 500 MG/10 ML VIAL ONE (11:11)
[2021-02-14 13:21] VITALS: BP 112/72; PULSE 88
== END 2021-02-14 12:50 | disposition home or self-care (01) ==
LOC: FECT 09:43
PROVIDERS: ATTEND Psychiatry & Neurology Psychiatry
PROC: GZB4ZZZ Other Electroconvulsive Therapy (ICD-10-PCS; principal; 2021-02-14 11:00)
DX: F32.9 Major depressive disorder, single episode, unspecified (principal)
CPT/HCPCS: 82962; 90870; 94760

== ENCOUNTER 2021-02-28 09:53 | Day surgery (SDC) | payer OTHER ==
[2021-02-28 10:21] VITALS: BMI 43.1
[2021-02-28] MEDS ORDERED: KETAMINE HCL 500 MG/10 ML VIAL ONE (11:16)
[2021-02-28] MEDS ORDERED: LIDOCAINE HCL/PF 2% SDV 5ML VIAL ONE (11:19)
[2021-02-28] MEDS ORDERED: PROPOFOL 20 ML ONE (11:19)
[2021-02-28] MEDS ORDERED: ONDANSETRON 4 MG/2 ML VIAL ONE (11:21)
[2021-02-28] MEDS ORDERED: DEXAMETHASONE SOD PHOSPHATE 4 MG/1 ML VIAL ONE (11:21)
[2021-02-28] MEDS ORDERED: hydrALAZINE HCL 20 MG/ML VIAL ONE (11:40)
[2021-02-28 11:54] VITALS: TEMP 98.2
[2021-02-28 12:57] VITALS: BP 136/66; PULSE 89
[2021-02-28] MEDS ORDERED: ACETAMINOPHEN 325 MG TABLET (FP) PO PRN (13:45)
[2021-02-28] MEDS ORDERED: LACTATED RINGERS SOLUTION 1,000 ML IV SCH (13:45)
[2021-02-28] MEDS ORDERED: PROMETHAZINE HCL 25 MG/1 ML VIAL IVPUSH PRN (13:45)
[2021-02-28] MEDS ORDERED: ONDANSETRON 4 MG/2 ML VIAL IVPUSH PRN (13:45)
== END 2021-02-28 13:10 | disposition home or self-care (01) ==
LOC: FECT 09:53
PROVIDERS: ATTEND Psychiatry & Neurology Psychiatry
PROC: GZB4ZZZ Other Electroconvulsive Therapy (ICD-10-PCS; principal; 2021-02-28 11:00)
DX: F33.2 Major depressive disorder, recurrent severe without psychotic features (principal)
CPT/HCPCS: 82962; 90870; 94760

== ENCOUNTER 2021-03-14 07:59 | Day surgery (SDC) | payer OTHER ==
[2021-03-14 08:38] VITALS: BMI 43.1
[2021-03-14] MEDS ORDERED: KETAMINE HCL 500 MG/10 ML VIAL ONE (09:57)
[2021-03-14 11:29] VITALS: TEMP 98
[2021-03-14 11:31] VITALS: BP 133/77; PULSE 89
== END 2021-03-14 12:20 | disposition home or self-care (01) ==
LOC: FECT 07:59
PROVIDERS: ATTEND Psychiatry & Neurology Psychiatry
PROC: GZB4ZZZ Other Electroconvulsive Therapy (ICD-10-PCS; principal; 2021-03-14 10:00)
DX: F32.9 Major depressive disorder, single episode, unspecified (principal)
CPT/HCPCS: 90870; 94760

== ENCOUNTER 2021-03-28 08:08 | Day surgery (SDC) | payer OTHER ==
[2021-03-28 09:00] VITALS: BMI 43.3
[2021-03-28] MEDS ORDERED: DEXAMETHASONE SOD PHOSPHATE 4 MG/1 ML VIAL ONE (10:33)
[2021-03-28] MEDS ORDERED: PROPOFOL 20 ML ONE (10:33)
[2021-03-28] MEDS ORDERED: ONDANSETRON 4 MG/2 ML VIAL ONE (10:33)
[2021-03-28] MEDS ORDERED: ACETAMINOPHEN 500 MG TABLET (FP) PO PRN (11:30)
[2021-03-28 12:51] VITALS: TEMP 98.1
[2021-03-28 12:53] VITALS: BP 125/75; PULSE 86
== END 2021-03-28 12:45 | disposition home or self-care (01) ==
LOC: FECT 08:08
PROVIDERS: ATTEND Psychiatry & Neurology Psychiatry
PROC: GZB4ZZZ Other Electroconvulsive Therapy (ICD-10-PCS; principal; 2021-03-28 10:30)
DX: F32.9 Major depressive disorder, single episode, unspecified (principal)
CPT/HCPCS: 82962; 90870; 94760

== ENCOUNTER 2021-04-12 07:54 | Day surgery (SDC) | payer OTHER ==
[2021-04-12 08:26] VITALS: BMI 44.6
[2021-04-12] MEDS ORDERED: KETAMINE HCL 500 MG/10 ML VIAL ONE (08:44)
[2021-04-12] MEDS ORDERED: ALBUTEROL SO4 0.083% IH SOL 2.5 MG/3 ML VIAL.NEB. NEB PRN (09:56)
[2021-04-12 12:12] VITALS: BP 116/78; PULSE 98; TEMP 97.4
== END 2021-04-12 12:50 | disposition home or self-care (01) ==
LOC: FECT 07:54
PROVIDERS: ATTEND Psychiatry & Neurology Psychiatry
PROC: GZB4ZZZ Other Electroconvulsive Therapy (ICD-10-PCS; principal; 2021-04-12 09:00)
DX: F32.9 Major depressive disorder, single episode, unspecified (principal)
CPT/HCPCS: 82962; 90870; 94760

== ENCOUNTER 2021-04-25 09:43 | Day surgery (SDC) | payer OTHER ==
[2021-04-25 10:54] VITALS: TEMP 98.4; BMI 44.3
[2021-04-25 11:21] LABS: HEMATOCRIT 40.8 % (32.4-45.2)
[2021-04-25 11:23] LABS: BASO % 1.7 % (0-2.0); EOS % 11.3 % (0-4.5); HEMOGLOBIN 13.5 GM/dl (10.7-15.3); LYMPH % 31.1 % (8-40); MCH 28.5 pg (25.7-33.7); MCHC 33.1 g/dl (32.0-36.0); MEAN CELL VOLUME 86.2 fl (80-96); MEAN PLT VOLUME 8.5 fl (7.5-11.1); MONO % 6.3 % (3.8-10.2); NEUT % 49.6 % (42.8-82.8); PLATELET COUNT 201 10^3/uL (134-434); RBC 4.73 M/mm3 (3.60-5.2); RDW 14.6 % (11.6-15.6); WHITE BLOOD COUNT 8.2 K/mm3 (4.0-10.8)
[2021-04-25 11:35] LABS: CALCIUM 9.1 mg/dl (8.5-10); CREATININE 0.6 mg/dl (0.55-1.3); MAGNESIUM 1.8 mg/dL (1.8-2.4)
[2021-04-25] MEDS ORDERED: KETAMINE HCL 500 MG/10 ML VIAL ONE (11:59)
[2021-04-25 14:52] VITALS: BP 127/70; PULSE 94
== END 2021-04-25 14:15 | disposition home or self-care (01) ==
LOC: FECT 09:43
PROVIDERS: ATTEND Psychiatry & Neurology Psychiatry
PROC: GZB4ZZZ Other Electroconvulsive Therapy (ICD-10-PCS; principal; 2021-04-25 11:00)
DX: F32.9 Major depressive disorder, single episode, unspecified (principal)
CPT/HCPCS: 36415; 80048; 82962; 83735; 85025; 90870; 94760

== ENCOUNTER 2021-05-10 09:20 | Day surgery (SDC) | payer OTHER ==
[2021-05-10 10:23] VITALS: BMI 43.5
[2021-05-10] MEDS ORDERED: KETAMINE HCL 500 MG/10 ML VIAL ONE (11:57)
[2021-05-10 13:23] VITALS: TEMP 99
[2021-05-10 13:27] VITALS: BP 133/76; PULSE 94
== END 2021-05-10 13:45 | disposition home or self-care (01) ==
LOC: FECT 09:20
PROVIDERS: ATTEND Psychiatry & Neurology Psychiatry
PROC: GZB4ZZZ Other Electroconvulsive Therapy (ICD-10-PCS; principal; 2021-05-10 11:30)
DX: F33.2 Major depressive disorder, recurrent severe without psychotic features (principal)
CPT/HCPCS: 82962; 90870; 94760

== ENCOUNTER 2021-05-23 09:17 | Day surgery (SDC) | payer OTHER ==
[2021-05-23 09:42] VITALS: BMI 42.5
[2021-05-23] MEDS ORDERED: PROPOFOL 20 ML ONE (10:37)
[2021-05-23] MEDS ORDERED: KETAMINE HCL 500 MG/10 ML VIAL ONE (10:50)
[2021-05-23 12:08] VITALS: TEMP 98
[2021-05-23 13:52] VITALS: BP 121/72; PULSE 81
== END 2021-05-23 13:00 | disposition home or self-care (01) ==
LOC: FECT 09:17
PROVIDERS: ATTEND Psychiatry & Neurology Psychiatry
PROC: GZB4ZZZ Other Electroconvulsive Therapy (ICD-10-PCS; principal; 2021-05-23 10:30)
DX: F32.9 Major depressive disorder, single episode, unspecified (principal)
CPT/HCPCS: 82962; 90870; 94760

== ENCOUNTER 2021-06-07 08:33 | Day surgery (SDC) | payer OTHER ==
[2021-06-07 09:11] VITALS: BMI 43.8
[2021-06-07] MEDS ORDERED: KETAMINE HCL 500 MG/10 ML VIAL ONE (09:58)
[2021-06-07] MEDS ORDERED: PROPOFOL 20 ML ONE (10:05)
[2021-06-07 11:18] VITALS: BP 125/82; PULSE 89; TEMP 98
== END 2021-06-07 11:15 | disposition home or self-care (01) ==
LOC: FECT 08:33
PROVIDERS: ATTEND Psychiatry & Neurology Psychiatry
PROC: 3E0234Z Introduction of Serum, Toxoid and Vaccine into Muscle, Percutaneous Approach (ICD-10-PCS; principal; 2021-06-07 10:00)
DX: F32.9 Major depressive disorder, single episode, unspecified (principal)
CPT/HCPCS: 82962; 90870; 94760

== ENCOUNTER → 2021-06-20 | Day surgery (SDC) | payer OTHER ==
[~2021-06-20] MED LIST changes: -DEXAMETHASONE SOD PHOSPHATE 4 MG/1 ML VIAL ONE; -KETOROLAC TROMETHAMINE 30 MG/1 ML VIAL ONE; -ONDANSETRON 4 MG/2 ML VIAL ONE
[2021-06-20 08:35] VITALS: BMI 43.7
[2021-06-20 10:40] VITALS: BP 127/78; PULSE 84; TEMP 98
== END | disposition home or self-care (01) ==
LOC: FECT 08:11
PROVIDERS: ATTEND Psychiatry & Neurology Psychiatry
PROC: GZB4ZZZ Other Electroconvulsive Therapy (ICD-10-PCS; principal; 2021-06-20 09:00)
DX: F32.9 Major depressive disorder, single episode, unspecified (principal)
CPT/HCPCS: 82962; 90870; 94760

== ENCOUNTER 2021-07-01 15:45 | Emergency (ER) | payer OTHER ==
[2021-07-01 15:52] VITALS: BP 136/71; PULSE 98; TEMP 99; BMI 45.3
== END 2021-07-01 16:56 | disposition home or self-care (01) ==
LOC: FER 15:45
DX: R42 Dizziness and giddiness (principal)
CPT/HCPCS: 82962; 93005; 99284-25

== ENCOUNTER 2021-07-05 08:06 | Day surgery (SDC) | payer OTHER ==
[2021-07-05 08:34] VITALS: BMI 45.8
[2021-07-05] MEDS ORDERED: LIDOCAINE HCL 2% JELLY (5 ML/TUBE) ONE (08:47)
[2021-07-05] MEDS ORDERED: KETAMINE HCL 500 MG/10 ML VIAL ONE (09:15)
[2021-07-05 12:14] VITALS: TEMP 98.3
[2021-07-05 12:17] VITALS: BP 136/71; PULSE 88
== END 2021-07-05 11:30 | disposition home or self-care (01) ==
LOC: FECT 08:06
PROVIDERS: ATTEND Psychiatry & Neurology Psychiatry
PROC: GZB4ZZZ Other Electroconvulsive Therapy (ICD-10-PCS; principal; 2021-07-05 09:30)
DX: F32.9 Major depressive disorder, single episode, unspecified (principal)
CPT/HCPCS: 82962; 90870; 94760

== ENCOUNTER 2021-07-18 09:43 | Day surgery (SDC) | payer OTHER ==
[2021-07-18 10:17] VITALS: BMI 45.7
[2021-07-18] MEDS ORDERED: KETAMINE HCL 500 MG/10 ML VIAL ONE (10:33)
[2021-07-18 11:08] VITALS: TEMP 98.9
[2021-07-18 11:59] VITALS: BP 139/79; PULSE 94
== END 2021-07-18 12:20 | disposition home or self-care (01) ==
LOC: FECT 09:43
PROVIDERS: ATTEND Psychiatry & Neurology Psychiatry
PROC: GZB4ZZZ Other Electroconvulsive Therapy (ICD-10-PCS; principal; 2021-07-18 11:30)
DX: F32.9 Major depressive disorder, single episode, unspecified (principal)
CPT/HCPCS: 90870; 94760

== ENCOUNTER 2021-08-08 08:45 | Day surgery (SDC) | payer OTHER ==
[2021-08-07 15:07] VITALS: BMI 45.7
[2021-08-08] MEDS ORDERED: PROPOFOL 20 ML ONE (10:11)
[2021-08-08] MEDS ORDERED: KETAMINE HCL 500 MG/10 ML VIAL ONE (10:11)
[2021-08-08 11:44] VITALS: BP 149/82; PULSE 81; TEMP 98.6
== END 2021-08-08 12:00 | disposition home or self-care (01) ==
LOC: FECT 08:45
PROVIDERS: ATTEND Psychiatry & Neurology Psychiatry
PROC: GZB4ZZZ Other Electroconvulsive Therapy (ICD-10-PCS; principal; 2021-08-08 10:00)
DX: F32.9 Major depressive disorder, single episode, unspecified (principal)
CPT/HCPCS: 90870; 94760

== ENCOUNTER 2021-08-29 11:00 | Day surgery (SDC) | payer OTHER ==
[2021-08-29 11:38] VITALS: BMI 45.7
[2021-08-29] MEDS ORDERED: KETAMINE HCL 500 MG/10 ML VIAL ONE (12:01)
[2021-08-29 13:55] VITALS: TEMP 98.3
[2021-08-29 14:12] VITALS: BP 132/66; PULSE 92
== END 2021-08-29 14:40 | disposition home or self-care (01) ==
LOC: FECT 11:00
PROVIDERS: ATTEND Psychiatry & Neurology Psychiatry
PROC: GZB4ZZZ Other Electroconvulsive Therapy (ICD-10-PCS; principal; 2021-08-29 12:00)
DX: F32.9 Major depressive disorder, single episode, unspecified (principal)
CPT/HCPCS: 90870; 94760

== ENCOUNTER → 2021-09-13 | Day surgery (SDC) | payer OTHER ==
[~2021-09-13] MED LIST changes: +ACETAMINOPHEN 500 MG TABLET (FP) PO PRN; +DEXAMETHASONE SOD PHOSPHATE 4 MG/1 ML VIAL ONE; +GLYCOPYRROLATE 0.2 MG/1 ML VIAL ONE; +LACTATED RINGERS SOLUTION 1,000 ML IV SCH; +LIDOCAINE HCL/PF 2% SDV 5ML VIAL ONE; +ONDANSETRON 4 MG/2 ML VIAL IVPUSH PRN; +ONDANSETRON 4 MG/2 ML VIAL ONE; +PROMETHAZINE HCL 25 MG/1 ML VIAL IVPUSH PRN
[2021-09-13 08:45] VITALS: BMI 45.7
[2021-09-13 11:04] VITALS: TEMP 97.7
[2021-09-13 11:18] VITALS: BP 125/65; PULSE 89
== END | disposition home or self-care (01) ==
LOC: FECT 08:05
PROVIDERS: ATTEND Psychiatry & Neurology Psychiatry
PROC: GZB4ZZZ Other Electroconvulsive Therapy (ICD-10-PCS; principal; 2021-09-13 10:00)
DX: F32.9 Major depressive disorder, single episode, unspecified (principal)
CPT/HCPCS: 82962; 90870; 94760

== ENCOUNTER 2021-09-19 09:34 | Day surgery (SDC) | payer OTHER ==
[2021-09-19 09:53] VITALS: BMI 45.7
[2021-09-19] MEDS ORDERED: KETAMINE HCL 500 MG/10 ML VIAL ONE (10:38)
[2021-09-19 11:19] VITALS: TEMP 98.6
[2021-09-19 12:29] VITALS: BP 151/80; PULSE 100
== END 2021-09-19 12:45 | disposition home or self-care (01) ==
LOC: FECT 09:34
PROVIDERS: ATTEND Psychiatry & Neurology Psychiatry
PROC: GZB4ZZZ Other Electroconvulsive Therapy (ICD-10-PCS; principal; 2021-09-19 10:30)
DX: F32.9 Major depressive disorder, single episode, unspecified (principal)
CPT/HCPCS: 82962; 90870; 94760

== ENCOUNTER 2021-10-03 09:37 | Day surgery (SDC) | payer OTHER ==
[2021-09-27 08:17] VITALS: BMI 45.7
[2021-10-03] MEDS ORDERED: KETAMINE HCL 500 MG/10 ML VIAL ONE (10:45)
[2021-10-03 11:21] VITALS: TEMP 97.3
[2021-10-03 11:36] VITALS: PULSE 88
[2021-10-03 12:12] VITALS: BP 139/74
== END 2021-10-03 12:14 | disposition home or self-care (01) ==
LOC: FECT 09:37
PROVIDERS: ATTEND Psychiatry & Neurology Psychiatry
PROC: GZB4ZZZ Other Electroconvulsive Therapy (ICD-10-PCS; principal; 2021-10-03 11:00)
DX: F32.9 Major depressive disorder, single episode, unspecified (principal)
CPT/HCPCS: 82962; 90870; 94760

== ENCOUNTER 2021-10-14 09:42 | Day surgery (SDC) | payer OTHER ==
[2021-10-14] MEDS ORDERED: KETAMINE HCL 500 MG/10 ML VIAL ONE (11:00)
[2021-10-14 13:25] VITALS: TEMP 97.5
[2021-10-14 13:27] VITALS: BP 121/66; PULSE 88
== END 2021-10-14 13:25 | disposition home or self-care (01) ==
LOC: FECT 09:42
PROVIDERS: ATTEND Psychiatry & Neurology Psychiatry
PROC: GZB4ZZZ Other Electroconvulsive Therapy (ICD-10-PCS; principal; 2021-10-14 09:30)
DX: F33.2 Major depressive disorder, recurrent severe without psychotic features (principal)
CPT/HCPCS: 82962; 90870; 94760

== ENCOUNTER 2021-10-28 10:34 | Day surgery (SDC) | payer OTHER ==
[2021-10-28 11:04] VITALS: BMI 46.7
[2021-10-28] MEDS ORDERED: KETAMINE HCL 500 MG/10 ML VIAL ONE (11:49)
[2021-10-28] MEDS ORDERED: SUCCINYLCHOLINE CHLORIDE 200 MG/10 ML SYRINGE ONE (11:51)
[2021-10-28 13:50] VITALS: TEMP 98.6
[2021-10-28 14:51] VITALS: BP 109/51; PULSE 94
== END 2021-10-28 13:30 | disposition home or self-care (01) ==
LOC: FECT 10:34
PROVIDERS: ATTEND Psychiatry & Neurology Psychiatry
PROC: GZB4ZZZ Other Electroconvulsive Therapy (ICD-10-PCS; principal; 2021-10-28 12:00)
DX: F33.2 Major depressive disorder, recurrent severe without psychotic features (principal)
CPT/HCPCS: 82962; 90870; 94760

== ENCOUNTER 2021-11-14 11:01 | Day surgery (SDC) | payer OTHER ==
[2021-11-14 11:29] VITALS: BMI 31.5
[2021-11-14] MEDS ORDERED: KETAMINE HCL 500 MG/10 ML VIAL ONE (12:03)
[2021-11-14 13:08] VITALS: TEMP 98.1
[2021-11-14 13:41] VITALS: BP 126/66; PULSE 86
== END 2021-11-14 13:45 | disposition home or self-care (01) ==
LOC: FECT 11:01
PROVIDERS: ATTEND Psychiatry & Neurology Psychiatry
PROC: GZB4ZZZ Other Electroconvulsive Therapy (ICD-10-PCS; principal; 2021-11-14 12:12)
DX: F32.9 Major depressive disorder, single episode, unspecified (principal)
CPT/HCPCS: 82962; 90870; 94760

== ENCOUNTER → 2021-11-28 | Day surgery (SDC) | payer OTHER ==
[~2021-11-28] MED LIST changes: -ACETAMINOPHEN 500 MG TABLET (FP) PO PRN; -DEXAMETHASONE SOD PHOSPHATE 4 MG/1 ML VIAL ONE; -GLYCOPYRROLATE 0.2 MG/1 ML VIAL ONE; -LACTATED RINGERS SOLUTION 1,000 ML IV SCH; -LIDOCAINE HCL/PF 2% SDV 5ML VIAL ONE; -ONDANSETRON 4 MG/2 ML VIAL IVPUSH PRN; -ONDANSETRON 4 MG/2 ML VIAL ONE; -PROMETHAZINE HCL 25 MG/1 ML VIAL IVPUSH PRN; -PROPOFOL 20 ML ONE; -SUCCINYLCHOLINE CHLORIDE 200 MG/10 ML SYRINGE ONE
[2021-11-28 07:40] VITALS: BMI 47.0
[2021-11-28 09:57] VITALS: TEMP 97.7
[2021-11-28 10:49] VITALS: BP 124/82; PULSE 92
== END | disposition home or self-care (01) ==
LOC: FECT 06:29
PROVIDERS: ATTEND Psychiatry & Neurology Psychiatry
PROC: GZB4ZZZ Other Electroconvulsive Therapy (ICD-10-PCS; principal; 2021-11-28 08:24)
DX: F32.9 Major depressive disorder, single episode, unspecified (principal)
CPT/HCPCS: 82962; 90870; 94760

== ENCOUNTER 2021-12-26 09:57 | Day surgery (SDC) | payer OTHER ==
[2021-12-26 10:24] VITALS: BMI 47.4
[2021-12-26 13:34] VITALS: BP 135/75; PULSE 61; TEMP 98.1
== END 2021-12-26 13:30 | disposition home or self-care (01) ==
LOC: FECT 09:57
PROVIDERS: ATTEND Psychiatry & Neurology Psychiatry
PROC: GZB4ZZZ Other Electroconvulsive Therapy (ICD-10-PCS; principal; 2021-12-26 11:50)
DX: F32.9 Major depressive disorder, single episode, unspecified (principal)
CPT/HCPCS: 82962; 90870; 94760

== ENCOUNTER 2022-01-16 07:03 | Day surgery (SDC) | payer OTHER ==
[2022-01-16 07:31] VITALS: BMI 48.0
[2022-01-16] MEDS ORDERED: KETAMINE HCL 500 MG/10 ML VIAL ONE (07:57)
[2022-01-16 10:20] VITALS: TEMP 98
[2022-01-16 10:23] VITALS: BP 132/60; PULSE 92
== END 2022-01-16 10:50 | disposition home or self-care (01) ==
LOC: FECT 07:03
PROVIDERS: ATTEND Psychiatry & Neurology Psychiatry
PROC: GZB4ZZZ Other Electroconvulsive Therapy (ICD-10-PCS; principal; 2022-01-16 08:36)
DX: F32.9 Major depressive disorder, single episode, unspecified (principal)
CPT/HCPCS: 82962; 90870; 94760

== ENCOUNTER 2022-01-30 07:30 | Emergency (ER) | payer OTHER ==
[2022-01-30] MEDS ORDERED: ACETAMINOPHEN 325 MG TABLET (FP) PO ONE (07:41)
[2022-01-30 07:47] VITALS: BP 131/94; PULSE 91; TEMP 99.6; BMI 43.2
[2022-01-30] MEDS ORDERED: ACETAMINOPHEN 325 MG TABLET (FP) ONE (07:55)
[2022-01-30 08:32] LABS: HEMATOCRIT 38.5 % (32.4-45.2); HEMOGLOBIN 13.3 G/dL (10.7-15.3); MCH 28.9 pg (25.7-33.7); MCHC 34.5 g/dl (32.0-36.0); MEAN CELL VOLUME 83.7 fl (80-96); MEAN PLT VOLUME 8.5 fl (7.5-11.1); PLATELET COUNT 230.2 10^3/uL (134-434); RDW 16.1 % (11.6-15.6); WHITE BLOOD COUNT 12.3 10^3/uL (4.0-10.8)
[2022-01-30 08:35] LABS: ALBUMIN 3.8 g/dl (3.4-5.0); BILIRUBIN,TOTAL 0.6 mg/dl (0.2-1); CALCIUM 9.2 mg/dl (8.5-10); CREATININE 0.6 mg/dl (0.55-1.3); TOT PROT 7.1 g/dl (6.4-8.2)
[2022-01-30] MEDS ORDERED: KETOROLAC TROMETHAMINE 30 MG/1 ML VIAL IM ONE (09:05)
[2022-01-30] MEDS ORDERED: KETOROLAC TROMETHAMINE 30 MG/1 ML VIAL ONE (09:15)
== END 2022-01-30 09:59 | disposition home or self-care (01) ==
LOC: FER 07:30
PROC: 3E0233Z Introduction of Anti-inflammatory into Muscle, Percutaneous Approach (ICD-10-PCS; principal; 2022-01-30)
DX: M79.604 Pain in right leg (principal); M79.605 Pain in left leg
CPT/HCPCS: 36415; 80053; 82550; 85027; 99284-25

== ENCOUNTER 2022-02-13 09:11 | Day surgery (SDC) | payer OTHER ==
[2022-02-13 09:43] VITALS: BMI 46.1
[2022-02-13 11:55] VITALS: TEMP 98
[2022-02-13 11:57] VITALS: BP 132/69; PULSE 84
== END 2022-02-13 12:00 | disposition home or self-care (01) ==
LOC: FECT 09:11
PROVIDERS: ATTEND Psychiatry & Neurology Psychiatry
PROC: GZB4ZZZ Other Electroconvulsive Therapy (ICD-10-PCS; principal; 2022-02-13 10:23)
DX: F32.9 Major depressive disorder, single episode, unspecified (principal)
CPT/HCPCS: 82962; 90870; 94760

== ENCOUNTER 2022-03-14 06:45 | Day surgery (SDC) | payer OTHER ==
[2022-03-14 07:10] VITALS: BMI 46.0
[2022-03-14] MEDS ORDERED: KETAMINE HCL 500 MG/10 ML VIAL ONE (08:28)
[2022-03-14] MEDS ORDERED: SUCCINYLCHOLINE CHLORIDE 200 MG/10 ML SYRINGE ONE (09:11)
[2022-03-14 09:45] VITALS: BP 119/86; PULSE 91; TEMP 97.8
== END 2022-03-14 10:20 | disposition home or self-care (01) ==
LOC: FECT 06:45
PROVIDERS: ATTEND Psychiatry & Neurology Psychiatry
PROC: GZB4ZZZ Other Electroconvulsive Therapy (ICD-10-PCS; principal; 2022-03-14 08:38)
DX: F32.A Depression, unspecified (principal)
CPT/HCPCS: 82962; 90870; 94760

== ENCOUNTER 2022-04-17 07:59 | Day surgery (SDC) | payer OTHER ==
[2022-04-17 08:32] VITALS: BMI 46.3
[2022-04-17] MEDS ORDERED: KETAMINE HCL 500 MG/10 ML VIAL ONE (09:48)
[2022-04-17 10:20] LABS: HEMATOCRIT 45.1 % (32.4-45.2); HEMOGLOBIN 15.1 G/dL (10.7-15.3); MCH 28.3 pg (25.7-33.7); MCHC 33.4 g/dl (32.0-36.0); MEAN CELL VOLUME 84.8 fl (80-96); MEAN PLT VOLUME 8.9 fl (7.5-11.1); PLATELET COUNT 222.2 10^3/uL (134-434); RBC 5.32 10^6/uL (3.60-5.2); RDW 16.4 % (11.6-15.6)
[2022-04-17 10:21] LABS: BILIRUBIN,TOTAL 0.7 mg/dl (0.2-1); CALCIUM 9.4 mg/dl (8.5-10); CREATININE 0.6 mg/dl (0.55-1.3); TOT PROT 7.1 g/dl (6.4-8.2)
[2022-04-17 10:32] VITALS: RESP 18
[2022-04-17 10:59] VITALS: TEMP 97.2
[2022-04-17 11:23] VITALS: BP 127/74; PULSE 82
== END 2022-04-17 11:55 | disposition home or self-care (01) ==
LOC: FECT 07:59
PROVIDERS: ATTEND Psychiatry & Neurology Psychiatry
PROC: GZB4ZZZ Other Electroconvulsive Therapy (ICD-10-PCS; principal; 2022-04-17 09:59)
DX: F33.9 Major depressive disorder, recurrent, unspecified (principal)
CPT/HCPCS: 36415; 80053; 82962; 85027; 90870; 93005; 93010; 94760

== ENCOUNTER 2022-05-29 08:36 | Day surgery (SDC) | payer OTHER ==
[2022-05-29 09:29] VITALS: BMI 46.2
[2022-05-29 13:05] VITALS: PULSE 88; RESP 16; TEMP 98.2
[2022-05-29 13:29] VITALS: BP 112/70
== END 2022-05-29 13:20 | disposition home or self-care (01) ==
LOC: FECT 08:36
PROVIDERS: ATTEND Psychiatry & Neurology Psychiatry
PROC: GZB4ZZZ Other Electroconvulsive Therapy (ICD-10-PCS; principal; 2022-05-29 11:30)
DX: F33.9 Major depressive disorder, recurrent, unspecified (principal)
CPT/HCPCS: 82962; 90870; 94760

== ENCOUNTER → 2022-06-26 | Day surgery (SDC) | payer OTHER ==
[2022-06-26 11:38] VITALS: RESP 18; TEMP 97.8; BMI 44.8
[2022-06-26 13:35] VITALS: BP 145/79; PULSE 83
== END | disposition home or self-care (01) ==
LOC: FECT 11:16
PROVIDERS: ATTEND Psychiatry & Neurology Psychiatry
PROC: GZB4ZZZ Other Electroconvulsive Therapy (ICD-10-PCS; principal; 2022-06-26 12:16)
DX: F32.A Depression, unspecified (principal)
CPT/HCPCS: 82962; 90870; 94760

== ENCOUNTER 2022-08-05 08:15 | Day surgery (SDC) | payer OTHER ==
[2022-08-05 09:06] VITALS: BMI 45.1
[2022-08-05] MEDS ORDERED: PROPOFOL 40 ML ONE (10:02)
[2022-08-05] MEDS ORDERED: KETAMINE HCL 200 MG/20 ML VIAL ONE (10:03)
[2022-08-05 12:44] VITALS: TEMP 97.8
[2022-08-05 12:45] VITALS: RESP 16
[2022-08-05 12:50] VITALS: BP 136/74; PULSE 78
== END 2022-08-05 12:00 | disposition home or self-care (01) ==
LOC: FECT 08:15
PROVIDERS: ATTEND Psychiatry & Neurology Psychiatry
PROC: GZB4ZZZ Other Electroconvulsive Therapy (ICD-10-PCS; principal; 2022-08-05 10:11)
DX: F32.A Depression, unspecified (principal)
CPT/HCPCS: 82962; 90870; 94760

== ENCOUNTER 2022-09-09 07:54 | Day surgery (SDC) | payer OTHER ==
[2022-09-09 09:20] VITALS: BMI 44.9
[2022-09-09] MEDS ORDERED: ACETAMINOPHEN 325 MG TABLET (FP) PO PRN (10:27)
[2022-09-09 11:28] VITALS: PULSE 83; RESP 20; TEMP 97.8
[2022-09-09 12:43] VITALS: BP 122/84
== END 2022-09-09 12:30 | disposition home or self-care (01) ==
LOC: FECT 07:54
PROVIDERS: ATTEND Psychiatry & Neurology Psychiatry
PROC: GZB4ZZZ Other Electroconvulsive Therapy (ICD-10-PCS; principal; 2022-09-09 10:09)
DX: F32.A Depression, unspecified (principal)
CPT/HCPCS: 82962; 90870; 94760

== ENCOUNTER 2022-10-09 08:21 | Day surgery (SDC) | payer OTHER ==
[2022-10-06 09:53] VITALS: BMI 44.8
[2022-10-09 09:58] LABS: HEMATOCRIT 40.9 % (32.4-45.2); MCH 29.9 pg (25.7-33.7); MCHC 34.2 g/dl (32.0-36.0); MEAN CELL VOLUME 87.6 fl (80-96); MEAN PLT VOLUME 8.6 fl (7.5-11.1); PLATELET COUNT 179.3 10^3/uL (134-434); RBC 4.67 10^6/uL (3.60-5.2); RDW 14.3 % (11.6-15.6); WHITE BLOOD COUNT 9.2 10^3/uL (4.0-10.8)
[2022-10-09 10:04] LABS: BILIRUBIN,TOTAL 0.7 mg/dl (0.2-1); CALCIUM 8.8 mg/dl (8.5-10); CREATININE 0.7 mg/dl (0.55-1.3); TOT PROT 7.4 g/dl (6.4-8.2)
[2022-10-09] MEDS ORDERED: KETAMINE HCL 500 MG/10 ML VIAL ONE (11:23)
[2022-10-09] MEDS ORDERED: PROPOFOL 40 ML ONE (11:23)
[2022-10-09] MEDS ORDERED: SUCCINYLCHOLINE CHLORIDE 200 MG/10 ML SYRINGE ONE (11:23)
[2022-10-09 12:31] VITALS: RESP 18; TEMP 97.8
[2022-10-09 12:47] VITALS: BP 121/66; PULSE 88
== END 2022-10-09 12:45 | disposition home or self-care (01) ==
LOC: FECT 08:21
PROVIDERS: ATTEND Psychiatry & Neurology Psychiatry
PROC: GZB4ZZZ Other Electroconvulsive Therapy (ICD-10-PCS; principal; 2022-10-09 11:32)
DX: F33.9 Major depressive disorder, recurrent, unspecified (principal)
CPT/HCPCS: 36415; 80053; 82962; 85027; 90870; 93005; 93010; 94760

== ENCOUNTER 2022-11-06 10:55 | Day surgery (SDC) | payer OTHER ==
[2022-11-03 15:24] VITALS: BMI 44.8
[2022-11-06 13:15] VITALS: PULSE 89; RESP 18; TEMP 97.9
[2022-11-06] MEDS ORDERED: LACTATED RINGERS SOLUTION 1,000 ML IV SCH (13:30)
[2022-11-06 13:36] VITALS: BP 138/76
== END 2022-11-06 14:00 | disposition home or self-care (01) ==
LOC: FECT 10:55
PROVIDERS: ATTEND Psychiatry & Neurology Psychiatry
PROC: GZB4ZZZ Other Electroconvulsive Therapy (ICD-10-PCS; principal; 2022-11-06 12:20)
DX: F32.A Depression, unspecified (principal)
CPT/HCPCS: 82962; 90870; 94760

== ENCOUNTER 2022-11-27 09:54 | Day surgery (SDC) | payer OTHER ==
[2022-11-25 15:02] VITALS: BMI 44.8
[~2022-11-27 09:54] MED LIST changes: -KETAMINE HCL 500 MG/10 ML VIAL ONE; +LACTATED RINGERS SOLUTION 1,000 ML IV SCH
[2022-11-27] MEDS ORDERED: KETAMINE HCL 500 MG/10 ML VIAL ONE (11:31)
[2022-11-27 12:31] VITALS: RESP 18; TEMP 97.8
[2022-11-27 14:40] VITALS: BP 118/75; PULSE 81
== END 2022-11-27 13:15 | disposition home or self-care (01) ==
LOC: FECT 09:54
PROVIDERS: ATTEND Psychiatry & Neurology Psychiatry
PROC: GZB4ZZZ Other Electroconvulsive Therapy (ICD-10-PCS; principal; 2022-11-27 11:46)
DX: F33.9 Major depressive disorder, recurrent, unspecified (principal)
CPT/HCPCS: 82962; 90870; 94760

== ENCOUNTER 2022-12-25 10:31 | Day surgery (SDC) | payer OTHER ==
[2022-12-25 10:59] VITALS: RESP 18; BMI 44.8
[2022-12-25] MEDS ORDERED: KETAMINE HCL 500 MG/10 ML VIAL ONE (11:55)
[2022-12-25] MEDS ORDERED: SUCCINYLCHOLINE CHLORIDE 200 MG/10 ML SYRINGE ONE ×2 (12:02)
[2022-12-25] MEDS ORDERED: LIDOCAINE HCL/PF 2% SDV 5ML VIAL ONE (12:05)
[2022-12-25 12:30] VITALS: TEMP 97
[2022-12-25 13:49] VITALS: BP 139/81; PULSE 85
== END 2022-12-25 13:30 | disposition home or self-care (01) ==
LOC: FECT 10:31
PROVIDERS: ATTEND Psychiatry & Neurology Psychiatry
PROC: GZB4ZZZ Other Electroconvulsive Therapy (ICD-10-PCS; principal; 2022-12-25 12:09)
DX: F32.A Depression, unspecified (principal)
CPT/HCPCS: 82962; 90870; 94760

== ENCOUNTER 2023-01-22 08:11 | Day surgery (SDC) | payer OTHER ==
[2023-01-22 09:37] VITALS: BMI 44.0
[2023-01-22] MEDS ORDERED: KETAMINE HCL 500 MG/10 ML VIAL ONE (10:50)
[2023-01-22 11:54] VITALS: TEMP 97.4
[2023-01-22 12:09] VITALS: RESP 18
[2023-01-22 12:18] VITALS: BP 110/66; PULSE 82
== END 2023-01-22 13:15 | disposition home or self-care (01) ==
LOC: FECT 08:11
PROVIDERS: ATTEND Psychiatry & Neurology Psychiatry
PROC: GZB4ZZZ Other Electroconvulsive Therapy (ICD-10-PCS; principal; 2023-01-22 11:11)
DX: F33.9 Major depressive disorder, recurrent, unspecified (principal)
CPT/HCPCS: 82962; 90870; 94760

== ENCOUNTER 2023-02-19 09:27 | Day surgery (SDC) | payer OTHER ==
[2023-02-19 10:16] VITALS: BMI 44.3
[2023-02-19] MEDS ORDERED: ACETAMINOPHEN 500 MG TABLET (FP) PO PRN (11:04)
[2023-02-19] MEDS ORDERED: PROMETHAZINE HCL 25 MG/1 ML VIAL IVPB PRN (11:04)
[2023-02-19] MEDS ORDERED: LACTATED RINGERS SOLUTION 1,000 ML IV SCH (11:15)
[2023-02-19] MEDS ORDERED: KETAMINE HCL 500 MG/10 ML VIAL ONE (11:22)
[2023-02-19 12:04] VITALS: RESP 16
[2023-02-19 14:23] VITALS: TEMP 97.7
[2023-02-19 14:25] VITALS: BP 137/87; PULSE 84
== END 2023-02-19 13:15 | disposition home or self-care (01) ==
LOC: FECT 09:27
PROVIDERS: ATTEND Psychiatry & Neurology Psychiatry
PROC: GZB4ZZZ Other Electroconvulsive Therapy (ICD-10-PCS; principal; 2023-02-19 11:35)
DX: F33.9 Major depressive disorder, recurrent, unspecified (principal)
CPT/HCPCS: 82962; 90870; 94760

== ENCOUNTER 2023-04-16 10:25 | Day surgery (SDC) | payer OTHER ==
[2023-04-16] MEDS ORDERED: KETAMINE HCL 500 MG/10 ML VIAL ONE (12:26)
[2023-04-16 14:01] VITALS: RESP 16; TEMP 98
[2023-04-16 14:03] VITALS: BP 122/68; PULSE 178
[2023-04-16 15:12] VITALS: BMI 43.2
== END 2023-04-16 14:00 | disposition home or self-care (01) ==
LOC: FECT 10:25
PROVIDERS: ATTEND Psychiatry & Neurology Psychiatry
PROC: GZB4ZZZ Other Electroconvulsive Therapy (ICD-10-PCS; principal; 2023-04-16 12:40)
DX: F32.A Depression, unspecified (principal)
CPT/HCPCS: 82962; 90870; 94760

== ENCOUNTER 2023-05-12 09:25 | Day surgery (SDC) | payer OTHER ==
[2023-05-12 11:12] VITALS: BMI 43.7
[2023-05-12] MEDS ORDERED: PROPOFOL 20 ML ONE (12:31)
[2023-05-12 14:02] VITALS: BP 102/79; PULSE 88; RESP 20; TEMP 97.8
== END 2023-05-12 14:08 | disposition home or self-care (01) ==
LOC: FECT 09:25
PROVIDERS: ATTEND Psychiatry & Neurology Psychiatry
PROC: GZB4ZZZ Other Electroconvulsive Therapy (ICD-10-PCS; principal; 2023-05-12 12:58)
DX: F32.A Depression, unspecified (principal)
CPT/HCPCS: 82962; 90870; 94760

== ENCOUNTER 2023-06-18 10:37 | Day surgery (SDC) | payer OTHER ==
[2023-06-18 11:11] VITALS: BMI 43.9
[2023-06-18 11:52] LABS: HEMATOCRIT 41.9 % (32.4-45.2); HEMOGLOBIN 13.9 G/dL (10.7-15.3); MCH 28.8 pg (25.7-33.7); MCHC 33.1 g/dl (32.0-36.0); MEAN CELL VOLUME 87.2 fl (80-96); MEAN PLT VOLUME 8.6 fl (7.5-11.1); PLATELET COUNT 147.7 10^3/uL (134-434); RBC 4.81 10^6/uL (3.60-5.2); RDW 14.7 % (11.6-15.6); WHITE BLOOD COUNT 8.1 10^3/uL (4.0-10.8)
[2023-06-18] MEDS ORDERED: ACETAMINOPHEN 325 MG TABLET (FP) PO PRN (12:19)
[2023-06-18] MEDS ORDERED: LACTATED RINGERS SOLUTION 1,000 ML IV SCH (12:30)
[2023-06-18] MEDS ORDERED: KETOROLAC TROMETHAMINE 30 MG/1 ML VIAL ONE (12:36)
[2023-06-18 12:40] LABS: ALBUMIN 3.6 g/dl (3.4-5.0); BLOOD UREA NITROGEN 10.1 mg/dL (7-18); CALCIUM 8.8 mg/dL (8.5-10.1)
[2023-06-18] MEDS ORDERED: ONDANSETRON 4 MG/2 ML VIAL ONE (12:41)
[2023-06-18] MEDS ORDERED: PROPOFOL 20 ML ONE (12:41)
[2023-06-18] MEDS ORDERED: KETAMINE HCL 500 MG/10 ML VIAL ONE (12:42)
[2023-06-18 12:43] LABS: CREATININE 0.7 mg/dL (0.55-1.3)
[2023-06-18 12:45] LABS: BILIRUBIN,TOTAL 0.4 mg/dL (0.2-1); TOT PROT 6.8 g/dl (6.4-8.2)
[2023-06-18 14:13] VITALS: RESP 18; TEMP 97.8
[2023-06-18 14:31] VITALS: BP 125/71; PULSE 86
== END 2023-06-18 14:30 | disposition home or self-care (01) ==
LOC: FECT 10:37
PROVIDERS: ATTEND Psychiatry & Neurology Psychiatry
PROC: GZB4ZZZ Other Electroconvulsive Therapy (ICD-10-PCS; principal; 2023-06-18 12:48)
DX: F32.A Depression, unspecified (principal)
CPT/HCPCS: 36415; 80053; 82962; 85027; 90870; 94760

== ENCOUNTER 2023-07-16 10:46 | Day surgery (SDC) | payer OTHER ==
[2023-07-15 09:37] VITALS: BMI 43.9
[2023-07-16] MEDS ORDERED: LACTATED RINGERS SOLUTION 1,000 ML IV SCH (12:15)
[2023-07-16] MEDS ORDERED: KETAMINE HCL 500 MG/10 ML VIAL ONE (12:22)
[2023-07-16] MEDS ORDERED: IPRATROPIUM BR 0.02% 0.5 MG/2.5 ML VIAL.NEB. NEB ONE (12:52)
[2023-07-16] MEDS ORDERED: ALBUTEROL SO4 0.083% IH SOL 2.5 MG/3 ML VIAL.NEB. NEB ONE ×2 (13:28→13:30)
[2023-07-16] MEDS ORDERED: ALBUTEROL SO4 0.042% IH SOL 1.25 MG/3 ML VIAL.NEB NEB ONE (13:36)
[2023-07-16] MEDS ORDERED: ALBUTEROL SO4 2.5/IPRATROPIUM 0.5 INH SOL 3 ML VIAL.NEB. NEB ONE (13:36)
[2023-07-16 15:11] VITALS: RESP 19; TEMP 98
[2023-07-16 15:26] VITALS: BP 128/68; PULSE 82
== END 2023-07-16 14:45 | disposition home or self-care (01) ==
LOC: FECT 10:46
PROVIDERS: ATTEND Student in an Organized Health Care Education/Training Program
PROC: GZB4ZZZ Other Electroconvulsive Therapy (ICD-10-PCS; principal; 2023-07-16 12:36)
DX: F32.A Depression, unspecified (principal)
CPT/HCPCS: 82962; 90870; 94760

== ENCOUNTER 2023-08-13 08:23 | Day surgery (SDC) | payer OTHER ==
[2023-08-13 08:49] VITALS: BMI 43.7
[2023-08-13 08:50] VITALS: BP 163/75; PULSE 97; RESP 16; TEMP 97.6
== END 2023-08-13 09:45 | disposition home or self-care (01) ==
LOC: FECT 08:23
PROVIDERS: ATTEND Student in an Organized Health Care Education/Training Program
PROC: GZB4ZZZ Other Electroconvulsive Therapy (ICD-10-PCS; principal; 2023-08-13)
DX: F33.2 Major depressive disorder, recurrent severe without psychotic features (principal)
CPT/HCPCS: 82962

== ENCOUNTER 2023-08-20 11:21 | Day surgery (SDC) | payer OTHER ==
[2023-08-20 12:07] VITALS: BMI 43.7
[2023-08-20] MEDS ORDERED: ONDANSETRON 4 MG/2 ML VIAL ONE (13:11)
[2023-08-20] MEDS ORDERED: DEXAMETHASONE SOD PHOSPHATE 4 MG/1 ML VIAL ONE (13:12)
[2023-08-20] MEDS ORDERED: KETOROLAC TROMETHAMINE 30 MG/1 ML VIAL ONE (13:12)
[2023-08-20] MEDS ORDERED: KETAMINE HCL 100 MG/ML - 5ML VIAL ONE (13:12)
[2023-08-20] MEDS ORDERED: SUCCINYLCHOLINE CHLORIDE 200 MG/10 ML SYRINGE ONE (13:14)
[2023-08-20] MEDS ORDERED: PROPOFOL 20 ML ONE (13:16)
[2023-08-20 14:18] VITALS: BP 127/67; PULSE 79; RESP 18; TEMP 97.9
== END 2023-08-20 14:50 | disposition home or self-care (01) ==
LOC: FECT 11:21
PROVIDERS: ATTEND Student in an Organized Health Care Education/Training Program
PROC: GZB4ZZZ Other Electroconvulsive Therapy (ICD-10-PCS; principal; 2023-08-20 13:27)
DX: F33.2 Major depressive disorder, recurrent severe without psychotic features (principal)
CPT/HCPCS: 82962; 90870; 94760

== ENCOUNTER 2023-09-17 10:09 | Day surgery (SDC) | payer OTHER ==
[2023-09-17 10:38] VITALS: BMI 43.4
[2023-09-17] MEDS ORDERED: KETAMINE HCL 100 MG/ML - 5ML VIAL ONE (11:30)
[2023-09-17 12:09] VITALS: TEMP 97.3
[2023-09-17 12:54] VITALS: RESP 18
[2023-09-17 13:08] VITALS: BP 128/78; PULSE 82
== END 2023-09-17 13:20 | disposition home or self-care (01) ==
LOC: FECT 10:09
PROVIDERS: ATTEND Student in an Organized Health Care Education/Training Program
PROC: GZB4ZZZ Other Electroconvulsive Therapy (ICD-10-PCS; principal; 2023-09-17 11:42)
DX: F33.2 Major depressive disorder, recurrent severe without psychotic features (principal)
CPT/HCPCS: 82962; 90870; 93005; 94760

== ENCOUNTER 2023-10-30 09:32 | Day surgery (SDC) | payer OTHER ==
[2023-10-30 10:09] VITALS: BMI 42.8
[2023-10-30] MEDS ORDERED: KETAMINE HCL 100 MG/ML - 5ML VIAL ONE (12:40)
[2023-10-30 13:38] VITALS: TEMP 98.2
[2023-10-30 14:03] VITALS: BP 118/65; PULSE 80
[2023-10-30 14:37] VITALS: RESP 20
== END 2023-10-30 14:38 | disposition home or self-care (01) ==
LOC: FECT 09:32
PROVIDERS: ATTEND Student in an Organized Health Care Education/Training Program
PROC: GZB4ZZZ Other Electroconvulsive Therapy (ICD-10-PCS; principal; 2023-10-30 12:51)
DX: F32.A Depression, unspecified (principal)
CPT/HCPCS: 36415; 82010; 82962; 90870; 94760

== ENCOUNTER 2023-12-04 08:39 | Day surgery (SDC) | payer OTHER ==
[2023-11-19 11:38] VITALS: BMI 42.8
[2023-12-04 09:02] VITALS: RESP 20
[2023-12-04 10:08] LABS: HEMATOCRIT 44.7 % (32.4-45.2); HEMOGLOBIN 14.8 G/dL (10.7-15.3); MCH 29.1 pg (25.7-33.7); MCHC 33.2 g/dl (32.0-36.0); MEAN CELL VOLUME 87.6 fl (80-96); PLATELET COUNT 182.1 10^3/uL (134-434); RDW 14.9 % (11.6-15.6); WHITE BLOOD COUNT 10.7 10^3/uL (4.0-10.8)
[2023-12-04 10:19] LABS: ALBUMIN 4.6 g/dl (3.4-5.0); BILIRUBIN,TOTAL 0.6 mg/dl (0.2-1); CALCIUM 9.6 mg/dl (8.5-10.1); CREATININE 0.6 mg/dl (0.6-1.3); POTASSIUM 4.1 mmol/L (3.5-5.1); TOT PROT 7.6 g/dl (6.4-8.2)
[2023-12-04 11:11] LABS: PLATELET ESTIMATE ADEQUATE
[2023-12-04] MEDS ORDERED: KETAMINE HCL 100 MG/ML - 5ML VIAL ONE (11:20)
[2023-12-04 12:49] VITALS: TEMP 97.8
[2023-12-04 13:01] VITALS: BP 135/71; PULSE 87
== END 2023-12-04 13:55 | disposition home or self-care (01) ==
LOC: FECT 08:39
PROVIDERS: ATTEND Student in an Organized Health Care Education/Training Program
PROC: GZB4ZZZ Other Electroconvulsive Therapy (ICD-10-PCS; principal; 2023-12-04 11:34)
DX: F32.A Depression, unspecified (principal)
CPT/HCPCS: 36415; 80053; 82962; 85025; 90870; 94760

== ENCOUNTER 2024-01-01 11:23 | Day surgery (SDC) | payer OTHER ==
[2024-01-01 11:49] VITALS: RESP 16; BMI 42.5
[2024-01-01] MEDS ORDERED: KETAMINE HCL 100 MG/ML - 5ML VIAL ONE (13:00)
[2024-01-01 14:42] VITALS: BP 140/74; TEMP 97.7
[2024-01-01 15:05] VITALS: PULSE 85
== END 2024-01-01 15:05 | disposition home or self-care (01) ==
LOC: FECT 11:23
PROVIDERS: ATTEND Student in an Organized Health Care Education/Training Program
PROC: GZB4ZZZ Other Electroconvulsive Therapy (ICD-10-PCS; principal; 2024-01-01 13:53)
DX: F32.A Depression, unspecified (principal)
CPT/HCPCS: 82962; 90870; 94760

== ENCOUNTER 2024-01-29 06:57 | Day surgery (SDC) | payer OTHER ==
[2024-01-29 07:32] VITALS: BMI 43.1
[2024-01-29] MEDS ORDERED: KETAMINE HCL 100 MG/ML - 5ML VIAL ONE (08:10)
[2024-01-29] MEDS ORDERED: PROPOFOL 20 ML ONE (08:57)
[2024-01-29 09:27] VITALS: RESP 16
[2024-01-29 10:04] VITALS: TEMP 98.4
[2024-01-29 10:57] VITALS: BP 158/80; PULSE 88
== END 2024-01-29 10:47 | disposition home or self-care (01) ==
LOC: FECT 06:57
PROVIDERS: ATTEND Student in an Organized Health Care Education/Training Program
PROC: GZB4ZZZ Other Electroconvulsive Therapy (ICD-10-PCS; principal; 2024-01-29 09:01)
DX: F33.2 Major depressive disorder, recurrent severe without psychotic features (principal)
CPT/HCPCS: 82962; 90870; 94760

== ENCOUNTER 2024-02-26 06:06 | Day surgery (SDC) | payer OTHER ==
[2024-02-26 06:49] VITALS: BMI 44.1
[2024-02-26] MEDS ORDERED: KETAMINE HCL 100 MG/ML - 5ML VIAL ONE (07:34)
[2024-02-26] MEDS ORDERED: PROPOFOL 20 ML ONE (07:40)
[2024-02-26] MEDS ORDERED: SUCCINYLCHOLINE CHLORIDE 200 MG/10 ML SYRINGE ONE (07:40)
[2024-02-26 08:37] VITALS: RESP 18
[2024-02-26 09:02] VITALS: PULSE 90; TEMP 97.7
[2024-02-26 09:41] VITALS: BP 130/74
== END 2024-02-26 09:30 | disposition home or self-care (01) ==
LOC: FECT 06:06
PROVIDERS: ATTEND Student in an Organized Health Care Education/Training Program
PROC: GZB4ZZZ Other Electroconvulsive Therapy (ICD-10-PCS; principal; 2024-02-26 07:51)
DX: F32.A Depression, unspecified (principal)
CPT/HCPCS: 82962; 90870; 94760

== ENCOUNTER 2024-03-25 08:26 | Day surgery (SDC) | payer OTHER ==
[2024-03-25 09:08] VITALS: BMI 42.7
[2024-03-25] MEDS ORDERED: PROPOFOL 20 ML ONE (10:54)
[2024-03-25] MEDS ORDERED: KETAMINE HCL 100 MG/ML - 5ML VIAL ONE (10:55)
[2024-03-25 11:57] VITALS: RESP 18; TEMP 97.1
[2024-03-25 13:02] VITALS: BP 128/72; PULSE 73
== END 2024-03-25 13:04 | disposition home or self-care (01) ==
LOC: FECT 08:26
PROVIDERS: ATTEND Student in an Organized Health Care Education/Training Program
PROC: GZB4ZZZ Other Electroconvulsive Therapy (ICD-10-PCS; principal; 2024-03-25 11:03)
DX: F32.A Depression, unspecified (principal)
CPT/HCPCS: 82962; 90870; 94760

== ENCOUNTER 2024-04-22 08:25 | Day surgery (SDC) | payer OTHER ==
[2024-04-22 08:50] VITALS: BMI 43.4
[2024-04-22] MEDS ORDERED: KETAMINE HCL 100 MG/ML - 5ML VIAL ONE (10:34)
[2024-04-22 11:48] VITALS: PULSE 92; RESP 18; TEMP 97.4
[2024-04-22 12:49] VITALS: BP 140/82
== END 2024-04-22 12:30 | disposition home or self-care (01) ==
LOC: FECT 08:25
PROVIDERS: ATTEND Student in an Organized Health Care Education/Training Program
PROC: GZB4ZZZ Other Electroconvulsive Therapy (ICD-10-PCS; principal; 2024-04-22 11:00)
DX: F32.A Depression, unspecified (principal)
CPT/HCPCS: 82962; 90870; 94760

== ENCOUNTER 2024-05-20 08:06 | Day surgery (SDC) | payer OTHER ==
[2024-05-20 08:27] VITALS: BMI 43.7
[2024-05-20] MEDS ORDERED: KETAMINE HCL 100 MG/ML - 5ML VIAL ONE (10:05)
[2024-05-20] MEDS ORDERED: LIDOCAINE HCL/PF 2% SDV 5ML VIAL ONE (10:14)
[2024-05-20 11:51] VITALS: RESP 16; TEMP 97.3
[2024-05-20 12:39] VITALS: BP 132/74; PULSE 88
== END 2024-05-20 12:20 | disposition home or self-care (01) ==
LOC: FECT 08:06
PROVIDERS: ATTEND Student in an Organized Health Care Education/Training Program
PROC: GZB4ZZZ Other Electroconvulsive Therapy (ICD-10-PCS; principal; 2024-05-20 10:21)
DX: F32.A Depression, unspecified (principal)
CPT/HCPCS: 82962; 90870; 94760

== ENCOUNTER 2024-06-17 07:13 | Day surgery (SDC) | payer OTHER ==
[2024-06-14 14:20] VITALS: BMI 43.7
[2024-06-17 08:39] LABS: ALBUMIN 4.7 g/dl (3.4-5.0); BILIRUBIN,TOTAL 0.6 mg/dl (0.2-1); CALCIUM 9.8 mg/dl (8.5-10.1); CREATININE 0.6 mg/dl (0.6-1.3); POTASSIUM 3.9 mmol/L (3.5-5.1); TOT PROT 7.1 g/dl (6.4-8.2)
[2024-06-17 09:55] LABS: HEMATOCRIT 44.2 % (32.4-45.2); HEMOGLOBIN 14.4 GM/dL (10.7-15.3); MCH 27.9 pg (25.7-33.7); MCHC 32.5 g/dl (32.0-36.0); MEAN PLT VOLUME 8.8 fl (7.5-11.1); PLATELET COUNT 182 10^3/uL (134-434); RBC 5.14 M/mm3 (3.60-5.2); RDW 16.9 % (11.6-15.6); WHITE BLOOD COUNT 9.5 K/mm3 (4.0-10.0)
[2024-06-17] MEDS ORDERED: KETAMINE HCL 100 MG/ML - 5ML VIAL ONE (10:50)
[2024-06-17 12:38] VITALS: RESP 18
[2024-06-17 12:55] VITALS: BP 129/79; PULSE 88; TEMP 97.9
== END 2024-06-17 12:45 | disposition home or self-care (01) ==
LOC: FECT 07:13
PROVIDERS: ATTEND Student in an Organized Health Care Education/Training Program
PROC: GZB4ZZZ Other Electroconvulsive Therapy (ICD-10-PCS; principal; 2024-06-17 11:04)
DX: F32.A Depression, unspecified (principal)
CPT/HCPCS: 36415; 80053; 82962; 85027; 90870; 93005; 93010; 94760

== ENCOUNTER 2024-07-15 08:37 | Day surgery (SDC) | payer OTHER ==
[2024-07-15 09:08] VITALS: BMI 43.1
[2024-07-15] MEDS ORDERED: KETAMINE HCL 100 MG/ML - 5ML VIAL ONE (09:43)
[2024-07-15 10:54] VITALS: RESP 20; TEMP 98.2
[2024-07-15 11:26] VITALS: BP 138/72; PULSE 82
== END 2024-07-15 11:35 | disposition home or self-care (01) ==
LOC: FECT 08:37
PROVIDERS: ATTEND Psychiatry & Neurology Psychiatry
PROC: GZB4ZZZ Other Electroconvulsive Therapy (ICD-10-PCS; principal; 2024-07-15 09:54)
DX: F33.2 Major depressive disorder, recurrent severe without psychotic features (principal)
CPT/HCPCS: 82962; 90870; 94760

== ENCOUNTER 2024-09-09 08:18 | Day surgery (SDC) | payer OTHER ==
[2024-09-09 08:35] VITALS: BMI 43.3
[2024-09-09] MEDS ORDERED: KETAMINE HCL 100 MG/ML - 5ML VIAL ONE (09:23)
[2024-09-09 11:05] VITALS: RESP 16; TEMP 97.8
[2024-09-09 11:07] VITALS: BP 132/74; PULSE 84
== END 2024-09-09 11:30 | disposition home or self-care (01) ==
LOC: FECT 08:18
PROVIDERS: ATTEND Student in an Organized Health Care Education/Training Program
PROC: GZB4ZZZ Other Electroconvulsive Therapy (ICD-10-PCS; principal; 2024-09-09 09:31)
DX: F33.2 Major depressive disorder, recurrent severe without psychotic features (principal)
CPT/HCPCS: 82962; 90870; 94760

== ENCOUNTER 2024-11-04 08:26 | Day surgery (SDC) | payer OTHER ==
[2024-11-04 09:41] VITALS: BMI 43.6
[2024-11-04] MEDS ORDERED: KETAMINE HCL 100 MG/ML - 5ML VIAL ONE (11:21)
[2024-11-04 13:23] VITALS: RESP 18; TEMP 98
[2024-11-04 13:25] VITALS: BP 140/77; PULSE 87
== END 2024-11-04 13:20 | disposition home or self-care (01) ==
LOC: FECT 08:26
PROVIDERS: ATTEND Student in an Organized Health Care Education/Training Program
PROC: GZB4ZZZ Other Electroconvulsive Therapy (ICD-10-PCS; principal; 2024-11-04 11:55)
DX: F33.2 Major depressive disorder, recurrent severe without psychotic features (principal)
CPT/HCPCS: 82962; 90870; 94760

== ENCOUNTER 2024-12-30 07:29 | Day surgery (SDC) | payer OTHER ==
[2024-12-30 08:05] VITALS: RESP 18; BMI 44.8
[2024-12-30 08:32] LABS: ABSOLUTE IMMATURE GRANULOCYTES 0.01 x10^3/uL (0.0-0.031); BASOPHILS # 0.04 x10^3/uL (0.01-0.08); EOSINOPHIL % 2.2 % (0.7-5.8); EOSINOPHILS # 0.19 x10^3/uL (0.04-0.36); HEMATOCRIT 44.9 % (34.1-44.9); HEMOGLOBIN 14.9 g/dL (11.2-15.7); MCHC 33.2 g/dl (32.2-35.5); MEAN CELL VOLUME 86.3 fl (79.4-94.8); MEAN PLT VOLUME 10.2 fl (9.4-12.3); MONOCYTE % 4.6 % (4.7-12.5); PLATELET COUNT 186 x10^3/uL (182-369); RDW 13.9 % (12.4-16.4)
[2024-12-30 09:06] LABS: ALBUMIN 4.6 g/dl (3.4-5.0); BILIRUBIN,TOTAL 0.6 mg/dl (0.2-1); CALCIUM 9.2 mg/dl (8.5-10.1); CREATININE 0.6 mg/dl (0.6-1.3); POTASSIUM 3.9 mmol/L (3.5-5.1); TOT PROT 6.7 g/dl (6.4-8.2)
[2024-12-30] MEDS ORDERED: KETAMINE HCL 100 MG/ML - 5ML VIAL ONE (10:05)
[2024-12-30 11:32] VITALS: TEMP 98
[2024-12-30 11:50] VITALS: BP 149/79; PULSE 86
== END 2024-12-30 11:55 | disposition home or self-care (01) ==
LOC: FECT 07:29
PROVIDERS: ATTEND Psychiatry & Neurology Psychiatry
PROC: GZB4ZZZ Other Electroconvulsive Therapy (ICD-10-PCS; principal; 2024-12-30 10:19)
DX: F33.2 Major depressive disorder, recurrent severe without psychotic features (principal)
CPT/HCPCS: 36415; 80053; 85025; 90870; 93005; 93010; 94760

== ENCOUNTER 2025-02-24 07:49 | Day surgery (SDC) | payer OTHER ==
[2025-02-24 08:20] VITALS: BMI 44.6
[2025-02-24] MEDS ORDERED: KETAMINE HCL 100 MG/ML - 5ML VIAL ONE (09:42)
[2025-02-24] MEDS ORDERED: PROPOFOL 20 ML ONE (10:12)
[2025-02-24 11:44] VITALS: RESP 20; TEMP 97.2
[2025-02-24 11:57] VITALS: BP 140/68; PULSE 78
== END 2025-02-24 11:50 | disposition home or self-care (01) ==
LOC: FECT 07:49
PROVIDERS: ATTEND Student in an Organized Health Care Education/Training Program
PROC: GZB4ZZZ Other Electroconvulsive Therapy (ICD-10-PCS; principal; 2025-02-24 10:18)
DX: F32.A Depression, unspecified (principal)
CPT/HCPCS: 82962; 90870; 94760